=== PATIENT | female | born 1945 | race Caucasian/White ===

== ENCOUNTER → 2017-01-24 | Outpatient (CLI) | payer MEDICARE ==
--- NOTE | 2017-01-27 13:32 | PN ---
This patient is coming in for a followup regarding obstructive sleep apnea. The patient was seen in my office March 2016. At that time, I evaluated her sleep apnea and she was found to have an AHI of 29.8 based on a sleep study that was done in 2012. The patient was quite symptomatic and she had CPAP machine that was set at a pressure of 10 cm of water based on the previous sleep study and CPAP titration. I gave the patient a different mask interface. Back then, I recommended Airfit P10 nasal pillows and I asked her to see me in follow up. Unfortunately, the patient did not comply with our recommendations and the patient did not use her CPAP machine at all. Recently she was hospitalized for pneumonia and she was having issues with paroxysmal atrial fibrillation. The issue of sleep apnea surfaced again and the patient wanted to be reevaluated. Note that the patient was hospitalized for pneumonia and asthma exacerbation and she is currently under the care of Dr. Shruthi Azar and she is completing a Prednisone burst taper and she is receiving Q-Hina and Xolair shots on an outpatient basis regarding her asthma. In terms of her obstructive sleep apnea, the patient has lost around 10 pounds. She is asking to be reevaluated. I think it is reasonable to repeat this patient's CPAP titration to offer her more successful treatment knowing that her previous treatment while being on CPAP of 10 has somewhat failed for reasons that are not clear to me at this point. She has a Rezmet S9 ( ) machine which is quite functional at this point. BP is 128/71. Pulse 83, respiratory 16. Temperature 97.4, saturation 93% on room air. Weight is 255. Height is 5'2". General appearance: Calm, comfortable. HEENT: Mallampati Class IV. There is no goiter. No neck masses. LUNGS: Clear to auscultation. Heart sounds are regular rate and rhythm. Normal S1, S2. No S3, no S4. No murmurs. Abdomen soft, nontender. No organomegaly. Extremities: Trace edema. There is no cyanosis. No clubbing. No edema. IMPRESSION: 1. Symptomatic obstructive sleep apnea. The patient is coming in for an evaluation. She has failed CPAP therapy in the past. She is coming in for a reevaluation. Baseline AHI 29.8 based on the sleep study that was done in 2012. In the interim, the patient has lost around 10 pounds. 2. Chronic hypersomnia. Currently [place] score is 20. 3. Severe persistent bronchial asthma that has been difficult to control. Currently under the care of Dr. Nestor Azar. As the patient has been recently hospitalized for asthmatic exacerbation and pneumonia, she is currently on Prednisone burst taper. 4. Coronary artery disease. 5. Peripheral neuropathy. 6. Hypertension. 7. Fibromyalgia. 8. History of breast cancer. 9. Bipolar disorder. 10. History of claustrophobia. 11. Fibromyalgia. PLAN: 1. My plan is to repeat the patient's CPAP titration during which the patient' s CPAP pressure will be updated and we will hopefully offer her a different mask interface which she should be able to tolerate. 2. Encourage further weight loss. 3. Optimize asthma. 4. We will follow. MTDD
== END | disposition home or self-care (01) ==
LOC: SLEEP 13:44
PROVIDERS: ATTEND Internal Medicine Critical Care Medicine
DX: G47.30 Sleep apnea, unspecified (principal); G47.13 Recurrent hypersomnia; J44.9 Chronic obstructive pulmonary disease, unspecified; Z79.899 Other long term (current) drug therapy

== ENCOUNTER 2017-03-28 11:31 | Inpatient (IN) | payer MEDICARE ==
[2017-03-28] MEDS ORDERED: SODIUM CHLORIDE 0.9% 1,000 ML IV STA (11:46)
[2017-03-28] MEDS ORDERED: KETOROLAC 30 MG/ML 1 ML VIAL IVP STA (11:47)
--- NOTE | 2017-03-28 12:01 | ED ---
General Adult HPI - General Chief complaint: Shortness of Breath Stated complaint: HTN Time Seen by Provider: 03/28/17 11:31 Source: patient, EMS, RN notes reviewed Mode of arrival: EMS Limitations: no limitations - History of Present Illness Initial comments: This is a 71-year-old female who presents by EMS with complaints of 3 days of a headache. Some lightheadedness. She did have diarrhea 3 days ago when the headache started since that she's had nausea vomiting and no is her blood pressure going up steadily each day. She is also decreased oral intake. She denies any neck or overt back pain though she did have some shoulder pain went away. She does have a history of A. fib. Patient has a history of A. fib rate was in the 90s per paramedics. Blood pressure was noted be 190/110. She has of history meniscectomy. Her pain is frontal in nature throbbing achy 9/10 severity. She has a sore throat earaches neck pain. No focal deficits. - Related Data Home Medications Medication Instructions Recorded Confirmed Baclofen 10 mg PO HS 04/13/15 03/28/17 oxyCODONE HCL [OxyIR] 5 mg PO Q6H PRN 04/13/15 03/28/17 Carvedilol [Coreg] 25 mg PO BID 03/28/17 03/28/17 Denosumab [Prolia] 60 mg SQ Q180D 03/28/17 03/28/17 Fluticasone Propionate [Flovent 2 puff INHALATION RT-BID 03/28/17 03/28/17 Hfa 220MCG] Montelukast Sodium [Singulair] 10 mg PO HS 03/28/17 03/28/17 Omalizumab [Xolair] 150 mg SQ Q21D 03/28/17 03/28/17 Polyethylene Glycol 3350 [Miralax] 17 gm PO DAILY 03/28/17 03/28/17 Pravastatin Sodium [Pravachol] 20 mg PO HS 03/28/17 03/28/17 Ramipril [Altace] 5 mg PO BID 03/28/17 03/28/17 Rivaroxaban [Xarelto] 20 mg PO DAILY 03/28/17 03/28/17 Topiramate [Topamax] 200 mg PO DAILY 03/28/17 03/28/17 lamoTRIgine [LaMICtal] 200 mg PO DAILY 03/28/17 03/28/17 Allergies Allergy/AdvReac Type Severity Reaction Status Date / Time alendronate sodium Allergy Unknown Verified 03/28/17 12:02 [From Fosamax] amitriptyline HCl Allergy Unknown Verified 03/28/17 12:02 [From Elavil] codeine Allergy Unknown Verified 03/28/17 12:02 doxepin HCl [From Sinequan] Allergy Unknown Verified 03/28/17 12:02 gabapentin [From Neurontin] Allergy Unknown Verified 03/28/17 12:02 ibuprofen [From Motrin] Allergy Unknown Verified 03/28/17 12:02 iodine Allergy Unknown Verified 03/28/17 12:02 Penicillins Allergy Unknown Verified 03/28/17 12:02 simvastatin [From Zocor] Allergy Unknown Verified 03/28/17 12:02 sulindac [From Clinoril] Allergy Unknown Verified 03/28/17 12:02 vancomycin Allergy Unknown Verified 03/28/17 12:02 Review of Systems ROS Statement: Those systems with pertinent positive or pertinent negative responses have been documented in the HPI. ROS Other: All systems not noted in ROS Statement are negative. Past Medical History Past Medical History: Atrial Fibrillation, Heart Failure, Hypertension Additional Past Medical History / Comment(s): 1 kidney History of Any Multi-Drug Resistant Organisms: None Reported Past Surgical History: Appendectomy, Breast Surgery, Cholecystectomy, Hysterectomy, Tonsillectomy Additional Past Surgical History / Comment(s): pacemaker. bilateral masectomy Past Psychological History: Bipolar Smoking Status: Never smoker Past Alcohol Use History: None Reported General Exam - General Exam Comments Initial Comments: This is a well-developed well-nourished awake alert oriented 3 female Limitations: no limitations General appearance: alert, in no apparent distress Head exam: Present: atraumatic, normocephalic, normal inspection Eye exam: Present: normal appearance, PERRL, EOMI. Absent: scleral icterus, conjunctival injection, periorbital swelling ENT exam: Present: mucous membranes dry Neck exam: Present: normal inspection. Absent: tenderness, meningismus, lymphadenopathy Respiratory exam: Present: normal lung sounds bilaterally. Absent: respiratory distress, wheezes, rales, rhonchi, stridor Cardiovascular Exam: Present: regular rate, normal rhythm, normal heart sounds. Absent: systolic murmur, diastolic murmur, rubs, gallop, clicks GI/Abdominal exam: Present: soft, normal bowel sounds. Absent: distended, tenderness, guarding, rebound, rigid Extremities exam: Present: normal inspection, full ROM, normal capillary refill. Absent: tenderness, pedal edema, joint swelling, calf tenderness Back exam: Present: normal inspection Neurological exam: Present: alert, oriented X3, CN II-XII intact Psychiatric exam: Present: normal affect, normal mood Skin exam: Present: warm, dry, intact, normal color. Absent: rash Course Vital Signs 03/28/17 03/28/17 03/28/17 11:35 13:00 14:00 Temperature 98.7 F Pulse Rate 92 102 H 88 Respiratory 18 20 18 Rate Blood Pressure 210/137 203/101 184/89 O2 Sat by Pulse 96 96 95 Oximetry 03/28/17 15:00 Temperature Pulse Rate 80 Respiratory 20 Rate Blood Pressure 169/100 O2 Sat by Pulse 96 Oximetry EKG Findings - EKG Results: EKG: interpreted by ERMSofy (Atrial fibrillation rate of 94 QRS 86 QT cyst QTc 360/ 460 left exodeviation old inferior changes PVC is noted.) Medical Decision Making - Medical Decision Making I did discuss findings with patient and her headache has improved she will be admitted for evaluation and treatment of the apparent congestive heart failure. - Lab Data Result diagrams: 03/28/17 11:50 03/28/17 11:50 Lab Results 03/28/17 03/28/17 03/28/17 Range/Units 11:50 11:50 11:50 WBC (3.8-10.6) k/uL RBC (3.80-5.40) m/uL Hgb (11.4-16.0) gm/dL Hct (34.0-46.0) % MCV (80.0-100.0) fL MCH (25.0-35.0) pg MCHC (31.0-37.0) g/dL RDW (11.5-15.5) % Plt Count (150-450) k/uL Neutrophils % % Lymphocytes % % Monocytes % % Eosinophils % % Basophils % % Neutrophils # (1.3-7.7) k/uL Lymphocytes # (1.0-4.8) k/uL Monocytes # (0-1.0) k/uL Eosinophils # (0-0.7) k/uL Basophils # (0-0.2) k/uL PT 11.6 (9.0-12.0) sec INR 1.2 H (<1.2) APTT 27.0 (22.0-30.0) sec Sodium 143 (137-145) mmol/L Potassium 4.6 (3.5-5.1) mmol/L Chloride 110 H (98-107) mmol/L Carbon Dioxide 26 (22-30) mmol/L Anion Gap 7 mmol/L BUN 14 (7-17) mg/dL Creatinine 0.97 (0.52-1.04) mg/dL Est GFR (MDRD) Af Amer >60 (>60 ml/min/1.73 sqM) Est GFR (MDRD) Non-Af 57 (>60 ml/min/1.73 sqM) Glucose 93 (74-99) mg/dL Calcium 9.2 (8.4-10.2) mg/dL Magnesium 1.7 (1.6-2.3) mg/dL Total Bilirubin 0.7 (0.2-1.3) mg/dL AST 21 (14-36) U/L ALT 30 (9-52) U/L Alkaline Phosphatase 93 (38-126) U/L Total Creatine Kinase 41 (30-135) U/L CK-MB (CK-2) 0.9 (0.0-2.4) ng/mL CK-MB (CK-2) Rel Index 2.2 NT-Pro-B Natriuret Pep pg/mL Total Protein 6.4 (6.3-8.2) g/dL Albumin 3.8 (3.5-5.0) g/dL Amylase 32 (30-110) U/L Lipase 104 (23-300) U/L 03/28/17 03/28/17 Range/Units 11:50 11:50 WBC 3.8 (3.8-10.6) k/uL RBC 4.53 (3.80-5.40) m/uL Hgb 13.3 (11.4-16.0) gm/dL Hct 42.4 (34.0-46.0) % MCV 93.6 (80.0-100.0) fL MCH 29.3 (25.0-35.0) pg MCHC 31.3 (31.0-37.0) g/dL RDW 14.3 (11.5-15.5) % Plt Count 154 (150-450) k/uL Neutrophils % 75 % Lymphocytes % 15 % Monocytes % 4 % Eosinophils % 3 % Basophils % 0 % Neutrophils # 2.9 (1.3-7.7) k/uL Lymphocytes # 0.6 L (1.0-4.8) k/uL Monocytes # 0.2 (0-1.0) k/uL Eosinophils # 0.1 (0-0.7) k/uL Basophils # 0.0 (0-0.2) k/uL PT (9.0-12.0) sec INR (<1.2) APTT (22.0-30.0) sec Sodium (137-145) mmol/L Potassium (3.5-5.1) mmol/L Chloride (98-107) mmol/L Carbon Dioxide (22-30) mmol/L Anion Gap mmol/L BUN (7-17) mg/dL Creatinine (0.52-1.04) mg/dL Est GFR (MDRD) Af Amer (>60 ml/min/1.73 sqM) Est GFR (MDRD) Non-Af (>60 ml/min/1.73 sqM) Glucose (74-99) mg/dL Calcium (8.4-10.2) mg/dL Magnesium (1.6-2.3) mg/dL Total Bilirubin (0.2-1.3) mg/dL AST (14-36) U/L ALT (9-52) U/L Alkaline Phosphatase (38-126) U/L Total Creatine Kinase (30-135) U/L CK-MB (CK-2) (0.0-2.4) ng/mL CK-MB (CK-2) Rel Index NT-Pro-B Natriuret Pep 2630 pg/mL Total Protein (6.3-8.2) g/dL Albumin (3.5-5.0) g/dL Amylase (30-110) U/L Lipase (23-300) U/L - Radiology Data Radiology results: report reviewed (I did review the imaging and report EKG does show evidence of mild interstitial edema CT of the head is negative), image reviewed Disposition Clinical Impression: Congestive heart failure, Headache Disposition: ADMITTED IP TO THIS [facility] Condition: Stable Referrals: Drew Neff DO [Primary Care Provider] - 1-2 days Decision Time: 15:30
[2017-03-28] MEDS ORDERED: HYDROmorphone 1 MG/ML 1 ML SYRINGE IVP STA ×2 (12:02→17:58)
[2017-03-28 12:22] LABS: Basophils % (A) 0 %; CH 30.1; CHCM 32.4; Eosinophils # (A) 0.1 k/uL (0-0.7); Eosinophils % (A) 3 %; HCT 42.4 % (34.0-46.0); HDW 2.47; HGB 13.3 gm/dL (11.4-16.0); Luc # (Auto) 0.09; Luc % (Auto) 2; Lymphocytes # (A) 0.6 k/uL (1.0-4.8); Lymphocytes % (A) 15 %; MCH 29.3 pg (25.0-35.0); MCHC 31.3 g/dL (31.0-37.0); MCV 93.6 fL (80.0-100.0); Mean Platelet Volume 7.9; Monocytes # (A) 0.2 k/uL (0-1.0); Monocytes % (A) 4 %; Neutrophils # (A) 2.9 k/uL (1.3-7.7); Neutrophils % (A) 75 %; RBC 4.53 m/uL (3.80-5.40); RDW 14.3 % (11.5-15.5); WBC 3.8 k/uL (3.8-10.6); WBC (Perox) 3.86
[2017-03-28 12:24] LABS: INR 1.2 (<1.2); Prothrombin Time 11.6 sec (9.0-12.0)
[2017-03-28 12:26] LABS: ALT 30 U/L (9-52); AST 21 U/L (14-36); Alkaline Phosphatase 93 U/L (38-126); Amylase 32 U/L (30-110); Anion Gap 7 mmol/L; Blood Urea Nitrogen 14 mg/dL (7-17); Calcium 9.2 mg/dL (8.4-10.2); Carbon Dioxide 26 mmol/L (22-30); Chloride 110 mmol/L (98-107); Glucose 93 mg/dL (74-99); Magnesium 1.7 mg/dL (1.6-2.3); Non-African American GFR(MDRD) 57 (>60 ml/min/1.73 sqM); Potassium 4.6 mmol/L (3.5-5.1); Sodium 143 mmol/L (137-145); Total Bilirubin 0.7 mg/dL (0.2-1.3); Total Protein 6.4 g/dL (6.3-8.2)
[2017-03-28 12:49] LABS: Creatine Kinase MB 0.9 ng/mL (0.0-2.4)
--- NOTE | 2017-03-28 12:56 | CT ---
EXAMINATION TYPE: CT brain wo con DATE OF EXAM: 03/28/2017 COMPARISON: Previous study dated 01/11/2011 HISTORY: Patient complains of headache. CT DLP: 738.2 mGycm Automated exposure control for dose reduction was used. FINDINGS: Structures are midline. There is no evidence of hydrocephalus. There is some periventricular white ma tter lucency, compatible with chronic ischemic change. There is no mass effect, midline shift or intr acranial blood. The orbits are unremarkable. Visualized portions of the paranasal sinuses and mastoids are clear. IMPRESSION: 1. NO ACUTE INTRACRANIAL ABNORMALITY. 2. MILD, CHRONIC WHITE MATTER ISCHEMIC CHANGE.
[2017-03-28] MEDS ORDERED: CARVEDILOL 12.5 MG TAB PO STA (13:15)
--- NOTE | 2017-03-28 13:38 | XR ---
EXAMINATION TYPE: XR chest 2V DATE OF EXAM: 03/28/2017 COMPARISON: 08/19/1709 HISTORY: Nausea and vomiting with history of CHF TECHNIQUE: Frontal and lateral views of the chest are obtained. FINDINGS: There is new mild pulmonary vascular congestion and interstitial edema. Cardiac silhouette remains enlarged multinodular sided cardiac device appreciated. Copious soft tissues overlying the c ostophrenic angles although no discrete pleural effusions are seen on the lateral image. Mild degener ative changes of the thoracic spine are noted as well as increased anterior posterior diameter of the chest and pulmonary hyperinflation compatible with underlying pulmonary emphysema. Mild degenerative changes of the right glenohumeral joint and acromioclavicular joint are incidentally noted IMPRESSION: New mild interstitial pulmonary edema and pulmonary vascular congestion, likely on the b asis of decompensated congestive heart failure.
[2017-03-28] MEDS ORDERED: FUROSEMIDE 10 MG/ML 4 ML VIAL IV STA (16:54)
[2017-03-28] MEDS ORDERED: NITROGLYCERIN OINT 1 INCH/GM PACKET TOPICAL STA (16:54)
[2017-03-28] MEDS ORDERED: OMALIZUMAB 150 MG VIAL SQ SCH (17:00)
[2017-03-28] MEDS ORDERED: DENOSUMAB 60 MG/ML 1 ML SYRINGE SQ SCH (17:00)
[2017-03-28] MEDS: hydrALAZINE HCL 20 MG/ML 1 ML VIAL IVP STA ×2 (17:20→17:45)
[2017-03-28] MEDS: BACLOFEN 10 MG TAB PO SCH (20:50)
[2017-03-28] MEDS: MONTELUKAST 10 MG TAB PO SCH (20:50)
[2017-03-28] MEDS: PRAVASTATIN SODIUM 20 MG TAB PO SCH (20:50)
[2017-03-28] MEDS ORDERED: CARVEDILOL 12.5 MG TAB PO SCH (21:00)
[2017-03-28] MEDS: BUDESONIDE 1 MG/2 ML NEBU INHALATION SCH (21:05)
[2017-03-28] MEDS ORDERED: NITROGLYCERIN OINT 1 INCH/GM PACKET TOPICAL SCH (22:00)
[2017-03-28] MEDS: SODIUM CHLORIDE 0.9% 1,000 ML IV SCH (22:33)
[2017-03-28] MEDS ORDERED: RX INFO: IV CONTRAST WAS GIVEN 1 EACH MISC MISCELLANE PRN (23:06)
[2017-03-28] MEDS ORDERED: FAMOTIDINE 20 MG/2 ML VIAL IV STA (23:08)
[2017-03-28] MEDS ORDERED: methylPREDNISolone SOD SUCCI 125 MG/2 ML VIAL IV STA (23:08)
[2017-03-28] MEDS ORDERED: diphenhydrAMINE 50 MG/ML 1 ML VIAL IVP STA (23:08)
[2017-03-29] MEDS: FUROSEMIDE 10 MG/ML 4 ML VIAL IV SCH ×3 (01:10→17:19)
--- NOTE | 2017-03-29 01:24 | CT ---
EXAM: CT Angiography Chest With Intravenous Contrast CT Angiography Abdomen and Pelvis With Intravenous Contrast CLINICAL HISTORY: Reason: r/o disection TECHNIQUE: Axial computed tomographic angiography images of the chest, abdomen and pelvis with intravenous contrast using CT angiography protocol. CTDI is 166.6 mGy and DLP is 949 mGy-cm. This CT exam was performed using one or more of the following dose reduction techniques: automated exposure control, adjustment of the mA and/or kV according to patient size, and/or use of iterative reconstruction technique. MIP reconstructed images were created and reviewed. COMPARISON: None FINDINGS: VASCULATURE: There is diffuse atherosclerotic disease. Aorta: No evidence of aortic dissection. There is coarctation of the proximal descending thoracic aorta with post stenotic dilation of the aorta, measuring up to 3.7 cm in the AP diameter. (As measured on the sagittal sequences series 13 image 25). Pulmonary arteries: Normal in caliber. Celiac trunk and mesenteric arteries: No acute findings. No occlusion or significant stenosis. Renal arteries: No acute findings. No occlusion or significant stenosis. Iliac arteries: No acute findings. No occlusion or significant stenosis. CHEST: Lungs: The lungs demonstrate mosaic attenuation, which may suggest a component of air-trapping. Pleural space: Unremarkable. No significant effusion. No pneumothorax. Heart: Unremarkable. No cardiomegaly. No significant pericardial effusion. ABDOMEN: Liver: Unremarkable. No mass. Gallbladder and bile ducts: Unremarkable. No calcified stones. No ductal dilation. Pancreas: Unremarkable. No ductal dilation. No mass. Spleen: Unremarkable. No splenomegaly. Adrenals: Unremarkable. No mass. Kidneys and ureters: There is right renal atrophy, possibly congenital in etiology or related to prior renal infarct or infection. No hydronephrosis. No solid mass. Stomach and bowel: Unremarkable. No obstruction. No mucosal thickening. Appendix: No findings to suggest acute appendicitis. PELVIS: Bladder: Unremarkable. No mass. Reproductive: Prior hysterectomy. CHEST, ABDOMEN and PELVIS: Intraperitoneal space: Unremarkable. No significant fluid collection. No free air. Bones/joints: No acute fracture. No dislocation. Soft tissues: Small supraumbilical fat-containing hernia. Small fat- containing umbilical hernia. Lymph nodes: Unremarkable. No enlarged lymph nodes. Tubes, lines and devices: Left-sided cardiac device with lead tips in the right atrium and right ventricle. Other findings: Multiple surgical clips in the pelvic region. IMPRESSION: No evidence of aortic dissection. Coarctation of the aorta at the level of the arch, with poststenotic dilation of the descending thoracic aorta as detailed above. Attention on follow-up is recommended. Fat-containing supraumbilical hernia. Atrophic right kidney.
[2017-03-29] MEDS: HYDROmorphone 1 MG/ML 1 ML SYRINGE IVP PRN ×2 (01:40→14:29)
[2017-03-29] MEDS: BUDESONIDE 1 MG/2 ML NEBU INHALATION SCH ×2 (08:20→19:57)
[2017-03-29] MEDS: lamoTRIgine 100 MG TAB PO SCH (09:43)
[2017-03-29] MEDS: TOPIRAMATE 100 MG TAB PO SCH (09:43)
[2017-03-29] MEDS: LISINOPRIL 20 MG TAB PO SCH (09:43)
[2017-03-29] MEDS: RIVAROXABAN 10 MG TAB PO SCH (09:43)
[2017-03-29] MEDS: NADOLOL 20 MG TAB PO SCH ×2 (09:44→21:02)
--- NOTE | 2017-03-29 10:29 | P.CRDCN ---
History of Present Illness Consult date: 03/29/17 Requesting physician: Jani Roberto Consult reason: hypertension Chief complaint: Headache History of present illness: This is a 71-year-old female who follows with Dr. Cordero in the office. She has a known history of hypertension, diabetes, hyperlipidemia, family history of premature coronary artery disease, paroxysmal atrial fibrillation, prior pacemaker implantation, renal insufficiency stage III, bicuspid aortic valve, she presents to the hospital mainly with symptoms of headache. She denies any overt difficulty in breathing, she does state that she 's been having diarrhea stools at home. Overall feeling weak. EKG on arrival here showed atrial fibrillation with occasional PVC, controlled ventricular response. CAT scan of the brain did not reveal any acute intracranial abnormality. Chest x-ray shows mild interstitial pulmonary edema. CBC normal. Sodium 143, potassium 4.6, BUN 14, creatinine 0.9. Troponins negative 2. BNP 2630. Blood pressure on arrival to 10/137, heart rate in the 90s, 96% on 2 L of oxygen. Past Medical History Past Medical History: Atrial Fibrillation, Cancer, Heart Failure, Fibromyalgia, Hypertension, Osteoarthritis (OA), Sleep Apnea/CPAP/BIPAP Additional Past Medical History / Comment(s): BORN WITH ONLY LT KIDNEY, BIPOLAR, FIBROIDS IN PAST,BREAST CANCER,DAVID MASECTOMY 1985, BENIGN TREMORS, PSUEDO COARTATION OF AORTA, NARCOLEPSY. History of Any Multi-Drug Resistant Organisms: None Reported Past Surgical History: Appendectomy, Breast Surgery, Cholecystectomy, Heart Catheterization, Hysterectomy, Pacemaker, Tonsillectomy, Tubal Ligation Additional Past Surgical History / Comment(s): EP STUDY/ABLATION 2006,pacemaker , LASER EYE SX. bilateral masectomy Past Anesthesia/Blood Transfusion Reactions: No Reported Reaction Type of Cardiac Device: Permanent Pacemaker Device Placement Date:: 2003 Smoking Status: Never smoker - Past Family History Father Family Medical History: Cancer Additional Family Medical History / Comment(s): BONE CANCER Mother Family Medical History: Cancer Additional Family Medical History / Comment(s): BREAST CANCER W/METS. Daughter(s) Family Medical History: Cancer Medications and Allergies Home Medications Medication Instructions Recorded Confirmed Type Baclofen 10 mg PO HS 04/13/15 03/28/17 History oxyCODONE HCL [OxyIR] 5 mg PO Q6H PRN 04/13/15 03/28/17 History Denosumab [Prolia] 60 mg SQ Q180D 03/28/17 03/28/17 History Fluticasone Propionate [Flovent 2 puff INHALATION RT-BID 03/28/17 03/28/17 History Hfa 220MCG] Montelukast Sodium [Singulair] 10 mg PO HS 03/28/17 03/28/17 History Omalizumab [Xolair] 150 mg SQ Q21D 03/28/17 03/28/17 History Polyethylene Glycol 3350 [Miralax] 17 gm PO DAILY 03/28/17 03/28/17 History Pravastatin Sodium [Pravachol] 20 mg PO HS 03/28/17 03/28/17 History Rivaroxaban [Xarelto] 20 mg PO DAILY 03/28/17 03/28/17 History Topiramate [Topamax] 200 mg PO DAILY 03/28/17 03/28/17 History lamoTRIgine [LaMICtal] 200 mg PO DAILY 03/28/17 03/28/17 History NIFEdipine XL [Procardia XL] 120 mg PO DAILY tab 04/02/17 Rx Nadolol [Corgard] 40 mg PO BID tab 04/02/17 Rx Allergies Allergy/AdvReac Type Severity Reaction Status Date / Time alendronate sodium Allergy Unknown Verified 03/28/17 12:02 [From Fosamax] amitriptyline HCl Allergy Unknown Verified 03/28/17 12:02 [From Elavil] codeine Allergy Unknown Verified 03/28/17 12:02 doxepin HCl [From Sinequan] Allergy Unknown Verified 03/28/17 12:02 gabapentin [From Neurontin] Allergy Unknown Verified 03/28/17 12:02 ibuprofen [From Motrin] Allergy Unknown Verified 03/28/17 12:02 iodine Allergy Unknown Verified 03/28/17 12:02 Penicillins Allergy Unknown Verified 03/28/17 12:02 simvastatin [From Zocor] Allergy Unknown Verified 03/28/17 12:02 sulindac [From Clinoril] Allergy Unknown Verified 03/28/17 12:02 vancomycin Allergy Unknown Verified 03/28/17 12:02 Physical Exam Vitals: Vital Signs Temp Pulse Pulse Resp BP BP Pulse Ox 03/29/17 08:31 108 H 03/29/17 08:20 104 H 03/29/17 04:00 97.3 F L 104 H 18 156/90 93 L 03/29/17 00:00 97.9 F 86 20 164/85 98 03/28/17 21:16 88 03/28/17 21:05 84 03/28/17 20:00 97 F L 99 19 115/67 92 L 03/28/17 19:15 94 18 127/76 94 L 03/28/17 17:57 94 18 170/94 98 03/28/17 17:34 98.3 F 200/107 03/28/17 15:00 80 20 169/100 96 03/28/17 14:00 88 18 184/89 95 03/28/17 13:00 102 H 20 203/101 96 03/28/17 11:35 98.7 F 92 18 210/137 96 Intake and Output 03/28/17 03/29/17 03/29/17 22:59 06:59 14:59 Intake Total 0 Output Total 900 1050 Balance -900 -1050 Intake: Oral 0 Output: Urine 900 1050 Other: Weight 111.9 kg PHYSICAL EXAMINATION: HEENT: Head is atraumatic, normocephalic. Pupils equal, round. Neck is supple. There is no elevated jugular venous pressure. HEART EXAMINATION: Heart S1 and S2 irregularly irregular systolic murmur heard CHEST EXAMINATION: Lungs are clear to auscultation and precussion. No chest wall tenderness is noted on palpation or with deep breathing. ABDOMEN: Soft, nontender. Bowel sounds are heard. No organomegaly noted. EXTREMITIES: 2+ peripheral pulses with evidence of peripheral edema and no calf tenderness noted. NEUROLOGIC patient is awake, alert and oriented -3. . Results 03/31/17 05:21 04/02/17 05:47 Cardiac Enzymes 03/28/17 03/28/17 03/29/17 Range/Units 11:50 11:50 02:34 AST 21 (14-36) U/L CK-MB (CK-2) 0.9 (0.0-2.4) ng/mL Troponin I <0.012 (0.000-0.034) ng/mL 03/29/17 Range/Units 07:40 AST (14-36) U/L CK-MB (CK-2) (0.0-2.4) ng/mL Troponin I <0.012 (0.000-0.034) ng/mL Coagulation 03/28/17 Range/Units 11:50 PT 11.6 (9.0-12.0) sec APTT 27.0 (22.0-30.0) sec CBC 03/28/17 Range/Units 11:50 WBC 3.8 (3.8-10.6) k/uL RBC 4.53 (3.80-5.40) m/uL Hgb 13.3 (11.4-16.0) gm/dL Hct 42.4 (34.0-46.0) % Plt Count 154 (150-450) k/uL Comprehensive Metabolic Panel 03/28/17 Range/Units 11:50 Sodium 143 (137-145) mmol/L Potassium 4.6 (3.5-5.1) mmol/L Chloride 110 H (98-107) mmol/L Carbon Dioxide 26 (22-30) mmol/L BUN 14 (7-17) mg/dL Creatinine 0.97 (0.52-1.04) mg/dL Glucose 93 (74-99) mg/dL Calcium 9.2 (8.4-10.2) mg/dL AST 21 (14-36) U/L ALT 30 (9-52) U/L Alkaline Phosphatase 93 (38-126) U/L Total Protein 6.4 (6.3-8.2) g/dL Albumin 3.8 (3.5-5.0) g/dL Current Medications Generic Name Dose Route Start Last Admin Trade Name Freq PRN Reason Stop Dose Admin Baclofen 10 mg 03/28/17 21:00 03/28/17 20:50 Lioresal PO 10 mg HS BELLO Administration Budesonide 1 mg 03/28/17 20:00 03/29/17 08:20 Pulmicort INHALATION 1 mg RT-BID BELLO Administration Furosemide 40 mg 03/29/17 01:00 03/29/17 09:45 Lasix IV 40 mg Q8H BELLO Administration Hydromorphone HCl 1 mg 03/28/17 17:59 03/29/17 01:40 Dilaudid IVP 1 mg Q3HR PRN Administration Pain Sodium Chloride 1,000 mls @ 20 mls/hr 03/28/17 17:00 03/28/17 22:33 Saline 0.9% IV 20 mls/hr .Q24H BELLO Administration Lamotrigine 200 mg 03/29/17 09:00 03/29/17 09:43 Lamictal PO 200 mg DAILY BELLO Administration Lisinopril 40 mg 03/29/17 09:00 03/29/17 09:43 Zestril PO 40 mg DAILY BELLO Administration Miscellaneous Information 1 each 03/28/17 23:06 Rx Info: Iv Contrast Was Given MISCELLANE 03/30/17 23:07 DAILY PRN Per Protocol Montelukast Sodium 10 mg 03/28/17 21:00 03/28/17 20:50 Singulair PO 10 mg HS BELLO Administration Nadolol 40 mg 03/29/17 09:00 03/29/17 09:44 Corgard PO 40 mg BID BELLO Administration Nifedipine 120 mg 03/29/17 09:00 03/29/17 09:43 Procardia Xl PO 120 mg DAILY BELLO Administration Oxycodone HCl 5 mg 03/28/17 16:57 Oxyir PO Q6H PRN Pain Polyethylene Glycol 17 gm 03/29/17 09:00 Miralax PO DAILY BELLO Pravastatin Sodium 20 mg 03/28/17 21:00 03/28/17 20:50 Pravachol PO 20 mg HS BELLO Administration Rivaroxaban 20 mg 03/29/17 09:00 03/29/17 09:43 Xarelto PO 20 mg DAILY BELLO Administration Topiramate 200 mg 03/29/17 09:00 03/29/17 09:43 Topamax PO 200 mg DAILY BELLO Administration Intake and Output 03/28/17 03/29/17 03/29/17 22:59 06:59 14:59 Intake Total 0 Output Total 900 1050 Balance -900 -1050 Intake: Oral 0 Output: Urine 900 1050 Other: Weight 111.9 kg 03/28/17 11:50 03/28/17 11:50 EKG Interpretations (text) EKG shows atrial fibrillation with a controlled ventricular response Assessment and Plan Plan: Assessment and plan #1 symptoms of headache, accelerated hypertension on admission. Blood pressure 210/137. #2 history of hypertension #3 hyperlipidemia #4 diabetes #5 family history of CAD #6 bicuspid aortic valve #7 pacemaker Plan We will obtain an echocardiogram with Doppler study. Discontinue Coreg and start the patient on nadolol, add Procardia XL 120 daily. Further recommendations to follow. DNP note has been reviewed, I agree with a documented findings and plan of care. Patient was seen and examined.
--- NOTE | 2017-03-29 11:12 | ECHOF ---
Referral Reason:chf MEASUREMENTS -------- HEIGHT: 160.0 cm WEIGHT: 111.6 kg BP: 156/90 IVSd: 1.2 cm (0.6 - 1.1) LVIDd: 4.6 cm (3.9 - 5.3) LVPWd: 1.2 cm (0.6 - 1.1) IVSs: 1.7 cm LVIDs: 2.7 cm LVPWs: 1.3 cm LAESV Index (A-L): 36.93 ml/m Ao Diam: 3.4 cm (2.0 - 3.7) AV Cusp: 1.9 cm (1.5 - 2.6) LA Diam: 5.1 cm (2.7 - 3.8) MV EXCURSION: 14.447 mm (> 18.000) MV EF SLOPE: 107 mm/s (70 - 150) EPSS: 1.1 cm AV maxP.22 mmHg AV meanP.99 mmHg RAP: 5.00 mmHg RVSP: 39.29 mmHg FINDINGS -------- Atrial fibrillation. This was a technically good study. There is mild concentric left ventricular hypertrophy. Overall left ventricular systolic function is normal with, an EF between 55 - 60 %. The right ventricle is normal in size and function. LA is moderately dilated 34-39 ml/m2 The right atrium is normal in size. Aortic valve is trileaflet and is mildly thickened. Mild mitral regurgitation is present. Mild tricuspid regurgitation present. The right ventricular systolic pressure, as measured by Doppler, is 39.29mmHg. Pulmonic valve appears structurally normal. Coarctation of the aorta located proximal to the left subclavian artery. The pericardium is normal. CONCLUSIONS -------- 1. Atrial fibrillation. 2. Mild tricuspid regurgitation present. 3. The right ventricular systolic pressure, as measured by Doppler, is 39.29mmHg. 4. Pulmonic valve appears structurally normal. 5. Coarctation of the aorta located proximal to the left subclavian artery. 6. The pericardium is normal. 7. This was a technically good study. 8. There is mild concentric left ventricular hypertrophy. 9. Overall left ventricular systolic function is normal with, an EF between 55 - 60 %. 10. The right ventricle is normal in size and function. 11. LA is moderately dilated 34-39 ml/m2 12. The right atrium is normal in size. 13. Aortic valve is trileaflet and is mildly thickened. 14. Mild mitral regurgitation is present. CT SCAN SPECIAL PROCEDURES TECHNOLOGIST: Ethel Benavides RDCS
[2017-03-29] MEDS: POLYETHYLENE GLYCOL 3350 17 GM POWD.PACK PO SCH (11:51)
--- NOTE | 2017-03-29 12:14 | US ---
EXAMINATION TYPE: US renal artery duplex complet DATE OF EXAM: 03/29/2017 COMPARISON: NONE CLINICAL HISTORY: htn w/u , renal artery stenosis. MEASUREMENTS: RENAL SIZE: Rt Kidney: 6.6 x 1.8 x 1.8cm Lt Kidney: 13.1 x 5.8 x 4.2cm RESISTANCE INDEX Right: unable to evaluate Left: 0.65 RA/AO RATIO (< 3.5 ) Right: unable to evaluate Left: 1.5 RA VELOCITY ( < 180 cm/s) Right: unable to evaluate Left: 136.5 cm/s Possible cystic area lower pole right kidney. Difficult to evaluate right kidney. Atrophic right kidn ey, unable to evaluate renal vessels. Left kidney appears unremarkable. No evidence of left renal art lola stenosis. Low resistive waveforms noted throughout. Good upstroke at segmentals at hilum Atherosclerotic changes of the aorta. Technical limitations due to patient's body habitus and large amount of overlying bowel IMPRESSION: 1. Right kidney markedly atrophic with a questionable cystic area. However no cystic area was seen on recent CT scan. Nondiagnostic assessment of the renal artery due to technical factors and nonvisuali zation of the arterial system. 2. No evidence of renal artery stenosis on the left.
--- NOTE | 2017-03-29 13:38 | HP ---
DATE OF ADMISSION: 03/28/17 PRESENTING COMPLAINT: Chest pain. HISTORY OF PRESENTING COMPLAINT: This is a very pleasant 71-year-old patient of Dr. Neff. Chronic stable medical conditions include atrial fibrillation, fibromyalgia, hypertension, osteoarthritis, obstructive sleep apnea, unilateral kidney, bipolar, narcolepsy. The patient had some chest pressure for three days , off and on, quite a bit. Short of breath. No perspiration. No radiation. Admitted for the same. Currently having a frontal headache. No photophobia. No fevers. Tired, rundown. REVIEW OF SYSTEMS: Constitutional: Tired. HEENT: Headache. Respiratory: Shortness of breath. Cardiovascular: Chest pain. Gastrointestinal: None. : None. Musculoskeletal: None. Dermatological: None. Hematological: None. Lymphatics: None. PSYCHIATRY: Bipolar, controlled. Neurological: Some tremors baseline. Past medical history of atrial fibrillation on Xarelto, congestive heart failure , fibromyalgia, hypertension, osteoarthritis, obstructive sleep apnea, congenital unilateral kidney bipolar, breast cancer with bilateral mastectomy, tremors, narcolepsy. Past surgical history: Appendectomy, breast surgery, bilateral mastectomy, cholecystectomy, cardiac catheterization, hysterectomy, pacemaker, tubal ligation, EP study with ablation, laser eye surgery, bilateral mastectomy, permanent pacemaker in 2003. SOCIAL HISTORY: , does not smoke or drink alcohol. Family history of bone cancer. Home medications: 1. Xolair 150 mg subcu q21 days. 2. Topamax 200 mg po daily. 3. Xarelto 20 mg po daily. 4. Altace 5 mg po b.i.d. 5. Pravachol 20 mg q.h.s. 6. Prolia 60 mg subcu 180 days. 7. Oxycodone 5 mg q6h prn. 8. Singulair 10 mg q.h.s. 9. Lamictal 200 mg po daily. 10. Miralax 17 gm po daily. 11. Coreg 25 mg po b.i.d. 12. Baclofen 10 mg po q.h.s. 13. Flovent HFA two puffs b.i.d. ALLERGIES: FOSAMAX, ELAVIL, CODEINE, SINEQUAN, NEURONTIN, MOTRIN, IODINE, PENICILLIN, ZOCOR, ( ) VANCOMYCIN. On examination, vital signs on presentation: Temperature 98.7. Pulse 92. Respiratory rate 18. Blood pressure 210/137. Pulse ox 96% on 2 L. GENERAL APPEARANCE: Obese. BMI 44.3. Lying in bed, tired appearing. EYES: Pupils equal. Conjunctivae normal. HEENT: Oral cavity normal. NECK: JVD not raised. Mass not palpable. RESPIRATORY: Effort increased. LUNGS: Diminished breath sounds. CARDIOVASCULAR: First and second sounds normal. Minimal edema. ABDOMEN: Soft, nontender. Liver and spleen not palpable. LYMPHATICS: No lymph nodes palpable in the neck and axillae. PSYCHIATRIC: The patient is alert and oriented times three. Mood and affect anxious appearing. NEUROLOGICAL: Pupils equal and cranial nerves grossly intact. Power and sensation grossly intact. INVESTIGATIONS: White count 3.9, hemoglobin 13.3, Potassium 4.6. BUN and creatinine normal. Pro-BNP 2630. Chest x-ray reviewed shows venous prominence and fluid in the fissures. ASSESSMENT: 1. Acute on chronic congestive heart failure, EF not known from underlying hypertensive heart disease. 2. Essential hypertension, urgent. 3. Primary osteoarthritis of bilateral. 4. Persistent atrial fibrillation, chronically on Xarelto. 5. Congenital unilateral kidney. 6. Bipolar disorder. 7. Chronic narcolepsy. PLAN: Home medications are resumed. I will take off the Nitro paste, that may be giving the patient headaches. 2D echo has been ordered. Cardiology consulted. Xarelto will be continued. Care was discussed with the patient. Copy to Dr. Neff. WILLIAM
[2017-03-29 13:59] VITALS: BMI 43.7
--- NOTE | 2017-03-29 15:38 | P.PN ---
<Lima Gonzalez - Last Filed: 03/29/17 15:16> Progress Note - Text DATE OF SERVICE: 03/29/2017 PRESENTING COMPLAINT: Chest pain HISTORY OF PRESENT ILLNESS: 71-year-old female who presented with chest pressure for 3 days off and on with shortness of breath. Was found to have an acute exacerbation of chronic congestive heart failure. INTERVAL HISTORY: 03/29/2017: Lying in bed, appears comfortable. Breathing easily , blood pressure improved, cardiology has changed medications. Echocardiogram completed EF of 50-55%, renal artery ultrasound, echocardiogram completed this morning see results below. Patient tolerating her diet, up with assistance. Moving her bowels. REVIEW OF SYSTEMS: Done for constitutional ,cardiovascular, GI, pulmonary with relevant findings as above. CURRENT MEDICATIONS Pulmicort, Lasix, Lamictal, Zestril, Corgard, Procardia, Pravachol, Xarelto, Topamax. PHYSICAL EXAM VITAL SIGNS: Temperature 97.8, pulse 104, respirations 18, blood pressure 134/80, oxygen saturation 94% on 2 L. GENERAL APPEARANCE: Lying in bed, not in distress. EYES: Pupils equal. Conjunctiva normal. NECK: JVD not raised. Mass not palpable. RESPIRATORY: Respiratory effort normal. Lungs diminished with scattered crackles to auscultation. CARDIOVASCULAR: Irregular rhythm. No edema. ABDOMEN: Soft. Liver and spleen not palpable. No tenderness. No mass palpable. PSYCHIATRY: Alert and oriented x3. Mood and affect normal. INVESTIGATIONS: None new CT angiogram chest, abdomen pelvis with IV contrast: No evidence of aortic dissection, coarctation of the aorta at the level of the arch. Echocardiogram: Atrial fibrillation, EF between 55 and 60%. Renal artery ultrasound, right kidney markedly atrophic questionable cystic area. No evidence of renal artery stenosis on the left. ASSESSMENT: -Acute on chronic congestive heart failure EF 55-60% from underlying hypertensive heart disease. -Essential hypertension, urgent. -Primary osteoarthritis of bilateral joints. -Persistent atrial fibrillation, chronically on Xarelto. -Congenital unilateral kidney, -Bipolar disorder. -Chronic narcolepsy. PLAN: Cardiac medications adjusted Coreg discontinued with nadolol and Procardia added , with better control noted. Anticoagulation needs will be met with Xarelto. Continue bipolar medications. SENIOR ADMINISTRATIVE ASSISTANT statement: Patient was seen and examined by nurse practitioner Lima Gonzalez and all elements of the case discussed with attending Dr. Roberto <Jani Roberto - Last Filed: 03/29/17 18:40> Progress Note - Text Attending note. Date of service-03/29/2017 This patient was seen and examined by me . Discussed the patient with my nurse practitioner Ms. Gonzalez. Breathing better. Admitted for CHF. CT chest negative for dissection On examination: Lungs are clear, cardiovascular first seconds are normal. laying in bed comfortable. Blood pressure 156.90 Investigations: Troponin 3 negative, CT chest negative for dissection, coarctation of the aorta Assessment and plan: Spoke to Dr. Cordero. Patient well known to him. Blood pressure was uncontrolled. Medications be adjusted. Renal artery stenosis ruled out. CHF improving clinically-on IV Lasix. We'll check B N P in the morning.
[2017-03-29] MEDS: BACLOFEN 10 MG TAB PO SCH (21:00)
[2017-03-29] MEDS: PRAVASTATIN SODIUM 20 MG TAB PO SCH (21:02)
[2017-03-29] MEDS: MONTELUKAST 10 MG TAB PO SCH (21:02)
[2017-03-29] MEDS: SODIUM CHLORIDE 0.9% 1,000 ML IV SCH (21:03)
[2017-03-30] MEDS: FUROSEMIDE 10 MG/ML 4 ML VIAL IV SCH (02:07)
[2017-03-30 06:58] LABS: Basophils % (A) 0 %; CH 30.1; CHCM 33.4; Eosinophils % (A) 0 %; HCT 44.6 % (34.0-46.0); HGB 14.4 gm/dL (11.4-16.0); Luc # (Auto) 0.09; Luc % (Auto) 1; Lymphocytes # (A) 0.8 k/uL (1.0-4.8); Lymphocytes % (A) 12 %; MCH 29.2 pg (25.0-35.0); MCHC 32.3 g/dL (31.0-37.0); MCV 90.4 fL (80.0-100.0); Monocytes # (A) 0.4 k/uL (0-1.0); Monocytes % (A) 5 %; Neutrophils # (A) 5.8 k/uL (1.3-7.7); Neutrophils % (A) 81 %; RBC 4.94 m/uL (3.80-5.40); RDW 14.2 % (11.5-15.5); WBC 7.1 k/uL (3.8-10.6); WBC (Perox) 7.18
[2017-03-30 07:10] LABS: Calcium 9.5 mg/dL (8.4-10.2); Potassium 3.4 mmol/L (3.5-5.1)
[2017-03-30] MEDS: BUDESONIDE 1 MG/2 ML NEBU INHALATION SCH ×2 (07:55→19:49)
[2017-03-30] MEDS: LISINOPRIL 20 MG TAB PO SCH (08:38)
[2017-03-30] MEDS: lamoTRIgine 100 MG TAB PO SCH (08:39)
[2017-03-30] MEDS: NADOLOL 20 MG TAB PO SCH ×2 (08:39→21:35)
[2017-03-30] MEDS: POLYETHYLENE GLYCOL 3350 17 GM POWD.PACK PO SCH (08:39)
[2017-03-30] MEDS: TOPIRAMATE 100 MG TAB PO SCH (08:39)
[2017-03-30] MEDS: RIVAROXABAN 10 MG TAB PO SCH (08:39)
[2017-03-30] MEDS ORDERED: FUROSEMIDE 10 MG/ML 4 ML VIAL IV SCH (09:00)
[2017-03-30] MEDS ORDERED: Potassium Replacement Protocol 1 EACH MISC MISCELLANE PRN (09:32)
[2017-03-30] MEDS ORDERED: POTASSIUM CHLORIDE ER 20 MEQ TAB.ER PO SCH (10:00)
--- NOTE | 2017-03-30 11:20 | P.PN ---
Subjective Patient is doing much better. Her blood pressure is under excellent control on Procardia XL 90 mg a day along with nadolol 40 mg twice daily, along with rose inhibitors. Her heart rates are in the 60s and 70s. 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 She denies any chest discomfort she is sitting over the edge of the bed have encouraged her to walk, get out of bed. She is on Xarelto 20 mg by mouth daily On examination breath sounds are clear no rhonchi no crackles, heart sounds S1 and S2 are normal soft systolic murmur Abdomen soft nontender Extremities warm no edema She looks very comfortable and rested today Impression Uncontrolled hypertension with diastolic heart failure and elevated BNP normal LV function Quantitation of the aorta, gradient of less than 10 mmHg known from before and no change in gradient mild poststenotic dilation of from 3 cm Persistent atrial fibrillation, anticoagulated for elevated ROLANDO VASC score Atrophic right kidney No evidence for left renal artery stenosis Atherosclerosis of the aorta Cortisol is 8 No evidence for acute myocardial infarction Stage 3- 4 chronic kidney disease Plan Stop IV Lasix mild worsening of renal function noted, increasing BUN increase in creatinine. Lasix discontinued If her blood pressure remains controlled she will not need diuretics hopefully Salt diet Continue Procardia XL 120 mg a day, nadolol 40 mg twice daily and lisinopril Objective - Vital Signs Vital signs: Vital Signs Temp 96.1 F L 03/30/17 08:00 Pulse 92 03/30/17 08:03 Resp 18 03/30/17 08:00 BP 119/76 03/30/17 08:00 Pulse Ox 96 03/30/17 08:00 Intake & Output 03/29/17 03/30/17 03/30/17 18:59 06:59 18:59 Intake Total 537 240 337 Output Total 350 Balance 537 -110 337 Weight 111.9 kg 110.9 kg Intake: Intake, IV Titration 120 40 Amount Sodium Chloride 0.9% 1, 120 40 000 ml @ 20 mls/hr IV . Q24H BELLO Rx#:[id number] Oral 417 200 337 Output: Urine 350 Other: # Voids 2 # Bowel Movements 0 0 - Labs CBC & Chem 7: 03/30/17 06:25 03/30/17 06:25 Labs: Abnormal Lab Results - Last 24 Hours (Table) 03/30/17 03/30/17 Range/Units 06:25 06:25 Lymphocytes # 0.8 L (1.0-4.8) k/uL Potassium 3.4 L (3.5-5.1) mmol/L Carbon Dioxide 31 H (22-30) mmol/L BUN 30 H (7-17) mg/dL Creatinine 1.48 H (0.52-1.04) mg/dL Glucose 102 H (74-99) mg/dL
--- NOTE | 2017-03-30 12:00 | CDI ---
In responding to this query, please exercise your independent professional judgment. The [facility] Coding Staff and Clinical Documentation Specialists appreciate your assistance in clarifying documentation, maintaining compliance with coding guidelines, accurately documenting patients condition and capturing severity of illness. The fact that a question is asked does not imply that any particular answer is desired or expected. Communication forms are a method of clarifying documentation and are not made part of the Legal Health Record. Thank you in advance for your clarification. Last Revision, September 2016 Amberly [place] [address] [place] [id number] Documentation Clarification Form Date: 03/30/2017 11:37:00 AM From: Meli Hawkins RN, CDS Admit Date: 03/28/2017 4:55:00 PM Patient Name: Katarzyna Ramos Visit Number: [id number] Dr. Jani Roberto, 71 year old patient admitted for Acute on chronic congestive heart failure. "acute on chronic congestive heart failure, EF not known from underlying hypertensive heart disease" per H&P, "Acute on chronic congestive heart failure EF 55-60% from underlying hypertensive heart disease per progress note 03/29 History/Risk Factors: Heart Failure, Persistent A-fib, 1 kidney Clinical Indicators: BNP 2630 on admission then 1460 on 03/30 VS: 98.7 92 18 210 /137 96, CXR: "new mild interstitial pulmonary edema and pulmonary vascular congestion likely on basis of decompensated congestive heart failure" ECHO: 55-60%, mild LVH, LV function normal mild mitral regurgitation, mild tricuspid regurgitation Treatment: IV Lasix 40 BID, Cardiology consult, Echo, Nadolol, Procardia In your professional opinion, can you please clarify the acuity and type of CHF if known? Systolic Heart Failure: Acute Chronic Acute on Chronic Diastolic Heart Failure: Acute Chronic Acute on Chronic Systolic & Diastolic Heart Failure: Acute Chronic Acute on Chronic Unable to determine Other, please specify Please document in your progress notes and discharge summary in order to capture severity of illness and risk of mortality. Include clinical findings that support your diagnosis. FYI: Press F11 to launch patient chart. Thank you. WILLIAM
--- NOTE | 2017-03-30 15:07 | P.PN ---
<Jani Roberto - Last Filed: 03/30/17 17:22> Progress Note - Text Attending note. Date of service-03/30/2017 This patient was seen and examined by me . Discussed the patient with my nurse practitioner Ms. Prasadcharlotteguido. Breathing is much better. Sitting up. Headache is much improved. No chest pain. Eating much better. On examination: Lungs-clear, cardiovascular -irregular Investigations: BUN 30, creatinine 1.48 Assessment and Plan: -Acute renal failure prerenal from diuresis Acute and chronic congestive heart failure from preserved LV function secondary to atrial fibrillation of out of it poststenotic dilatation. Stop Lasix. Recheck labs in the morning. Clinically patient doing better.. Replace potassium <LisaLima Tarik - Last Filed: 03/30/17 19:05> Progress Note - Text DATE OF SERVICE: 03/30/2017 PRESENTING COMPLAINT: Chest pain HISTORY OF PRESENT ILLNESS: 71-year-old female who presented with chest pressure for 3 days off and on with shortness of breath. Was found to have an acute exacerbation of chronic congestive heart failure. INTERVAL HISTORY: 03/30/2017: Sitting up in bed, eating her lunch, breathing easily. Blood pressure improved medications adjusted by cardiology. Ambulatory with assistance, tolerating her diet eating 75+ percent and last BM prior to admission. 03/29/2017: Lying in bed, appears comfortable. Breathing easily , blood pressure improved, cardiology has changed medications. Echocardiogram completed EF of 50-55%, renal artery ultrasound, echocardiogram completed this morning see results below. Patient tolerating her diet, up with assistance. Moving her bowels. REVIEW OF SYSTEMS: Done for constitutional ,cardiovascular, GI, pulmonary with relevant findings as above. CURRENT MEDICATIONS Pulmicort, Lasix, Lamictal, Zestril, Corgard, Procardia, Pravachol, Xarelto, Topamax. PHYSICAL EXAM VITAL SIGNS: Temperature 96.1, pulse 77, respiratory rate 18, blood pressure 119/76, oxygen saturation 96% on room air. GENERAL APPEARANCE: Sitting up in bed, not in distress. EYES: Pupils equal. Conjunctiva normal. NECK: JVD not raised. Mass not palpable. RESPIRATORY: Respiratory effort normal. Lungs diminished with scattered crackles to auscultation. CARDIOVASCULAR: Irregular rhythm. No edema. ABDOMEN: Soft. Liver and spleen not palpable. No tenderness. No mass palpable. PSYCHIATRY: Alert and oriented x3. Mood and affect normal. INVESTIGATIONS: CBC unremarkable, potassium 3.4, BUN 30, creatinine 1.48 ASSESSMENT: -Acute on chronic congestive heart failure, preserved LV function secondary to atrial fibrillation EF 55-60%. - Coarctation of the aorta at the level of the arch with poststenotic dilatation of the descending thoracic aortic -Acute renal failure likely prerenal due to diuresis with Lasix. -Hypokalemia secondary to diuretic use -Essential hypertension, urgent, improving -Primary osteoarthritis of bilateral joints. -Persistent atrial fibrillation, chronically on Xarelto. -Congenital unilateral kidney, -Bipolar disorder. -Chronic narcolepsy. PLAN:Continue with current medication and treatment plan. Patient sustained an increase in her BUN and creatinine likely due to loop diuretic use, breathing is improved so Lasix is stopped today. We'll monitor renal function tomorrow morning. Continue all other medication and treatment plan. Likely due to discharge in the next 24 hours. Plan of care discussed with the patient the bedside she is agreeable. COMMUNITY BOARD MEMBER statement: Patient was seen and examined by nurse practitioner Lima Gonzalez and all elements of the case discussed with attending Dr. Roberto
[2017-03-30] MEDS: BISACODYL 10 MG SUPP RECTAL SCH (19:05)
[2017-03-30] MEDS: BACLOFEN 10 MG TAB PO SCH (21:35)
[2017-03-30] MEDS: PRAVASTATIN SODIUM 20 MG TAB PO SCH (21:35)
[2017-03-30] MEDS: MONTELUKAST 10 MG TAB PO SCH (21:35)
[2017-03-31 05:41] LABS: Basophils % (A) 1 %; CHCM 32.8; Eosinophils # (A) 0.1 k/uL (0-0.7); Eosinophils % (A) 2 %; HCT 45.3 % (34.0-46.0); HDW 2.44; HGB 14.4 gm/dL (11.4-16.0); Luc # (Auto) 0.15; Luc % (Auto) 3; Lymphocytes # (A) 1.2 k/uL (1.0-4.8); Lymphocytes % (A) 24 %; MCH 29.2 pg (25.0-35.0); MCHC 31.8 g/dL (31.0-37.0); Mean Platelet Volume 8.1; Monocytes # (A) 0.4 k/uL (0-1.0); Monocytes % (A) 8 %; Neutrophils # (A) 3.1 k/uL (1.3-7.7); Neutrophils % (A) 62 %; RBC 4.93 m/uL (3.80-5.40); RDW 14.4 % (11.5-15.5); WBC 4.9 k/uL (3.8-10.6); WBC (Perox) 5.02
[2017-03-31 05:56] LABS: Calcium 9.5 mg/dL (8.4-10.2); Potassium 4.6 mmol/L (3.5-5.1)
[2017-03-31] MEDS: BUDESONIDE 1 MG/2 ML NEBU INHALATION SCH ×2 (08:20→19:05)
[2017-03-31] MEDS: TOPIRAMATE 100 MG TAB PO SCH (08:32)
[2017-03-31] MEDS: lamoTRIgine 100 MG TAB PO SCH (08:32)
[2017-03-31] MEDS: NADOLOL 20 MG TAB PO SCH ×2 (08:32→19:48)
[2017-03-31] MEDS: RIVAROXABAN 15 MG TAB PO SCH (08:33)
[2017-03-31] MEDS: POLYETHYLENE GLYCOL 3350 17 GM POWD.PACK PO SCH (08:33)
[2017-03-31] MEDS: BISACODYL 10 MG SUPP RECTAL SCH (08:34)
[2017-03-31] MEDS: LISINOPRIL 20 MG TAB PO SCH (11:36)
--- NOTE | 2017-03-31 11:58 | P.PN ---
Subjective Principal diagnosis: Hypertension This is a 71-year-old female who follows with Dr. Muniz in the office. She has a known history of hypertension, diabetes, hyperlipidemia, family history of premature coronary artery disease, paroxysmal A. fib, prior pacemaker implantation, stage III renal failure, bicuspid aortic valve. She presented to the hospital with symptoms of headache. She was found to have accelerated hypertension and medication adjustments have been made in the form of the addition of nadolol and Procardia. Blood pressure this morning 134/94 with a heart rate in the 80s, 96% on room air. Patient was on IV diuretics, creatinine today is 2.3 up from 1.4, BUN 47. IV diuretics, dangelo inhibitors also currently been put on hold. Objective - Vital Signs Vital signs: Vital Signs Temp 97.8 F 03/31/17 08:40 Pulse 79 03/31/17 08:40 Resp 17 03/31/17 08:40 BP 135/94 03/31/17 08:40 Pulse Ox 96 03/31/17 08:40 Intake & Output 03/30/17 03/31/17 03/31/17 18:59 06:59 18:59 Intake Total 754 Balance 754 Weight 112.1 kg Intake: Oral 754 Other: Voiding Method Toilet Toilet # Voids 1 # Bowel Movements 0 - Exam PHYSICAL EXAMINATION: HEENT: Head is atraumatic, normocephalic. Pupils equal, round. Neck is supple. There is no elevated jugular venous pressure. HEART EXAMINATION: Heart S1 and S2 irregularly irregular CHEST EXAMINATION: Lungs are clear to auscultation and precussion. No chest wall tenderness is noted on palpation or with deep breathing. ABDOMEN: Soft, nontender. Bowel sounds are heard. No organomegaly noted. EXTREMITIES: 2+ peripheral pulses with no evidence of peripheral edema and no calf tenderness noted]. NEUROLOGIC [patient is awake, alert and oriented -3.] . - Labs CBC & Chem 7: 03/31/17 05:21 03/31/17 05:21 Labs: Abnormal Lab Results - Last 24 Hours (Table) 03/31/17 Range/Units 05:21 BUN 47 H (7-17) mg/dL Creatinine 2.30 H (0.52-1.04) mg/dL Assessment and Plan Plan: Assessment and plan #1 symptoms of headache, accelerated hypertension on admission. Blood pressure 210/137 on admission.. #2 history of hypertension #3 hyperlipidemia #4 diabetes #5 family history of CAD #6 bicuspid aortic valve #7 pacemaker Plan Blood pressure this morning 134/90. Creatinine up to 2.3 today. IV Lasix as well as DANGELO inhibitor currently put on hold. From cardiology's perspective, we will recommend current antihypertensive medications. On discharge patient has been instructed to follow-up with Dr. Muniz in the office. DNP note has been reviewed, I agree with a documented findings and plan of care. Patient was seen and examined.
[2017-03-31] MEDS: SODIUM CHLORIDE 0.9% 1,000 ML IV SCH (12:18)
--- NOTE | 2017-03-31 12:42 | P.PN ---
Progress Note - Text Patient's blood pressure is under good control. After starting Procardia XL 120 mg by mouth daily along with nadolol 40 mg twice daily both her heart rate and blood pressure under very good control. Yesterday had noted at her BUN/ creatinine had risen and she was on IV Lasix 40 mg every 8 that was started in the emergency room. I discontinued IV Lasix at 8:18 AM. This was restarted again at 9 AM yesterday. Today there is a significant jump in a BUN and creatinine requiring prolongation of her stay and temporary discontinuation of lisinopril Impression Uncontrolled hypertension Acute worsening of renal function secondary to overdiuresis Patient to stay in the hospital today and until her BUN/creatinine started to improve Suggest Continue nadolol, continue Procardia XL 120 mg by mouth daily no more Lasix Agree with IV fluids Check BUN/creatinine once again tomorrow Oral fluids ad jeison. Please see full dictation by Dr. gusman
--- NOTE | 2017-03-31 14:01 | P.PN ---
Subjective Patient is doing well. He is sitting up in bed eating lunch. His chest wall discomfort is better. He is breathing better today blood pressure is normal on 123 systolic heart rate 75 beats a minute sinus rhythm he has had no arrhythmias. 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 Plan Discussed with CT surgery nurse practitioner Recommend increasing metoprolol to 50 mg twice daily Objective - Vital Signs Vital signs: Vital Signs Temp 97.7 F 03/31/17 12:00 Pulse 80 03/31/17 12:00 Resp 17 03/31/17 12:00 BP 113/80 03/31/17 12:00 Pulse Ox 97 03/31/17 12:00 Intake & Output 03/30/17 03/31/17 03/31/17 18:59 06:59 18:59 Intake Total 754 300 Balance 754 300 Weight 112.1 kg Intake: Oral 754 300 Other: Voiding Method Toilet Toilet # Voids 1 2 # Bowel Movements 0 - Labs CBC & Chem 7: 03/31/17 05:21 03/31/17 05:21 Labs: Abnormal Lab Results - Last 24 Hours (Table) 03/31/17 Range/Units 05:21 BUN 47 H (7-17) mg/dL Creatinine 2.30 H (0.52-1.04) mg/dL
--- NOTE | 2017-03-31 17:16 | P.PN ---
<Lima Gonzalez - Last Filed: 03/31/17 16:58> Progress Note - Text DATE OF SERVICE: 03/31/2017 PRESENTING COMPLAINT: Chest pain HISTORY OF PRESENT ILLNESS: 71-year-old female who presented with chest pressure for 3 days off and on with shortness of breath. Was found to have an acute exacerbation of chronic congestive heart failure. INTERVAL HISTORY: 03/31/2017: Sitting up in bed, appears comfortable breathing easily. Blood pressure improved with no medications. BUN and creatinine rising. Ambulatory to and from the bathroom, tolerating her diet, eating 75-100% of her meals, last BM or to admission. Lactulose ordered. 03/30/2017: Sitting up in bed, eating her lunch, breathing easily. Blood pressure improved medications adjusted by cardiology. Ambulatory with assistance, tolerating her diet eating 75+ percent and last BM prior to admission. 03/29/2017: Lying in bed, appears comfortable. Breathing easily , blood pressure improved, cardiology has changed medications. Echocardiogram completed EF of 50-55%, renal artery ultrasound, echocardiogram completed this morning see results below. Patient tolerating her diet, up with assistance. Moving her bowels. REVIEW OF SYSTEMS: Done for constitutional ,cardiovascular, GI, pulmonary with relevant findings as above. CURRENT MEDICATIONS Pulmicort, Lasix, Lamictal, Zestril, Corgard, Procardia, Pravachol, Xarelto, Topamax. PHYSICAL EXAM VITAL SIGNS: Temperature 97.7, pulse 80, respirations 18, blood pressure 113/80, oxygen saturation 97% on room air. GENERAL APPEARANCE: Sitting up in bed, not in distress. EYES: Pupils equal. Conjunctiva normal. NECK: JVD not raised. Mass not palpable. RESPIRATORY: Respiratory effort normal. Lungs diminished with scattered crackles to auscultation. CARDIOVASCULAR: Irregular rhythm. No edema. ABDOMEN: Soft. Liver and spleen not palpable. No tenderness. No mass palpable. PSYCHIATRY: Alert and oriented x3. Mood and affect normal. INVESTIGATIONS: CBC unremarkable, BUN 47 creatinine 2.30. ASSESSMENT: -Acute and chronic congestive heart failure, preserved LV function secondary to atrial fibrillation EF 55-60%. - Coarctation of the aorta at the level of the arch with poststenotic dilatation of the descending thoracic aortic -Acute renal failure prerenal likely due to diuresis with Lasix. -Hypokalemia secondary to diuretic use -Essential hypertension, urgent, improving -Primary osteoarthritis of bilateral joints. -Persistent atrial fibrillation, chronically on Xarelto. -Congenital unilateral kidney, -Bipolar disorder. -Chronic narcolepsy. PLAN: Blood pressure improved, creatinine up to 2.3 today currently IV Lasix as well as DANGELO inhibitor on hold. We'll monitor and labs for renal function. Likely due to discharge in the next 24 hours. Plan of care discussed with the patient the bedside she is agreeable. BETTING CLERK statement: Patient was seen and examined by nurse practitioner Lima Gonzalez and all elements of the case discussed with attending Dr. Roberto <Jani Roberto - Last Filed: 03/31/17 21:14> Progress Note - Text Attending note. Date of service-03/31/2017 This patient was seen and examined by me . Discussed the patient with my nurse practitioner Ms. Gonzalez. Patient feels a bit tired. Getting gentle hydration. Breathing is stable. Has been out of bed. Up to the bathroom. On examination: Lungs-clear, cardiovascular first seconds are normal Investigations: BUN 47, creatinine 2.30 Assessment and plan: Acute renal failure that is prerenal from diuresis. Lasix and DANGELO inhibitor been held. Normal saline at 50 mL was started. CHF-compensated. Follow labs closely
[2017-03-31] MEDS: LACTULOSE 20 GM/30 ML CUP PO SCH (19:44)
[2017-03-31] MEDS: MONTELUKAST 10 MG TAB PO SCH (19:49)
[2017-03-31] MEDS: BACLOFEN 10 MG TAB PO SCH (19:50)
[2017-03-31] MEDS: PRAVASTATIN SODIUM 20 MG TAB PO SCH (19:50)
[2017-04-01 06:27] LABS: Calcium 9.7 mg/dL (8.4-10.2); Potassium 4.4 mmol/L (3.5-5.1)
[2017-04-01] MEDS: BUDESONIDE 1 MG/2 ML NEBU INHALATION SCH ×2 (07:30→19:16)
[2017-04-01] MEDS: LACTULOSE 20 GM/30 ML CUP PO SCH ×2 (08:41→08:59)
[2017-04-01] MEDS: NADOLOL 20 MG TAB PO SCH ×2 (08:42→21:23)
[2017-04-01] MEDS: lamoTRIgine 100 MG TAB PO SCH (08:42)
[2017-04-01] MEDS: RIVAROXABAN 15 MG TAB PO SCH (08:43)
[2017-04-01] MEDS: POLYETHYLENE GLYCOL 3350 17 GM POWD.PACK PO SCH (08:43)
[2017-04-01] MEDS: TOPIRAMATE 100 MG TAB PO SCH (08:44)
[2017-04-01] MEDS: BISACODYL 10 MG SUPP RECTAL SCH (08:53)
[2017-04-01] MEDS: SODIUM CHLORIDE 0.9% 1,000 ML IV SCH (09:01)
--- NOTE | 2017-04-01 09:24 | P.PN ---
Subjective Patient is doing well. She denies any chest discomfort or undue shortness of breath she looks very comfortable. Her blood pressure is very well controlled on a combination of nadolol 40 mg twice daily and nifedipine long-acting 120 mg by mouth daily. Priyank inhibitors are on hold no more Lasix. Her BUN/creatinine have improved since yesterday. She is very sensitive to IV Lasix in multiple doses and I have explained to the patient that she must avoid unnecessary Lasix. If her blood pressure is well controlled she will not need diuretics or the need will be minimal. Sodium normal potassium normal at 4.4 sodium 142 BUN 42 creatinine 1.9 which is improved. Her BUN went up to 47 yesterday and a creatinine was 2.3 and we had stopped her Lasix the day before but it progressively got worse On examination her blood pressure is 117/75 mmHg, heart rate in the 70s, afebrile Heart sounds are normal no murmurs no gallops Breath sounds are normal no rhonchi no crackles Abdomen soft nontender Extremities warm no edema Impression Uncontrolled hypertension, symptomatic with shortness of breath Blood pressure controlled on a combination of nadolol and Procardia, long-acting Acute renal insufficiency on IV diuretics. Her baseline creatinine is 0.97. 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 If her blood pressure is well controlled her need for Lasix/diuretics will be minimal Objective - Vital Signs Vital signs: Vital Signs Temp 97 F L 04/01/17 08:51 Pulse 78 04/01/17 08:51 Resp 17 04/01/17 08:51 BP 117/75 04/01/17 08:51 Pulse Ox 96 04/01/17 08:51 Intake & Output 03/31/17 04/01/17 04/01/17 18:59 06:59 18:59 Intake Total 600 450 Balance 600 450 Weight 112.8 kg Intake: IV 450 Sodium Chloride 0.9% 1, 450 000 ml @ 50 mls/hr IV . Q20H [facility] Rx#:[id number] Oral 600 Other: Voiding Method Toilet # Voids 2 2 - Labs CBC & Chem 7: 03/31/17 05:21 04/01/17 05:57 Labs: Abnormal Lab Results - Last 24 Hours (Table) 04/01/17 Range/Units 05:57 BUN 42 H (7-17) mg/dL Creatinine 1.90 H (0.52-1.04) mg/dL
--- NOTE | 2017-04-01 13:11 | P.PN ---
<Lima Gonzalez - Last Filed: 04/01/17 14:55> Progress Note - Text DATE OF SERVICE: 04/01/2017 PRESENTING COMPLAINT: Chest pain HISTORY OF PRESENT ILLNESS: 71-year-old female who presented with chest pressure for 3 days off and on with shortness of breath. Was found to have an acute exacerbation of chronic congestive heart failure. Has developed acute renal failure secondary to loop diuretic use which has since been DC'd. INTERVAL HISTORY: 04/01/2017: Sitting up in bed, appears comfortable, breathing easily. Cardiology will continue nadolol and nifedipine and patient should not have any further Priyank inhibitors or Lasix. Ambulatory to and from the bathroom, tolerating her diet eating between 75 and 100% of her meals, last BM prior to admission, MiraLAX provided 03/31/2017: Sitting up in bed, appears comfortable breathing easily. Blood pressure improved with new medications. BUN and creatinine rising. Ambulatory to and from the bathroom, tolerating her diet, eating 75-100% of her meals, last BM or to admission. Lactulose ordered. 03/30/2017: Sitting up in bed, eating her lunch, breathing easily. Blood pressure improved medications adjusted by cardiology. Ambulatory with assistance, tolerating her diet eating 75+ percent and last BM prior to admission. 03/29/2017: Lying in bed, appears comfortable. Breathing easily , blood pressure improved, cardiology has changed medications. Echocardiogram completed EF of 50-55%, renal artery ultrasound, echocardiogram completed this morning see results below. Patient tolerating her diet, up with assistance. Moving her bowels. REVIEW OF SYSTEMS: Done for constitutional ,cardiovascular, GI, pulmonary with relevant findings as above. CURRENT MEDICATIONS Pulmicort, Lasix, Lamictal, Zestril, Corgard, Procardia, Pravachol, Xarelto, Topamax. MiraLAX PHYSICAL EXAM VITAL SIGNS: Temperature 97.0, pulse 78, respiratory rate 17, blood pressure 117/75, oxygen saturation 96% on room air. GENERAL APPEARANCE: Sitting up in bed, not in distress. EYES: Pupils equal. Conjunctiva normal. NECK: JVD not raised. Mass not palpable. RESPIRATORY: Respiratory effort normal. Lungs diminished with scattered crackles to auscultation. CARDIOVASCULAR: Irregular rhythm. No edema. ABDOMEN: Soft. Liver and spleen not palpable. No tenderness. No mass palpable. PSYCHIATRY: Alert and oriented x3. Mood and affect normal. INVESTIGATIONS: BUN 42, creatinine 1.90 ASSESSMENT: -Acute and chronic congestive heart failure, preserved LV function secondary to atrial fibrillation EF 55-60%. - Coarctation of the aorta at the level of the arch with poststenotic dilatation of the descending thoracic aortic -Acute renal failure prerenal likely due to diuresis with Lasix. -Hypokalemia secondary to diuretic use -Essential hypertension, urgent, improving -Primary osteoarthritis of bilateral joints. -Persistent atrial fibrillation, chronically on Xarelto. -Congenital unilateral kidney, -Bipolar disorder. -Chronic narcolepsy. PLAN: Blood pressure improved, creatinine down to 1.9 today currently IV Lasix as well as PRIYANK inhibitor discontinued. Continue nadolol and nifedipine per cardiology. We'll monitor and labs for renal function. Likely due to discharge in the next 24 hours. Plan of care discussed with the patient the bedside she is agreeable. E[employer] INTERNS[employer]IP statement: Patient was seen and examined by nurse practitioner Lima Gonzalez and all elements of the case discussed with attending Dr. Roberto <Jani Roberto - Last Filed: 04/01/17 21:31> Progress Note - Text Attending note. Date of service-04/01/2017 This patient was seen and examined by me . Discussed the patient with my nurse practitioner Ms. Gonzalez. Bit tired. Laying in bed. Breathing stable. Gently hydrated. On examination: Lungs-clear, cardiovascular first seconds are normal Investigations: BUN 42, protein 1.90 Assessment and plan: Acute congestive heart failure: Chronic CHF compensated. Acute renal failure-prerenal slowly improving. Patient's creatinine is coming down. On continue to hydrate gently. Repeat labs in the morning
[2017-04-01] MEDS: PRAVASTATIN SODIUM 20 MG TAB PO SCH (21:23)
[2017-04-01] MEDS: BACLOFEN 10 MG TAB PO SCH (21:23)
[2017-04-01] MEDS: MONTELUKAST 10 MG TAB PO SCH (21:23)
[2017-04-02 06:39] LABS: Calcium 9.1 mg/dL (8.4-10.2); Potassium 4.6 mmol/L (3.5-5.1)
[2017-04-02] MEDS: BUDESONIDE 1 MG/2 ML NEBU INHALATION SCH (08:04)
[2017-04-02] MEDS: BISACODYL 10 MG SUPP RECTAL SCH (08:41)
[2017-04-02] MEDS: LACTULOSE 20 GM/30 ML CUP PO SCH (08:41)
[2017-04-02] MEDS: POLYETHYLENE GLYCOL 3350 17 GM POWD.PACK PO SCH (08:42)
[2017-04-02] MEDS: lamoTRIgine 100 MG TAB PO SCH (08:45)
[2017-04-02] MEDS: TOPIRAMATE 100 MG TAB PO SCH (08:45)
[2017-04-02] MEDS: NADOLOL 20 MG TAB PO SCH (08:45)
[2017-04-02] MEDS: RIVAROXABAN 15 MG TAB PO SCH (08:45)
[2017-04-02 11:07] VITALS: PULSE 73
[2017-04-02 13:02] VITALS: BP 116/69; RESP 18; TEMP 97
--- NOTE | 2017-04-02 17:31 | P.DS ---
<Lima Gonzalez - Last Filed: 04/02/17 17:12> Providers Date of admission: 03/28/17 16:55 Expected date of discharge: 04/02/17 Attending physician: Jani Roberto Consults: 03/28/17 22:42 Consult Physician Routine Consulting Provider: Damien Muniz Consult Reason/Comments: chf Do you want consulting provider notified?: Yes Primary care physician: [place] [facility] Course: FINAL DIAGNOSES: -Acute and chronic congestive heart failure, preserved LV function secondary to atrial fibrillation EF 55-60%. - Coarctation of the aorta at the level of the arch with poststenotic dilatation of the descending thoracic aortic -Acute renal failure prerenal likely due to diuresis with Lasix. -Hypokalemia secondary to diuretic use -Essential hypertension, urgent, improving -Primary osteoarthritis of bilateral joints. -Persistent atrial fibrillation, chronically on Xarelto. -Congenital unilateral kidney, -Bipolar disorder. -Chronic narcolepsy. HOSPTIAL COURSE: 71-year-old female who presented with chest pressure for 3 days off and on with shortness of breath diagnostic workup revealed atrial fibrillation with occasional PVCs rate controlled. Troponins negative, BNP 2630.Found to have an acute exacerbation of chronic congestive heart failure received 40 mg of IV push Lasix and breathing improved. Admitted for the same. Cardiology consulted. Echocardiogram with Doppler ordered, Coreg discontinued, started on nadolol and Procardia. Lasix continued 40 mg every 8 hours, was changed to every 12 hours when BUN and creatinine were elevated. Cardiology subsequently discontinued the use of Lasix. BUN and creatinine improved. Blood pressure well controlled, acute renal insufficiency improved with the cessation of diuretic use, tolerating her diet, moving her bowels, ambulatory in the room and hallway. Discussion had with cardiology regarding discharge medications ramipril to be held until patient follows up in office with Dr. Rahman. Patient condition is stable for discharge. PHYSICAL EXAM: CARDIOVASCULAR: Irregular rhythm, trace edema RESPIRATORY: Respiratory effort normal, bilateral breath sounds diminished PSYCHIATRY: Alert and oriented 3, mood and affect normal, Patient was seen and examined by nurse practitioner Lima Gonzalez in all elements of the case discussed with attending Dr. Roberto DISPOSITION: Home to the care of her family please see his discharge instructions for complete details and orders. Patient Condition at Discharge: Stable Plan - Discharge Summary New Discharge Prescriptions: New Nadolol [Corgard] 40 mg PO BID tab NIFEdipine XL [Procardia XL] 120 mg PO DAILY tab Continue Baclofen 10 mg PO HS oxyCODONE HCL [OxyIR] 5 mg PO Q6H PRN PRN Reason: Pain Topiramate [Topamax] 200 mg PO DAILY Rivaroxaban [Xarelto] 20 mg PO DAILY Pravastatin Sodium [Pravachol] 20 mg PO HS Denosumab [Prolia] 60 mg SQ Q180D Montelukast Sodium [Singulair] 10 mg PO HS lamoTRIgine [LaMICtal] 200 mg PO DAILY Polyethylene Glycol 3350 [Miralax] 17 gm PO DAILY Fluticasone Propionate [Flovent Hfa 220MCG] 2 puff INHALATION RT-BID Omalizumab [Xolair] 150 mg SQ Q21D Discontinued Ramipril [Altace] 5 mg PO BID Carvedilol [Coreg] 25 mg PO BID Discharge Medication List Baclofen 10 mg PO HS 04/13/15 [History] oxyCODONE HCL [OxyIR] 5 mg PO Q6H PRN 04/13/15 [History] Denosumab [Prolia] 60 mg SQ Q180D 03/28/17 [History] Fluticasone Propionate [Flovent Hfa 220MCG] 2 puff INHALATION RT-BID 03/28/17 [ History] Montelukast Sodium [Singulair] 10 mg PO HS 03/28/17 [History] Omalizumab [Xolair] 150 mg SQ Q21D 03/28/17 [History] Polyethylene Glycol 3350 [Miralax] 17 gm PO DAILY 03/28/17 [History] Pravastatin Sodium [Pravachol] 20 mg PO HS 03/28/17 [History] Rivaroxaban [Xarelto] 20 mg PO DAILY 03/28/17 [History] Topiramate [Topamax] 200 mg PO DAILY 03/28/17 [History] lamoTRIgine [LaMICtal] 200 mg PO DAILY 03/28/17 [History] NIFEdipine XL [Procardia XL] 120 mg PO DAILY tab 04/02/17 [Rx] Nadolol [Corgard] 40 mg PO BID tab 04/02/17 [Rx] Follow up Appointment(s)/Referral(s): Damien Muniz MD [STAFF PHYSICIAN] - 2 Weeks (Dr. Al will make the appointment himself and call the patient) [facility], [NON-STAFF] - Drew Neff DO [Primary Care Provider] - 3 Days (please call the office on Monday and set up appointment) Ambulatory/Diagnostic Orders: Basic Metabolic Panel [LAB.AMB] Location: Determined By Patient Patient Instructions/Handouts: Heart Failure (DC), Coronary Artery Disease (DC) Activity/Diet/Wound Care/Special Instructions: Discharge home on nadolol 40 mg by mouth twice daily and nifedipine 120 mg by mouth daily check daily weights. Discharge Disposition: HOME SELF-CARE <Jani Roberto - Last Filed: 04/02/17 19:29> Hospital Course: Attending note. Date of service-04/02/2017 This patient was seen and examined by me . Discussed the patient with my nurse practitioner Ms. Gonzalez. Feeling much better. He did go home. Up and about. On examination: Lungs-clear, cardiovascular-first seconds are normal Investigations: Creatinine 1.51 Assessment and plan: Patient cleared by cardiology to go home.. Patient to stay off Lasix and DANGELO inhibitor. Patient told to do daily weights. Repeat labs in 3-4 days.
[2017-04-03 19:36] LABS: Total, Free (MN + NMN) 285 pg/mL (< OR = 205)
== END 2017-04-02 14:58 | disposition home health service (06) | DRG 291 ==
LOC: EC 11:31 → 6SEL 16:55
PROVIDERS: ADMIT Hospitalist; ATTEND Hospitalist
DX: I13.0 Hypertensive heart and chronic kidney disease with heart failure and stage 1 through stage 4 chronic kidney disease, or unspecified chronic kidney disease (principal); I50.33 Acute on chronic diastolic (congestive) heart failure; N17.9 Acute kidney failure, unspecified; Q25.1 Coarctation of aorta; Q60.0 Renal agenesis, unilateral; I48.1 Persistent atrial fibrillation; E11.22 Type 2 diabetes mellitus with diabetic chronic kidney disease; E78.5 Hyperlipidemia, unspecified; E87.6 Hypokalemia; F31.9 Bipolar disorder, unspecified; G47.33 Obstructive sleep apnea (adult) (pediatric); G47.419 Narcolepsy without cataplexy; I25.10 Atherosclerotic heart disease of native coronary artery without angina pectoris; M79.7 Fibromyalgia; N18.3 Chronic kidney disease, stage 3 (moderate); T50.2X5A Adverse effect of carbonic-anhydrase inhibitors, benzothiadiazides and other diuretics, initial encounter; R25.1 Tremor, unspecified; J02.9 Acute pharyngitis, unspecified; I70.0 Atherosclerosis of aorta; M15.9 Polyosteoarthritis, unspecified; R51 Headache; E66.9 Obesity, unspecified; Z68.41 Body mass index [BMI] 40.0-44.9, adult; Z79.01 Long term (current) use of anticoagulants; Z79.899 Other long term (current) drug therapy; Z85.3 Personal history of malignant neoplasm of breast; Z95.0 Presence of cardiac pacemaker; Z95.1 Presence of aortocoronary bypass graft; Z88.5 Allergy status to narcotic agent; Z88.0 Allergy status to penicillin; Z88.8 Allergy status to other drugs, medicaments and biological substances; Z88.6 Allergy status to analgesic agent; Z88.1 Allergy status to other antibiotic agents; Z91.041 Radiographic dye allergy status; Z82.49 Family history of ischemic heart disease and other diseases of the circulatory system
CPT/HCPCS: 36415; 70450; 71020; 71275; 75635; 80048; 80053; 82088; 82150; 82533; 82550; 82553; 83690; 83735; 83835; 83880; 84132; 84484; 85025; 85610; 85730; 93005; 93306; 93975; 94640; 94760; 96361; 96374; 96375; 96376; 99285

== ENCOUNTER → 2017-04-19 | Outpatient (CLI) | payer MEDICARE ==
--- NOTE | 2017-04-19 14:50 | CT ---
EXAMINATION TYPE: CT abdomen pelvis wo con DATE OF EXAM: 04/19/2017 COMPARISON: 03/29/17 HISTORY: Lt flank pain, gross hematuria, UTI CT DLP: 1267.4 mGycm Examination of the solid and hollow viscera is limited given the lack of contrast. FINDINGS: LUNG BASES: The heart is enlarged. Coronary artery calcifications noted. Stable nodular density left lower lobe measuring 5 mm. Linear parenchymal scarring identified. LIVER/GB: The gallbladder is unremarkable. No space-occupying hepatic lesion. PANCREAS: No pancreatic mass identified. No inflammatory process seen. SPLEEN: No evidence for splenomegaly. No intrasplenic lesions seen. Splenic granulomas noted. ADRENALS: No adrenal nodules identified. No evidence for thickening. KIDNEYS: Severe atrophic change of the right kidney. Tiny nonobstructing calculus right kidney. No ev idence for renal mass. No nephrolithiasis. No hydronephrosis. BOWEL: Appendectomy clips right lower quadrant. No evidence of bowel obstruction. No inflammatory pro cess. Sigmoid diverticulosis without diverticulitis. Lymph nodes: No evidence for adenopathy greater than 1 cm. Abdominal aorta: Atheromatous changes seen. No evidence for aneurysm. Genital organs: No significant abnormality. Other: Small fat-containing umbilical hernia. Additional anterior abdominal wall hernia to the right of midline above the level of the umbilicus only contains fat. No additional hernia seen. Severe mult ilevel degenerative disc disease. IMPRESSION: 1. NO ACUTE INTRA-ABDOMINAL PROCESS. 2. SEVERE ATROPHIC CHANGE RIGHT KIDNEY. 3. Sigmoid diverticulosis without diverticulitis. 4. Fat-containing anterior abdominal wall hernias.
== END | disposition home or self-care (01) ==
LOC: RADCTMAIN 14:22
PROVIDERS: ATTEND Family Medicine
DX: N26.1 Atrophy of kidney (terminal) (principal); K57.30 Diverticulosis of large intestine without perforation or abscess without bleeding; K46.9 Unspecified abdominal hernia without obstruction or gangrene
CPT/HCPCS: 74176

== ENCOUNTER → 2018-02-08 | Outpatient (CLI) | payer MEDICARE ==
[2018-02-08 16:02] LABS: HCT 46.1 % (34.0-46.0); HGB 14.9 gm/dL (11.4-16.0); MCH 30.6 pg (25.0-35.0); MCHC 32.3 g/dL (31.0-37.0); MCV 94.9 fL (80.0-100.0); Mean Platelet Volume 7.1; Platelet Count 192 k/uL (150-450); RBC 4.86 m/uL (3.80-5.40); RDW 14.1 % (11.5-15.5); WBC 4.9 k/uL (3.8-10.6)
[2018-02-08 16:12] LABS: Potassium 4.5 mmol/L (3.5-5.1)
== END | disposition home or self-care (01) ==
LOC: LABPAT 15:28
PROVIDERS: ATTEND Internal Medicine Interventional Cardiology
DX: Z01.812 Encounter for preprocedural laboratory examination (principal); I25.10 Atherosclerotic heart disease of native coronary artery without angina pectoris
CPT/HCPCS: 36415; 80051; 82565; 84520; 85027

== ENCOUNTER 2018-02-14 08:19 | Day surgery (SDC) | payer MEDICARE ==
[2018-02-08 12:04] VITALS: BMI 44.4
[~2018-02-14 08:19] MED LIST: ALPRAZolam 0.25 MG TAB PO PRN; SODIUM CHLORIDE 0.9% 1,000 ML in EMPTY BAG 1 BAG IV ONE
[2018-02-14] MEDS ORDERED: ASPIRIN 325 MG TAB ONE (08:50)
[2018-02-14] MEDS ORDERED: SODIUM CHLORIDE 0.9% 1,000 ML IV ONE (09:11)
[2018-02-14] MEDS ORDERED: fentaNYL (PF) 50 MCG/ML 2 ML AMP IV ONE (13:56)
[2018-02-14] MEDS ORDERED: LIDOCAINE 2% INJ 20 MG/ML SQ ONE (13:59)
[2018-02-14] MEDS ORDERED: VERAPAMIL SYRINGE (5 MG/10 ML) INTRAARTER ONE (14:02)
[2018-02-14] MEDS ORDERED: IOPAMIDOL-370 125ML BTL INJ ONE (14:15)
[2018-02-14] MEDS ORDERED: RX INFO: IV CONTRAST WAS GIVEN 1 EACH MISC MISCELLANE PRN (14:22)
[2018-02-14] MEDS ORDERED: SODIUM CHLORIDE 0.9% 1,000 ML IV SCH (14:30)
[2018-02-14] MEDS ORDERED: ISOSORBIDE MONONITRATE ER 30 MG TAB.ER.24H PO STA (15:52)
--- NOTE | 2018-02-14 17:33 | CC ---
CARDIAC CATHETERIZATION REPORT Mrs. Ramos is a 72-year-old female with known history of chronic persistent atrial fibrillation, history of hypertension, hyperlipidemia, who has been complaining of symptoms of dyspnea as well as symptoms of chest discomfort going on for the last couple years. She has underwent a myocardial perfusion imaging that revealed evidence of inducible ischemia. She has been evaluated and followed by Dr. Muniz and because of those symptoms, recommendation made regarding cardiac catheterization. The procedures, risks and complications were discussed with the patient who is in full understanding and agreement. PROCEDURE: Patient was brought to laboratory coordinator in a fasting state after receiving fentanyl and Benadryl and achieving moderate conscious sedated state. Using Xylocaine anesthesia in the Seldinger technique, a 6-Iranian sheath was introduced in the right radial artery. Selective right and left coronary angiography performed using 5-Iranian 3 and half bend right and left Octavio catheter. Multiple views of the coronary artery including hemiaxial views obtained. Following that a 5-Iranian tight pigtail catheter was introduced into the left ventricle and pressures were calculated. Following that the catheter and sheath were removed. Hemostasis was obtained with deployment of a TR band. There was no immediate complication. The patient was returned to her room in stable condition. Of note, the patient received 5000 units of intravenous heparin as well as intra-arterial verapamil. FINDINGS/HEMODYNAMICS: FLUOROSCOPY: There was mild calcification involving the right coronary artery and the left anterior descending artery. SELECTIVE CORONARY ANGIOGRAPHY: 1. Left main: This is almost nonexistent vessel bifurcating immediately to the left anterior descending artery and the left circumflex. There is no plaque noted. 2. Left anterior descending artery: This is a large-sized vessel reaching to the apex with a wraparound the apex segment, tortuous in the proximal segment, giving rise to a small to moderate sized diagonal branches. Left anterior descending artery in mid segment has a plaque of about 50%. Tubular in nature and long. 3. Left circumflex: This is a codominant vessel, large in caliber, giving rise to 3 obtuse marginal branch distally bifurcating into PDA and posterolateral branches. The left circumflex has mild intimal disease proximally of 20% with no evidence of high-grade stenosis. 4. Right coronary artery: This vessel is totally occluded proximally with no significant antegrade flow. 5. Collaterals: There is collaterals from the left coronary system toward the right PDA. LEFT VENTRICULOGRAM: Left ventriculogram was not performed. HEMODYNAMICS: There was no gradient across the aortic valve. The left ventricle end-diastolic pressure was 14-16 mmHg. CONCLUSION: 1. Chronically occluded right coronary artery. 2. Moderate disease in the mid LAD. RECOMMENDATION: In view of the finding, I will maximize her medical therapy. The inferior wall inducible ischemia by nuclear scan is consistent with her anatomy. We will continue to follow her LAD territory and depending on her symptoms, further recommendation will be made. Those findings and recommendation were discussed with the patient and her family who are in full understanding and agreement. Duration of procedure 21 minutes. MMODL / IJN: [id number] /
[2018-02-14 19:16] VITALS: BP 106/67; PULSE 71; RESP 16; TEMP 98.1
[2018-02-14] MEDS ORDERED: lamoTRIgine 100 MG TAB PO SCH (21:00)
[2018-02-14] MEDS ORDERED: BACLOFEN 10 MG TAB PO SCH (21:00)
[2018-02-15] MEDS ORDERED: NADOLOL 20 MG TAB PO SCH (09:00)
[2018-02-15] MEDS ORDERED: ISOSORBIDE MONONITRATE ER 30 MG TAB.ER.24H PO SCH (09:00)
[2018-02-15] MEDS ORDERED: TOPIRAMATE 100 MG TAB PO SCH (09:00)
== END 2018-02-14 20:00 | disposition home or self-care (01) ==
LOC: CATHCVL 08:19 → 3OBS 14:18 → CATHCVL 20:00
PROVIDERS: ATTEND Internal Medicine Interventional Cardiology
DX: I25.10 Atherosclerotic heart disease of native coronary artery without angina pectoris (principal); I25.82 Chronic total occlusion of coronary artery; R94.39 Abnormal result of other cardiovascular function study; I13.10 Hypertensive heart and chronic kidney disease without heart failure, with stage 1 through stage 4 chronic kidney disease, or unspecified chronic kidney disease; E11.22 Type 2 diabetes mellitus with diabetic chronic kidney disease; N18.3 Chronic kidney disease, stage 3 (moderate); Q23.1 Congenital insufficiency of aortic valve; Q25.1 Coarctation of aorta; I27.20 Pulmonary hypertension, unspecified; R00.1 Bradycardia, unspecified; E78.00 Pure hypercholesterolemia, unspecified; I48.2 Chronic atrial fibrillation; I48.1 Persistent atrial fibrillation; Z95.0 Presence of cardiac pacemaker; Z82.49 Family history of ischemic heart disease and other diseases of the circulatory system; Z79.01 Long term (current) use of anticoagulants; Z79.899 Other long term (current) drug therapy; Z88.1 Allergy status to other antibiotic agents; Z88.0 Allergy status to penicillin; Z91.09 Other allergy status, other than to drugs and biological substances
CPT/HCPCS: 93454; 82565; 84520; C1894; C1769; J2001; J3010; J1644; Q9967

== ENCOUNTER → 2018-02-19 | Outpatient (CLI) | payer MEDICARE ==
[2018-02-19 16:51] LABS: Potassium 4.1 mmol/L (3.5-5.1)
== END | disposition home or self-care (01) ==
LOC: LABWHC1 15:53
PROVIDERS: ATTEND Internal Medicine Interventional Cardiology
DX: I10 Essential (primary) hypertension (principal)
CPT/HCPCS: 36415; 80051; 82565; 84520

== ENCOUNTER → 2018-02-27 | Outpatient (CLI) | payer MEDICARE ==
--- NOTE | 2018-02-27 17:05 | US ---
EXAMINATION TYPE: US kidneys/renal and bladder DATE OF EXAM: 02/27/2018 COMPARISON: CT 04/19/2017 and ultrasound 03/29/2017 CLINICAL HISTORY: 72-year-old female N18.9 CKD. Chronic kidney disease TECHNIQUE: Multiple sonographic images of the kidneys and bladder are obtained. FINDINGS: EXAM MEASUREMENTS: Right Kidney: 6.0 x 2.4 x 2.6 cm Left Kidney: 12.8 x 5.9 x 6.4 cm Lawn Care Worker notes:Large pt body habitus Right Kidney: Very small and atrophic. Difficult to visualize. Left Kidney: No hydronephrosis. Bladder: Partial distention limits evaluation. Bilateral Jets seen: Only left jet visualized IMPRESSION: Markedly atrophic right kidney. No hydronephrosis on the left.
== END | disposition home or self-care (01) ==
LOC: RADUSWWP 14:56
PROVIDERS: ATTEND Family Medicine
DX: N26.1 Atrophy of kidney (terminal) (principal); N18.9 Chronic kidney disease, unspecified
CPT/HCPCS: 76770

== ENCOUNTER → 2018-03-05 | Outpatient (CLI) | payer MEDICARE ==
[2018-03-05 14:05] LABS: Collection Time,Urine 24 hrs
[2018-03-05 14:06] LABS: Total Volume 24 Hour,Urine 850 mls (250-2400)
[2018-03-05 14:23] LABS: Total Protein 24 Hour,Urine 111 mg/24hr (42.0-225.0)
[2018-03-05 14:24] LABS: Creatinine 24 Hour,Urine 808.4 mg/24hr (800.0-1800.0)
== END | disposition home or self-care (01) ==
LOC: LABWHC1 13:47
PROVIDERS: ATTEND Family Medicine
DX: N18.9 Chronic kidney disease, unspecified (principal)
CPT/HCPCS: 36415; 81050; 82575; 84156

== ENCOUNTER → 2018-07-02 | Outpatient (CLI) | payer MEDICARE ==
--- NOTE | 2018-07-02 15:09 | XR ---
EXAMINATION TYPE: XR chest 2V DATE OF EXAM: 07/02/2018 COMPARISON: Prior chest x-ray 03/28/2017, CTA chest 03/29/2017 HISTORY: Heart failure, cough TECHNIQUE: Frontal and lateral views of the chest are obtained. FINDINGS: There is increased AP diameter of the chest compatible with patient's underlying COPD. The aorta is dense and aneurysmal due to patient's coarctation with poststenotic dilatation and is tortu ous. Pulmonary artery is dilated, consider pulmonary artery hypertension Generator is present in the left pectoral region, there are leads in the right atrium and ventricle. Heart is enlarged. No eviden t airspace disease, pneumothorax, or pleural effusion. There is improvement in the interstitium as co mpared to prior exam. IMPRESSION: No acute cardiopulmonary process. Cardiomegaly and additional findings above.
== END | disposition home or self-care (01) ==
LOC: RADXRMAIN 11:03
PROVIDERS: ATTEND Family Medicine
DX: I51.7 Cardiomegaly (principal); J44.9 Chronic obstructive pulmonary disease, unspecified; I71.9 Aortic aneurysm of unspecified site, without rupture; I50.9 Heart failure, unspecified
CPT/HCPCS: 71046

== ENCOUNTER → 2018-12-28 | Outpatient (CLI) | payer MEDICARE ==
[2018-12-28 14:57] LABS: Basophils % (A) 1 %; Eosinophils # (A) 0.2 k/uL (0-0.7); Eosinophils % (A) 4 %; HCT 44.7 % (34.0-46.0); HGB 13.9 gm/dL (11.4-16.0); Hypochromasia Slight; Lymphocytes # (A) 1.2 k/uL (1.0-4.8); Lymphocytes % (A) 25 %; MCH 28.3 pg (25.0-35.0); Mean Platelet Volume 7.8; Monocytes # (A) 0.2 k/uL (0-1.0); Monocytes % (A) 5 %; Neutrophils % (A) 64 %; Platelet Count 166 k/uL (150-450); RBC 4.91 m/uL (3.80-5.40); RDW 13.9 % (11.5-15.5); WBC 4.6 k/uL (3.8-10.6)
[2018-12-28 18:58] LABS: ALT 17 U/L (8-44); AST 23 U/L (13-35)
== END | disposition home or self-care (01) ==
LOC: LABWHC1 14:02
PROVIDERS: ATTEND Physician Assistant Medical
DX: B35.3 Tinea pedis (principal); B02.9 Zoster without complications
CPT/HCPCS: 36415; 84450; 84460; 85025

== ENCOUNTER → 2019-05-22 | Outpatient (CLI) | payer MEDICARE ==
[2019-05-22 11:17] LABS: Basophils % (A) 1 %; Eosinophils % (A) 3 %; HCT 43.1 % (34.0-46.0); HGB 13.5 gm/dL (11.4-16.0); Hypochromasia Slight; Lymphocytes # (A) 0.8 k/uL (1.0-4.8); Lymphocytes % (A) 18 %; MCH 29.9 pg (25.0-35.0); MCHC 31.3 g/dL (31.0-37.0); MCV 95.7 fL (80.0-100.0); Mean Platelet Volume 6.3; Monocytes # (A) 0.2 k/uL (0-1.0); Monocytes % (A) 5 %; Neutrophils # (A) 3.2 k/uL (1.3-7.7); Neutrophils % (A) 71 %; Platelet Count 177 k/uL (150-450); RBC 4.51 m/uL (3.80-5.40); RDW 13.5 % (11.5-15.5); WBC 4.5 k/uL (3.8-10.6)
[2019-05-22 11:18] LABS: Eosinophils # (A) 0.1 k/uL (0-0.7)
[2019-05-22 12:04] LABS: Appearance,Urine Clear (Clear); Bacteria,Urine Occasional /hpf; Bilirubin,Urine Negative (Negative); Blood,Urine Negative (Negative); Color,Urine Light Yellow; Glucose,Urine (UA) Negative (Negative); Ketones,Urine Negative (Negative); Leukocyte Esterase,Urine Large (Negative); Nitrite,Urine Negative (Negative); PH, Urine 5.5 (5.0-8.0); Protein,Urine Negative (Negative); RBC,Urine 1 /hpf (0-5); Specific Gravity,Urine 1.005 (1.001-1.035); Squamous Epithelial Cell,Urine 3 /hpf (0-4); Urobilinogen,Urine <2.0 mg/dL (<2.0); WBC,Urine 17 /hpf (0-5)
[2019-05-22 16:14] LABS: % Iron Saturation 20.51 (12.00-45.00); African American GFR (CKD) 52.3 (60.0-200.0); Albumin 4.1 g/dL (3.80-4.90); Anion Gap 7.8 mmol/L (4.00-12.00); BUN/Creat Ratio 19.17 Ratio (12.00-20.00); Calcium 9.3 mg/dL (8.7-10.3); Carbon Dioxide 25.2 mmol/L (21.6-31.8); Magnesium 1.9 mg/dL (1.5-2.4); Phosphorus 4.4 mg/dL (2.4-5.1); Potassium 4.5 mmol/L (3.5-5.5); Uric Acid 6.8 mg/dL (2.9-7.7)
[2019-05-22 16:22] LABS: Ferritin 48.6 ng/mL (10.0-291.0)
[2019-05-22 17:04] LABS: Creatinine,Urine Random 25.2 mg/dL
[2019-05-22 17:29] LABS: Total Protein,Urine Random <4.0 mg/dL (0.0-13.5)
== END | disposition home or self-care (01) ==
LOC: LABWHC1 10:17
PROVIDERS: ATTEND Internal Medicine Nephrology
DX: E55.9 Vitamin D deficiency, unspecified (principal); N18.3 Chronic kidney disease, stage 3 (moderate); N25.81 Secondary hyperparathyroidism of renal origin; M10.9 Gout, unspecified; N39.0 Urinary tract infection, site not specified; D64.9 Anemia, unspecified; R80.9 Proteinuria, unspecified
CPT/HCPCS: 36415; 80048; 81001; 82040; 82306; 82570; 82728; 83540; 83550; 83735; 83970; 84100; 84156; 84550; 85025

== ENCOUNTER 2019-11-27 22:44 | Emergency (ER) | payer MEDICARE ==
[2019-11-27] MEDS ORDERED: MORPHINE SULFATE 4 MG/ML SYRINGE IV STA (23:09)
[2019-11-27] MEDS ORDERED: SODIUM CHLORIDE 0.9% 1,000 ML IV STA (23:09)
--- NOTE | 2019-11-27 23:17 | ED ---
General Adult HPI - General Chief complaint: Recheck/Abnormal Lab/Rx Stated complaint: Abnormal Labs, Pain Time Seen by Provider: 11/27/19 22:59 Source: patient, RN notes reviewed, old records reviewed Mode of arrival: ambulatory Limitations: no limitations - History of Present Illness Initial comments: 74 -year-old female presents for concern with vitamin D overdose. Patient was recommended to take increased doses of vitamin D. She mistakenly took 25 tablets of 2000 and international units of vitamin D daily for the past several weeks. Approximately 3 weeks ago she developed left-sided flank pain which is been constant and moderate over this time. She also reports increased urination. She denies vomiting. No history of kidney stones. 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 She had initially thought she was taking 25,000 international units weekly but in actuality was taking 50,000 units daily. - Related Data Home Medications Medication Instructions Recorded Confirmed Baclofen 10 mg PO HS 04/13/15 02/14/18 oxyCODONE HCL [OxyIR] 5 mg PO Q6H PRN 04/13/15 02/14/18 Rivaroxaban [Xarelto] 20 mg PO DAILY 03/28/17 02/14/18 Topiramate [Topamax] 200 mg PO QAM 03/28/17 02/14/18 lamoTRIgine [LaMICtal] 200 mg PO HS 03/28/17 02/14/18 NIFEdipine XL [Procardia XL] 60 mg PO BID 02/08/18 02/14/18 Nadolol [Corgard] 90 mg PO QAM 02/08/18 02/14/18 Previous Rx's Medication Instructions Recorded Isosorbide Mononitrate ER [Imdur] 30 mg PO DAILY #90 tab 02/14/18 Pravastatin Sodium [Pravachol] 40 mg PO DAILY #90 tab 02/14/18 Cephalexin [Keflex] 500 mg PO Q12HR #20 cap 11/28/19 Allergies Allergy/AdvReac Type Severity Reaction Status Date / Time alendronate sodium Allergy Anaphylaxis Verified 11/27/19 22:55 [From Fosamax] amitriptyline HCl Allergy Unknown Verified 11/27/19 22:55 [From Elavil] doxepin HCl [From Sinequan] Allergy Unknown Verified 11/27/19 22:55 iodine Allergy Anaphylaxis Verified 11/27/19 22:55 Penicillins Allergy passed out Verified 11/27/19 22:55 simvastatin [From Zocor] Allergy Unknown Verified 11/27/19 22:55 sulindac [From Clinoril] Allergy Unknown Verified 11/27/19 22:55 vancomycin Allergy Anaphylaxis Verified 11/27/19 22:55 codeine AdvReac Abdominal Verified 11/27/19 22:55 Pain gabapentin [From Neurontin] AdvReac Nausea & Verified 11/27/19 22:55 Vomiting ibuprofen [From Motrin] AdvReac Unknown Verified 11/27/19 22:55 Review of Systems ROS Statement: Those systems with pertinent positive or pertinent negative responses have been documented in the HPI. ROS Other: All systems not noted in ROS Statement are negative. 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 History of Any Multi-Drug Resistant Organisms: None Reported Past Surgical History: Appendectomy, Breast Surgery, Cholecystectomy, Heart Catheterization, Hysterectomy, Pacemaker, Tonsillectomy, Tubal Ligation Additional Past Surgical History / Comment(s): EP STUDY/ABLATION 2006,pacemaker, LASER EYE SX. bilateral masectomy Past Anesthesia/Blood Transfusion Reactions: No Reported Reaction Type of Cardiac Device: Permanent Pacemaker Device Placement Date:: 2003 Past Psychological History: Bipolar Smoking Status: Never smoker Past Alcohol Use History: None Reported Past Drug Use History: None Reported - Past Family History Father Family Medical History: Cancer Additional Family Medical History / Comment(s): BONE CANCER Mother Family Medical History: Cancer Additional Family Medical History / Comment(s): BREAST CANCER W/METS. Daughter(s) Family Medical History: Cancer General Exam Limitations: no limitations General appearance: alert, in no apparent distress Head exam: Present: atraumatic, normocephalic Eye exam: Present: normal appearance, PERRL ENT exam: Present: normal exam Neck exam: Present: normal inspection. Absent: tenderness, meningismus Respiratory exam: Present: normal lung sounds bilaterally. Absent: respiratory distress Cardiovascular Exam: Present: regular rate, normal rhythm GI/Abdominal exam: Present: soft, distended Back exam: Present: CVA tenderness (L) Neurological exam: Present: alert, oriented X3, CN II-XII intact. Absent: motor sensory deficit Psychiatric exam: Present: anxious Skin exam: Present: warm, dry, intact. Absent: cyanosis, diaphoretic Course Vital Signs 11/27/19 22:49 Temperature 98.3 F Pulse Rate 66 Respiratory 20 Rate Blood Pressure 137/79 O2 Sat by Pulse 95 Oximetry - Reevaluation(s) Reevaluation #1: 11/28/19 00:38 Patient feeling better, eager for discharge. EKG Findings - EKG Comments: EKG Findings:: EKG: Atrial paced rhythm, prolonged AV conduction, incomplete right bundle-branch block, rate of 60, AL interval 224, QRS duration 102, QTC 462, no ST segment elevation Medical Decision Making - Medical Decision Making 74-year-old female with concern for vitamin D overdose and flank pain on the left. There is concern for kidney stone and electronically abnormalities. Patient has KUB negative for any acute abdominal process. CT which is consistent with known congenital absence of the right kidney and compensatory left kidney hypertrophy without hydronephrosis or kidney stone. No acute findings on CT abdomen and pelvis. Patient has mild elevations or creatinine which appears baseline for this patient at 1.45, her calcium and ionized calcium are within normal limits, other electrolytes are within normal limits. PTH and vitamin D are send outs she is informed that her primary care physician can follow-up on these tests. Urinalysis does show 56 white cells with leukocyte Estrace, given the increased urinary frequency she will be initiated on antibiotics for UTI. She will follow-up with her primary care physician and return with worsening or changing symptoms. She is instructed to stop vitamin D at this time. - Lab Data Result diagrams: 11/27/19 23:33 11/27/19 23:33 Lab Results 11/27/19 11/27/19 11/27/19 Range/Units 23:33 23:33 23:33 WBC 3.7 L (3.8-10.6) k/uL RBC 4.57 (3.80-5.40) m/uL Hgb 13.9 (11.4-16.0) gm/dL Hct 43.1 (34.0-46.0) % MCV 94.4 (80.0-100.0) fL MCH 30.5 (25.0-35.0) pg MCHC 32.3 (31.0-37.0) g/dL RDW 14.5 (11.5-15.5) % Plt Count 171 (150-450) k/uL Neutrophils % 60 % Lymphocytes % 25 % Monocytes % 7 % Eosinophils % 4 % Basophils % 0 % Neutrophils # 2.2 (1.3-7.7) k/uL Lymphocytes # 1.0 (1.0-4.8) k/uL Monocytes # 0.3 (0-1.0) k/uL Eosinophils # 0.2 (0-0.7) k/uL Basophils # 0.0 (0-0.2) k/uL Hypochromasia Slight PT 12.2 H (9.0-12.0) sec INR 1.2 H (<1.2) APTT 31.7 H (22.0-30.0) sec Sodium (137-145) mmol/L Potassium (3.5-5.1) mmol/L Chloride (98-107) mmol/L Carbon Dioxide (22-30) mmol/L Anion Gap mmol/L BUN (7-17) mg/dL Creatinine (0.52-1.04) mg/dL Est GFR (CKD-EPI)AfAm (>60 ml/min/1.73 sqM) Est GFR (CKD-EPI)NonAf (>60 ml/min/1.73 sqM) Glucose (74-99) mg/dL Plasma Lactic Acid Tylor (0.7-2.0) mmol/L Calcium (8.4-10.2) mg/dL Ionized Calcium Isa (4.5-5.3) mg/dL Phosphorus (2.5-4.5) mg/dL Magnesium (1.6-2.3) mg/dL Total Bilirubin (0.2-1.3) mg/dL AST (14-36) U/L ALT (4-34) U/L Alkaline Phosphatase (38-126) U/L Total Protein (6.3-8.2) g/dL Albumin (3.5-5.0) g/dL Amylase (30-110) U/L Lipase (23-300) U/L Urine Color Yellow Urine Appearance Clear (Clear) Urine pH 6.0 (5.0-8.0) Ur Specific [place] 1.018 (1.001-1.035) Urine Protein Negative (Negative) Urine Glucose (UA) Negative (Negative) Urine Ketones Negative (Negative) Urine Blood Negative (Negative) Urine Nitrite Negative (Negative) Urine Bilirubin Negative (Negative) Urine Urobilinogen <2.0 (<2.0) mg/dL Ur Leukocyte Esterase Large H (Negative) Urine RBC 1 (0-5) /hpf Urine WBC 56 H (0-5) /hpf Ur Squamous Epith Cells 1 (0-4) /hpf Urine Bacteria Rare H (None) /hpf Urine Mucus Rare H (None) /hpf 11/27/19 11/27/19 Range/Units 23:33 23:33 WBC (3.8-10.6) k/uL RBC (3.80-5.40) m/uL Hgb (11.4-16.0) gm/dL Hct (34.0-46.0) % MCV (80.0-100.0) fL MCH (25.0-35.0) pg MCHC (31.0-37.0) g/dL RDW (11.5-15.5) % Plt Count (150-450) k/uL Neutrophils % % Lymphocytes % % Monocytes % % Eosinophils % % Basophils % % Neutrophils # (1.3-7.7) k/uL Lymphocytes # (1.0-4.8) k/uL Monocytes # (0-1.0) k/uL Eosinophils # (0-0.7) k/uL Basophils # (0-0.2) k/uL Hypochromasia PT (9.0-12.0) sec INR (<1.2) APTT (22.0-30.0) sec Sodium 141 (137-145) mmol/L Potassium 4.0 (3.5-5.1) mmol/L Chloride 111 H (98-107) mmol/L Carbon Dioxide 25 (22-30) mmol/L Anion Gap 5 mmol/L BUN 25 H (7-17) mg/dL Creatinine 1.45 H (0.52-1.04) mg/dL Est GFR (CKD-EPI)AfAm 41 (>60 ml/min/1.73 sqM) Est GFR (CKD-EPI)NonAf 36 (>60 ml/min/1.73 sqM) Glucose 92 (74-99) mg/dL Plasma Lactic Acid Tylor 1.2 (0.7-2.0) mmol/L Calcium 9.2 (8.4-10.2) mg/dL Ionized Calcium Isa 5.3 (4.5-5.3) mg/dL Phosphorus 5.1 H (2.5-4.5) mg/dL Magnesium 2.1 (1.6-2.3) mg/dL Total Bilirubin 0.2 (0.2-1.3) mg/dL AST 22 (14-36) U/L ALT 13 (4-34) U/L Alkaline Phosphatase 79 (38-126) U/L Total Protein 7.0 (6.3-8.2) g/dL Albumin 4.0 (3.5-5.0) g/dL Amylase 45 (30-110) U/L Lipase 139 (23-300) U/L Urine Color Urine Appearance (Clear) Urine pH (5.0-8.0) Ur Specific [place] (1.001-1.035) Urine Protein (Negative) Urine Glucose (UA) (Negative) Urine Ketones (Negative) Urine Blood (Negative) Urine Nitrite (Negative) Urine Bilirubin (Negative) Urine Urobilinogen (<2.0) mg/dL Ur Leukocyte Esterase (Negative) Urine RBC (0-5) /hpf Urine WBC (0-5) /hpf Ur Squamous Epith Cells (0-4) /hpf Urine Bacteria (None) /hpf Urine Mucus (None) /hpf Disposition Clinical Impression: Flank pain, Vitamin D overdose, UTI (urinary tract infection) Disposition: HOME SELF-CARE Condition: Good Instructions (If sedation given, give patient instructions): Abdominal Pain (ED), Urinary Tract Infection in Women (ED) Prescriptions: Cephalexin [Keflex] 500 mg PO Q12HR #20 cap Is patient prescribed a controlled substance at d/c from ED?: No Referrals: Drew Neff DO [Primary Care Provider] - 1-2 days Time of Disposition: 00:41
[2019-11-28 00:04] LABS: INR 1.2 (<1.2); Partial Thromboplastin Time 31.7 sec (22.0-30.0); Prothrombin Time 12.2 sec (9.0-12.0)
--- NOTE | 2019-11-28 00:05 | CT ---
EXAMINATION TYPE: CT abdomen pelvis wo con DATE OF EXAM: 11/27/2019 COMPARISON: 04/19/2017 HISTORY: left sided flank pain. CT DLP: 1640.4 mGycm Automated exposure control for dose reduction was used. Exam performed with no contrast. The lung bases are clear of consolidation. There is mild fibrotic changes and subsegmental atelectasi s at the lung bases. Heart is enlarged. There is no pericardial effusion. There is small hiatal herni a. Stomach is otherwise intact. Liver shows no focal defect. The bile ducts are not dilated. There ar e calcified small splenic granulomata. There is no evidence of pancreatic mass. There is no adrenal mass. Right kidney is small and deformed. Left kidney shows compensatory hypertro phy. There is no hydronephrosis. Ureters are not dilated. There is no retroperitoneal adenopathy. Jesu dder distends smoothly. There is no evidence of a pelvic mass. There are some sigmoid diverticula wit hout evidence of diverticulitis. There is no mesenteric edema. There is no ascites or free air. There is no sign of a bowel obstructio n. Lumbar vertebra have normal alignment. There is no compression fracture. Bony pelvis is intact. Th ere is bilateral hip joint space narrowing. IMPRESSION: Hypoplastic or atrophic right kidney. No evidence of renal obstruction. Appendix not seen. No sign of appendicitis. Sigmoid diverticulosis without diverticulitis. There is overall no significant change compared to old exam.
[2019-11-28 00:06] LABS: Appearance,Urine Clear (Clear); Bacteria,Urine Rare /hpf; Bilirubin,Urine Negative (Negative); Blood,Urine Negative (Negative); Color,Urine Yellow; Glucose,Urine (UA) Negative (Negative); Ketones,Urine Negative (Negative); Leukocyte Esterase,Urine Large (Negative); Mucus,Urine Rare /hpf; Nitrite,Urine Negative (Negative); Protein,Urine Negative (Negative); RBC,Urine 1 /hpf (0-5); Specific Gravity,Urine 1.018 (1.001-1.035); Squamous Epithelial Cell,Urine 1 /hpf (0-4); Urobilinogen,Urine <2.0 mg/dL (<2.0); WBC,Urine 56 /hpf (0-5)
--- NOTE | 2019-11-28 00:07 | XR ---
EXAMINATION TYPE: XR KUB DATE OF EXAM: 11/27/2019 COMPARISON: NONE HISTORY: Left side pain TECHNIQUE: 2 views supine FINDINGS: There is no sign of intestinal obstruction or pneumoperitoneum. Fecal pattern is normal. Th ere is no evidence of a mass. There are surgical clips in the pelvis. Lung bases are clear of consoli dation. IMPRESSION: Nonacute abdomen.
[2019-11-28 00:12] LABS: Basophils % (A) 0 %; Eosinophils # (A) 0.2 k/uL (0-0.7); Eosinophils % (A) 4 %; HCT 43.1 % (34.0-46.0); HGB 13.9 gm/dL (11.4-16.0); Hypochromasia Slight; Lymphocytes % (A) 25 %; MCH 30.5 pg (25.0-35.0); MCHC 32.3 g/dL (31.0-37.0); MCV 94.4 fL (80.0-100.0); Mean Platelet Volume 7.7; Monocytes # (A) 0.3 k/uL (0-1.0); Monocytes % (A) 7 %; Neutrophils # (A) 2.2 k/uL (1.3-7.7); Neutrophils % (A) 60 %; Platelet Count 171 k/uL (150-450); RBC 4.57 m/uL (3.80-5.40); RDW 14.5 % (11.5-15.5); WBC 3.7 k/uL (3.8-10.6)
[2019-11-28 00:16] LABS: Ionized Calcium 5.3 mg/dL (4.5-5.3)
[2019-11-28 00:29] LABS: Calcium 9.2 mg/dL (8.4-10.2); Magnesium 2.1 mg/dL (1.6-2.3); Phosphorus 5.1 mg/dL (2.5-4.5); Total Bilirubin 0.2 mg/dL (0.2-1.3)
[2019-11-28 00:46] VITALS: BP 165/89; PULSE 60; RESP 16; TEMP 98.7
== END 2019-11-28 00:50 | disposition home or self-care (01) ==
LOC: EC 22:44
DX: T45.2X1A Poisoning by vitamins, accidental (unintentional), initial encounter (principal); N39.0 Urinary tract infection, site not specified; R10.9 Unspecified abdominal pain; I48.91 Unspecified atrial fibrillation; I11.0 Hypertensive heart disease with heart failure; I50.9 Heart failure, unspecified; N26.1 Atrophy of kidney (terminal); G47.30 Sleep apnea, unspecified; K57.30 Diverticulosis of large intestine without perforation or abscess without bleeding; Z79.01 Long term (current) use of anticoagulants; Z79.899 Other long term (current) drug therapy; Z88.0 Allergy status to penicillin; Z91.048 Other nonmedicinal substance allergy status; Z88.6 Allergy status to analgesic agent; Z88.1 Allergy status to other antibiotic agents; Z88.8 Allergy status to other drugs, medicaments and biological substances; Z88.5 Allergy status to narcotic agent; Z95.0 Presence of cardiac pacemaker; Z85.3 Personal history of malignant neoplasm of breast
CPT/HCPCS: 36415; 93005; 82652; 80053; 82330; 82150; 83605; 83690; 83735; 84100; 85025; 85610; 85730; 81001; 83970; 87086; 74018; 74176; 99285; 96374; 96361; J2270

== ENCOUNTER → 2020-02-20 | Outpatient (CLI) | payer MEDICARE ==
[2020-02-20 15:25] LABS: Basophils % (A) 1 %; Eosinophils # (A) 0.1 k/uL (0-0.7); Eosinophils % (A) 3 %; HCT 43.2 % (34.0-46.0); HGB 13.3 gm/dL (11.4-16.0); Hypochromasia Slight; Lymphocytes # (A) 0.8 k/uL (1.0-4.8); Lymphocytes % (A) 19 %; MCH 29.6 pg (25.0-35.0); MCHC 30.9 g/dL (31.0-37.0); MCV 95.9 fL (80.0-100.0); Mean Platelet Volume 7.6; Monocytes # (A) 0.2 k/uL (0-1.0); Monocytes % (A) 6 %; Neutrophils # (A) 2.9 k/uL (1.3-7.7); Neutrophils % (A) 71 %; Platelet Count 169 k/uL (150-450); RDW 13.7 % (11.5-15.5)
[2020-02-20 15:52] LABS: Calcium 9.2 mg/dL (8.4-10.2); Magnesium 2.1 mg/dL (1.6-2.3); Phosphorus 3.9 mg/dL (2.5-4.5); Potassium 4.3 mmol/L (3.5-5.1); Uric Acid 5.4 mg/dL (3.7-7.4)
[2020-02-20 16:05] LABS: Protein/Creatinine Ratio,Urine 0.179
[2020-02-20 16:34] LABS: Appearance,Urine Clear (Clear); Bacteria,Urine Rare /hpf; Bilirubin,Urine Negative (Negative); Blood,Urine Negative (Negative); Color,Urine Light Yellow; Glucose,Urine (UA) Negative (Negative); Hyaline Casts,Urine 1 /lpf (0-2); Ketones,Urine Negative (Negative); Leukocyte Esterase,Urine Large (Negative); Nitrite,Urine Negative (Negative); PH, Urine 5.5 (5.0-8.0); Protein,Urine Negative (Negative); RBC,Urine 2 /hpf (0-5); Specific Gravity,Urine 1.009 (1.001-1.035); Squamous Epithelial Cell,Urine 3 /hpf (0-4); Urobilinogen,Urine <2.0 mg/dL (<2.0); WBC,Urine 36 /hpf (0-5)
[2020-02-21 02:52] LABS: % Iron Saturation 17.92 (12.00-45.00)
[2020-02-21 03:01] LABS: Ferritin 45.6 ng/mL (10.0-291.0)
== END | disposition home or self-care (01) ==
LOC: LAB 14:54
PROVIDERS: ATTEND Physician Assistant
DX: I48.91 Unspecified atrial fibrillation (principal); Z79.899 Other long term (current) drug therapy; E55.9 Vitamin D deficiency, unspecified; N25.81 Secondary hyperparathyroidism of renal origin; N39.0 Urinary tract infection, site not specified; M10.9 Gout, unspecified; R80.9 Proteinuria, unspecified; D63.1 Anemia in chronic kidney disease; N18.3 Chronic kidney disease, stage 3 (moderate)
CPT/HCPCS: 80048; 81001; 82040; 82306; 82570; 82728; 83540; 83550; 83735; 83970; 84100; 84156; 84443; 84550; 85025

== ENCOUNTER → 2020-03-24 | Outpatient (CLI) | payer MEDICARE ==
[2020-03-24 18:43] LABS: African American GFR (CKD) 36.7 (60.0-200.0); Anion Gap 7.3 mmol/L (4.00-12.00); BUN/Creat Ratio 13.13 Ratio (12.00-20.00); Calcium 9.4 mg/dL (8.7-10.3); Carbon Dioxide 24.7 mmol/L (21.6-31.8); Non-African American GFR(CKD) 31.6 (60.0-200.0); Phosphorus 3.7 mg/dL (2.4-5.1); Potassium 4.6 mmol/L (3.5-5.5)
== END | disposition home or self-care (01) ==
LOC: LABWHC1 14:08
PROVIDERS: ATTEND Physician Assistant
DX: I12.9 Hypertensive chronic kidney disease with stage 1 through stage 4 chronic kidney disease, or unspecified chronic kidney disease (principal); N18.9 Chronic kidney disease, unspecified
CPT/HCPCS: 36415; 80069; 87086

== ENCOUNTER → 2020-04-09 | Outpatient (CLI) | payer MEDICARE ==
[2020-04-09 13:55] LABS: HCT 40.1 % (34.0-46.0); HGB 12.6 gm/dL (11.4-16.0); Hypochromasia Slight; MCH 29.8 pg (25.0-35.0); MCHC 31.4 g/dL (31.0-37.0); MCV 94.9 fL (80.0-100.0); Mean Platelet Volume 7.7; Platelet Count 164 k/uL (150-450); RBC 4.22 m/uL (3.80-5.40); RDW 13.7 % (11.5-15.5); WBC 3.7 k/uL (3.8-10.6)
[2020-04-09 18:46] LABS: African American GFR (CKD) 36.7 (60.0-200.0); Anion Gap 8.3 mmol/L (4.00-12.00); Calcium 9.6 mg/dL (8.7-10.3); Carbon Dioxide 24.7 mmol/L (21.6-31.8); Chol/HDL Ratio 2.4; LDL Cholesterol,Calculated 79.2 mg/dL (0.0-131.0); Non-African American GFR(CKD) 31.6 (60.0-200.0); Potassium 4.4 mmol/L (3.5-5.5); VLDL Calculation 21.8 mg/dL (5.00-40.00)
== END | disposition home or self-care (01) ==
LOC: LABWHC1 12:57
PROVIDERS: ATTEND Physician Assistant
DX: I10 Essential (primary) hypertension (principal); I48.91 Unspecified atrial fibrillation; E78.5 Hyperlipidemia, unspecified
CPT/HCPCS: 36415; 80048; 80061; 84443; 85027

== ENCOUNTER → 2020-04-22 | Outpatient (CLI) | payer MEDICARE ==
[2020-04-22 16:39] LABS: Basophils % (A) 1 %; Eosinophils # (A) 0.2 k/uL (0-0.7); Eosinophils % (A) 5 %; HCT 42.1 % (34.0-46.0); HGB 12.6 gm/dL (11.4-16.0); Hypochromasia Slight; Lymphocytes # (A) 0.5 k/uL (1.0-4.8); Lymphocytes % (A) 14 %; MCH 28.4 pg (25.0-35.0); MCV 94.6 fL (80.0-100.0); Monocytes # (A) 0.2 k/uL (0-1.0); Monocytes % (A) 6 %; Neutrophils # (A) 2.5 k/uL (1.3-7.7); Neutrophils % (A) 72 %; Platelet Count 172 k/uL (150-450); RBC 4.45 m/uL (3.80-5.40); RDW 13.5 % (11.5-15.5); WBC 3.4 k/uL (3.8-10.6)
[2020-04-22 16:49] LABS: Appearance,Urine Cloudy (Clear); Bilirubin,Urine Negative (Negative); Blood,Urine Negative (Negative); Color,Urine Yellow; Glucose,Urine (UA) Negative (Negative); Hyaline Casts,Urine 5 /lpf (0-2); Ketones,Urine Negative (Negative); Leukocyte Esterase,Urine Large (Negative); Mucus,Urine Rare /hpf; Nitrite,Urine Negative (Negative); PH, Urine 6.5 (5.0-8.0); Protein,Urine Trace (Negative); RBC,Urine 1 /hpf (0-5); Specific Gravity,Urine 1.019 (1.001-1.035); Squamous Epithelial Cell,Urine 8 /hpf (0-4); WBC,Urine 16 /hpf (0-5)
[2020-04-22 17:07] LABS: Protein/Creatinine Ratio,Urine 0.081
[2020-04-23 03:19] LABS: Ferritin 43.4 ng/mL (10.0-291.0)
[2020-04-23 03:25] LABS: % Iron Saturation 24.01 (12.00-45.00); African American GFR (CKD) 39.6 (60.0-200.0); Albumin 4.2 g/dL (3.80-4.90); Anion Gap 11.8 mmol/L (4.00-12.00); BUN/Creat Ratio 15.33 Ratio (12.00-20.00); Calcium 9.2 mg/dL (8.7-10.3); Carbon Dioxide 23.2 mmol/L (21.6-31.8); Magnesium 1.9 mg/dL (1.5-2.4); Non-African American GFR(CKD) 34.2 (60.0-200.0); Phosphorus 3.6 mg/dL (2.4-5.1); Potassium 4.6 mmol/L (3.5-5.5); Uric Acid 5.5 mg/dL (2.9-7.7)
== END | disposition home or self-care (01) ==
LOC: LABWHC1 16:02
PROVIDERS: ATTEND Nurse Practitioner Family
DX: N18.3 Chronic kidney disease, stage 3 (moderate) (principal); D63.1 Anemia in chronic kidney disease; N25.81 Secondary hyperparathyroidism of renal origin; E55.9 Vitamin D deficiency, unspecified; M10.9 Gout, unspecified; N39.0 Urinary tract infection, site not specified
CPT/HCPCS: 36415; 80048; 81001; 82040; 82570; 82728; 83540; 83550; 83735; 83970; 84100; 84156; 84550; 85025

== ENCOUNTER → 2020-05-01 | Outpatient (CLI) | payer MEDICARE ==
--- NOTE | 2020-05-01 13:10 | US ---
EXAMINATION TYPE: US kidneys/renal and bladder DATE OF EXAM: 05/01/2020 COMPARISON: CLINICAL HISTORY: N18.3 Chronic kidney disease, stage 3. no pain per patient. Right kidney atrophy p er previous exam. EXAM MEASUREMENTS: Right Kidney: 6.6 x 3.5 x 4.0 cm- estimated Left Kidney: 12.1 x 4.8 x 5.3 cm Right Kidney: Extremely limited visualization. Unable to accurately visualized right kidney. Left Kidney: No hydronephrosis or masses seen Bladder: mildly distended, anechoic Bilateral Jets not seen There is no evidence for hydronephrosis at this point in time. No nephrolithiasis is seen. No yin s are identified. The urinary bladder is anechoic. Bilateral ureteral jets are seen. IMPRESSION: Limited evaluation.
== END | disposition home or self-care (01) ==
LOC: RADUSWWP 12:35
PROVIDERS: ATTEND Internal Medicine Nephrology
DX: N18.30 Chronic kidney disease, stage 3 unspecified (principal)
CPT/HCPCS: 76770

== ENCOUNTER 2021-03-09 23:18 | Emergency (ER) | payer MEDICARE ==
[2021-03-09 23:24] VITALS: TEMP 97.7
[2021-03-10] MEDS ORDERED: SODIUM CHLORIDE 0.9% 1,000 ML IV STA (00:03)
[2021-03-10] MEDS ORDERED: FLUCONAZOLE 150 MG TAB PO STA (00:03)
[2021-03-10] MEDS ORDERED: NYSTATIN 100,000 UNIT/GM OINT 30 GM TUBE TOPICAL STA (00:03)
[2021-03-10] MEDS ORDERED: MORPHINE SULFATE 4 MG/ML SYRINGE IV STA (00:03)
--- NOTE | 2021-03-10 00:21 | ED ---
Female Urogenital HPI - General Chief complaint: Urogenital Stated complaint: Groin Pain Time Seen by Provider: 03/09/21 23:28 Source: patient, RN notes reviewed, old records reviewed Mode of arrival: ambulatory Limitations: no limitations - History of Present Illness Initial comments: This is a 75-year-old female to the ER for significant suprapubic abdominal pain pelvic pain. No other complaints no fevers or any other issue. Patient states the pain is just beginning difficult for her walk ambulate and move especially when her legs rub together. Is also severely itching. Patient denies any fevers no dysuria no difficulties with bowel movements MD Complaint: dysuria, pelvic pain -: days(s) Location: suprapubic Radiation: suprapubic Severity: severe Severity scale (1-10): 8 Quality: sharp Consistency: constant Improves with: none Worsens with: none Patient : Yes Associated Symptoms: nausea/vomiting, dysuria - Related Data Home Medications Medication Instructions Recorded Confirmed Baclofen 10 mg PO HS 04/13/15 03/22/21 Topiramate [Topamax] 200 mg PO QAM 03/28/17 03/22/21 lamoTRIgine [LaMICtal] 200 mg PO DAILY 03/28/17 03/22/21 Amiodarone [Cordarone] 200 mg PO DAILY 03/22/21 03/22/21 Carvedilol [Coreg] 12.5 mg PO BID-W/MEALS 03/22/21 03/22/21 Clopidogrel Bisulfate [Plavix] 75 mg PO DAILY 03/22/21 03/22/21 DULoxetine HCL [Cymbalta] 60 mg PO HS 03/22/21 03/22/21 Ergocalciferol [Vitamin D2 (1250 1,250 mcg PO CHAVEZ 03/22/21 03/22/21 Mcg = 91262 Iu)] Furosemide [Lasix] 40 mg PO WE@0903/22/21 03/22/21 Pantoprazole Sodium [Protonix] 40 mg PO DAILY@0600 03/22/21 03/22/21 Rivaroxaban [Xarelto] 15 mg PO DAILY 03/22/21 03/22/21 amLODIPine [Norvasc] 5 mg PO DAILY 03/22/21 03/22/21 oxyCODONE HCL/ACETAMINOPHEN 1 tab PO Q6H PRN 03/22/21 03/22/21 [oxyCODONE HCL/ACETAMINOPHEN 7.5-325] Previous Rx's Medication Instructions Recorded Cephalexin [Keflex] 500 mg PO Q6HR #40 cap 03/10/21 Allergies Allergy/AdvReac Type Severity Reaction Status Date / Time alendronate sodium Allergy Anaphylaxis Verified 03/22/21 19:53 [From Fosamax] amitriptyline HCl Allergy Unknown Verified 03/22/21 19:53 [From Elavil] doxepin HCl [From Sinequan] Allergy Unknown Verified 03/22/21 19:53 iodine Allergy Anaphylaxis Verified 03/22/21 19:53 Penicillins Allergy passed out Verified 03/22/21 19:53 simvastatin [From Zocor] Allergy Unknown Verified 03/22/21 19:53 sulindac [From Clinoril] Allergy Unknown Verified 03/22/21 19:53 vancomycin Allergy Anaphylaxis Verified 03/22/21 19:53 codeine AdvReac Abdominal Verified 03/22/21 19:53 Pain gabapentin [From Neurontin] AdvReac Nausea & Verified 03/22/21 19:53 Vomiting ibuprofen [From Motrin] AdvReac Unknown Verified 03/22/21 19:53 Review of Systems ROS Statement: Those systems with pertinent positive or pertinent negative responses have been documented in the HPI. ROS Other: All systems not noted in ROS Statement are negative. 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 History of Any Multi-Drug Resistant Organisms: None Reported Past Surgical History: Appendectomy, Breast Surgery, Cholecystectomy, Heart Catheterization, Hysterectomy, Pacemaker, Tonsillectomy, Tubal Ligation Additional Past Surgical History / Comment(s): EP STUDY/ABLATION 2006,pacemaker, LASER EYE SX. bilateral masectomy Past Anesthesia/Blood Transfusion Reactions: No Reported Reaction Type of Cardiac Device: Permanent Pacemaker Device Placement Date:: 2003 Past Psychological History: Bipolar Past Alcohol Use History: None Reported Past Drug Use History: None Reported - Past Family History Father Family Medical History: Cancer Additional Family Medical History / Comment(s): BONE CANCER Mother Family Medical History: Cancer Additional Family Medical History / Comment(s): BREAST CANCER W/METS. Daughter(s) Family Medical History: Cancer General Exam Limitations: no limitations General appearance: alert, in no apparent distress Head exam: Present: atraumatic, normocephalic, normal inspection Eye exam: Present: normal appearance, PERRL, EOMI. Absent: scleral icterus, conjunctival injection, periorbital swelling ENT exam: Present: normal exam, mucous membranes moist Neck exam: Present: normal inspection. Absent: tenderness, meningismus, lymphadenopathy Respiratory exam: Present: normal lung sounds bilaterally. Absent: respiratory distress, wheezes, rales, rhonchi, stridor Cardiovascular Exam: Present: regular rate, normal rhythm, normal heart sounds. Absent: systolic murmur, diastolic murmur, rubs, gallop, clicks GI/Abdominal exam: Present: soft, normal bowel sounds. Absent: distended, tenderness, guarding, rebound, rigid External exam: Present: erythema, swelling, other (Significant swelling edema itchiness with intertrigo reaction) Extremities exam: Present: normal inspection, full ROM, normal capillary refill. Absent: tenderness, pedal edema, joint swelling, calf tenderness Back exam: Present: normal inspection Neurological exam: Present: alert, oriented X3, CN II-XII intact Psychiatric exam: Present: normal affect, normal mood Skin exam: Present: warm, dry, intact, normal color. Absent: rash Course Vital Signs 03/09/21 03/10/21 23:21 01:38 Temperature 97.7 F 97.7 F Pulse Rate 68 67 Respiratory 20 16 Rate Blood Pressure 143/76 142/64 O2 Sat by Pulse 99 97 Oximetry - Reevaluation(s) Reevaluation #1: 03/10/21 Medical record is reviewed Patient symptoms are significantly improved here in the ER Patient is informed and results and questions answered Patient is in no acute distress Medical Decision Making - Medical Decision Making 75 female DF for evaluation patient has suprapubic abdominal pain bloating and pressure. Significant yeast infection to both the groin suprapubic and perineal area. CT is otherwise negative and patient pain is well-controlled Discharged home - Lab Data Result diagrams: 03/10/21 00:04 03/10/21 00:04 Lab Results 03/10/21 03/10/2121 Range/Units 00:04 00:04 00:04 WBC 3.9 (3.8-10.6) k/uL RBC 3.85 (3.80-5.40) m/uL Hgb 11.9 (11.4-16.0) gm/dL Hct 36.8 (34.0-46.0) % MCV 95.6 (80.0-100.0) fL MCH 31.0 (25.0-35.0) pg MCHC 32.4 (31.0-37.0) g/dL RDW 13.9 (11.5-15.5) % Plt Count 157 (150-450) k/uL MPV 8.2 Neutrophils % 59 % Lymphocytes % 24 % Monocytes % 7 % Eosinophils % 7 % Basophils % 0 % Neutrophils # 2.3 (1.3-7.7) k/uL Lymphocytes # 0.9 L (1.0-4.8) k/uL Monocytes # 0.3 (0-1.0) k/uL Eosinophils # 0.3 (0-0.7) k/uL Basophils # 0.0 (0-0.2) k/uL Sodium 140 (137-145) mmol/L Potassium 4.0 (3.5-5.1) mmol/L Chloride 111 H (98-107) mmol/L Carbon Dioxide 21 L (22-30) mmol/L Anion Gap 8 mmol/L BUN 25 H (7-17) mg/dL Creatinine 1.46 H (0.52-1.04) mg/dL Est GFR (CKD-EPI)AfAm 41 (>60 ml/min/1.73 sqM) Est GFR (CKD-EPI)NonAf 35 (>60 ml/min/1.73 sqM) Glucose 91 (74-99) mg/dL Plasma Lactic Acid Tylor 0.6 L (0.7-2.0) mmol/L Calcium 9.2 (8.4-10.2) mg/dL Total Bilirubin 0.2 (0.2-1.3) mg/dL AST 24 (14-36) U/L ALT 13 (4-34) U/L Alkaline Phosphatase 97 (38-126) U/L Creatine Kinase 65 (30-135) U/L Total Protein 6.2 L (6.3-8.2) g/dL Albumin 3.5 (3.5-5.0) g/dL Amylase 38 (30-110) U/L Lipase 67 (23-300) U/L Urine Color Urine Appearance (Clear) Urine pH (5.0-8.0) Ur Specific [place] (1.001-1.035) Urine Protein (Negative) Urine Glucose (UA) (Negative) Urine Ketones (Negative) Urine Blood (Negative) Urine Nitrite (Negative) Urine Bilirubin (Negative) Urine Urobilinogen (<2.0) mg/dL Ur Leukocyte Esterase (Negative) Urine RBC (0-5) /hpf Urine WBC (0-5) /hpf Ur Squamous Epith Cells (0-4) /hpf Urine Bacteria (None) /hpf Urine Mucus (None) /hpf 03/10/21 Range/Units 02:36 WBC (3.8-10.6) k/uL RBC (3.80-5.40) m/uL Hgb (11.4-16.0) gm/dL Hct (34.0-46.0) % MCV (80.0-100.0) fL MCH (25.0-35.0) pg MCHC (31.0-37.0) g/dL RDW (11.5-15.5) % Plt Count (150-450) k/uL MPV Neutrophils % % Lymphocytes % % Monocytes % % Eosinophils % % Basophils % % Neutrophils # (1.3-7.7) k/uL Lymphocytes # (1.0-4.8) k/uL Monocytes # (0-1.0) k/uL Eosinophils # (0-0.7) k/uL Basophils # (0-0.2) k/uL Sodium (137-145) mmol/L Potassium (3.5-5.1) mmol/L Chloride (98-107) mmol/L Carbon Dioxide (22-30) mmol/L Anion Gap mmol/L BUN (7-17) mg/dL Creatinine (0.52-1.04) mg/dL Est GFR (CKD-EPI)AfAm (>60 ml/min/1.73 sqM) Est GFR (CKD-EPI)NonAf (>60 ml/min/1.73 sqM) Glucose (74-99) mg/dL Plasma Lactic Acid [place] (0.7-2.0) mmol/L Calcium (8.4-10.2) mg/dL Total Bilirubin (0.2-1.3) mg/dL AST (14-36) U/L ALT (4-34) U/L Alkaline Phosphatase (38-126) U/L Creatine Kinase (30-135) U/L Total Protein (6.3-8.2) g/dL Albumin (3.5-5.0) g/dL Amylase (30-110) U/L Lipase (23-300) U/L Urine Color Yellow Urine Appearance Clear (Clear) Urine pH 6.0 (5.0-8.0) Ur Specific [place] 1.011 (1.001-1.035) Urine Protein Negative (Negative) Urine Glucose (UA) Negative (Negative) Urine Ketones Negative (Negative) Urine Blood Negative (Negative) Urine Nitrite Negative (Negative) Urine Bilirubin Negative (Negative) Urine Urobilinogen <2.0 (<2.0) mg/dL Ur Leukocyte Esterase Small H (Negative) Urine RBC <1 (0-5) /hpf Urine WBC 1 (0-5) /hpf Ur Squamous Epith Cells 1 (0-4) /hpf Urine Bacteria Occasional H (None) /hpf Urine Mucus Rare H (None) /hpf - Radiology Data Radiology results: report reviewed (CT abdomen and pelvis is negative for acute disease), image reviewed Disposition Clinical Impression: Vulvovaginitis Disposition: HOME SELF-CARE Condition: Good Instructions (If sedation given, give patient instructions): Cellulitis (ED), Yeast Infection (ED), Vaginitis (ED) Prescriptions: Cephalexin [Keflex] 500 mg PO Q6HR #40 cap Is patient prescribed a controlled substance at d/c from ED?: No Referrals: Drew Neff DO [Primary Care Provider] - 1-2 days
[2021-03-10 00:55] LABS: Basophils % (A) 0 %; Eosinophils # (A) 0.3 k/uL (0-0.7); Eosinophils % (A) 7 %; HCT 36.8 % (34.0-46.0); HGB 11.9 gm/dL (11.4-16.0); Lymphocytes # (A) 0.9 k/uL (1.0-4.8); Lymphocytes % (A) 24 %; MCHC 32.4 g/dL (31.0-37.0); MCV 95.6 fL (80.0-100.0); Mean Platelet Volume 8.2; Monocytes # (A) 0.3 k/uL (0-1.0); Monocytes % (A) 7 %; Neutrophils # (A) 2.3 k/uL (1.3-7.7); Neutrophils % (A) 59 %; Platelet Count 157 k/uL (150-450); RBC 3.85 m/uL (3.80-5.40); RDW 13.9 % (11.5-15.5); WBC 3.9 k/uL (3.8-10.6)
[2021-03-10 01:13] LABS: Albumin 3.5 g/dL (3.5-5.0); Calcium 9.2 mg/dL (8.4-10.2); Total Bilirubin 0.2 mg/dL (0.2-1.3); Total Protein 6.2 g/dL (6.3-8.2)
[2021-03-10 01:41] VITALS: BP 142/64; PULSE 67; RESP 16
--- NOTE | 2021-03-10 02:00 | CT ---
EXAMINATION TYPE: CT abdomen pelvis wo con DATE OF EXAM: 03/10/2021 COMPARISON: 11/27/2019 HISTORY: Abd. pain CT DLP: 1460.4 mGycm Automated exposure control for dose reduction was used. Images obtained from the diaphragm to the floor the pelvis with no contrast. There is minimal subsegmental atelectasis at the lung bases. Heart appears slightly enlarged. There i s no pericardial effusion. There is no pleural effusion. Liver spleen appear intact. The bile ducts a re not dilated. There is no pancreatic mass. Gallbladder appears contracted. There is no adrenal mass. Right kidney is small and irregular and consistent with hypoplasia or dyspl pat. Left kidney shows no hydronephrosis. There are small calculi up to 2 mm in the left kidney. The re is no retroperitoneal adenopathy. Ureters are not dilated. Bladder distends smoothly. There is no inguinal hernia. There is no free fluid in the pelvis. There are multiple sigmoid diverticula. There is no diverticulitis. Lumbar vertebra have normal alignment. Posterior elements are intact. There is no compression fractur e. The bony pelvis is intact. There is some mild hip joint space narrowing. There is no evidence of h ip fracture. There is no mesenteric edema. There is no ascites or free air. There is no bowel obstruction. IMPRESSION: Cardiomegaly. There is some minimal atelectasis at the lung bases increased compared to old exam. Minimal colonic diverticulosis. No acute abnormality within the abdomen pelvis. Dysplastic or hypoplastic right kidney unchanged.
[2021-03-10] MEDS ORDERED: CEPHALEXIN 500MG STARTER PACK 4 CAP BTL PO STA (02:08)
[2021-03-10] MEDS ORDERED: cefTRIAXone IN SWFI 1,000 MG/10 ML SYRINGE IVP STA (02:08)
[2021-03-10 02:53] LABS: Appearance,Urine Clear (Clear); Bacteria,Urine Occasional /hpf; Bilirubin,Urine Negative (Negative); Blood,Urine Negative (Negative); Color,Urine Yellow; Glucose,Urine (UA) Negative (Negative); Ketones,Urine Negative (Negative); Leukocyte Esterase,Urine Small (Negative); Mucus,Urine Rare /hpf; Nitrite,Urine Negative (Negative); Protein,Urine Negative (Negative); RBC,Urine <1 /hpf (0-5); Specific Gravity,Urine 1.011 (1.001-1.035); Squamous Epithelial Cell,Urine 1 /hpf (0-4); Urobilinogen,Urine <2.0 mg/dL (<2.0); WBC,Urine 1 /hpf (0-5)
== END 2021-03-10 02:38 | disposition home or self-care (01) ==
LOC: EC 23:18
DX: N76.0 Acute vaginitis (principal); I11.0 Hypertensive heart disease with heart failure; I50.9 Heart failure, unspecified; I48.91 Unspecified atrial fibrillation; M19.90 Unspecified osteoarthritis, unspecified site; F31.9 Bipolar disorder, unspecified; Z88.0 Allergy status to penicillin; Z88.1 Allergy status to other antibiotic agents; Z88.5 Allergy status to narcotic agent; Z88.6 Allergy status to analgesic agent; Z85.3 Personal history of malignant neoplasm of breast; Z90.49 Acquired absence of other specified parts of digestive tract; Z90.710 Acquired absence of both cervix and uterus; Z90.89 Acquired absence of other organs; Z98.51 Tubal ligation status; Z95.0 Presence of cardiac pacemaker; Z79.899 Other long term (current) drug therapy
CPT/HCPCS: 99284; 96374; 96375; 96361; 36415; 80053; 82150; 82550; 83605; 83690; 85025; 81001; 74176; J2270; J0696

== ENCOUNTER 2021-03-22 15:27 | Inpatient (IN) | payer MEDICARE, OTHER ==
[2021-03-22] MEDS ORDERED: SODIUM CHLORIDE 0.9% 500 ML 500 ML IV STA (17:20)
[2021-03-22] MEDS ORDERED: traMADol 50 MG TAB PO STA (17:52)
[2021-03-22 17:56] LABS: Appearance,Urine Clear (Clear); Basophils % (A) 0 %; Bilirubin,Urine Negative (Negative); Blood,Urine Negative (Negative); Color,Urine Light Yellow; Eosinophils # (A) 0.6 k/uL (0-0.7); Eosinophils % (A) 13 %; Glucose,Urine (UA) Negative (Negative); HCT 40.3 % (34.0-46.0); Hypochromasia Slight; Ketones,Urine Negative (Negative); Leukocyte Esterase,Urine Small (Negative); Lymphocytes # (A) 0.8 k/uL (1.0-4.8); Lymphocytes % (A) 19 %; MCH 30.9 pg (25.0-35.0); MCHC 32.3 g/dL (31.0-37.0); MCV 95.7 fL (80.0-100.0); Mean Platelet Volume 7.8; Monocytes # (A) 0.2 k/uL (0-1.0); Monocytes % (A) 5 %; Mucus,Urine Rare /hpf; Neutrophils # (A) 2.5 k/uL (1.3-7.7); Neutrophils % (A) 60 %; Nitrite,Urine Negative (Negative); PH, Urine 6.5 (5.0-8.0); Platelet Count 189 k/uL (150-450); Protein,Urine Negative (Negative); RBC 4.21 m/uL (3.80-5.40); RBC,Urine 3 /hpf (0-5); RDW 14.1 % (11.5-15.5); Specific Gravity,Urine 1.006 (1.001-1.035); Squamous Epithelial Cell,Urine 1 /hpf (0-4); Urobilinogen,Urine <2.0 mg/dL (<2.0); WBC 4.2 k/uL (3.8-10.6); WBC,Urine 4 /hpf (0-5)
[2021-03-22 18:12] LABS: Albumin 4.2 g/dL (3.5-5.0); Calcium 9.5 mg/dL (8.4-10.2); Potassium 3.9 mmol/L (3.5-5.1); Total Bilirubin 0.3 mg/dL (0.2-1.3); Total Protein 7.1 g/dL (6.3-8.2)
--- NOTE | 2021-03-22 18:17 | XR ---
EXAMINATION TYPE: XR Hip Complete RT DATE OF EXAM: 03/22/2021 COMPARISON: NONE HISTORY: Hip pain TECHNIQUE: 2 views FINDINGS: There is some narrowing of the right hip joint space. I see no fracture nor dislocation. Ac etabulum is intact. Sacroiliac joint is intact. IMPRESSION: Acetabular spurring. No fracture.
--- NOTE | 2021-03-22 18:43 | ED ---
Recheck HPI - General Source: patient, EMS <VanesadavidkeshaDagoberto - Last Filed: 03/22/21 19:12> <Alec Chavez - Last Filed: 03/22/21 20:06> - General Chief Complaint: Recheck/Abnormal Lab/Rx Stated Complaint: Leg Pain Time Seen by Provider: 03/22/21 16:52 - History of Present Illness Initial Comments: 75-year-old feel presenting to the emergency department with a chief complaint of right groin and leg pain. Patient reports she was evaluated in emergency department about 2 weeks ago for a the same chief complaint. Patient reports the pain seems to be located right groin with radiation distally to the popliteal region. Patient reports it feels like a nervelike sensation. Reports upon evaluation, she was discharged with antibiotic for some type of vaginal infection. However, she denied any vaginal symptoms of any kind. She states the pain has been exacerbated in the right hip over the last 2 weeks. States she is not able to family due to the pain or bearing weight. She denied any discharge or bleeding foul smell itching. Denies increased urgency frequency or dysuria. She denies any injury to the knee. Denies any erythematous changes or paresthesias. She denies any nausea or vomiting or diarrhea. Abdominal surgical history hysterectomy with bilateral salpingo-oophorectomy, appendectomy and cholecystectomy. (Dagoberto Morales) - Related Data Home Medications Medication Instructions Recorded Confirmed Baclofen 10 mg PO HS 04/13/15 02/14/18 oxyCODONE HCL [OxyIR] 5 mg PO Q6H PRN 04/13/15 02/14/18 Rivaroxaban [Xarelto] 20 mg PO DAILY 03/28/17 02/14/18 Topiramate [Topamax] 200 mg PO QAM 03/28/17 02/14/18 lamoTRIgine [LaMICtal] 200 mg PO HS 03/28/17 02/14/18 NIFEdipine XL [Procardia XL] 60 mg PO BID 02/08/18 02/14/18 nadoloL [Corgard] 90 mg PO QAM 02/08/18 02/14/18 Previous Rx's Medication Instructions Recorded Isosorbide Mononitrate ER [Imdur] 30 mg PO DAILY #90 tab 07/18/18 Pravastatin Sodium [Pravachol] 40 mg PO DAILY #90 tab 02/14/18 Cephalexin [Keflex] 500 mg PO Q12HR #20 cap 11/28/19 Cephalexin [Keflex] 500 mg PO Q6HR #40 cap 03/10/21 Cephalexin [Keflex] 500 mg PO Q6HR #40 cap 03/10/21 Allergies Allergy/AdvReac Type Severity Reaction Status Date / Time alendronate sodium Allergy Anaphylaxis Verified 03/22/21 19:53 [From Fosamax] amitriptyline HCl Allergy Unknown Verified 03/22/21 19:53 [From Elavil] doxepin HCl [From Sinequan] Allergy Unknown Verified 03/22/21 19:53 iodine Allergy Anaphylaxis Verified 03/22/21 19:53 Penicillins Allergy passed out Verified 03/22/21 19:53 simvastatin [From Zocor] Allergy Unknown Verified 03/22/21 19:53 sulindac [From Clinoril] Allergy Unknown Verified 03/22/21 19:53 vancomycin Allergy Anaphylaxis Verified 03/22/21 19:53 codeine AdvReac Abdominal Verified 03/22/21 19:53 Pain gabapentin [From Neurontin] AdvReac Nausea & Verified 03/22/21 19:53 Vomiting ibuprofen [From Motrin] AdvReac Unknown Verified 03/22/21 19:53 Review of Systems ROS Other: All systems not noted in ROS Statement are negative. <Dagoberto Morales - Last Filed: 03/22/21 19:12> ROS Other: All systems not noted in ROS Statement are negative. <Alec Chavez - Last Filed: 03/22/21 20:06> ROS Statement: Those systems with pertinent positive or pertinent negative responses have been documented in the HPI. 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 History of Any Multi-Drug Resistant Organisms: None Reported Past Surgical History: Appendectomy, Breast Surgery, Cholecystectomy, Heart Catheterization, Hysterectomy, Pacemaker, Tonsillectomy, Tubal Ligation Additional Past Surgical History / Comment(s): EP STUDY/ABLATION 2007,pacemaker, LASER EYE SX. bilateral masectomy Past Anesthesia/Blood Transfusion Reactions: No Reported Reaction Type of Cardiac Device: Permanent Pacemaker Device Placement Date:: 2003 Past Psychological History: Bipolar Past Alcohol Use History: None Reported Past Drug Use History: None Reported - Past Family History Father Family Medical History: Cancer Additional Family Medical History / Comment(s): BONE CANCER Mother Family Medical History: Cancer Additional Family Medical History / Comment(s): BREAST CANCER W/METS. Daughter(s) Family Medical History: Cancer <Dagoberto Morales - Last Filed: 03/22/21 19:12> General Exam Limitations: no limitations General appearance: alert, in no apparent distress, obese Head exam: Present: atraumatic, normocephalic, normal inspection Eye exam: Present: normal appearance Pupils: Present: normal accommodation ENT exam: Present: normal exam, normal oropharynx, mucous membranes moist Neck exam: Present: normal inspection, full ROM. Absent: lymphadenopathy Respiratory exam: Present: normal lung sounds bilaterally. Absent: respiratory distress, wheezes, rales Cardiovascular Exam: Present: regular rate, normal rhythm, normal heart sounds. Absent: systolic murmur GI/Abdominal exam: Present: soft, tenderness (Right groin tenderness.). Absent: distended, guarding, rebound, rigid Extremities exam: Present: normal inspection, tenderness (Tenderness over the anterior aspect of the right hip.), normal capillary refill, other (+2 dorsalis pedis and posterior tibialis bilaterally. Sensation intact in the right leg). Absent: full ROM (Limited range of motion with any movement in the right hip), pedal edema, joint swelling, calf tenderness Back exam: Present: normal inspection, full ROM. Absent: tenderness Neurological exam: Present: alert, oriented X3 Psychiatric exam: Present: normal affect, normal mood Skin exam: Present: warm, dry, intact, normal color <Dagoberto Morales - Last Filed: 03/22/21 19:12> Course <Alec Chavez - Last Filed: 03/22/21 20:06> Vital Signs 03/22/21 15:43 Temperature 98.0 F Pulse Rate 69 Respiratory 18 Rate Blood Pressure 144/73 O2 Sat by Pulse 98 Oximetry - Reevaluation(s) Reevaluation #1: 03/22/21 19:58 Patient was endorsed to me by ED FOUZIA Morales (secondary to end of his shift) with the patient's right hip CT still pending. Patient's right hip CT shows no acute fracture, but does demonstrate osteoarthritic changes. Patient reports having increasing right hip pain, particularly when attempting to bear weight on her right leg, for the past few weeks. Patient denies known trauma or injury. Patient denies fever or chill. Patient's labs are fairly unremarkable. Patient is afebrile and without leukocytosis. Patient's daughter reports that the patient is unable to care for herself at home, and patient and daughter are both requesting hospital admission at this time. 03/22/21 20:05 Case, H&P and test results were discussed with Dr. Anderson. He accepts hospital admission. He requests PT/OT consultation, as well as orthopedic surgery consultation. He has no further recommendations at this time. (Alec Chavez) Medical Decision Making - Lab Data Result diagrams: 03/22/21 17:32 03/22/21 17:32 <Dagoberto Morales - Last Filed: 03/22/21 19:12> - Lab Data Result diagrams: 03/22/21 17:32 03/22/21 17:32 <Alec Chavez - Last Filed: 03/22/21 20:06> - Medical Decision Making 75-year-old feel presenting to the emergency department with a chief complaint of right groin and leg pain. On physical examination, tenderness seems to be mostly located over the right anterior hip with a bit into the groin. No signs of a femoral or inguinal hernia. Patient is otherwise neurovascularly intact in the right lower extremity. No injuries to the region. No signs of overlying skin infection infection over the right hip. Laboratory work reveals no acute findings. Renal function appears to be at her baseline. UA is unremarkable. Patient was given Tylenol for pain. X-ray reveals acetabular spurring. CT of the right hip pending. At this time, patient care signed off to (Dagoberto Morales) - Lab Data Lab Results 03/22/21 03/22/21 03/22/21 Range/Units 17:32 17:32 17:32 WBC 4.2 (3.8-10.6) k/uL RBC 4.21 (3.80-5.40) m/uL Hgb 13.0 (11.4-16.0) gm/dL Hct 40.3 (34.0-46.0) % MCV 95.7 (80.0-100.0) fL MCH 30.9 (25.0-35.0) pg MCHC 32.3 (31.0-37.0) g/dL RDW 14.1 (11.5-15.5) % Plt Count 189 (150-450) k/uL MPV 7.8 Neutrophils % 60 % Lymphocytes % 19 % Monocytes % 5 % Eosinophils % 13 % Basophils % 0 % Neutrophils # 2.5 (1.3-7.7) k/uL Lymphocytes # 0.8 L (1.0-4.8) k/uL Monocytes # 0.2 (0-1.0) k/uL Eosinophils # 0.6 (0-0.7) k/uL Basophils # 0.0 (0-0.2) k/uL Hypochromasia Slight Sodium 140 (137-145) mmol/L Potassium 3.9 (3.5-5.1) mmol/L Chloride 110 H (98-107) mmol/L Carbon Dioxide 23 (22-30) mmol/L Anion Gap 7 mmol/L BUN 23 H (7-17) mg/dL Creatinine 1.52 H (0.52-1.04) mg/dL Est GFR (CKD-EPI)AfAm 39 (>60 ml/min/1.73 sqM) Est GFR (CKD-EPI)NonAf 34 (>60 ml/min/1.73 sqM) Glucose 91 (74-99) mg/dL Plasma Lactic Acid [place] (0.7-2.0) mmol/L Calcium 9.5 (8.4-10.2) mg/dL Total Bilirubin 0.3 (0.2-1.3) mg/dL AST 26 (14-36) U/L ALT 14 (4-34) U/L Alkaline Phosphatase 129 H (38-126) U/L Total Protein 7.1 (6.3-8.2) g/dL Albumin 4.2 (3.5-5.0) g/dL Lipase 73 (23-300) U/L Urine Color Light Yellow Urine Appearance Clear (Clear) Urine pH 6.5 (5.0-8.0) Ur Specific [place] 1.006 (1.001-1.035) Urine Protein Negative (Negative) Urine Glucose (UA) Negative (Negative) Urine Ketones Negative (Negative) Urine Blood Negative (Negative) Urine Nitrite Negative (Negative) Urine Bilirubin Negative (Negative) Urine Urobilinogen <2.0 (<2.0) mg/dL Ur Leukocyte Esterase Small H (Negative) Urine RBC 3 (0-5) /hpf Urine WBC 4 (0-5) /hpf Ur Squamous Epith Cells 1 (0-4) /hpf Urine Mucus Rare H (None) /hpf 03/22/21 Range/Units 17:32 WBC (3.8-10.6) k/uL RBC (3.80-5.40) m/uL Hgb (11.4-16.0) gm/dL Hct (34.0-46.0) % MCV (80.0-100.0) fL MCH (25.0-35.0) pg MCHC (31.0-37.0) g/dL RDW (11.5-15.5) % Plt Count (150-450) k/uL MPV Neutrophils % % Lymphocytes % % Monocytes % % Eosinophils % % Basophils % % Neutrophils # (1.3-7.7) k/uL Lymphocytes # (1.0-4.8) k/uL Monocytes # (0-1.0) k/uL Eosinophils # (0-0.7) k/uL Basophils # (0-0.2) k/uL Hypochromasia Sodium (137-145) mmol/L Potassium (3.5-5.1) mmol/L Chloride (98-107) mmol/L Carbon Dioxide (22-30) mmol/L Anion Gap mmol/L BUN (7-17) mg/dL Creatinine (0.52-1.04) mg/dL Est GFR (CKD-EPI)AfAm (>60 ml/min/1.73 sqM) Est GFR (CKD-EPI)NonAf (>60 ml/min/1.73 sqM) Glucose (74-99) mg/dL Plasma Lactic Acid [place] 0.9 (0.7-2.0) mmol/L Calcium (8.4-10.2) mg/dL Total Bilirubin (0.2-1.3) mg/dL AST (14-36) U/L ALT (4-34) U/L Alkaline Phosphatase (38-126) U/L Total Protein (6.3-8.2) g/dL Albumin (3.5-5.0) g/dL Lipase (23-300) U/L Urine Color Urine Appearance (Clear) Urine pH (5.0-8.0) Ur Specific [place] (1.001-1.035) Urine Protein (Negative) Urine Glucose (UA) (Negative) Urine Ketones (Negative) Urine Blood (Negative) Urine Nitrite (Negative) Urine Bilirubin (Negative) Urine Urobilinogen (<2.0) mg/dL Ur Leukocyte Esterase (Negative) Urine RBC (0-5) /hpf Urine WBC (0-5) /hpf Ur Squamous Epith Cells (0-4) /hpf Urine Mucus (None) /hpf - Radiology Data CT right hip without contrast: There is some osteoarthritic changes in the right hip joint. No fracture seen. No change compared to old exam. (Alec Chavez) Disposition <Dagoberto Morales - Last Filed: 03/22/21 19:12> Is patient prescribed a controlled substance at d/c from ED?: No Time of Disposition: 20:06 <Alec Chavez - Last Filed: 03/22/21 20:06> Clinical Impression: Right hip pain, Inability to ambulate due to hip, Unable to care for self, Hip osteoarthritis Disposition: ADMITTED IP TO THIS [facility] Condition: Stable Referrals: Drew Neff DO [Primary Care Provider] - 1-2 days
--- NOTE | 2021-03-22 19:32 | CT ---
EXAMINATION TYPE: CT hip RT wo con DATE OF EXAM: 03/22/2021 COMPARISON: CT scan abdomen and pelvis 03/10/2021 HISTORY: Right hip pain, no injury. CT DLP: 1690.6. mGycm Automated exposure control for dose reduction was used. Images obtained from the iliac crest to the subtrochanteric femur without contrast. There is some spurring in the acetabulum. Proximal right femur is intact. There is mild hip joint spa ce narrowing. There is no evidence of a fracture. The right sacroiliac joint is intact. I see no foca l bone destruction. There is no evidence of a soft tissue mass. IMPRESSION: There is some osteoarthritic changes in the right hip joint. No fracture seen. No change compared to old exam.
[2021-03-22] MEDS ORDERED: NALOXONE 0.4 MG/ML 1 ML VIAL IV PRN (20:06)
[2021-03-22] MEDS: HYDROmorphone 0.5 MG/0.5 ML SYRINGE IVP PRN (22:41)
[2021-03-23] MEDS: RIVAROXABAN 15 MG TAB PO SCH ×2 (09:10→09:15)
[2021-03-23] MEDS: AMIODARONE 200 MG TAB PO SCH (09:11)
[2021-03-23] MEDS: lamoTRIgine 100 MG TAB PO SCH (09:11)
[2021-03-23] MEDS: CLOPIDOGREL 75 MG TAB PO SCH ×2 (09:11→09:15)
[2021-03-23] MEDS: TOPIRAMATE 100 MG TAB PO SCH (09:11)
[2021-03-23] MEDS: HYDROmorphone 0.5 MG/0.5 ML SYRINGE IVP PRN ×3 (09:13→20:40)
[2021-03-23 09:32] LABS: Basophils # (A) 0.04 X 10*3/uL (0.00-0.10); Eosinophils # (A) 0.58 X 10*3/uL (0.04-0.35); Eosinophils % (A) 15.1 %; HCT 36.1 % (37.2-46.3); HGB 11.3 g/dL (12.0-15.0); Lymphocytes # (A) 0.85 X 10*3/uL (0.90-5.00); Lymphocytes % (A) 22.1 %; MCH 30.1 pg (27.0-32.0); MCHC 31.3 g/dL (32.0-37.0); Mean Platelet Volume 10.3 fL (9.5-12.2); Monocytes # (A) 0.39 X 10*3/uL (0.20-1.00); Monocytes % (A) 10.1 %; Neutrophils # (A) 1.98 X 10*3/uL (1.80-7.70); Neutrophils % (A) 51.4 %; Platelet Count 178 X 10*3/uL (140-440); RBC 3.76 X 10*6/uL (4.10-5.20); RDW 14.6 % (11.5-14.5); WBC 3.85 X 10*3/uL (4.50-10.00)
--- NOTE | 2021-03-23 09:38 | XR ---
Lumbar spine with flexion and extension views HISTORY: Low back pain, right sciatic pain 7 views of the lumbosacral spine submitted, correlation to CT scan 03/10/2021 There is a slight spinal curvature. Bone mineralization is reduced. Lumbar vertebral bodies show pres erved height. No evident spondylolysis. Loss of disc height is present at intervertebral levels. Ther e is multilevel spondylosis. Sclerosis present in the posterior elements of the lower lumbar spine. N o change in alignment on flexion and extension views in the lateral projection. Surgical clips noted in the pelvis. There are vascular calcifications in the pelvis. IMPRESSION: Degenerative disc disease, osteopenia, facet arthropathy.
[2021-03-23] MEDS ORDERED: DEXAMETHASONE SOD PHOSPHATE 10 MG/ML 1 ML VIAL IV STA (09:42)
--- NOTE | 2021-03-23 09:43 | P.HPIM ---
History of Present Illness This is a pleasant 75 years old female with past medical history of osteoarthritis, atrial fibrillation, heart failure, fibromyalgia. History of breast cancer in 1985 Presents with significant right groin pain for the last 5 weeks associated with difficulty walking, she started using a cane however when yesterday she could not walk even with a cane because of pain she got worried and came to the emergency room. Her pain is rated as 10/10, radiating just down below the knee with no associated back pain but associated with some numbness in the thigh. However on examination she has weakness in the right foot dorsum plantar flexion although her examination of the strength of the lower extremity is limited by her pain. She denies headache. No urine or bowel incontinence. No history of trauma. No chest pain or dyspnea. She came to the emergency room 2 weeks ago for similar complaint, that she's been told she has UTI and started on Keflex. She stopped taking it because she denies any urinary symptoms. CT of the abdomen and pelvis without contrast done on 03/10 showing mild diverticulosis without diverticulitis. No acute abnormality within the abdomen and pelvis. Vital signs stable and Labs including CBC, BMP, liver enzymes are are unremarkable, except for creatinine of 1.5 which is at baseline Right hip x-ray: Acetabular spurring. No fracture. Right hip CT without contrast: Some osteoarthritic changes in the right hip joint. No fractures. No change compared to old exam MAPS was checked: Patient is on Percocet [address] Ulises Bonner, last filled on 02/23/2021 Review of Systems CONSTITUTIONAL: No fever, no malaise, no fatigue. HEENT: No recent visual problems or hearing problems. Denied any sore throat. CARDIOVASCULAR: No orthopnea, PND, no palpitations, no syncope. PULMONARY: No shortness of breath, no cough, no hemoptysis. GASTROINTESTINAL: No diarrhea, no nausea, no vomiting, no abdominal pain. Normoactive bowel sounds. NEUROLOGICAL: No headaches, no tremor HEMATOLOGICAL: Denies any bleeding or petechiae. GENITOURINARY: Denies any burning micturition, frequency, or urgency. -MUSCULOSKELETAL/RHEUMATOLOGICAL: Denies any joint pain, swelling, or any muscle pain. Except what's mentioned above ENDOCRINE: Denies any polyuria or polydipsia. 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 History of Any Multi-Drug Resistant Organisms: None Reported Past Surgical History: Appendectomy, Breast Surgery, Cholecystectomy, Heart Catheterization, Hysterectomy, Pacemaker, Tonsillectomy, Tubal Ligation Additional Past Surgical History / Comment(s): EP STUDY/ABLATION 2006,pacemaker, LASER EYE SX. bilateral masectomy Past Anesthesia/Blood Transfusion Reactions: No Reported Reaction Type of Cardiac Device: Permanent Pacemaker Device Placement Date:: 2003 Past Psychological History: Bipolar Past Alcohol Use History: None Reported Past Drug Use History: None Reported - Past Family History Father Family Medical History: Cancer Additional Family Medical History / Comment(s): BONE CANCER Mother Family Medical History: Cancer Additional Family Medical History / Comment(s): BREAST CANCER W/METS. Daughter(s) Family Medical History: Cancer Medications and Allergies Home Medications Medication Instructions Recorded Confirmed Type Baclofen 10 mg PO HS 04/13/15 03/22/21 History Topiramate [Topamax] 200 mg PO QAM 03/28/17 03/22/21 History lamoTRIgine [LaMICtal] 200 mg PO DAILY 03/28/17 03/22/21 History Cephalexin [Keflex] 500 mg PO Q6HR #40 cap 03/10/21 03/22/21 Rx Amiodarone [Cordarone] 200 mg PO DAILY 03/22/21 03/22/21 History Carvedilol [Coreg] 12.5 mg PO BID-W/MEALS 03/22/21 03/22/21 History Clopidogrel Bisulfate [Plavix] 75 mg PO DAILY 03/22/21 03/22/21 History DULoxetine HCL [Cymbalta] 60 mg PO HS 03/22/21 03/22/21 History Ergocalciferol [Vitamin D2 (1250 1,250 mcg PO CHAVEZ 03/22/21 03/22/21 History Mcg = 54708 Iu)] Furosemide [Lasix] 40 mg PO WE@0900 03/22/21 03/22/21 History Pantoprazole Sodium [Protonix] 40 mg PO DAILY@0600 03/22/21 03/22/21 History Rivaroxaban [Xarelto] 15 mg PO DAILY 03/22/21 03/22/21 History amLODIPine [Norvasc] 5 mg PO DAILY 03/22/21 03/22/21 History oxyCODONE HCL/ACETAMINOPHEN 1 tab PO Q6H PRN 03/22/21 03/22/21 History [oxyCODONE HCL/ACETAMINOPHEN 7.5-325] Allergies Allergy/AdvReac Type Severity Reaction Status Date / Time alendronate sodium Allergy Anaphylaxis Verified 03/22/21 19:53 [From Fosamax] amitriptyline HCl Allergy Unknown Verified 03/22/21 19:53 [From Elavil] doxepin HCl [From Sinequan] Allergy Unknown Verified 03/22/21 19:53 iodine Allergy Anaphylaxis Verified 03/22/21 19:53 Penicillins Allergy passed out Verified 03/22/21 19:53 simvastatin [From Zocor] Allergy Unknown Verified 03/22/21 19:53 sulindac [From Clinoril] Allergy Unknown Verified 03/22/21 19:53 vancomycin Allergy Anaphylaxis Verified 03/22/21 19:53 codeine AdvReac Abdominal Verified 03/22/21 19:53 Pain gabapentin [From Neurontin] AdvReac Nausea & Verified 03/22/21 19:53 Vomiting ibuprofen [From Motrin] AdvReac Unknown Verified 03/22/21 19:53 Physical Exam Vitals: Vital Signs Temp Pulse Resp BP Pulse Ox 03/23/21 06:13 98.3 F 72 16 141/80 97 03/22/21 22:30 98.1 F 73 20 145/85 97 03/22/21 20:30 60 20 166/87 100 03/22/21 15:43 98.0 F 69 18 144/73 98 Intake and Output 03/22/21 03/23/21 03/23/21 22:59 06:59 14:59 Other: Weight 103.419 kg GENERAL: The patient is alert and oriented x3, not in any acute distress. Obese HEENT: Pupils are round and equally reacting to light. EOMI. No scleral icterus. No conjunctival pallor. Normocephalic, atraumatic. No pharyngeal erythema. No thyromegaly. CARDIOVASCULAR: S1 and S2 present. No murmurs, rubs, or gallops. PULMONARY: Chest is clear to auscultation, no wheezing or crackles. ABDOMEN: Soft, nontender, nondistended, normoactive bowel sounds. No palpable organomegaly. -MUSCULOSKELETAL: No joint swelling or deformity. Right groin tenderness and no lateral leg or hip area tenderness EXTREMITIES: No cyanosis, clubbing, or pedal edema. -NEUROLOGICAL: Cranial nerves are grossly intact. Weakness of the hip flexion and knee flexion however examination is limited by pain. The patient has limited dorsi and plantar flexion of the right ankle. Sensation is intact with no difference between the 2 sites. SKIN: No rashes. No petechiae Results CBC & Chem 7: 03/23/21 03:48 03/22/21 17:32 Labs: Abnormal Lab Results - Last 24 Hours (Table) 03/22/21 03/22/21 03/22/21 Range/Units 17:32 17:32 17:32 Lymphocytes # 0.8 L (1.0-4.8) k/uL Chloride 110 H (98-107) mmol/L BUN 23 H (7-17) mg/dL Creatinine 1.52 H (0.52-1.04) mg/dL Alkaline Phosphatase 129 H (38-126) U/L Ur Leukocyte Esterase Small H (Negative) Urine Mucus Rare H (None) /hpf Assessment and Plan Assessment: Right hip pain secondary to severe osteoarthritis Osteoarthritis Chronic kidney disease, stage III. Chronic atrial fibrillation Chronic heart failure, no exacerbation History of fibromyalgia History of breast cancer Plan: This is a pleasant 75 years old female who presents with right hip pain secondary to osteoarthritis. Continue with IV hydration Pain management Orthopedic consult Neurology consult for possible right leg weakness. dexamethasone 1 Labs and medication were reviewed.. Continue same treatment. Continue with symptomatic treatment. Resume home medication. Monitor lytes and vitals. DVT and GI prophylaxis. Further recommendations depends on the clinical course of the patient DVT prophylaxis: xarelto GI Prophylaxis: Pepcid PT/OT: Pending Prognosis is guarded
--- NOTE | 2021-03-23 11:37 | P.CNOR ---
History of Present Illness - [facility] Consult date: 03/23/21 Requesting physician: Alec Chavez Consult reason: other (right leg pain and numbness, possible weakness) History of present illness: Patient is a 75-year-old female presenting to the emergency room with a right hip pain. Patient says this pain started about 5 weeks ago. Patient does not recall any specific event that led to this hip pain but it has been ongoing issue. Patient says it has been so bad to the point where she has not been able to walk over the past several weeks. Patient says this pain gets worse while she ambulates. Patient says the hip pain is somewhat relieved while she rests and does not move. Patient denies any trauma/falls on the hip. Patient describes this hip pain is severe and 10/10. Patient says sometimes the pain radiates down her right leg. Patient denies any previous orthopedic surgery. Patient says she has had a hysterectomy previously. Patient says she does takes Xarelto daily as she mentions she has congestive heart failure. Patient denies chest pain, fever, shortness breath, nausea, vomiting, saddle anesthesia, loss of bowel/bladder control. 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 History of Any Multi-Drug Resistant Organisms: None Reported Past Surgical History: Appendectomy, Breast Surgery, Cholecystectomy, Heart Catheterization, Hysterectomy, Pacemaker, Tonsillectomy, Tubal Ligation Additional Past Surgical History / Comment(s): EP STUDY/ABLATION 2006,pacemaker, LASER EYE SX. bilateral masectomy Past Anesthesia/Blood Transfusion Reactions: No Reported Reaction Type of Cardiac Device: Permanent Pacemaker Device Placement Date:: 2003 Past Psychological History: Bipolar Past Alcohol Use History: None Reported Past Drug Use History: None Reported - Past Family History Father Family Medical History: Cancer Additional Family Medical History / Comment(s): BONE CANCER Mother Family Medical History: Cancer Additional Family Medical History / Comment(s): BREAST CANCER W/METS. Daughter(s) Family Medical History: Cancer Medications and Allergies Home Medications Medication Instructions Recorded Confirmed Type Baclofen 10 mg PO HS 09/14/15 08/23/21 History Topiramate [Topamax] 200 mg PO QAM 03/28/17 03/22/21 History lamoTRIgine [LaMICtal] 200 mg PO DAILY 03/28/17 03/22/21 History Cephalexin [Keflex] 500 mg PO Q6HR #40 cap 03/10/21 03/22/21 Rx Amiodarone [Cordarone] 200 mg PO DAILY 03/22/21 03/22/21 History Carvedilol [Coreg] 12.5 mg PO BID-W/MEALS 03/22/21 03/22/21 History Clopidogrel Bisulfate [Plavix] 75 mg PO DAILY 03/22/21 03/22/21 History DULoxetine HCL [Cymbalta] 60 mg PO HS 03/22/21 03/22/21 History Ergocalciferol [Vitamin D2 (1250 1,250 mcg PO CHAVEZ 03/22/21 03/22/21 History Mcg = 63173 Iu)] Furosemide [Lasix] 40 mg PO WE@0900 03/22/21 03/22/21 History Pantoprazole Sodium [Protonix] 40 mg PO DAILY@0600 03/22/21 03/22/21 History Rivaroxaban [Xarelto] 15 mg PO DAILY 03/22/21 03/22/21 History amLODIPine [Norvasc] 5 mg PO DAILY 03/22/21 03/22/21 History oxyCODONE HCL/ACETAMINOPHEN 1 tab PO Q6H PRN 03/22/21 03/22/21 History [oxyCODONE HCL/ACETAMINOPHEN 7.5-325] Allergies Allergy/AdvReac Type Severity Reaction Status Date / Time alendronate sodium Allergy Anaphylaxis Verified 03/22/21 19:53 [From Fosamax] amitriptyline HCl Allergy Unknown Verified 03/22/21 19:53 [From Elavil] doxepin HCl [From Sinequan] Allergy Unknown Verified 03/22/21 19:53 iodine Allergy Anaphylaxis Verified 03/22/21 19:53 Penicillins Allergy passed out Verified 03/22/21 19:53 simvastatin [From Zocor] Allergy Unknown Verified 03/22/21 19:53 sulindac [From Clinoril] Allergy Unknown Verified 03/22/21 19:53 vancomycin Allergy Anaphylaxis Verified 03/22/21 19:53 codeine AdvReac Abdominal Verified 03/22/21 19:53 Pain gabapentin [From Neurontin] AdvReac Nausea & Verified 03/22/21 19:53 Vomiting ibuprofen [From Motrin] AdvReac Unknown Verified 03/22/21 19:53 Physical Examination Right Hip: Inspection: No evidence of open fractures. Negative for any significant discoloration, ecchymosis/erythema Negative for nodules, erythema. Sensation: Sensation is intact in bilateral upper extremities symmetric, equal in distribution. Sensation is intact in bilateral lower extremities symmetric, equal in distribution Palpation: Mild tenderness to palpation over the right groin region. Nontender to palpation throughout rest of exam Range of motion: Limited range of motion in the right leg due to patient being in significant pain. Decreased hip flexion in right leg. Pain with internal and external rotation right hip. Bilateral upper extremities full range of motion in elbow extension/flexion as well as shoulder internal and external rotation abduction and forward elevation. Left lower extremity full range of motion and knee flexion extension and hip flexion extension. 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 Left lower extremity 5/5 in resisted flexion extension and hip flexion extension. Right leg exam limited due to patient being in significant amount of pain Neurovascular status/tensioning signs: Refill under 3 seconds bilaterally in lower and upper extremities. Skin mildly warm to touch in hands bilaterally as well as bilaterally in the lower extremities. Dorsalis pedis pulses intact, 2+ bilaterally. Radial pulses intact, 2+ bilaterally. Negative Homans bi laterally. Negative Belinda's bilaterally. Negative clonus upon dorsiflexing feet bilaterally. Results - Labs Labs: Abnormal Lab Results - Last 24 Hours (Table) 03/22/21 03/22/21 03/22/21 Range/Units 17:32 17:32 17:32 WBC (4.50-10.00) X 10*3/uL RBC (4.10-5.20) X 10*6/uL Hgb (12.0-15.0) g/dL Hct (37.2-46.3) % MCHC (32.0-37.0) g/dL RDW (11.5-14.5) % Lymphocytes # 0.8 L (1.0-4.8) k/uL Eosinophils # (0.04-0.35) X 10*3/uL Chloride 110 H (98-107) mmol/L BUN 23 H (7-17) mg/dL Creatinine 1.52 H (0.52-1.04) mg/dL Alkaline Phosphatase 129 H (38-126) U/L Ur Leukocyte Esterase Small H (Negative) Urine Mucus Rare H (None) /hpf 03/23/21 Range/Units 03:48 WBC 3.85 L (4.50-10.00) X 10*3/uL RBC 3.76 L (4.10-5.20) X 10*6/uL Hgb 11.3 L (12.0-15.0) g/dL Hct 36.1 L (37.2-46.3) % MCHC 31.3 L (32.0-37.0) g/dL RDW 14.6 H (11.5-14.5) % Lymphocytes # 0.85 L (1.0-4.8) k/uL Eosinophils # 0.58 H (0.04-0.35) X 10*3/uL Chloride (98-107) mmol/L BUN (7-17) mg/dL Creatinine (0.52-1.04) mg/dL Alkaline Phosphatase (38-126) U/L Ur Leukocyte Esterase (Negative) Urine Mucus (None) /hpf H & H 03/22/21 03/23/21 Range/Units 17:32 03:48 Hgb 13.0 11.3 L (11.4-16.0) gm/dL Hct 40.3 36.1 L (34.0-46.0) % Result Diagrams: 03/23/21 03:48 03/22/21 17:32 Assessment and Plan Assessment: 1. Right hip osteoarthritis 2. Multiple medical comorbidities Plan: 1. Right hip osteoarthritis - CT and x-ray of the right hip has been performed and has ruled out right hip fracture. X-ray lumbar spine has been ordered and completed to rule out any pathology coming from the lower spine. We'll continue to follow patient while in the hospital. At this point we recommend patient to follow-up with us in the outpatient setting for right hip 2. Appreciate medical management 3. Pain management - stable at this time 4. GI prophylaxis -protonix 5. DVT prophylaxis - Plavix and Xarelto 6. PT/OT - weightbearing as tolerated Time with Patient: Less than 30
[2021-03-23 17:46] LABS: African American GFR (CKD) 42.8 (60.0-200.0); Albumin 3.8 g/dL (3.80-4.90); Albumin/Globulin Ratio 1.73 (1.60-3.17); Anion Gap 8.5 mmol/L (4.00-12.00); BUN/Creat Ratio 15.71 Ratio (12.00-20.00); Calcium 8.7 mg/dL (8.7-10.3); Carbon Dioxide 23.5 mmol/L (21.6-31.8); Globulin 2.2 g/dL (1.6-3.3); Non-African American GFR(CKD) 36.9 (60.0-200.0); Potassium 3.9 mmol/L (3.5-5.5); Total Bilirubin 0.3 mg/dL (0.3-1.2)
[2021-03-23] MEDS: carvediloL 12.5 MG TAB PO SCH (18:04)
[2021-03-23] MEDS: DULoxetine HCL 60 MG CAPSULE.DR PO SCH (20:40)
[2021-03-24] MEDS: PANTOPRAZOLE 40 MG TABLET PO SCH (05:49)
[2021-03-24] MEDS: HYDROmorphone 0.5 MG/0.5 ML SYRINGE IVP PRN ×4 (05:54→19:21)
--- NOTE | 2021-03-24 08:03 | P.PN ---
Subjective Progress Note Date: 03/24/21 Principal diagnosis: Right hip osteoarthritis Patient seen at bedside this morning resting comfortably. Patient still having some pain in the right groin that is worse with ambulation. Patient denies chest pain, fever, shortness breath, nausea, vomiting, change in vision, loss of bowel/bladder control, saddle anesthesia. Objective - Vital Signs Vital signs: Vital Signs Temp 97.9 F 03/24/21 01:07 Pulse 64 03/24/21 01:07 Resp 20 03/24/21 01:07 BP 144/81 03/24/21 01:07 Pulse Ox 95 03/24/21 01:07 Intake & Output 03/23/21 03/24/21 03/24/21 18:59 06:59 18:59 Intake Total 300 350 Balance 300 350 Weight 103.419 kg Intake: Oral 300 350 Other: Voiding Method Toilet # Voids 3 2 - Exam Right Hip: Inspection: No evidence of open fractures. Negative for any significant discoloration, ecchymosis/erythema Negative for nodules, erythema. Sensation: Sensation is intact in bilateral upper extremities symmetric, equal in distribution. Sensation is intact in bilateral lower extremities symmetric, equal in distribution Palpation: Mild tenderness to palpation over the right groin region. Nontender to palpation throughout rest of exam Range of motion: Limited range of motion in the right leg due to patient being in significant pain. Decreased hip flexion in right leg. Pain with internal and external rotation right hip. Bilateral upper extremities full range of motion in elbow extension/flexion as well as shoulder internal and external rotation abduction and forward elevation. Left lower extremity full range of motion and knee flexion extension and hip flexion extension. Plantar and dorsiflexion full range of motion bilaterally Motor: Strength 5 out of 5 in upper extremities as well as lofter strength. Left lower extremity 5/5 in resisted flexion extension and hip flexion extension. Right leg exam limited due to patient being in significant amount of pain Neurovascular status/tensioning signs: Refill under 3 seconds bilaterally in lower and upper extremities. Skin mildly warm to touch in hands bilaterally as well as bilaterally in the lower extremities. Dorsalis pedis pulses intact, 2+ bilaterally. Radial pulses intact, 2+ bilaterally. Negative Homans bilaterally. Negative Belinda's bilaterally. Negative clonus upon dorsiflexing feet bilaterally. - Labs CBC & Chem 7: 03/23/21 03:48 03/23/21 03:48 Labs: Abnormal Lab Results - Last 24 Hours (Table) 03/23/21 03/23/21 Range/Units 03:48 03:48 WBC 3.85 L (4.50-10.00) X 10*3/uL RBC 3.76 L (4.10-5.20) X 10*6/uL Hgb 11.3 L (12.0-15.0) g/dL Hct 36.1 L (37.2-46.3) % MCHC 31.3 L (32.0-37.0) g/dL RDW 14.6 H (11.5-14.5) % Lymphocytes # 0.85 L (0.90-5.00) X 10*3/uL Eosinophils # 0.58 H (0.04-0.35) X 10*3/uL Chloride 113 H (96-109) mmol/L Est GFR (CKD-EPI)AfAm 42.8 L (60.0-200.0) Est GFR (CKD-EPI)NonAf 36.9 L (60.0-200.0) Total Protein 6.0 L (6.2-8.2) g/dL Assessment and Plan Assessment: 1. Right hip osteoarthritis 2. Multiple medical comorbidities Plan: 1. Right hip osteoarthritis - CT and x-ray of the right hip has been performed and has ruled out right hip fracture. X-ray lumbar spine has been ordered and completed to rule out any pathology coming from the lower spine. We'll continue to follow patient while in the hospital. At this point we recommend patient to follow-up with us in the outpatient setting for right hip 2. Appreciate medical management 3. Pain management - stable at this time 4. GI prophylaxis -protonix 5. DVT prophylaxis - Plavix and Xarelto 6. PT/OT - weightbearing as tolerated Time with Patient: Less than 30
[2021-03-24] MEDS ORDERED: FUROSEMIDE 40 MG TAB PO SCH (09:00)
[2021-03-24] MEDS: AMIODARONE 200 MG TAB PO SCH (09:38)
[2021-03-24] MEDS: TOPIRAMATE 100 MG TAB PO SCH (09:38)
[2021-03-24] MEDS: RIVAROXABAN 15 MG TAB PO SCH (09:38)
[2021-03-24] MEDS: carvediloL 12.5 MG TAB PO SCH ×2 (09:39→19:23)
[2021-03-24] MEDS: CLOPIDOGREL 75 MG TAB PO SCH (09:39)
[2021-03-24] MEDS: lamoTRIgine 100 MG TAB PO SCH (09:39)
[2021-03-24] MEDS: BARIUM SULFATE 450 ML ORAL.SUSP BOTTLE PO PRN ×2 (11:32→14:42)
--- NOTE | 2021-03-24 12:30 | P.GSCN ---
History of Present Illness Consult date: 03/24/21 History of present illness: CHIEF COMPLAINT: Right groin and leg pain HISTORY OF PRESENT ILLNESS: This is a 75-year-old female with a past medical history of atrial fibrillation anticoagulated with Xarelto, osteoarthritis, heart failure, 5 myalgia, breast cancer status post radiation and mastectomy, pacemaker placement, born with one kidney. Past surgical history includes appendectomy, hysterectomy and cholecystectomy. Patient also takes Plavix at home. Patient presents to the hospital with complaints of right groin pain that radiates into the right leg for about 5 weeks. She reports that she is having difficulty walking. Patient seen by orthopedics during this admission. Computed tomography scan of the hip x-ray lumbar spine completed there is no evidence of any fractures. CAT scan did show osteoarthritis changes in the right hip. Surgical service consult" in regards to possible right inguinal hernia causing patient's pain. Patient denies any bulging in the right groin. Denies any straining. Denies any change in bowel movements. Denies any nausea or vomiting. Denies any fever chills or sweats. PAST MEDICAL HISTORY: See list. PAST SURGICAL HISTORY: See list. MEDICATIONS: See list. ALLERGIES: See list. SOCIAL HISTORY: No illicit drug use. REVIEW OF SYSTEMS: CONSTITUTIONAL: Denies fever or chills. HEENT: Denies blurred vision, vision changes, or eye pain. Denies hemoptysis CARDIOVASCULAR: Denies chest pain or pressure. RESPIRATORY: No shortness of breath. GASTROINTESTINAL: See HPI for pertinent findings HEMATOLOGIC: Denies bleeding disorders. GENITOURINARY: Denies any blood in urine or increased urinary frequency. SKIN: Denies pruitis. Denies rash. PHYSICAL EXAM: VITAL SIGNS: Reviewed GENERAL: Well-developed in no acute distress. HEENT: No sclera icterus. Extraocular movements grossly intact. Moist buccal mucosa. Head is atraumatic, normocephalic. No nasal drainage. ABDOMEN: Soft. Nondistended. Tenderness with palpation of right groin area. No hernia appreciated. Upper abdominal hernia present with sitting forward. NEUROLOGIC: Alert and oriented. Cranial nerves II through XII grossly intact. LABORATORY DATA: WBC is 3.85 hemoglobin is 11.3 platelets 178 Creatinine 1.4 UA negative for infection IMAGING: Computed tomography scan abdomen and pelvis without contrast completed outpatient on 03/10/2021 minimal colonic diverticulosis. No acute abnormality within the abdomen and pelvis. Dysplastic or hypoplastic right kidney unchanged ASSESSMENT: 1. Right groin pain PLAN: -Order computed tomography scan abdomen and pelvis with oral contrast to further evaluate for possible inguinal hernia -Continue supportive care -Agree with orthopedic consult -Further recommendations forthcoming per computed tomography scan results Thank you for this consultation Physician Drafter Electromechanical note has been reviewed by physician. Signing provider agrees with the documented findings, assessment, and plan of care. Past Medical History Past Medical History: Atrial Fibrillation, Cancer, Heart Failure, Fibromyalgia, Hypertension, Osteoarthritis (OA), Sleep Apnea/CPAP/BIPAP Additional Past Medical History / Comment(s): BORN WITH ONLY LT KIDNEY,FIBROIDS IN PAST,BREAST CANCER 1985-radiation txs, BENIGN TREMORS, PSUEDO COARTATION OF A CARA, NARCOLEPSY. History of Any Multi-Drug Resistant Organisms: None Reported Past Surgical History: Appendectomy, Breast Surgery, Cholecystectomy, Heart Catheterization, Hysterectomy, Pacemaker, Tonsillectomy, Tubal Ligation Additional Past Surgical History / Comment(s): EP STUDY/ABLATION 2006,pacemaker, LASER EYE SX. bilateral masectomy Past Anesthesia/Blood Transfusion Reactions: No Reported Reaction Type of Cardiac Device: Permanent Pacemaker Device Placement Date:: 2003 Past Psychological History: Bipolar Additional Psychological History / Comment(s): PT LIVES WITH SPOUSE IN SINGLE LEVEL HOME THAT HAS 4 PORCH STEPS. NO OUTSIDE SERVICES. HAS A NEBULIZER. Smoking Status: Never smoker Past Alcohol Use History: None Reported Past Drug Use History: None Reported - Past Family History Father Family Medical History: Cancer Additional Family Medical History / Comment(s): BONE CANCER Mother Family Medical History: Cancer Additional Family Medical History / Comment(s): BREAST CANCER W/METS. Daughter(s) Family Medical History: Cancer Medications and Allergies Home Medications Medication Instructions Recorded Confirmed Type Baclofen 10 mg PO HS 04/13/15 03/22/21 History Topiramate [Topamax] 200 mg PO QAM 03/28/17 03/22/21 History lamoTRIgine [LaMICtal] 200 mg PO DAILY 03/28/17 03/22/21 History Cephalexin [Keflex] 500 mg PO Q6HR #40 cap 03/10/21 03/22/21 Rx Amiodarone [Cordarone] 200 mg PO DAILY 03/22/21 03/22/21 History Carvedilol [Coreg] 12.5 mg PO BID-W/MEALS 03/22/21 03/22/21 History Clopidogrel Bisulfate [Plavix] 75 mg PO DAILY 03/22/21 03/22/21 History DULoxetine HCL [Cymbalta] 60 mg PO HS 03/22/21 03/22/21 History Ergocalciferol [Vitamin D2 (1250 1,250 mcg PO CHAVEZ 03/22/21 03/22/21 History Mcg = 04653 Iu)] Furosemide [Lasix] 40 mg PO WE@0900 03/22/21 03/22/21 History Pantoprazole Sodium [Protonix] 40 mg PO DAILY@0600 03/22/21 03/22/21 History Rivaroxaban [Xarelto] 15 mg PO DAILY 03/22/21 03/22/21 History amLODIPine [Norvasc] 5 mg PO DAILY 03/22/21 03/22/21 History oxyCODONE HCL/ACETAMINOPHEN 1 tab PO Q6H PRN 03/22/21 03/22/21 History [oxyCODONE HCL/ACETAMINOPHEN 7.5-325] Allergies Allergy/AdvReac Type Severity Reaction Status Date / Time alendronate sodium Allergy Anaphylaxis Verified 03/22/21 19:53 [From Fosamax] amitriptyline HCl Allergy Unknown Verified 03/22/21 19:53 [From Elavil] doxepin HCl [From Sinequan] Allergy Unknown Verified 03/22/21 19:53 iodine Allergy Anaphylaxis Verified 03/22/21 19:53 Penicillins Allergy passed out Verified 03/22/21 19:53 simvastatin [From Zocor] Allergy Unknown Verified 03/22/21 19:53 sulindac [From Clinoril] Allergy Unknown Verified 03/22/21 19:53 vancomycin Allergy Anaphylaxis Verified 03/22/21 19:53 codeine AdvReac Abdominal Verified 03/22/21 19:53 Pain gabapentin [From Neurontin] AdvReac Nausea & Verified 03/22/21 19:53 Vomiting ibuprofen [From Motrin] AdvReac Unknown Verified 03/22/21 19:53 Surgical - Exam Vital Signs Temp Pulse Resp BP Pulse Ox 98.0 F 69 18 144/73 98 03/22/21 15:43 03/22/21 15:43 03/22/21 15:43 03/22/21 15:43 03/22/21 15:43 Results - Labs 03/23/21 03:48 03/23/21 03:48 Abnormal Lab Results - Last 24 Hours (Table) 03/23/21 Range/Units 03:48 Chloride 113 H (96-109) mmol/L Est GFR (CKD-EPI)AfAm 42.8 L (60.0-200.0) Est GFR (CKD-EPI)NonAf 36.9 L (60.0-200.0) Total Protein 6.0 L (6.2-8.2) g/dL Diabetes panel 03/23/21 Range/Units 03:48 Sodium 145 (135-145) mmol/L Potassium 3.9 (3.5-5.5) mmol/L Chloride 113 H (96-109) mmol/L Carbon Dioxide 23.5 (21.6-31.8) mmol/L BUN 22.0 (9.0-27.0) mg/dL Creatinine 1.4 (0.6-1.5) mg/dL Glucose 99 (70-110) mg/dL Calcium 8.7 (8.7-10.3) mg/dL AST 21 (13-35) U/L ALT 10 (8-44) U/L Alkaline Phosphatase 115 (41-126) U/L Total Protein 6.0 L (6.2-8.2) g/dL Albumin 3.80 (3.80-4.90) g/dL Calcium panel 03/23/21 Range/Units 03:48 Calcium 8.7 (8.7-10.3) mg/dL Albumin 3.80 (3.80-4.90) g/dL Pituitary panel 03/23/21 Range/Units 03:48 Sodium 145 (135-145) mmol/L Potassium 3.9 (3.5-5.5) mmol/L Chloride 113 H (96-109) mmol/L Carbon Dioxide 23.5 (21.6-31.8) mmol/L BUN 22.0 (9.0-27.0) mg/dL Creatinine 1.4 (0.6-1.5) mg/dL Glucose 99 (70-110) mg/dL Calcium 8.7 (8.7-10.3) mg/dL Adrenal panel 03/23/21 Range/Units 03:48 Sodium 145 (135-145) mmol/L Potassium 3.9 (3.5-5.5) mmol/L Chloride 113 H (96-109) mmol/L Carbon Dioxide 23.5 (21.6-31.8) mmol/L BUN 22.0 (9.0-27.0) mg/dL Creatinine 1.4 (0.6-1.5) mg/dL Glucose 99 (70-110) mg/dL Calcium 8.7 (8.7-10.3) mg/dL Total Bilirubin 0.3 (0.3-1.2) mg/dL AST 21 (13-35) U/L ALT 10 (8-44) U/L Alkaline Phosphatase 115 (41-126) U/L Total Protein 6.0 L (6.2-8.2) g/dL Albumin 3.80 (3.80-4.90) g/dL
--- NOTE | 2021-03-24 14:37 | P.PN ---
Subjective This is a pleasant 75 years old female with past medical history of osteoarthritis, atrial fibrillation, heart failure, fibromyalgia. History of br east cancer in 1985 Presents with significant right groin pain for the last 5 weeks associated with difficulty walking, she started using a cane however when yesterday she could not walk even with a cane because of pain she got worried and came to the emergency room. Her pain is rated as 10/10, radiating just down below the knee with no associated back pain but associated with some numbness in the thigh. However on examination she has weakness in the right foot dorsum plantar flexion although her examination of the strength of the lower extremity is limited by her pain. She denies headache. No urine or bowel incontinence. No history of trauma. No chest pain or dyspnea. She came to the emergency room 2 weeks ago for similar complaint, that she's been told she has UTI and started on Keflex. She stopped taking it because she denies any urinary symptoms. CT of the abdomen and pelvis without contrast done on 03/10 showing mild diverticulosis without diverticulitis. No acute abnormality within the abdomen and pelvis. Vital signs stable and Labs including CBC, BMP, liver enzymes are are unremarkable, except for creatinine of 1.5 which is at baseline Right hip x-ray: Acetabular spurring. No fracture. Right hip CT without contrast: Some osteoarthritic changes in the right hip join t. No fractures. No change compared to old exam MAPS was checked: Patient is on Percocet [address] Ulises Bonner, last filled on 02/23/2021 03/24/2021 Patient still complaining of from right groin pain and tenderness, orthopedic team input is appreciated, they think it's related to severe osteoarthritis versus tendinitis, however need to rule out hernia and so surgical team consulted who ordered computed tomography scan of the abdomen and pelvis Neurologist consult for possible right lower extremity numbness Objective - Vital Signs Vital signs: Vital Signs Temp 97.5 F L 03/24/21 08:28 Pulse 60 03/24/21 08:28 Resp 18 03/24/21 08:28 BP 123/72 03/24/21 08:28 Pulse Ox 96 03/24/21 08:28 Intake & Output 03/23/21 03/24/21 03/24/21 18:59 06:59 18:59 Intake Total 300 350 Balance 300 350 Weight 103.419 kg Intake: Oral 300 350 Other: Voiding Method Toilet Toilet # Voids 3 2 1 - Exam GENERAL: The patient is alert and oriented x3, not in any acute distress. Obese HEENT: Pupils are round and equally reacting to light. EOMI. No scleral icterus. No conjunctival pallor. Normocephalic, atraumatic. No pharyngeal erythema. No thyromegaly. CARDIOVASCULAR: S1 and S2 present. No murmurs, rubs, or gallops. PULMONARY: Chest is clear to auscultation, no wheezing or crackles. ABDOMEN: Soft, nontender, nondistended, normoactive bowel sounds. No palpable organomegaly. -MUSCULOSKELETAL: No joint swelling or deformity. Right groin tenderness and no lateral leg or hip area tenderness EXTREMITIES: No cyanosis, clubbing, or pedal edema. -NEUROLOGICAL: Cranial nerves are grossly intact. Weakness of the hip flexion and knee flexion however examination is limited by pain. The patient has limited dorsi and plantar flexion of the right ankle. Sensation is intact with no difference between the 2 sites. SKIN: No rashes. No petechiae - Labs CBC & Chem 7: 03/23/21 03:48 03/23/21 03:48 Labs: Abnormal Lab Results - Last 24 Hours (Table) 03/23/21 Range/Units 03:48 Chloride 113 H (96-109) mmol/L Est GFR (CKD-EPI)AfAm 42.8 L (60.0-200.0) Est GFR (CKD-EPI)NonAf 36.9 L (60.0-200.0) Total Protein 6.0 L (6.2-8.2) g/dL Assessment and Plan Assessment: Right hip pain secondary to severe osteoarthritis versus sinus tendinitis. Rule out inguinal Hernia Osteoarthritis Chronic kidney disease, stage III. Chronic atrial fibrillation Chronic heart failure, no exacerbation History of fibromyalgia History of breast cancer Plan: This is a pleasant 75 years old female who presents with right hip pain secondary to osteoarthritis. Continue with IV hydration Pain management general surgery consult Gabapentin is added Orthopedic consult Neurology consult for possible right leg weakness. Labs and medication were reviewed.. Continue same treatment. Continue with symptomatic treatment. Resume home medication. Monitor lytes and vitals. DVT and GI prophylaxis. Further recommendations depends on the clinical course of the patient DVT prophylaxis: xarelto GI Prophylaxis: Pepcid PT/OT:Home health care versus rehab, consult community mental health social worker Prognosis is guarded
[2021-03-24] MEDS: GABAPENTIN 100 MG CAP PO SCH ×2 (14:41→22:27)
--- NOTE | 2021-03-24 14:42 | P.CNNES ---
History of Present Illness Consult date: 03/24/21 Requesting physician: Angel Elizabeth Reason for Consult: right leg pain and numbness, possible weakness History of Present Illness: Patient is a 75-year-old female came to the hospital by ambulance on 03/22/2021 at 3:27 PM, with chief complaints of right groin and leg pain. Patient states that about 5-1/2 weeks ago, she started noticing some electricity coming down her right leg. It started in the right groin medially and stayed there all the time. Later she noticed it was traveling down the medial in the front part of the right thigh down to the right knee and slightly below but not further in the lower leg. She came to the hospital on 03/10/2021, underwent computed tomography scan of abdomen and pelvis, which showed no acute process, some diverticulosis without diverticulitis. Patient was diagnosed with vulvovaginitis, and discharged on Keflex. Patient completed the course without any improvement, in fact the pain has been getting worse, therefore she came back to the hospital. Patient denies any obvious numbness or tingling in the legs. Patient denies any worsening of her chronic mild low back pain. Patient denies any new symptoms in her left leg, or any symptoms below the knees on either side. She feels like electricity or wires going down the leg. At present she is not able to walk at all. She rates her pain 10/10 all the time, which gets worse with movement. Patient has been seen by orthopedic surgery, who initiated Computed tomography scan of the right hip reveals some osteoa rthritis in the right hip joint. No fracture. No change compared to old exam from 03/10/2021. X-ray of the lumbar spine shows degenerative disc disease, osteopenia, facet arthropathy. patient has a pacemaker, cannot get MRI. 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 She developed some electricity sensation in the left knee on the lateral and lower lateral side of the knee. The electric shock sensation lasted for about couple years and then that area became numb and has been numb since then. Patient has history of chronic back pain off-and-on for which she has received epidural injections in the past. Patient denies any worsening of low back pain. Denies diabetes. Patient also complains of bilateral hand tremors, right worse than left for the last 6-7 years. She cannot handle platelets, cannot put makeup. She has no control of her hands, right more than left. She also has a bobble head. Symptoms are getting worse. Patient also has bipolar disorder for which she is on Topamax and Lamictal. Review of Systems As above in detail. All other review of systems unremarkable. Denies any rash. No fever or chills. Denies any intra-abdominal pain. No chest pain. No shortness of breath. Denies any vaginal discharge, or foul-smelling urine. 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 History of Any Multi-Drug Resistant Organisms: None Reported Past Surgical History: Appendectomy, Breast Surgery, Cholecystectomy, Heart Catheterization, Hysterectomy, Pacemaker, Tonsillectomy, Tubal Ligation Additional Past Surgical History / Comment(s): EP STUDY/ABLATION 2006,pacemaker, LASER EYE SX. bilateral masectomy Past Anesthesia/Blood Transfusion Reactions: No Reported Reaction Type of Cardiac Device: Permanent Pacemaker Device Placement Date:: 2003 Past Psychological History: Bipolar Additional Psychological History / Comment(s): PT LIVES WITH SPOUSE IN SINGLE LEVEL HOME THAT HAS 4 [address] STEPS. NO OUTSIDE SERVICES. HAS A NEBULIZER. Smoking Status: Never smoker Past Alcohol Use History: None Reported Past Drug Use History: None Reported - Past Family History Father Family Medical History: Cancer Additional Family Medical History / Comment(s): BONE CANCER Mother Family Medical History: Cancer Additional Family Medical History / Comment(s): BREAST CANCER W/METS. Daughter(s) Family Medical History: Cancer Medications and Allergies Home Medications Medication Instructions Recorded Confirmed Type Baclofen 10 mg PO HS 04/13/15 03/22/21 History Topiramate [Topamax] 200 mg PO QAM 03/28/17 03/22/21 History lamoTRIgine [LaMICtal] 200 mg PO DAILY 03/28/17 03/22/21 History Cephalexin [Keflex] 500 mg PO Q6HR #40 cap 03/10/21 03/22/21 Rx Amiodarone [Cordarone] 200 mg PO DAILY 03/22/21 03/22/21 History Carvedilol [Coreg] 12.5 mg PO BID-W/MEALS 03/22/21 03/22/21 History Clopidogrel Bisulfate [Plavix] 75 mg PO DAILY 03/22/21 03/22/21 History DULoxetine HCL [Cymbalta] 60 mg PO HS 03/22/21 03/22/21 History Ergocalciferol [Vitamin D2 (1250 1,250 mcg PO CHAVEZ 03/22/21 03/22/21 History Mcg = 25168 Iu)] Furosemide [Lasix] 40 mg PO WE@0900 03/22/21 03/22/21 History Pantoprazole Sodium [Protonix] 40 mg PO DAILY@0600 03/22/21 03/22/21 History Rivaroxaban [Xarelto] 15 mg PO DAILY 03/22/21 03/22/21 History amLODIPine [Norvasc] 5 mg PO DAILY 03/22/21 03/22/21 History oxyCODONE HCL/ACETAMINOPHEN 1 tab PO Q6H PRN 03/22/21 03/22/21 History [oxyCODONE HCL/ACETAMINOPHEN 7.5-325] Allergies Allergy/AdvReac Type Severity Reaction Status Date / Time alendronate sodium Allergy Anaphylaxis Verified 03/22/21 19:53 [From Fosamax] amitriptyline HCl Allergy Unknown Verified 03/22/21 19:53 [From Elavil] doxepin HCl [From Sinequan] Allergy Unknown Verified 03/22/21 19:53 iodine Allergy Anaphylaxis Verified 03/22/21 19:53 Penicillins Allergy passed out Verified 03/22/21 19:53 simvastatin [From Zocor] Allergy Unknown Verified 03/22/21 19:53 sulindac [From Clinoril] Allergy Unknown Verified 03/22/21 19:53 vancomycin Allergy Anaphylaxis Verified 03/22/21 19:53 codeine AdvReac Abdominal Verified 03/22/21 19:53 Pain gabapentin [From Neurontin] AdvReac Nausea & Verified 03/22/21 19:53 Vomiting ibuprofen [From Motrin] AdvReac Unknown Verified 03/22/21 19:53 Physical Examination - Vital Signs Vital Signs: Vital Signs Temp Pulse Resp BP Pulse Ox 03/24/21 08:28 97.5 F L 60 18 123/72 96 03/24/21 08:00 60 18 03/24/21 01:07 97.9 F 64 20 144/81 95 03/23/21 20:00 60 17 03/23/21 19:44 97.8 F 60 20 113/70 96 03/23/21 15:00 98 F 60 17 109/63 99 03/23/21 14:21 18 Intake and Output 03/23/21 03/24/21 03/24/21 22:59 06:59 14:59 Intake Total 350 Balance 350 Intake: Oral 350 Other: Voiding Method Toilet Toilet # Voids 2 2 Patient is an elderly female, in no acute distress. She is however uncomfortable, with pain in the right groin region in the leg. Patient is alert awake oriented to time place and person. Speech and language functions are normal. Attention, concentration and fund of knowledge is adequate. On cranial examination, pupils are equal, round and reacting to light, visual davies are full on confrontation, extraocular muscles are intact with no nystagmus. Face is symmetric, tongue protrudes to the midline. Palatal elevation and sensation normal, hearing and shoulder shrug normal, facial sensation normal. Shoulder shrug normal. On muscle strength testing, there is no pronator drift and the strength is normal in arms and legs distally and proximally. Even detailed testing of the right lower extremity revealed normal strength of the right hip flexion, hip adduction, abduction, knee extension, ankles and toes. There is some guarding because of pain. Internal or external rotation of the hip elicited severe pain. Deep tendon reflexes are very symmetric, 2 in the biceps and brachioradialis, 2+ at bilateral knees, 1 ankles and plantars downgoing. No clonus. Sensory to touch is equal with no neglect. No loss of sensation in any dermatome in the lower extremities. Cerebellar function showed no ataxia for [id number] testing. No dysdiadochokinesia. Tone and bulk of muscles normal. Patient has tremors of outstretched hands. She also has had tremors suggestive of essential tremor. Gait not checked. On general examination, there is no carotid bruit or murmur, S1-S2 audible. Abdomen is soft nontender. Chest is clear. Peripheral pulses are present. No edema. Results - Laboratory Findings CBC and BMP: 03/23/21 03:48 03/23/21 03:48 Abnormal Lab Findings: Abnormal Labs 03/22/21 03/22/21 03/22/21 17:32 17:32 17:32 WBC RBC Hgb Hct MCHC RDW Lymphocytes # 0.8 L Eosinophils # Chloride 110 H BUN 23 H Creatinine 1.52 H Est GFR (CKD-EPI)AfAm Est GFR (CKD-EPI)NonAf Alkaline Phosphatase 129 H Total Protein Ur Leukocyte Esterase Small H Urine Mucus Rare H 03/23/21 03/23/21 03:48 03:48 WBC 3.85 L RBC 3.76 L Hgb 11.3 L Hct 36.1 L MCHC 31.3 L RDW 14.6 H Lymphocytes # 0.85 L Eosinophils # 0.58 H Chloride 113 H BUN Creatinine Est GFR (CKD-EPI)AfAm 42.8 L Est GFR (CKD-EPI)NonAf 36.9 L Alkaline Phosphatase Total Protein 6.0 L Ur Leukocyte Esterase Urine Mucus Assessment and Plan Assessment: * Right medial groin pain, extending to the right anterior and medial thigh region to the knee. Her neurological examination is completely normal. No loss of muscle strength, loss of reflexes are loss of sensation in any dermatomal pattern. No evidence of femoral neuropathy. Examination of the h ip elicited severe pain. CT of the hip revealed osteoarthritis with bone spur. Differential is between hip arthritis/tendinitis with radiation of pain to the right thigh, ?avascular hip necrosis, versus inguinal hernia. Doubt primary neurological issue. * Obesity * Chronic back pain * Hypertension * Atrial fibrillation, on Xarelto. * Single functioning kidney * Benign essential tremor. * History of pacemaker. Plan: * Patient undergoing CT of abdomen and pelvis. Patient has been seen by surgery, and concerned about inguinal hernia. * We will empirically start on gabapentin 200 mg 3 times a day. Patient has not responded to dexamethasone 10 mg IV dose. NSAIDs contraindicated because of single kidney. * Consider intra-hip steroid injection if the symptoms persist. * Patient also complains of benign essential tremors. She may benefit from beta blockers or Mysoline. At this time we will hold off on any treatment for tremors. She was recommended to follow up with neurologist as an outpatient. * We will check B12, folate, ESR, A1c, immune fixation electrophoresis, RA.
--- NOTE | 2021-03-24 17:09 | CT ---
EXAMINATION TYPE: CT abdomen pelvis wo con DATE OF EXAM: 03/24/2021 COMPARISON: 03/10/2021 HISTORY: abdominal pain, RLQ pain CT DLP: 2.1 mGycm Automated exposure control for dose reduction was used. TECHNIQUE: Helical acquisition of images was performed from the lung bases through the pelvis. CONTRAST: Performed with Oral Contrast and without intravenous contrast. FINDINGS: LUNG BASES: Normal. LIVER: Normal attenuation and size. BILIARY SYSTEM: Status post cholecystectomy, with redemonstrated biliary ductal dilatation. PANCREAS: No peripancreatic stranding or fluid collection. SPLEEN: Not enlarged. ADRENALS: Normal. KIDNEYS: No hydronephrosis. 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 BOWEL: No obstruction or thickening. Increased colonic fecal debris of the proximal colon. Appendix not definitively visualized however there is no evidence of pericecal inflammatory stranding. Duodena l diverticulum. Colonic diverticulosis. No acute diverticulitis. PERITONEUM: No pneumoperitoneum. No free fluid. LYMPH NODES: No lymphadenopathy. PELVIS: Unremarkable. VASCULATURE: No abdominal aortic aneurysm. MUSCULOSKELETAL: Degenerative changes of the spine. IMPRESSION: Increased colonic fecal debris of the proximal colon may represent constipation.
[2021-03-24] MEDS: DULoxetine HCL 60 MG CAPSULE.DR PO SCH (19:23)
[2021-03-24] MEDS ORDERED: GABAPENTIN 100 MG CAP PO SCH (21:00)
[2021-03-24 22:02] LABS: Hemoglobin A1C 4.9 % (4.0-6.0)
[2021-03-25] MEDS: PANTOPRAZOLE 40 MG TABLET PO SCH (05:28)
[2021-03-25] MEDS: HYDROmorphone 0.5 MG/0.5 ML SYRINGE IVP PRN ×4 (05:28→21:04)
[2021-03-25] MEDS: CLOPIDOGREL 75 MG TAB PO SCH (08:13)
[2021-03-25] MEDS: lamoTRIgine 100 MG TAB PO SCH (08:13)
[2021-03-25] MEDS: TOPIRAMATE 100 MG TAB PO SCH (08:13)
[2021-03-25] MEDS: AMIODARONE 200 MG TAB PO SCH (08:13)
[2021-03-25] MEDS: oxyCODONE-APAP 7.5-325MG 1 EACH TAB PO PRN (08:13)
[2021-03-25] MEDS: GABAPENTIN 100 MG CAP PO SCH ×3 (08:14→20:23)
[2021-03-25] MEDS: carvediloL 12.5 MG TAB PO SCH ×2 (08:14→17:10)
[2021-03-25] MEDS: RIVAROXABAN 15 MG TAB PO SCH (08:14)
--- NOTE | 2021-03-25 09:06 | P.PN ---
Subjective Progress Note Date: 03/25/21 Pt s/e this AM. She states she feels about the same. Seems somewhat better at rest, but hurts when she is up and walking. She did walk yesterday with nursing and was very uncomfortable per their report however nothing worse. She states pain in her inguinal region still, pinpoint in this region on the L. She states no f/c/sob/cp at this time. No perineal symptoms. No pain with passive ROM of the hip. Tim any bowel or bladder issues. Objective - Vital Signs Vital signs: Vital Signs Temp 97.6 F 03/25/21 07:00 Pulse 64 03/25/21 07:00 Resp 16 03/25/21 07:00 BP 107/62 03/25/21 07:00 Pulse Ox 94 L 03/25/21 07:00 Intake & Output 03/24/21 03/25/21 03/25/21 18:59 06:59 18:59 Other: Voiding Method Toilet Toilet # Voids 3 2 - Exam Patient is alert and oriented 3 appears well-nourished well-hydrated is in no acute distress. They do not appear septic. There is TTP still in the inguinal region on the right-hand side. Lower extremities with 5 out of 5 strength in all major muscle groups Upper extremities show 5/5 strength in all major muscle groups. There is FROM that is painless of the b/l UE and LE in all major joints. They are intact to light touch sensation in L2 to S1 nerve distribution. DTR 2/4 all upper and lower extremities Patient has palpable dorsalis pedis was posterior tibial pulses. Palpable Rad Ulnar pulses b/l Compartments are soft and compressible. Patient shows a negative Homans Cranial nerves II through XII are grossly intact. Special Testing: Negative Silverskiold's Negative heeltap Negative logroll on the right - Labs CBC & Chem 7: 03/23/21 03:48 03/23/21 03:48 Labs: Abnormal Lab Results - Last 24 Hours (Table) 03/22/21 Range/Units 17:32 Vitamin B12 177.0 L (200.0-944.0) pg/mL Assessment and Plan Assessment: 75-year-old female with right inguinal/hip pain possible iliopsoas tendinitis versus aggravation osteoarthritis right hip Possible hernia No fracture seen on imaging Plan: MRI would be the best view of this area however patient has a pacemaker and is unable to have MRI. Could consider intra-articular injection of the right hip to rule out any hip pathology causing her pain however again this pinpoint tenderness in the inguinal region is difficult to decipher as hip versus inguinal or some other soft tissue. All imaging is negative for fracture at this time. Again MRI would be better to evaluate for occult however they are unable to perform this and her exam does not suggest this as her hip testing is negative. Continue conservative management and anti-inflammatories as able pain control PT OT. Recommend consult to pain management for Consideration of intra-articular hip injection No orthopedic surgical intervention at this time.
[2021-03-25 09:37] LABS: Basophils # (A) 0.03 X 10*3/uL (0.00-0.10); Basophils % (A) 0.9 %; Eosinophils # (A) 0.61 X 10*3/uL (0.04-0.35); Eosinophils % (A) 18.8 %; HGB 11.4 g/dL (12.0-15.0); Lymphocytes # (A) 0.73 X 10*3/uL (0.90-5.00); Lymphocytes % (A) 22.5 %; MCH 29.8 pg (27.0-32.0); MCHC 30.8 g/dL (32.0-37.0); MCV 96.6 fL (80.0-97.0); Mean Platelet Volume 10.3 fL (9.5-12.2); Monocytes # (A) 0.29 X 10*3/uL (0.20-1.00); Neutrophils # (A) 1.57 X 10*3/uL (1.80-7.70); Neutrophils % (A) 48.5 %; Platelet Count 168 X 10*3/uL (140-440); RBC 3.83 X 10*6/uL (4.10-5.20); RDW 14.3 % (11.5-14.5); WBC 3.24 X 10*3/uL (4.50-10.00)
[2021-03-25 09:52] LABS: African American GFR (CKD) 42.8 (60.0-200.0); Anion Gap 7.9 mmol/L (4.00-12.00); BUN/Creat Ratio 13.57 Ratio (12.00-20.00); Calcium 8.7 mg/dL (8.7-10.3); Carbon Dioxide 26.1 mmol/L (21.6-31.8); Non-African American GFR(CKD) 36.9 (60.0-200.0); Potassium 3.9 mmol/L (3.5-5.5)
[2021-03-25] MEDS ORDERED: LACTULOSE 20 GM/30 ML CUP PO ONE (10:42)
[2021-03-25] MEDS: FOLIC ACID 1 MG TAB PO SCH (11:40)
[2021-03-25] MEDS: CYANOCOBALAMIN 1,000 MCG/ML 1 ML VIAL IM SCH (11:41)
--- NOTE | 2021-03-25 11:53 | P.PN ---
Subjective Progress Note Date: 03/25/21 CHIEF COMPLAINT: Right groin and leg pain HISTORY OF PRESENT ILLNESS: Patient is still complaining of her right groin and hip pain. Computed tomography scan of the abdomen and pelvis completed showing no evidence of hernia. Did reveal increased colonic fecal debris of the proximal colon may represent constipation. Patient also followed by orthopedics. They initially scheduled an MRI of the pelvis. However patient has pacemaker and unable to complete the MRI. Patient reports that her pain is worse today. She denies any nausea or vomiting. She reports that it has been about 3 days since her last bowel movement. She denies any nausea or vomiting. Afebrile. WBC 3.24 hemoglobin 11.4 platelets 168 PHYSICAL EXAM: VITAL SIGNS: Reviewed. GENERAL: Well-developed in no acute distress. HEENT: No sclera icterus. Extraocular movements grossly intact. Moist buccal mucosa. Head is atraumatic, normocephalic. ABDOMEN: Soft. Nondistended. Tenderness with palpation in the right groin NEUROLOGIC: Alert and oriented. Cranial nerves II through XII grossly intact. ASSESSMENT: 1. Right groin and hip pain. No evidence of hernia on computed tomography scan 2. Constipation PLAN: -No surgical intervention planned -Lactulose and Colace ordered for constipation -Continue supportive care Physician Oil Deliverer note has been reviewed by physician. Signing provider agrees with the documented findings, assessment, and plan of care. Objective - Vital Signs Vital signs: Vital Signs Temp 97.6 F 03/25/21 07:00 Pulse 64 03/25/21 07:00 Resp 16 03/25/21 07:00 BP 107/62 03/25/21 07:00 Pulse Ox 94 L 03/25/21 07:00 Intake & Output 03/24/21 03/25/21 03/25/21 18:59 06:59 18:59 Other: Voiding Method Toilet Toilet # Voids 3 2 - Labs CBC & Chem 7: 03/25/21 06:19 03/25/21 06:19 Labs: Abnormal Lab Results - Last 24 Hours (Table) 03/22/21 03/25/21 03/25/21 Range/Units 17:32 06:19 06:19 WBC 3.24 L (4.50-10.00) X 10*3/uL RBC 3.83 L (4.10-5.20) X 10*6/uL Hgb 11.4 L (12.0-15.0) g/dL Hct 37.0 L (37.2-46.3) % MCHC 30.8 L (32.0-37.0) g/dL Neutrophils # 1.57 L (1.80-7.70) X 10*3/uL Lymphocytes # 0.73 L (0.90-5.00) X 10*3/uL Eosinophils # 0.61 H (0.04-0.35) X 10*3/uL Est GFR (CKD-EPI)AfAm 42.8 L (60.0-200.0) Est GFR (CKD-EPI)NonAf 36.9 L (60.0-200.0) Vitamin B12 177.0 L (200.0-944.0) pg/mL
[2021-03-25] MEDS ORDERED: FAMOTIDINE 20 MG/2 ML VIAL IV SCH (13:15)
--- NOTE | 2021-03-25 13:17 | P.PN ---
Subjective This is a pleasant 75 years old female with past medical history of osteoarthritis, atrial fibrillation, heart failure, fibromyalgia. History of br east cancer in 1985 Presents with significant right groin pain for the last 5 weeks associated with difficulty walking, she started using a cane however when yesterday she could not walk even with a cane because of pain she got worried and came to the emergency room. Her pain is rated as 10/10, radiating just down below the knee with no associated back pain but associated with some numbness in the thigh. However on examination she has weakness in the right foot dorsum plantar flexion although her examination of the strength of the lower extremity is limited by her pain. She denies headache. No urine or bowel incontinence. No history of trauma. No chest pain or dyspnea. She came to the emergency room 2 weeks ago for similar complaint, that she's been told she has UTI and started on Keflex. She stopped taking it because she denies any urinary symptoms. CT of the abdomen and pelvis without contrast done on 03/10 showing mild diverticulosis without diverticulitis. No acute abnormality within the abdomen and pelvis. Vital signs stable and Labs including CBC, BMP, liver enzymes are are unremarkable, except for creatinine of 1.5 which is at baseline Right hip x-ray: Acetabular spurring. No fracture. Right hip CT without contrast: Some osteoarthritic changes in the right hip join t. No fractures. No change compared to old exam MAPS was checked: Patient is on Percocet [address] Ulises Bonner, last filled on 02/23/2021 03/24/2021 Patient still complaining of from right groin pain and tenderness, orthopedic team input is appreciated, they think it's related to severe osteoarthritis versus tendinitis, however need to rule out hernia and so surgical team consulted who ordered computed tomography scan of the abdomen and pelvis Neurologist consult for possible right lower extremity numbness 03/25/2021 Patient still complaining of from pain and point tenderness in the right groin area, hernia has been ruled out and neurological causes also has been allowed CT of the abdomen and pelvis showing no hernia and only constipation, laxative as provided. Her machine buffer start her on folic acid, B12 and gabapentin but as per my discussion with him it's very unlikely to be nerve pain as her nerve examination is completely normal and patient denies low back pain. Orthopedic team recommended MRI of the right hip. As per daughter patient had MRI at [facility] about a year ago however patient has a pacemaker and MRI ordered by orthopedic team was consulted by our radiology department since she has pacemaker and cannot be done in this hospital. Patient informe d,and as an alternative pain management consult was placed for possible intra- articular injection for pain relief per orthopedic team recommendation Patient currently is in Dilaudid and Percocet. Objective - Vital Signs Vital signs: Vital Signs Temp 97.6 F 03/25/21 07:00 Pulse 64 03/25/21 07:00 Resp 16 03/25/21 07:00 BP 107/62 03/25/21 07:00 Pulse Ox 94 L 03/25/21 07:00 Intake & Output 03/24/21 03/25/21 03/25/21 18:59 06:59 18:59 Other: Voiding Method Toilet Toilet # Voids 3 2 - Exam GENERAL: The patient is alert and oriented x3, not in any acute distress. Obese HEENT: Pupils are round and equally reacting to light. EOMI. No scleral icterus. No conjunctival pallor. Normocephalic, atraumatic. No pharyngeal erythema. No thyromegaly. CARDIOVASCULAR: S1 and S2 present. No murmurs, rubs, or gallops. PULMONARY: Chest is clear to auscultation, no wheezing or crackles. ABDOMEN: Soft, nontender, nondistended, normoactive bowel sounds. No palpable organomegaly. -MUSCULOSKELETAL: No joint swelling or deformity. Right groin tenderness and no lateral leg or hip area tenderness EXTREMITIES: No cyanosis, clubbing, or pedal edema. -NEUROLOGICAL: Cranial nerves are grossly intact. Weakness of the hip flexion and knee flexion however examination is limited by pain. The patient has limited dorsi and plantar flexion of the right ankle. Sensation is intact with no difference between the 2 sites. SKIN: No rashes. No petechiae - Labs CBC & Chem 7: 03/25/21 06:19 03/25/21 06:19 Labs: Abnormal Lab Results - Last 24 Hours (Table) 03/22/21 03/25/21 03/25/21 Range/Units 17:32 06:19 06:19 WBC 3.24 L (4.50-10.00) X 10*3/uL RBC 3.83 L (4.10-5.20) X 10*6/uL Hgb 11.4 L (12.0-15.0) g/dL Hct 37.0 L (37.2-46.3) % MCHC 30.8 L (32.0-37.0) g/dL Neutrophils # 1.57 L (1.80-7.70) X 10*3/uL Lymphocytes # 0.73 L (0.90-5.00) X 10*3/uL Eosinophils # 0.61 H (0.04-0.35) X 10*3/uL Est GFR (CKD-EPI)AfAm 42.8 L (60.0-200.0) Est GFR (CKD-EPI)NonAf 36.9 L (60.0-200.0) Vitamin B12 177.0 L (200.0-944.0) pg/mL Assessment and Plan Assessment: Right hip pain secondary to severe osteoarthritis versus sinus tendinitis. inguinal Hernia ruled out. Patient cannot get MRI of the hip as she has pacemaker Osteoarthritis Chronic kidney disease, stage III. Chronic atrial fibrillation Chronic heart failure, no exacerbation History of fibromyalgia History of breast cancer Plan: This is a pleasant 75 years old female who presents with right hip pain secondary to osteoarthritis. Continue with IV hydration Pain management consult Gabapentin is added . Continue with folic acid and vitamin B-12 Orthopedic consult Neurology consult and surgery team found no causes for patient's symptoms Labs and medication were reviewed.. Continue same treatment. Continue with symptomatic treatment. Resume home medication. Monitor lytes and vitals. DVT and GI prophylaxis. Further recommendations depends on the clinical course of the patient DVT prophylaxis: xarelto GI Prophylaxis: Pepcid PT/OT:Home health care versus rehab, consult manager social responsibility Prognosis is guarded
[2021-03-25] MEDS: DOCUSATE 100 MG CAP PO SCH ×2 (15:32→20:25)
--- NOTE | 2021-03-25 20:22 | P.PAINCN ---
History of Present Illness - Reason for Consult Consult date: 03/25/21 - History of Present Illness This is a 75-year-old female is referred to us by the inpatient orthopedic team for consideration of right intra-articular hip injection. This patient has a history of atrial fibrillation and is on Xarelto and Plavix which she took today. She has been having right groin pain for the last 5 weeks associated with difficulty walking and is getting worse. She has some weakness in her right lower extremity as well. There is no inciting incident. Primary team initially thought of the hernia and rule that out the computed tomography scan. Hip CT showed primary osteoarthritis of the hip. Objective - Exam GENERAL: The patient is alert and oriented x3, not in any acute distress. Obese HEENT: Pupils are round and equally reacting to light. EOMI. No scleral icterus. No conjunctival pallor. Normocephalic, atraumatic. No pharyngeal erythema. No thyromegaly. CARDIOVASCULAR: S1 and S2 present. No murmurs, rubs, or gallops. PULMONARY: Chest is clear to auscultation, no wheezing or crackles. ABDOMEN: Soft, nontender, nondistended, normoactive bowel sounds. No palpable organomegaly. -MUSCULOSKELETAL: Tenderness to palpation over the right inguinal and lateral hip area. Strength is intact. Sensation is intact as well as reflexes. There is pain with internal rotation of the hip. EXTREMITIES: No cyanosis, clubbing, or pedal edema. Assessment and Plan Assessment: - Right hip osteoarthritis vs tendinitis - Hx of atrial fibrillation on Plavix and Xarelto Plan: - Patient is a candidate for right hip injection however given that she is on dual antiplatelet therapy would be best to wait 7 days while holding dual antiplatelet therapy for the injection, would need her prescribers approval. I will put the information for our pain clinic for her to follow-up in her discharge notes. - At this time she can continue her home medication, change gabapentin to 300 mg twice a day given her kidney function, schedule Tylenol 1000 mg every 6H as an inpatient and then changed to every 8H as an outpatient. 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 History of Any Multi-Drug Resistant Organisms: None Reported Past Surgical History: Appendectomy, Breast Surgery, Cholecystectomy, Heart Catheterization, Hysterectomy, Pacemaker, Tonsillectomy, Tubal Ligation Additional Past Surgical History / Comment(s): EP STUDY/ABLATION 2006,pacemaker, LASER EYE SX. bilateral masectomy Past Anesthesia/Blood Transfusion Reactions: No Reported Reaction Type of Cardiac Device: Permanent Pacemaker Device Placement Date:: 2003 Past Psychological History: Bipolar Additional Psychological History / Comment(s): PT LIVES WITH SPOUSE IN SINGLE LEVEL HOME THAT HAS 4 [address] STEPS. NO OUTSIDE SERVICES. HAS A NEBULIZER. Smoking Status: Never smoker Past Alcohol Use History: None Reported Past Drug Use History: None Reported - Past Family History Father Family Medical History: Cancer Additional Family Medical History / Comment(s): BONE CANCER Mother Family Medical History: Cancer Additional Family Medical History / Comment(s): BREAST CANCER W/METS. Daughter(s) Family Medical History: Cancer Medications and Allergies Home Medications Medication Instructions Recorded Confirmed Type Baclofen 10 mg PO HS 04/13/15 03/22/21 History Topiramate [Topamax] 200 mg PO QAM 03/28/17 03/22/21 History lamoTRIgine [LaMICtal] 200 mg PO DAILY 03/28/17 03/22/21 History Cephalexin [Keflex] 500 mg PO Q6HR #40 cap 03/10/21 03/22/21 Rx Amiodarone [Cordarone] 200 mg PO DAILY 03/22/21 03/22/21 History Carvedilol [Coreg] 12.5 mg PO BID-W/MEALS 03/22/21 03/22/21 History Clopidogrel Bisulfate [Plavix] 75 mg PO DAILY 03/22/21 03/22/21 History DULoxetine HCL [Cymbalta] 60 mg PO HS 03/22/21 03/22/21 History Ergocalciferol [Vitamin D2 (1250 1,250 mcg PO CHAVEZ 03/22/21 03/22/21 History Mcg = 10146 Iu)] Furosemide [Lasix] 40 mg PO WE@0900 03/22/21 03/22/21 History Pantoprazole Sodium [Protonix] 40 mg PO DAILY@0600 03/22/21 03/22/21 History Rivaroxaban [Xarelto] 15 mg PO DAILY 03/22/21 03/22/21 History amLODIPine [Norvasc] 5 mg PO DAILY 03/22/21 03/22/21 History oxyCODONE HCL/ACETAMINOPHEN 1 tab PO Q6H PRN 03/22/21 03/22/21 History [oxyCODONE HCL/ACETAMINOPHEN 7.5-325] Allergies Allergy/AdvReac Type Severity Reaction Status Date / Time alendronate sodium Allergy Anaphylaxis Verified 03/22/21 19:53 [From Fosamax] amitriptyline HCl Allergy Unknown Verified 03/22/21 19:53 [From Elavil] doxepin HCl [From Sinequan] Allergy Unknown Verified 03/22/21 19:53 iodine Allergy Anaphylaxis Verified 03/22/21 19:53 Penicillins Allergy passed out Verified 03/22/21 19:53 simvastatin [From Zocor] Allergy Unknown Verified 03/22/21 19:53 sulindac [From Clinoril] Allergy Unknown Verified 03/22/21 19:53 vancomycin Allergy Anaphylaxis Verified 03/22/21 19:53 codeine AdvReac Abdominal Verified 03/22/21 19:53 Pain gabapentin [From Neurontin] AdvReac Nausea & Verified 03/22/21 19:53 Vomiting ibuprofen [From Motrin] AdvReac Unknown Verified 03/22/21 19:53 Physical Exam Vitals: Vital Signs Temp Pulse Resp BP Pulse Ox 03/25/21 14:50 97.3 F L 60 17 121/75 98 03/25/21 07:00 97.6 F 64 16 107/62 94 L 03/25/21 02:40 97.4 F L 63 16 114/66 93 L 03/24/21 19:30 63 16 03/24/21 19:29 98.2 F 63 16 117/68 96 Intake and Output 03/25/21 03/25/21 03/25/21 06:59 14:59 22:59 Other: # Voids 2 Results CBC & Chem 7: 03/25/21 06:19 03/25/21 06:19 Labs: Abnormal Lab Results - Last 24 Hours (Table) 03/22/21 03/25/21 03/25/21 Range/Units 17:32 06:19 06:19 WBC 3.24 L (4.50-10.00) X 10*3/uL RBC 3.83 L (4.10-5.20) X 10*6/uL Hgb 11.4 L (12.0-15.0) g/dL Hct 37.0 L (37.2-46.3) % MCHC 30.8 L (32.0-37.0) g/dL Neutrophils # 1.57 L (1.80-7.70) X 10*3/uL Lymphocytes # 0.73 L (0.90-5.00) X 10*3/uL Eosinophils # 0.61 H (0.04-0.35) X 10*3/uL Est GFR (CKD-EPI)AfAm 42.8 L (60.0-200.0) Est GFR (CKD-EPI)NonAf 36.9 L (60.0-200.0) Vitamin B12 177.0 L (200.0-944.0) pg/mL PQRS Measure Charge Sheet PQRS Narrative: Smoking Status Never smoker Do You Want the Pneumonia Vaccine Up to Date Vaccine AT THIS TIME? Blood Pressure [Right Arm] 121/75 Blood Pressure 134/80 Pain Intensity [Right Groin] 10 Pain Intensity 0 Pain Scale Used Numeric (1 - 10) Scale Used Numeric (1 - 10) Home Medications: Ambulatory Orders Baclofen 10 mg PO HS 04/13/15 Topiramate [Topamax] 200 mg PO QAM 03/28/17 lamoTRIgine [LaMICtal] 200 mg PO DAILY 03/28/17 Cephalexin [Keflex] 500 mg PO Q6HR #40 cap 03/10/21 Amiodarone [Cordarone] 200 mg PO DAILY 03/22/21 Carvedilol [Coreg] 12.5 mg PO BID-W/MEALS 03/22/21 Clopidogrel Bisulfate [Plavix] 75 mg PO DAILY 03/22/21 DULoxetine HCL [Cymbalta] 60 mg PO HS 03/22/21 Ergocalciferol [Vitamin D2 (1250 Mcg = 84503 Iu)] 1,250 mcg PO CHAVEZ 03/22/21 Furosemide [Lasix] 40 mg PO WE@0900 03/22/21 Pantoprazole Sodium [Protonix] 40 mg PO DAILY@0600 03/22/21 Rivaroxaban [Xarelto] 15 mg PO DAILY 03/22/21 amLODIPine [Norvasc] 5 mg PO DAILY 03/22/21 oxyCODONE HCL/ACETAMINOPHEN [oxyCODONE HCL/ACETAMINOPHEN 7.5-325] 1 tab PO Q6H PRN 03/22/21
[2021-03-25] MEDS: DULoxetine HCL 60 MG CAPSULE.DR PO SCH (20:23)
[2021-03-26] MEDS: HYDROmorphone 0.5 MG/0.5 ML SYRINGE IVP PRN ×2 (05:41→09:40)
[2021-03-26] MEDS: PANTOPRAZOLE 40 MG TABLET PO SCH (05:41)
[2021-03-26] MEDS: carvediloL 12.5 MG TAB PO SCH (08:31)
[2021-03-26] MEDS: GABAPENTIN 100 MG CAP PO SCH ×2 (08:31→15:22)
[2021-03-26] MEDS: lamoTRIgine 100 MG TAB PO SCH (08:31)
[2021-03-26] MEDS: FOLIC ACID 1 MG TAB PO SCH (08:31)
[2021-03-26] MEDS: AMIODARONE 200 MG TAB PO SCH (08:31)
[2021-03-26] MEDS: DOCUSATE 100 MG CAP PO SCH (08:31)
[2021-03-26] MEDS: CLOPIDOGREL 75 MG TAB PO SCH (08:31)
[2021-03-26] MEDS: RIVAROXABAN 15 MG TAB PO SCH (08:31)
[2021-03-26] MEDS: TOPIRAMATE 100 MG TAB PO SCH (08:31)
[2021-03-26] MEDS: CYANOCOBALAMIN 1,000 MCG/ML 1 ML VIAL IM SCH (08:35)
[2021-03-26 08:41] VITALS: PULSE 60
[2021-03-26 09:28] LABS: INR 1.03 (0.90-1.11); Prothrombin Time 11.2 sec (9.9-11.9)
[2021-03-26 09:29] LABS: Basophils # (A) 0.01 X 10*3/uL (0.00-0.10); Basophils % (A) 0.2 %; Eosinophils # (A) 0.44 X 10*3/uL (0.04-0.35); Eosinophils % (A) 10.9 %; HCT 38.3 % (37.2-46.3); HGB 11.8 g/dL (12.0-15.0); Lymphocytes % (A) 22.4 %; MCH 29.6 pg (27.0-32.0); MCHC 30.8 g/dL (32.0-37.0); MCV 96.2 fL (80.0-97.0); Mean Platelet Volume 10.4 fL (9.5-12.2); Monocytes # (A) 0.36 X 10*3/uL (0.20-1.00); Neutrophils % (A) 57.3 %; Platelet Count 179 X 10*3/uL (140-440); RBC 3.98 X 10*6/uL (4.10-5.20); RDW 14.3 % (11.5-14.5); WBC 4.02 X 10*3/uL (4.50-10.00)
[2021-03-26] MEDS ORDERED: LACTULOSE 20 GM/30 ML CUP PO ONE (09:45)
--- NOTE | 2021-03-26 09:46 | P.PN ---
Subjective Progress Note Date: 03/25/21 Patient continues to be in severe pain. Neurontin has not helped at all. Patient believes the pain is even worse today as compared to yesterday. Patient is in tears. Cannot move her right leg. Objective - Vital Signs Vital signs: Vital Signs Temp 97.6 F 03/25/21 07:00 Pulse 64 03/25/21 07:00 Resp 16 03/25/21 07:00 BP 107/62 03/25/21 07:00 Pulse Ox 94 L 03/25/21 07:00 Intake & Output 03/24/21 03/25/21 03/25/21 18:59 06:59 18:59 Other: Voiding Method Toilet Toilet # Voids 3 2 - Exam Patient's mental status, speech and language functions are normal. Did not check muscle strength of the right leg because of pain. However I did check reflexes, and it is very symmetric still, 2 in the upper limbs at biceps and brachioradialis, 2 at bilateral knees, 1 at both ankles and plantars downgoing. Sensory to touch is equal in all dermatomes. No loss of sensation in any dermatome. - Labs CBC & Chem 7: 03/26/21 06:16 03/25/21 06:19 Labs: Abnormal Lab Results - Last 24 Hours (Table) 03/22/21 03/25/21 03/25/21 Range/Units 17:32 06:19 06:19 WBC 3.24 L (4.50-10.00) X 10*3/uL RBC 3.83 L (4.10-5.20) X 10*6/uL Hgb 11.4 L (12.0-15.0) g/dL Hct 37.0 L (37.2-46.3) % MCHC 30.8 L (32.0-37.0) g/dL Neutrophils # 1.57 L (1.80-7.70) X 10*3/uL Lymphocytes # 0.73 L (0.90-5.00) X 10*3/uL Eosinophils # 0.61 H (0.04-0.35) X 10*3/uL Est GFR (CKD-EPI)AfAm 42.8 L (60.0-200.0) Est GFR (CKD-EPI)NonAf 36.9 L (60.0-200.0) Vitamin B12 177.0 L (200.0-944.0) pg/mL Assessment and Plan Assessment: * Right medial groin pain, extending to the right anterior and medial thigh region to the knee. Her neurological examination is completely normal. No loss of muscle strength, loss of reflexes are loss of sensation in any dermatomal pattern. No evidence of femoral neuropathy. Examination of the hip elicited severe pain. CT of the hip revealed osteoarthritis with bone s pur. Differential is between hip arthritis/tendinitis with radiation of pain to the right thigh, ?avascular hip necrosis, versus inguinal hernia. Patient has not responded to Neurontin at all, therefore with normal neurological examination, doubt primary neurological issue. * B12 and folate deficiency. * Obesity * Chronic back pain * Hypertension * Atrial fibrillation, on Xarelto. * Single functioning kidney * Benign essential tremor. * History of pacemaker. Plan: * Patient has not responded to Neurontin at all, therefore doubt primary neurological issue. Suspect primary an orthopedic issue. * CT of abdomen and pelvis revealed increased colonic fecal database of the proximal colon may represent constipation. Degenerative changes of the spine. No report of inguinal hernia. * Continue gabapentin 200 mg 3 times a day. So far no improvement. Patient has not responded to dexamethasone 10 mg IV dose. NSAIDs contraindicated because of single kidney. * Consider intra-hip steroid injection if the symptoms persist. * Patient also complains of benign essential tremors. She may benefit from beta blockers or Mysoline. At this time we will hold off on any treatment for tremors. She was recommended to follow up with neurologist as an outpatient. * B12 is very low 177, we will start replacement, folate also borderline 8.0, we'll start folate replacement, ESR normal 28, A1c normal 4.9, immune fixation electrophoresis still pending, RA is normal at 6. * Pain management.
[2021-03-26 10:15] LABS: African American GFR (CKD) 31.6 (60.0-200.0); Anion Gap 7.6 mmol/L (4.00-12.00); BUN/Creat Ratio 11.67 Ratio (12.00-20.00); Calcium 9.1 mg/dL (8.7-10.3); Carbon Dioxide 26.4 mmol/L (21.6-31.8); Non-African American GFR(CKD) 27.2 (60.0-200.0); Potassium 4.1 mmol/L (3.5-5.5)
--- NOTE | 2021-03-26 11:25 | P.PN ---
Subjective Progress Note Date: 03/26/21 Principal diagnosis: Right hip osteoarthritis Patient seen at bedside this morning resting comfortably. Patient still having some pain in the right groin that is worse with ambulation. Patient denies chest pain, fever, shortness breath, nausea, vomiting, change in vision, loss of bowel/bladder control, saddle anesthesia. Objective - Vital Signs Vital signs: Vital Signs Temp 97.7 F 03/26/21 08:00 Pulse 60 03/26/21 08:00 Resp 16 03/26/21 08:00 BP 132/70 03/26/21 08:00 Pulse Ox 95 03/26/21 08:00 Intake & Output 03/25/21 03/26/21 03/26/21 18:59 06:59 18:59 Other: Voiding Method Toilet Toilet # Voids 1 - Exam Right Hip: Inspection: No evidence of open fractures. Negative for any significant discoloration, ecchymosis/erythema Negative for nodules, erythema. Sensation: Sensation is intact in bilateral upper extremities symmetric, equal in distribution. Sensation is intact in bilateral lower extremities symmetric, equal in distribution Palpation: Mild tenderness to palpation over the right groin region. Nontender to palpation throughout rest of exam Range of motion: Limited range of motion in the right leg due to patient being in significant pain. Decreased hip flexion in right leg. Pain with internal and external rotation right hip. Bilateral upper extremities full range of motion in elbow extension/flexion as well as shoulder internal and external rotation abduction and forward elevation. Left lower extremity full range of motion and knee flexion extension and hip flexion extension. Plantar and dorsiflexion full range of motion bilaterally Motor: Strength 5 out of 5 in upper extremities as well as opal miner strength. Left lower extremity 5/5 in resisted flexion extension and hip flexion extension. Right leg exam limited due to patient being in significant amount of pain Neurovascular status/tensioning signs: Refill under 3 seconds bilaterally in lower and upper extremities. Skin mildly warm to touch in hands bilaterally as well as bilaterally in the lower extremities. Dorsalis pedis pulses intact, 2+ bilaterally. Radial pulses intact, 2+ bilaterally. Negative Homans bilaterally. Negative Belinda's bilaterally. Negative clonus upon dorsiflexing feet bilaterally. - Labs CBC & Chem 7: 03/26/21 06:16 03/26/21 06:16 Labs: Abnormal Lab Results - Last 24 Hours (Table) 03/26/21 03/26/21 Range/Units 06:16 06:16 WBC 4.02 L (4.50-10.00) X 10*3/uL RBC 3.98 L (4.10-5.20) X 10*6/uL Hgb 11.8 L (12.0-15.0) g/dL MCHC 30.8 L (32.0-37.0) g/dL Eosinophils # 0.44 H (0.04-0.35) X 10*3/uL Creatinine 1.8 H (0.6-1.5) mg/dL Est GFR (CKD-EPI)AfAm 31.6 L (60.0-200.0) Est GFR (CKD-EPI)NonAf 27.2 L (60.0-200.0) BUN/Creatinine Ratio 11.67 L (12.00-20.00) Ratio Glucose 127 H (70-110) mg/dL Assessment and Plan Assessment: 1. Right hip osteoarthritis 2. Multiple medical comorbidities Plan: 1. Right hip osteoarthritis - CT and x-ray of the right hip has been performed and has ruled out right hip fracture. X-ray lumbar spine has been ordered and completed to rule out any pathology coming from the lower spine. We'll continue to follow patient while in the hospital. At this point we recommend patient to follow-up with us in the outpatient setting for right hip. Pain management has been consulted and saw patient for potential right hip injection 2. Appreciate medical management and pain management 3. Pain management - stable at this time 4. GI prophylaxis -protonix 5. DVT prophylaxis - Plavix and Xarelto 6. PT/OT - weightbearing as tolerated Time with Patient: Less than 30
--- NOTE | 2021-03-26 11:53 | P.PN ---
Subjective Progress Note Date: 03/26/21 CHIEF COMPLAINT: Right groin and leg pain HISTORY OF PRESENT ILLNESS: Patient is reporting a decrease in her pain in the right hip. She was able to ambulate to the bathroom with her walker. She's been seen by pain management service. They recommending hip injection outpatient. Patient tolerating diet. Denies any nausea or vomiting. Did not have a bowel movement with the lactulose. WBC 4.02 hemoglobin 11.8 creatinine 1.8 PHYSICAL EXAM: VITAL SIGNS: Reviewed. GENERAL: Well-developed in no acute distress. HEENT: No sclera icterus. Extraocular movements grossly intact. Moist buccal mucosa. Head is atraumatic, normocephalic. ABDOMEN: Soft. Nondistended. Tenderness with palpation in the right groin and hip NEUROLOGIC: Alert and oriented. Cranial nerves II through XII grossly intact. ASSESSMENT: 1. Right groin and hip pain. No evidence of hernia on computed tomography scan 2. Constipation PLAN: -No surgical intervention planned -Continue supportive care -We'll give another dose of lactulose for constipation -Patient is stable from surgical standpoint for discharge when cleared medically Physician Carpenter Apprentice note has been reviewed by physician. Signing provider agrees with the documented findings, assessment, and plan of care. Objective - Vital Signs Vital signs: Vital Signs Temp 97.7 F 03/26/21 08:00 Pulse 60 03/26/21 08:00 Resp 16 03/26/21 08:00 BP 132/70 03/26/21 08:00 Pulse Ox 95 03/26/21 08:00 Intake & Output 03/25/21 03/26/21 03/26/21 18:59 06:59 18:59 Intake Total 240 Balance 240 Intake: Oral 240 Other: Voiding Method Toilet Toilet # Voids 1 - Labs CBC & Chem 7: 03/26/21 06:16 03/26/21 06:16 Labs: Abnormal Lab Results - Last 24 Hours (Table) 03/26/21 03/26/21 Range/Units 06:16 06:16 WBC 4.02 L (4.50-10.00) X 10*3/uL RBC 3.98 L (4.10-5.20) X 10*6/uL Hgb 11.8 L (12.0-15.0) g/dL MCHC 30.8 L (32.0-37.0) g/dL Eosinophils # 0.44 H (0.04-0.35) X 10*3/uL Creatinine 1.8 H (0.6-1.5) mg/dL Est GFR (CKD-EPI)AfAm 31.6 L (60.0-200.0) Est GFR (CKD-EPI)NonAf 27.2 L (60.0-200.0) BUN/Creatinine Ratio 11.67 L (12.00-20.00) Ratio Glucose 127 H (70-110) mg/dL
--- NOTE | 2021-03-26 14:35 | P.CRDCN ---
History of Present Illness History of present illness: HISTORY OF PRESENTING ILLNESS This is a pleasant 75-year-old female past medical history significant for coronary artery disease s/p PCI most recently in 02/2020 at [facility], hypertension, dyslipidemia, history of VT s/p ablation, PPM, paroxysmal atrial fibrillation on xarelto, bicuspid aortic valve, chronic kidney disease and ischemic cardiomyopathy. She follows in the office with Dr. Muniz. We have been asked to see in consultation for anticoagulation recommendations. She presented to the hospital with symptoms of right hip pain. She has been evaluated by orthopedics and pain management. They're recommending steroid injections in the hip however due to her being on Xarelto on Plavix this is currently on hold. She is seen and examined resting comfortably laying flat in bed in no acute distress. She has no symptoms of chest discomfort, shortness of breath, dizziness or palpitations. REVIEW OF SYSTEMS At the time of my exam: CONSTITUTIONAL: Denies fever or chills. CARDIOVASCULAR: Denies chest pain, shortness of breath, orthopnea, PND or palpitations. RESPIRATORY: Denies cough. GASTROINTESTINAL: Denies abdominal pain, diarrhea, constipation, nausea or vomiting. MUSCULOSKELETAL: Denies myalgias. NEUROLOGIC: Denies numbness, tingling, headache or weakness. ENDOCRINE: Denies fatigue, weight change, polydipsia or polyurina. GENITOURINARY: Denies burning, hematuria or urgency with micturation. HEMATOLOGIC: Denies history of anemia or bleeding. PHYSICAL EXAMINATION Vital signs reviewed. CONSTITUTIONAL: No apparent distress. Obese. HEENT: Head is normocephalic. Pupils are equal, round. Sclerae anicteric. Mucous membranes of the mouth are moist. No JVD. No carotid bruit. CHEST EXAMINATION: Lungs are clear to auscultation. No chest wall tenderness is noted on palpation or with deep breathing. HEART EXAMINATION: Regular rate and rhythm. S1, S2 heard. Systolic ejection murmurs at the base, no gallops or rub. ABDOMEN: Soft, nontender. EXTREMITIES: 2+ peripheral pulses, no lower extremity edema and no calf tenderness. NEUROLOGIC EXAMINATION: Patient is awake, alert and oriented x3. ASSESSMENT Right hip pain secondary to osteoarthritis Paroxysmal atrial fibrillation on Xarelto Coronary artery disease status post PCI to the LAD February 2020 Hypertension Dyslipidemia Chronic kidney disease History of ischemic cardiomyopathy Permanent pacemaker implantation Bicuspid aortic valve PLAN According to current recommendations Plavix should be held for 5 days and Xarelto for 48 hours prior to any intervention. This has been communicated to the primary care physician as well. Follow-up with Dr. Muniz upon discharge. Thank you kindly for this consultation. Nurse Practitioner note has been reviewed, I agree with a documented findings and plan of care. Patient was seen and examined. 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 History of Any Multi-Drug Resistant Organisms: None Reported Past Surgical History: Appendectomy, Breast Surgery, Cholecystectomy, Heart Catheterization, Hysterectomy, Pacemaker, Tonsillectomy, Tubal Ligation Additional Past Surgical History / Comment(s): EP STUDY/ABLATION 2006,pacemaker, LASER EYE SX. bilateral masectomy Past Anesthesia/Blood Transfusion Reactions: No Reported Reaction Type of Cardiac Device: Permanent Pacemaker Device Placement Date:: 2003 Past Psychological History: Bipolar Additional Psychological History / Comment(s): PT LIVES WITH SPOUSE IN SINGLE LEVEL HOME THAT HAS 4 [address]PS. NO OUTSIDE SERVICES. HAS A NEBULIZER. Smoking Status: Never smoker Past Alcohol Use History: None Reported Past Drug Use History: None Reported - Past Family History Father Family Medical History: Cancer Additional Family Medical History / Comment(s): BONE CANCER Mother Family Medical History: Cancer Additional Family Medical History / Comment(s): BREAST CANCER W/METS. Daughter(s) Family Medical History: Cancer Medications and Allergies Home Medications Medication Instructions Recorded Confirmed Type Baclofen 10 mg PO HS 04/13/15 03/22/21 History Topiramate [Topamax] 200 mg PO QAM 03/28/17 03/22/21 History lamoTRIgine [LaMICtal] 200 mg PO DAILY 03/28/17 03/22/21 History Amiodarone [Cordarone] 200 mg PO DAILY 03/22/21 03/22/21 History Carvedilol [Coreg] 12.5 mg PO BID-W/MEALS 03/22/21 03/22/21 History Clopidogrel Bisulfate [Plavix] 75 mg PO DAILY 03/22/21 03/22/21 History DULoxetine HCL [Cymbalta] 60 mg PO HS 03/22/21 03/22/21 History Ergocalciferol [Vitamin D2 (1250 1,250 mcg PO CHAVEZ 03/22/21 03/22/21 History Mcg = 71154 Iu)] Pantoprazole Sodium [Protonix] 40 mg PO DAILY@0600 03/22/21 03/22/21 History Rivaroxaban [Xarelto] 15 mg PO DAILY 03/22/21 03/22/21 History oxyCODONE HCL/ACETAMINOPHEN 1 tab PO Q6H PRN 03/22/21 03/22/21 History [oxyCODONE HCL/ACETAMINOPHEN 7.5-325] Cyanocobalamin [Vitamin B-12] 1,000 mcg PO DAILY #30 tablet 03/26/21 Rx Docusate [Colace] 100 mg PO BID PRN #30 cap 03/26/21 Rx Folic Acid 1 mg PO DAILY #30 tab 03/26/21 Rx Gabapentin [Neurontin] 200 mg PO TID #60 cap 03/26/21 Rx Allergies Allergy/AdvReac Type Severity Reaction Status Date / Time alendronate sodium Allergy Anaphylaxis Verified 03/22/21 19:53 [From Fosamax] amitriptyline HCl Allergy Unknown Verified 03/22/21 19:53 [From Elavil] doxepin HCl [From Sinequan] Allergy Unknown Verified 03/22/21 19:53 iodine Allergy Anaphylaxis Verified 03/22/21 19:53 Penicillins Allergy passed out Verified 03/22/21 19:53 simvastatin [From Zocor] Allergy Unknown Verified 03/22/21 19:53 sulindac [From Clinoril] Allergy Unknown Verified 03/22/21 19:53 vancomycin Allergy Anaphylaxis Verified 03/22/21 19:53 codeine AdvReac Abdominal Verified 03/22/21 19:53 Pain gabapentin [From Neurontin] AdvReac Nausea & Verified 03/22/21 19:53 Vomiting ibuprofen [From Motrin] AdvReac Unknown Verified 03/22/21 19:53 Physical Exam Vitals: Vital Signs Temp Pulse Resp BP Pulse Ox 03/26/21 08:00 97.7 F 60 16 132/70 95 03/26/21 02:00 98.6 F 64 16 99/63 93 L 03/25/21 20:00 98.1 F 60 60 H 103/70 95 03/25/21 14:50 97.3 F L 60 17 121/75 98 Intake and Output 03/25/21 03/26/21 03/26/21 22:59 06:59 14:59 Intake Total 240 Balance 240 Intake: Oral 240 Other: Voiding Method Toilet Toilet # Voids 1 Results 03/26/21 06:16 03/26/21 06:16 Coagulation 03/26/21 Range/Units 06:16 PT 11.2 (9.9-11.9) sec CBC 03/26/21 Range/Units 06:16 WBC 4.02 L (4.50-10.00) X 10*3/uL RBC 3.98 L (4.10-5.20) X 10*6/uL Hgb 11.8 L (12.0-15.0) g/dL Hct 38.3 (37.2-46.3) % Plt Count 179 (140-440) X 10*3/uL Comprehensive Metabolic Panel 03/26/21 Range/Units 06:16 Sodium 140 (135-145) mmol/L Potassium 4.1 (3.5-5.5) mmol/L Chloride 106 (96-109) mmol/L Carbon Dioxide 26.4 (21.6-31.8) mmol/L BUN 21.0 (9.0-27.0) mg/dL Creatinine 1.8 H (0.6-1.5) mg/dL Glucose 127 H (70-110) mg/dL Calcium 9.1 (8.7-10.3) mg/dL Current Medications Generic Name Dose Route Start Last Admin Trade Name Premq PRN Reason Stop Dose Admin Amiodarone HCl 200 mg 03/23/21 09:00 03/26/21 08:31 Amiodarone 200 Mg Tab PO 200 mg DAILY BELLO Administration Carvedilol 12.5 mg 03/23/21 17:30 03/26/21 08:31 Carvedilol 12.5 Mg Tab PO 12.5 mg BID-W/MEALS BELLO Administration Clopidogrel Bisulfate 75 mg 03/23/21 09:00 03/26/21 08:31 Clopidogrel 75 Mg Tab PO 75 mg DAILY BELLO Administration Cyanocobalamin 1,000 mcg 03/25/21 11:00 03/26/21 08:35 Cyanocobalamin 1,000 Mcg/Ml 1 Ml Vial IM 1,000 mcg DAILY BELLO Administration Docusate Sodium 100 mg 03/25/21 12:00 03/26/21 08:31 Docusate 100 Mg Cap PO 100 mg BID BELLO Administration Duloxetine HCl 60 mg 03/23/21 21:00 03/25/21 20:23 Duloxetine Hcl 60 Mg Capsule.Dr PO 60 mg HS BELLO Administration Ergocalciferol 1,250 mcg 03/28/21 08:00 Ergocalciferol 1,250 Mcg (50,000 Iu) Capsule PO CHAVEZ BELLO Folic Acid 1 mg 03/25/21 11:00 03/26/21 08:31 Folic Acid 1 Mg Tab PO 1 mg DAILY BELLO Administration Furosemide 40 mg 03/24/21 09:00 03/24/21 09:39 Furosemide 40 Mg Tab PO 40 mg WE@0900 BELLO Administration Gabapentin 200 mg 03/24/21 14:20 03/26/21 08:31 Gabapentin 100 Mg Cap PO 200 mg TID BELLO Administration Hydromorphone HCl 0.5 mg 03/22/21 20:06 03/26/21 09:40 Hydromorphone 0.5 Mg/0.5 Ml Syringe IVP 0.5 mg Q3HR PRN Administration Moderate Pain Lamotrigine 200 mg 03/23/21 09:00 03/26/21 08:31 Lamotrigine 100 Mg Tab PO 200 mg DAILY BELLO Administration Naloxone HCl 0.2 mg 03/22/21 20:06 Naloxone 0.4 Mg/Ml 1 Ml Vial IV Q2M PRN Opioid Reversal Oxycodone/Acetaminophen 1 each 03/23/21 08:00 03/25/21 08:13 Oxycodone-Apap 7.5-325mg 1 Each Tab PO 1 each Q6H PRN Administration Pain Pantoprazole Sodium 40 mg 03/24/21 06:00 03/26/21 05:41 Pantoprazole 40 Mg Tablet PO 40 mg DAILY@0600 BELLO Administration Rivaroxaban 15 mg 03/23/21 09:00 03/26/21 08:31 Rivaroxaban 15 Mg Tab PO 15 mg DAILY BELLO Administration Protocol Topiramate 200 mg 03/23/21 09:00 03/26/21 08:31 Topiramate 100 Mg Tab PO 200 mg QAM BELLO Administration Intake and Output 03/25/21 03/26/21 03/26/21 22:59 06:59 14:59 Intake Total 240 Balance 240 Intake: Oral 240 Other: Voiding Method Toilet Toilet # Voids 1 03/26/21 06:16 03/26/21 06:16
[2021-03-26 15:14] VITALS: BP 144/70; RESP 17; TEMP 98.2
[2021-03-26] MEDS: oxyCODONE-APAP 7.5-325MG 1 EACH TAB PO PRN (15:21)
--- NOTE | 2021-03-27 01:42 | P.DS ---
Providers Date of admission: 03/24/21 09:51 Attending physician: Max Anderson Consults: 03/22/21 20:07 Consult Physician Urgent Consulting Provider: Syed Farrell Consult Reason/Comments: Right hip pain, right hip osteoarthritis Do you want consulting provider notified?: Yes 03/23/21 09:39 Consult Physician Urgent Consulting Provider: Jessica Hahn Consult Reason/Comments: right leg pain and numbness, possible weakness Do you want consulting provider notified?: Yes 03/24/21 07:13 Consult Physician Urgent Consulting Provider: Juan Torres Consult Reason/Comments: right inguinal pain ,r/u hernia Do you want consulting provider notified?: Yes 03/26/21 11:23 Consult Physician Urgent Consulting Provider: Osmar Azar Consult Reason/Comments: cardiology clearance for holding plavix and xarelto Do you want consulting provider notified?: Yes Primary care physician: [facility] [place] Course: Date of service 03/26/2021 Diagnoses: Diagnoses Right hip pain secondary to severe osteoarthritis versus sinus tendinitis. inguinal Hernia ruled out. Patient cannot get MRI of the hip as she has pacemaker Osteoarthritis Chronic kidney disease, stage III. Chronic atrial fibrillation Chronic heart failure, no exacerbation History of fibromyalgia History of breast cancer Hospital course: This is a pleasant 75 years old female with past medical history of osteoarthritis, atrial fibrillation, heart failure, fibromyalgia. History of breast cancer in 1985 Presents with significant right groin pain for the last 5 weeks associated with difficulty walking due to pain, Right hip x-ray: Acetabular spurring. No fracture. Right hip CT without contrast: Some osteoarthritic changes in the right hip joint. No fractures. No change compared to old exam Patient problem was thought due to the hip. Hernia was ruled out by negative CT of the abdomen and pelvis and surgery team. The patient. Also neurological causes were ruled out, most likely this is not nerve pain, and gabapentin did not make much difference for her pain. As per my discussion with the solar photovoltaic crew lead he does not think her symptoms comes from nerves however patient was instructed to follow up with a neurologist as an outpatient with EMG and nerve conduction study is suggested and she agrees Patient evaluated by orthopedic recommended MRI of the hip however this could not be done because she has a pacemaker, and per our cardiology department MRI is contraindicated in this hospital in case of pacemaker. Also patient was advised to take Tylenol at home and to avoid NSAIDs as she has chronic kidney disease and one kidney, and to avoid further narcotics as risk is high. Acid intra-articular injection is suggested by orthopedic team and pain management team evaluated the patient however this injection could not been in the hospital because she is already on Plavix and xarelto. So pain doctor Jaime recommended outpatient follow-up in the office in one week and he provided his contact information in discharge instruction. Patient agrees to call on Monday and make appointments. Clerk Of [address] was consulted and recommended to hold Plavix 5 days before any procedure and Xarelto to be held 48 hours and patient was instructed with the same. And is aware that she'll be at risk of stroke if she stopped this medication. subacute rehab is recommended for the patient however she declined and she wanted to go home because family would not be able to visit her at rehab. Risks and benefits are explained Eventually patient was cleared for discharge by all consultants including pain management, surgery, cardiology, orthopedic team. Patient herself she agreed with this plan and she felt comfortable going home today. She agrees she does not want to wait in the hospital. Risks of staying in the hospital is more than benefits Problems and management plan were discussed with the patient and he verbalized understanding and acceptance Patient was found stable and can be discharged home however he needs follow-up as an outpatient. Patient was instructed to follow up with PCP within one week and patient agrees With the appointments made for her with Dr. Neff on 03/29 Also patient was instructed to follow up with the pain clinic and Dr. Beckett in one week, I was instructed to call on Monday to make an appointment and she agrees patient was instructed to follow up with orthopedic doctor Bud in 2 weeks and she agrees Also patient was instructed to follow up with her dye stand loader Dr. Al in one week And to follow up with neurologist and Dr. maria elena Goetz and Dr. Maria Elena Saavedra are chavez ggested with recommendation for doing nerve conduction study and EMG with her neurologist and she agrees as welld can be discharged home however he needs follow-up as an outpatient. Patient was instructed to follow up with PCP within one week and patient agrees Also I called Dr. Neff and discussed the case with her including but not limited to all the above recommendation to get an injection of the right hip in 1 week, and holding Plavix and Xarelto as above, and the need for outpatient follow-up with pain management, orthopedic team. Also the recommendation to check her creatinine and blood pressure. Her Lasix and Norvasc were held for borderline blood pressure and she currently took note please Physical exam Gen: patient is a AAOx3, no distress CVS: S1-S2, RRR, no murmur Lungs: B/L CTA, no wheezing Abdomen: soft, no distention, no tenderness, positive bowel sounds Extremity: no leg edema or induration. Right hip point tenderness in the groin anteriorly and medially Time spent more than 35 minutes Patient Condition at Discharge: Stable Plan - Discharge Summary Discharge Rx Participant: Yes New Discharge Prescriptions: New Gabapentin [Neurontin] 200 mg PO TID #60 cap Cyanocobalamin [Vitamin B-12] 1,000 mcg PO DAILY #30 tablet Docusate [Colace] 100 mg PO BID PRN #30 cap PRN Reason: Constipation Folic Acid 1 mg PO DAILY #30 tab Acetaminophen Tab [Tylenol] 650 mg PO Q6H 3 Days #16 tab Continue Baclofen 10 mg PO HS Topiramate [Topamax] 200 mg PO QAM lamoTRIgine [LaMICtal] 200 mg PO DAILY Pantoprazole Sodium [Protonix] 40 mg PO DAILY@0600 Ergocalciferol [Vitamin D2 (1250 Mcg = 54003 Iu)] 1,250 mcg PO CHAVEZ oxyCODONE HCL/ACETAMINOPHEN [oxyCODONE HCL/ACETAMINOPHEN 7.5-325] 1 tab PO Q6H PRN PRN Reason: Pain DULoxetine HCL [Cymbalta] 60 mg PO HS Clopidogrel Bisulfate [Plavix] 75 mg PO DAILY Carvedilol [Coreg] 12.5 mg PO BID-W/MEALS Amiodarone [Cordarone] 200 mg PO DAILY Rivaroxaban [Xarelto] 15 mg PO DAILY Discontinued Furosemide [Lasix] 40 mg PO WE@0900 Cephalexin [Keflex] 500 mg PO Q6HR #40 cap amLODIPine [Norvasc] 5 mg PO DAILY Discharge Medication List Baclofen 10 mg PO HS 04/13/15 [History] Topiramate [Topamax] 200 mg PO QAM 03/28/17 [History] lamoTRIgine [LaMICtal] 200 mg PO DAILY 03/28/17 [History] Amiodarone [Cordarone] 200 mg PO DAILY 03/22/21 [History] Carvedilol [Coreg] 12.5 mg PO BID-W/MEALS 03/22/21 [History] Clopidogrel Bisulfate [Plavix] 75 mg PO DAILY 03/22/21 [History] DULoxetine HCL [Cymbalta] 60 mg PO HS 03/22/21 [History] Ergocalciferol [Vitamin D2 (1250 Mcg = 61443 Iu)] 1,250 mcg PO CHAVEZ 03/22/21 [Hi story] Pantoprazole Sodium [Protonix] 40 mg PO DAILY@0600 03/22/21 [History] Rivaroxaban [Xarelto] 15 mg PO DAILY 03/22/21 [History] oxyCODONE HCL/ACETAMINOPHEN [oxyCODONE HCL/ACETAMINOPHEN 7.5-325] 1 tab PO Q6H PRN 03/22/21 [History] Acetaminophen Tab [Tylenol] 650 mg PO Q6H 3 Days #16 tab 03/26/21 [Rx] Cyanocobalamin [Vitamin B-12] 1,000 mcg PO DAILY #30 tablet 03/26/21 [Rx] Docusate [Colace] 100 mg PO BID PRN #30 cap 03/26/21 [Rx] Folic Acid 1 mg PO DAILY #30 tab 03/26/21 [Rx] Gabapentin [Neurontin] 200 mg PO TID #60 cap 03/26/21 [Rx] Follow up Appointment(s)/Referral(s): Damien Muniz MD [STAFF PHYSICIAN] - 1 Week Jose Alberto Avalos MD [REFERRING] - 1 Week (neurologist) [facility] - 1 Week Drew Neff DO [Primary Care Provider] - 03/29/21 8:00 am Kaylin Avalos MD [REFERRING] - 2 Weeks (neurologist, we recommend EMG and nerve conduction study) Syed Farrell DO [Doctor of Osteopathic Medicine] - 2 Weeks (Orthopedic surgeon) Activity/Diet/Wound Care/Special Instructions: heart healthy diet activity is restricted till you see your doctor Pain management doctor Anjel Garcias is recommending right hip injection, this could not be done in the hospital because you are on Plavix and Xarelto According to dye stand loader recommendations Plavix should be held for 5 days and Xarelto for 48 hours prior to any intervention. Discharge Disposition: HOME WITH HOME HEALTH SERVICES
[2021-03-28] MEDS ORDERED: ERGOCALCIFEROL 1,250 MCG (50,000 IU) CAPSULE PO SCH (08:00)
== END 2021-03-26 16:03 | disposition home or self-care (01) | DRG 554 ==
LOC: EC 15:27 → 6NMEDSUR 20:06 → OBSVTOIN 03-24 09:51
PROVIDERS: ADMIT Hospitalist; ATTEND Hospitalist
DX: M16.11 Unilateral primary osteoarthritis, right hip (principal); Q60.0 Renal agenesis, unilateral; Q25.1 Coarctation of aorta; I13.0 Hypertensive heart and chronic kidney disease with heart failure and stage 1 through stage 4 chronic kidney disease, or unspecified chronic kidney disease; I48.20 Chronic atrial fibrillation, unspecified; Q23.1 Congenital insufficiency of aortic valve; Z68.41 Body mass index [BMI] 40.0-44.9, adult; I50.9 Heart failure, unspecified; E53.8 Deficiency of other specified B group vitamins; G25.0 Essential tremor; E66.9 Obesity, unspecified; F31.9 Bipolar disorder, unspecified; N18.30 Chronic kidney disease, stage 3 unspecified; M25.751 Osteophyte, right hip; M47.816 Spondylosis without myelopathy or radiculopathy, lumbar region; M51.36 Other intervertebral disc degeneration, lumbar region; G47.419 Narcolepsy without cataplexy; M79.7 Fibromyalgia; K57.90 Diverticulosis of intestine, part unspecified, without perforation or abscess without bleeding; I25.5 Ischemic cardiomyopathy; I25.10 Atherosclerotic heart disease of native coronary artery without angina pectoris; G89.29 Other chronic pain; E78.5 Hyperlipidemia, unspecified; M85.88 Other specified disorders of bone density and structure, other site; K59.00 Constipation, unspecified; Z79.01 Long term (current) use of anticoagulants; Z79.02 Long term (current) use of antithrombotics/antiplatelets; Z79.899 Other long term (current) drug therapy; Z95.0 Presence of cardiac pacemaker; Z85.3 Personal history of malignant neoplasm of breast; Z90.13 Acquired absence of bilateral breasts and nipples; Z92.3 Personal history of irradiation; Z90.710 Acquired absence of both cervix and uterus; Z90.79 Acquired absence of other genital organ(s); Z90.722 Acquired absence of ovaries, bilateral; Z90.49 Acquired absence of other specified parts of digestive tract; Z87.42 Personal history of other diseases of the female genital tract; Z87.19 Personal history of other diseases of the digestive system; Z98.51 Tubal ligation status; Z90.89 Acquired absence of other organs; Z87.440 Personal history of urinary (tract) infections; Z98.61 Coronary angioplasty status; Z98.890 Other specified postprocedural states; Z88.6 Allergy status to analgesic agent; Z88.1 Allergy status to other antibiotic agents; Z88.5 Allergy status to narcotic agent; Z88.0 Allergy status to penicillin; Z88.8 Allergy status to other drugs, medicaments and biological substances; Z80.3 Family history of malignant neoplasm of breast; Z80.8 Family history of malignant neoplasm of other organs or systems
CPT/HCPCS: 36415; 72114; 73502; 74176; 80048; 80053; 81001; 82607; 82746; 83036; 83605; 83690; 85025; 85610; 85652; 86334; 86431; 96360; 96361; 99285

== ENCOUNTER 2021-04-02 13:37 | Inpatient (IN) | payer MEDICARE, OTHER ==
[2021-04-02] MEDS ORDERED: NALOXONE 0.4 MG/ML 1 ML VIAL IVP STA (13:59)
[2021-04-02 14:06] LABS: Glucose,Whole Blood 95 mg/dL (75-99)
[2021-04-02] MEDS ORDERED: CALCIUM GLUCONATE 1 GM in SODIUM CHLORIDE 0.9% 100 ML IVPB ONE (14:12)
[2021-04-02 14:27] LABS: Basophils % (A) 0 %; Eosinophils # (A) 0.4 k/uL (0-0.7); Eosinophils % (A) 14 %; Hypochromasia Marked; Lymphocytes # (A) 0.3 k/uL (1.0-4.8); Lymphocytes % (A) 10 %; MCH 30.8 pg (25.0-35.0); MCHC 30.8 g/dL (31.0-37.0); Macrocytosis Slight; Monocytes # (A) 0.1 k/uL (0-1.0); Monocytes % (A) 5 %; Neutrophils # (A) 2.1 k/uL (1.3-7.7); Neutrophils % (A) 70 %; RBC 5.81 m/uL (3.80-5.40)
[2021-04-02 14:44] LABS: Lactic Acid, Venous 1.1 mmol/L (0.7-2.0)
[2021-04-02 15:00] LABS: HCT 58.1 % (34.0-46.0); HGB 17.9 gm/dL (11.4-16.0)
--- NOTE | 2021-04-02 15:02 | XR ---
EXAMINATION TYPE: XR chest 1V portable DATE OF EXAM: 04/02/2021 COMPARISON: 07/02/2018 HISTORY: Mental status TECHNIQUE: Single frontal view of the chest is obtained. FINDINGS: There is no focal air space opacity, pleural effusion, or pneumothorax seen. Patient is r otated. Pacemaker is stable. The cardiac silhouette size is enlarged as on prior exam. The aorta is enlarged Prominence of pulmonary artery could be indicative of pulmonary artery hypertension. The oss eous structures are intact. IMPRESSION: Cardiomegaly, aortic aneurysm, correlate for possible pulmonary artery hypertension
[2021-04-02 15:03] LABS: Albumin 3.9 g/dL (3.5-5.0); Magnesium 2.4 mg/dL (1.6-2.3); Total Bilirubin 0.7 mg/dL (0.2-1.3); Total Protein 6.6 g/dL (6.3-8.2)
[2021-04-02 15:05] LABS: Appearance,Urine Cloudy (Clear); Bacteria,Urine Occasional /hpf; Bilirubin,Urine 1+ (Negative); Blood,Urine Negative (Negative); Color,Urine Yellow; Glucose,Urine (UA) Negative (Negative); Granular Casts,Urine 8 /lpf (0); Hyaline Casts,Urine 6 /lpf (0-2); Ketones,Urine Negative (Negative); Leukocyte Esterase,Urine Negative (Negative); Mucus,Urine Rare /hpf; Nitrite,Urine Negative (Negative); Protein,Urine Trace (Negative); RBC,Urine 1 /hpf (0-5); Specific Gravity,Urine 1.021 (1.001-1.035); Squamous Epithelial Cell,Urine <1 /hpf (0-4); WBC,Urine 2 /hpf (0-5)
--- NOTE | 2021-04-02 15:15 | CT ---
EXAMINATION TYPE: CT brain christiano diaz DATE OF EXAM: 04/02/2021 COMPARISON: None HISTORY: altered mental status CT DLP: 1492.[address] of the brain was performed. The ventricles, basal cisterns and sulci overlying the cerebral convexities demonstrate mild enlargem ent. There is no evidence for intracranial hemorrhage or sulcal effacement. There is decreased attenuatio n about the periventricular white matter and deep white matter of both cerebral hemispheres, compatib le with chronic small vessel ischemia. No mass effects are seen. If symptoms persist consider MRI. Osseous calvarium is intact. IMPRESSION: 1. Age related atrophic and chronic small vessel ischemic change without acute intracranial process seen at this time. CT Cervical Spine: Unenhanced CT of the cervical spine was performed with bone and soft tissue window settings submitted . Coronal and sagittal reconstruction is obtained. There is normal alignment and prevertebral soft tissues. No evidence for acute cervical fracture . Scattered degenerative disc disease and spondylosis. Biapical scarring. IMPRESSION: 1. No evidence for acute fracture or subluxation of the cervical spine.
[2021-04-02] MEDS ORDERED: SODIUM CHLORIDE 0.9% 1,000 ML IV STA (15:17)
--- NOTE | 2021-04-02 15:51 | ED ---
General Adult HPI - General Chief complaint: Altered Mental Status Stated complaint: UNRESPONSIVE Time Seen by Provider: 04/02/21 13:51 Source: patient, EMS Mode of arrival: EMS Limitations: altered mental status - History of Present Illness Initial comments: Dictation was produced using [employer] dictation software. please excuse any grammatical, word or spelling errors. Chief Complaint: 75-year-old female brought in by family for confusion and signs of delirium. History of Present Illness: 75-year-old female she was brought in by family members. Patient has been noted to be confused and altered since yesterday at 10:30 AM. Patient has several comorbidities. She was allegedly just discharged from the hospital couple days ago. Says that patient has been eating or drinking. Neither has she been taking her medications. Patient unable to provide history of present illness at this time secondary to mental status. History of present illness obtained from family member at bedside. Family member at the bedside was concerned that perhaps his chin hasn't been moving her right side. Unable to obtain second of patient's mental status PHYSICAL EXAM: General Impression: Lethargic, responsive painful stimuli, patient does not follow commands HEENT: Normocephalic atraumatic, extra-ocular movements intact, pupils equal and reactive to light bilaterally, dry mucous membranes Cardiovascular: Heart regular rate and rhythm Chest: no retractions, no tachypnea Abdomen: abdomen soft, non-tender, non-distended, no organomegaly Musculoskeletal: Pulses present and equal in all extremities, no peripheral edema Motor: no focal deficits noted Neurological: Generalized diffuse extremity weakness, patient is uncooperative does not follow commands ED course: 75-year-old male presents to the emergency department for chief compl aint of altered mental status and acute delirium. No member at the bedside is worried about confusion mostly however there was concern about possible stroke given that patient was observed not be using her right upper and lower extremity. Patient is too lethargic to follow commands. Patient also has not been eating or drinking or taking her medications. Chart review was performed. Patient has discharge summary from March 27 of this year. EKG interpretation: First EKG showed ventricular rate of 73 with AV dual paced rhythm. WV interval 266, QS 118, QTC 480. Second EKG performed at 1409 shows wide complex dysrhythmia at a rate in the 80s. There does appear to be ventricular paced component.. EKG strangely appears to be different paced version compared to initial EKG. 3rd EKG perf ormed at 1411 looked more similar to first EKG. There was no changes in patient's monitor with negative placement over the device Lab evaluation obtained. There is hemoconcentration with a hemoglobin of 17.9 hematocrit 50.1. His likely from dehydration due to poor oral intake. Leuko penia 3.0. Platelet's of 84. Chart review shows that patient was just started on anticoagulation medications. Coag panel is unremarkable. Metabolic panel shows findings consistent with acute kidney injury. Creatinine 3.0 to the BUN of 47, rest of labs that acceptable limits or slightly elevation of liver markers. Urinalysis negative. Rotavirus negative. Computed tomography scan of the brain and chest x-ray shows no acute processes. Patient reevaluated at 4:40 PM. Found to be in stable medical condition. She appears to be more comfortable and resting. More family is at the bedside. They understand the patient has grave debility and it's been suggested to her to go to rehab facili ty however due to visitor restriction she has declined on multiple occasions. They state that her current presentation is similar to several presentations she's had in the past. Patient will be admitted for further care, IV hydration medical monitoring. Case discussed with Dr. Leyva went except patient's care. - Related Data Home Medications Medication Instructions Recorded Confirmed Baclofen 10 mg PO HS 04/13/15 04/02/21 Topiramate [Topamax] 200 mg PO DAILY 03/28/17 04/02/21 lamoTRIgine [LaMICtal] 200 mg PO DAILY 03/28/17 04/02/21 Amiodarone [Cordarone] 200 mg PO DAILY 03/22/21 04/02/21 Carvedilol [Coreg] 12.5 mg PO BID-W/MEALS 03/22/21 04/02/21 Clopidogrel Bisulfate [Plavix] 75 mg PO DAILY 03/22/21 04/02/21 DULoxetine HCL [Cymbalta] 60 mg PO HS 03/22/21 04/02/21 Ergocalciferol [Vitamin D2 (1250 1,250 mcg PO CHAVEZ 03/22/21 04/02/21 Mcg = 70671 Iu)] Pantoprazole Sodium [Protonix] 40 mg PO DAILY@0600 03/22/21 04/02/21 Rivaroxaban [Xarelto] 15 mg PO DAILY 03/22/21 04/02/21 oxyCODONE-APAP 10-325MG [Percocet 1 tab PO QID 04/02/21 04/02/21 10-325 mg] Previous Rx's Medication Instructions Recorded Acetaminophen Tab [Tylenol] 650 mg PO Q6H 3 Days #16 tab 03/26/21 Cyanocobalamin [Vitamin B-12] 1,000 mcg PO DAILY #30 tablet 03/26/21 Docusate [Colace] 100 mg PO BID PRN #30 cap 03/26/21 Folic Acid 1 mg PO DAILY #30 tab 03/26/21 Gabapentin [Neurontin] 200 mg PO TID #60 cap 03/26/21 Allergies Allergy/AdvReac Type Severity Reaction Status Date / Time alendronate sodium Allergy Anaphylaxis Verified 04/02/21 15:22 [From Fosamax] amitriptyline HCl Allergy Unknown Verified 04/02/21 15:22 [From Elavil] doxepin HCl [From Sinequan] Allergy Unknown Verified 04/02/21 15:22 iodine Allergy Anaphylaxis Verified 04/02/21 15:22 Penicillins Allergy passed out Verified 04/02/21 15:22 simvastatin [From Zocor] Allergy Unknown Verified 04/02/21 15:22 sulindac [From Clinoril] Allergy Unknown Verified 04/02/21 15:22 vancomycin Allergy Anaphylaxis Verified 04/02/21 15:22 codeine AdvReac Abdominal Verified 04/02/21 15:22 Pain gabapentin [From Neurontin] AdvReac Nausea & Verified 04/02/21 15:22 Vomiting ibuprofen [From Motrin] AdvReac Unknown Verified 04/02/21 15:22 Review of Systems ROS Statement: Those systems with pertinent positive or pertinent negative responses have been documented in the HPI. ROS Other: All systems not noted in ROS Statement are negative. 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 History of Any Multi-Drug Resistant Organisms: None Reported Past Surgical History: Appendectomy, Breast Surgery, Cholecystectomy, Heart Catheterization, Hysterectomy, Pacemaker, Tonsillectomy, Tubal Ligation Additional Past Surgical History / Comment(s): EP STUDY/ABLATION 2007,pacemaker, LASER EYE SX. bilateral masectomy Past Anesthesia/Blood Transfusion Reactions: No Reported Reaction Type of Cardiac Device: Permanent Pacemaker Device Placement Date:: 2003 Past Psychological History: Bipolar Smoking Status: Never smoker Past Alcohol Use History: None Reported Past Drug Use History: None Reported - Past Family History Father Family Medical History: Cancer Additional Family Medical History / Comment(s): BONE CANCER Mother Family Medical History: Cancer Additional Family Medical History / Comment(s): BREAST CANCER W/METS. Daughter(s) Family Medical History: Cancer General Exam Limitations: altered mental status Course Vital Signs 04/02/21 04/02/21 04/02/21 13:40 14:05 14:30 Temperature 97.6 F Pulse Rate 77 75 Respiratory 16 12 20 Rate Blood Pressure 126/64 168/90 O2 Sat by Pulse 90 L 97 Oximetry 04/02/21 15:17 Temperature Pulse Rate 60 Respiratory 18 Rate Blood Pressure 147/82 O2 Sat by Pulse 100 Oximetry Medical Decision Making - Lab Data Result diagrams: 04/02/21 14:10 04/02/21 14:10 Lab Results 04/02/21 04/02/21 04/02/21 Range/Units 14:04 14:10 14:10 WBC 3.0 L (3.8-10.6) k/uL RBC 5.81 H (3.80-5.40) m/uL Hgb 17.9 H D (11.4-16.0) gm/dL Hct 58.1 H* (34.0-46.0) % MCV 100.0 (80.0-100.0) fL MCH 30.8 (25.0-35.0) pg MCHC 30.8 L (31.0-37.0) g/dL RDW 14.0 (11.5-15.5) % Plt Count 84 L D (150-450) k/uL MPV 8.0 Neutrophils % 70 % Lymphocytes % 10 % Monocytes % 5 % Eosinophils % 14 % Basophils % 0 % Neutrophils # 2.1 (1.3-7.7) k/uL Lymphocytes # 0.3 L (1.0-4.8) k/uL Monocytes # 0.1 (0-1.0) k/uL Eosinophils # 0.4 (0-0.7) k/uL Basophils # 0.0 (0-0.2) k/uL Hypochromasia Marked Macrocytosis Slight PT 12.6 H (9.0-12.0) sec INR 1.2 H (<1.2) APTT 28.4 (22.0-30.0) sec Sodium (137-145) mmol/L Potassium (3.5-5.1) mmol/L Chloride (98-107) mmol/L Carbon Dioxide (22-30) mmol/L Anion Gap mmol/L BUN (7-17) mg/dL Creatinine (0.52-1.04) mg/dL Est GFR (CKD-EPI)AfAm (>60 ml/min/1.73 sqM) Est GFR (CKD-EPI)NonAf (>60 ml/min/1.73 sqM) Glucose (74-99) mg/dL POC Glucose (mg/dL) 95 (75-99) mg/dL POC Glu Psych Tech ID Chan Eubanks Plasma Lactic Acid [place] (0.7-2.0) mmol/L Calcium (8.4-10.2) mg/dL Ionized Calcium Isa (4.5-5.3) mg/dL Magnesium (1.6-2.3) mg/dL Total Bilirubin (0.2-1.3) mg/dL AST (14-36) U/L ALT (4-34) U/L Alkaline Phosphatase (38-126) U/L Ammonia (<30) umol/L Total Protein (6.3-8.2) g/dL Albumin (3.5-5.0) g/dL Urine Color Urine Appearance (Clear) Urine pH (5.0-8.0) Ur Specific [place] (1.001-1.035) Urine Protein (Negative) Urine Glucose (UA) (Negative) Urine Ketones (Negative) Urine Blood (Negative) Urine Nitrite (Negative) Urine Bilirubin (Negative) Urine Urobilinogen (<2.0) mg/dL Ur Leukocyte Esterase (Negative) Urine RBC (0-5) /hpf Urine WBC (0-5) /hpf Ur Squamous Epith Cells (0-4) /hpf Urine Bacteria (None) /hpf Hyaline Casts (0-2) /lpf Granular Casts (0) /lpf Urine Mucus (None) /hpf Coronavirus (PCR) (Not Detectd) 04/02/21 04/02/21 04/02/21 Range/Units 14:10 14:10 14:10 WBC (3.8-10.6) k/uL RBC (3.80-5.40) m/uL Hgb (11.4-16.0) gm/dL Hct (34.0-46.0) % MCV (80.0-100.0) fL MCH (25.0-35.0) pg MCHC (31.0-37.0) g/dL RDW (11.5-15.5) % Plt Count (150-450) k/uL MPV Neutrophils % % Lymphocytes % % Monocytes % % Eosinophils % % Basophils % % Neutrophils # (1.3-7.7) k/uL Lymphocytes # (1.0-4.8) k/uL Monocytes # (0-1.0) k/uL Eosinophils # (0-0.7) k/uL Basophils # (0-0.2) k/uL Hypochromasia Macrocytosis PT (9.0-12.0) sec INR (<1.2) APTT (22.0-30.0) sec Sodium 137 (137-145) mmol/L Potassium 5.0 (3.5-5.1) mmol/L Chloride 105 (98-107) mmol/L Carbon Dioxide 20 L (22-30) mmol/L Anion Gap 12 mmol/L BUN 47 H (7-17) mg/dL Creatinine 3.02 H (0.52-1.04) mg/dL Est GFR (CKD-EPI)AfAm 17 (>60 ml/min/1.73 sqM) Est GFR (CKD-EPI)NonAf 15 (>60 ml/min/1.73 sqM) Glucose 99 (74-99) mg/dL POC Glucose (mg/dL) (75-99) mg/dL POC Glu Psych Tech ID Plasma Lactic Acid [place] 1.1 (0.7-2.0) mmol/L Calcium 9.0 (8.4-10.2) mg/dL Ionized Calcium Isa 5.0 (4.5-5.3) mg/dL Magnesium 2.4 H (1.6-2.3) mg/dL Total Bilirubin 0.7 (0.2-1.3) mg/dL AST 77 H (14-36) U/L ALT 50 H (4-34) U/L Alkaline Phosphatase 196 H (38-126) U/L Ammonia 14 (<30) umol/L Total Protein 6.6 (6.3-8.2) g/dL Albumin 3.9 (3.5-5.0) g/dL Urine Color Urine Appearance (Clear) Urine pH (5.0-8.0) Ur Specific [place] (1.001-1.035) Urine Protein (Negative) Urine Glucose (UA) (Negative) Urine Ketones (Negative) Urine Blood (Negative) Urine Nitrite (Negative) Urine Bilirubin (Negative) Urine Urobilinogen (<2.0) mg/dL Ur Leukocyte Esterase (Negative) Urine RBC (0-5) /hpf Urine WBC (0-5) /hpf Ur Squamous Epith Cells (0-4) /hpf Urine Bacteria (None) /hpf Hyaline Casts (0-2) /lpf Granular Casts (0) /lpf Urine Mucus (None) /hpf Coronavirus (PCR) Not Detected (Not Detectd) 04/02/21 04/02/21 Range/Units 14:40 15:07 WBC (3.8-10.6) k/uL RBC (3.80-5.40) m/uL Hgb (11.4-16.0) gm/dL Hct (34.0-46.0) % MCV (80.0-100.0) fL MCH (25.0-35.0) pg MCHC (31.0-37.0) g/dL RDW (11.5-15.5) % Plt Count (150-450) k/uL MPV Neutrophils % % Lymphocytes % % Monocytes % % Eosinophils % % Basophils % % Neutrophils # (1.3-7.7) k/uL Lymphocytes # (1.0-4.8) k/uL Monocytes # (0-1.0) k/uL Eosinophils # (0-0.7) k/uL Basophils # (0-0.2) k/uL Hypochromasia Macrocytosis PT 10.6 (9.0-12.0) sec INR 1.0 (<1.2) APTT 27.5 (22.0-30.0) sec Sodium (137-145) mmol/L Potassium (3.5-5.1) mmol/L Chloride (98-107) mmol/L Carbon Dioxide (22-30) mmol/L Anion Gap mmol/L BUN (7-17) mg/dL Creatinine (0.52-1.04) mg/dL Est GFR (CKD-EPI)AfAm (>60 ml/min/1.73 sqM) Est GFR (CKD-EPI)NonAf (>60 ml/min/1.73 sqM) Glucose (74-99) mg/dL POC Glucose (mg/dL) (75-99) mg/dL POC Glu Psych Tech ID Plasma Lactic Acid [place] (0.7-2.0) mmol/L Calcium (8.4-10.2) mg/dL Ionized Calcium Isa (4.5-5.3) mg/dL Magnesium (1.6-2.3) mg/dL Total Bilirubin (0.2-1.3) mg/dL AST (14-36) U/L ALT (4-34) U/L Alkaline Phosphatase (38-126) U/L Ammonia (<30) umol/L Total Protein (6.3-8.2) g/dL Albumin (3.5-5.0) g/dL Urine Color Yellow Urine Appearance Cloudy H (Clear) Urine pH 5.0 (5.0-8.0) Ur Specific [place] 1.021 (1.001-1.035) Urine Protein Trace H (Negative) Urine Glucose (UA) Negative (Negative) Urine Ketones Negative (Negative) Urine Blood Negative (Negative) Urine Nitrite Negative (Negative) Urine Bilirubin 1+ H (Negative) Urine Urobilinogen 4.0 (<2.0) mg/dL Ur Leukocyte Esterase Negative (Negative) Urine RBC 1 (0-5) /hpf Urine WBC 2 (0-5) /hpf Ur Squamous Epith Cells <1 (0-4) /hpf Urine Bacteria Occasional H (None) /hpf Hyaline Casts 6 H (0-2) /lpf Granular Casts 8 (0) /lpf Urine Mucus Rare H (None) /hpf Coronavirus (PCR) (Not Detectd) Disposition Clinical Impression: Dehydration, ALEM (acute kidney injury) Disposition: ADMITTED IP TO THIS HOSP Condition: Fair Referrals: Drew Neff DO [Primary Care Provider] - 1-2 days
[2021-04-02 16:00] LABS: Partial Thromboplastin Time 27.5 sec (22.0-30.0)
[2021-04-02 16:01] LABS: Prothrombin Time 10.6 sec (9.0-12.0)
[2021-04-02 16:01] LABS: Platelet Count 84 k/uL (150-450)
[2021-04-02] MEDS ORDERED: ONDANSETRON 4 MG/2 ML VIAL IVP PRN (16:33)
[2021-04-02] MEDS ORDERED: NALOXONE 0.4 MG/ML 1 ML VIAL IV PRN (16:33)
[2021-04-02] MEDS: SODIUM CHLORIDE 0.9% 1,000 ML IV SCH (16:47)
[2021-04-03 07:48] LABS: INR 1.2 (<1.2); Prothrombin Time 12.6 sec (9.0-12.0)
[2021-04-03 07:49] LABS: Partial Thromboplastin Time 28.4 sec (22.0-30.0)
[2021-04-03] MEDS: SODIUM CHLORIDE 0.9% 1,000 ML IV SCH ×3 (07:52→17:58)
[2021-04-03 11:53] LABS: ALT 43 U/L (4-34); AST 48 U/L (14-36); African American GFR (CKD) 35 (>60 ml/min/1.73 sqM); Albumin 3.2 g/dL (3.5-5.0); Albumin/Globulin Ratio 1.2; Alkaline Phosphatase 201 U/L (38-126); Anion Gap 7 mmol/L; Blood Urea Nitrogen 30 mg/dL (7-17); Calcium 8.6 mg/dL (8.4-10.2); Carbon Dioxide 21 mmol/L (22-30); Chloride 113 mmol/L (98-107); Globulin 2.6 g/dL; Glucose 89 mg/dL (74-99); Non-African American GFR(CKD) 31 (>60 ml/min/1.73 sqM); Potassium 4.7 mmol/L (3.5-5.1); Sodium 141 mmol/L (137-145); Total Bilirubin 0.4 mg/dL (0.2-1.3); Total Protein 5.8 g/dL (6.3-8.2)
[2021-04-03 12:17] LABS: Basophils % (A) 1 %; Eosinophils # (A) 0.2 k/uL (0-0.7); Eosinophils % (A) 5 %; HCT 35.8 % (34.0-46.0); Hypochromasia Marked; Lymphocytes # (A) 0.4 k/uL (1.0-4.8); Lymphocytes % (A) 9 %; MCH 31.1 pg (25.0-35.0); MCHC 31.5 g/dL (31.0-37.0); MCV 98.6 fL (80.0-100.0); Mean Platelet Volume 7.8; Monocytes # (A) 0.2 k/uL (0-1.0); Monocytes % (A) 5 %; Neutrophils # (A) 3.8 k/uL (1.3-7.7); Neutrophils % (A) 79 %; RBC 3.64 m/uL (3.80-5.40); RDW 14.2 % (11.5-15.5); WBC 4.8 k/uL (3.8-10.6)
[2021-04-03 12:30] LABS: HGB 11.3 gm/dL (11.4-16.0); Platelet Count 152 k/uL (150-450)
[2021-04-03 15:00] VITALS: BMI 46.3
[2021-04-03] MEDS ORDERED: DOCUSATE 100 MG CAP PO PRN (15:04)
[2021-04-03] MEDS ORDERED: ACETAMINOPHEN SUPPOSITORY 650 MG SUPP RECTAL PRN (17:00)
[2021-04-03] MEDS ORDERED: HYDROcodone/APAP 15 ML SOLUTION PO PRN (17:02)
[2021-04-03] MEDS: carvediloL 12.5 MG TAB PO SCH (17:52)
--- NOTE | 2021-04-03 18:49 | HP ---
HISTORY AND PHYSICAL DATE OF SERVICE: 04/03/2021 CHIEF COMPLAINTS: Weakness and change in mental status and renal failure. HISTORY OF PRESENT ILLNESS: This 75-year-old woman with a past medical history of multiple medical problems including atrial fibrillation, history of fibromyalgia, hypertension, DJD, sleep apnea, was recently admitted to [facility] with severe pain of the right hip. Apparently pain injections were planned by Anesthesia. The anticoagulants were held, but apparently the epidural or hip injection was not carried out because of unknown reasons. In any case the patient went home and the patient has continued to take medications and patient became progressively obtunded and has diminished p.o. intake. Neurontin was initiated recently. The patient is barely responsive and the patient was taken to [facility] and admitted for further evaluation and treatment. Apparently during the previous admission, the patient refused to go to rehab at this time. Currently the patient is barely arousable and most of the history is taken from my discussion with staff and review of the chart and discussion with the family and daughter at the bedside. PAST MEDICAL HISTORY: Atrial fibrillation, history of CHF, fibromyalgia, hypertension, DJD, severe right hip pain. MEDICATION: Home medications are: Oxycodone 10 mg, Lamictal, Topamax, Xarelto, Protonix, Neurontin, vitamin D2, Colace, Cymbalta, vitamin B12, Plavix, Coreg, baclofen, Cordarone, Tylenol. Doses reviewed. ALLERGIES: FOSAMAX, IODINE, PENICILLIN, ZOCOR, VANCOMYCIN, CODEINE, NEURONTIN, MOTRIN. Family history, social history and review of systems could not be taken because of the patient's change in mental status. Bone cancer in the family apparently. PHYSICAL EXAMINATION: Patient is stuporous, as mentioned earlier. Pulse 60. Blood pressure 120/50. Respirations 20. Temperature 98.6, pulse ox 97% on 4 L. HEENT: Conjunctivae normal. Oral mucosa dry. NECK is no jugular venous distention. No carotid bruit. No lymph node enlargement. CARDIOVASCULAR system: S1, S2 muffled. No S3, no S4. RESPIRATION: Breath sounds diminished in the bases. Scattered rhonchi and crackles. ABDOMEN: Soft, nontender. No mass palpable. LEGS: No edema. No swelling. NERVOUS SYSTEM: The patient is diffusely weak and unable to cooperate with the exam. SKIN: No ulcers, rashes or bleeding. JOINTS: No active deforming arthropathy. LABS: WBC 3, hemoglobin 17.9 and 11.3 today. Sodium 137, potassium 5, creatinine 3.02, and creatinine 1.64. ASSESSMENT: 1. Change in mental status, acute metabolic encephalopathy secondary to acute renal failure. 2. Acute renal failure, acute tubular necrosis, prerenal failure and dehydration. 3. Increased hemoglobin polycythemia secondary to dehydration. 4. Leukopenia. 5. Thrombocytopenia, improved. 6. Hypocalcemia. 7. Acute hepatitis, possibly medication induced. 8. Severe right hip pain and degenerative joint disease. 9. Atrial fibrillation. 10.History of congestive heart failure. 11.Fibromyalgia. 12.Hypertension. 13.History of degenerative joint disease. 14.Sleep apnea. 15.History of breast cancer. 16.History of pseudo coarctation of the aorta. 17.History of narcolepsy. 18.History of coronary artery disease/stent. 19.History of tubal ligation. 20.History of permanent pacemaker. 21.History of bipolar. 22.History of THC. 23.Obesity with body mass of 43.3. 24.FULL CODE. RECOMMENDATIONS AND DISCUSSION: This 75-year-old woman who presented with multiple complex medical issues, we will monitor the patient closely, continue the current management and symptomatic treatment. Continue current medication, continue symptomatic treatment. Otherwise, IV fluids cautiously. Monitor creatinine closely. Avoid nephrotoxic medications. We will review the sedatives and continue to monitor. The initial chest x-ray and CT scan were reviewed personally by me showed no acute abnormalities. We will continue to monitor. Overall prognosis guarded. Also recommend PT/OT evaluation. Pain management. The patient is off anticoagulation at this time. Prognosis guarded because of multiple complex medical issues. Further recommendations to follow. Discussed with the family who understands and agrees. A copy of this dictation being forwarded to Dr. Drew Neff, who is the primary physician. Covid 19 is negative. MMODL / IJN: [id number] /
[2021-04-04] MEDS: SODIUM CHLORIDE 0.9% 1,000 ML IV SCH ×4 (01:40→23:32)
[2021-04-04] MEDS: PANTOPRAZOLE 40 MG TABLET PO SCH (05:57)
[2021-04-04 06:32] LABS: Basophils % (A) 0 %; Eosinophils # (A) 0.2 k/uL (0-0.7); Eosinophils % (A) 6 %; HGB 11.4 gm/dL (11.4-16.0); Hypochromasia Moderate; Lymphocytes # (A) 0.6 k/uL (1.0-4.8); Lymphocytes % (A) 14 %; MCH 31.6 pg (25.0-35.0); MCHC 32.6 g/dL (31.0-37.0); MCV 96.9 fL (80.0-100.0); Mean Platelet Volume 7.5; Monocytes # (A) 0.2 k/uL (0-1.0); Monocytes % (A) 5 %; Neutrophils # (A) 2.8 k/uL (1.3-7.7); Neutrophils % (A) 72 %; Platelet Count 138 k/uL (150-450); RBC 3.61 m/uL (3.80-5.40); RDW 14.1 % (11.5-15.5); WBC 3.9 k/uL (3.8-10.6)
[2021-04-04 06:55] LABS: ALT 36 U/L (4-34); AST 40 U/L (14-36); African American GFR (CKD) 47 (>60 ml/min/1.73 sqM); Albumin 3.1 g/dL (3.5-5.0); Albumin/Globulin Ratio 1.1; Alkaline Phosphatase 191 U/L (38-126); Anion Gap 8 mmol/L; Blood Urea Nitrogen 24 mg/dL (7-17); Carbon Dioxide 20 mmol/L (22-30); Chloride 115 mmol/L (98-107); Globulin 2.7 g/dL; Glucose 76 mg/dL (74-99); Non-African American GFR(CKD) 41 (>60 ml/min/1.73 sqM); Potassium 4.7 mmol/L (3.5-5.1); Sodium 143 mmol/L (137-145); Total Bilirubin 0.3 mg/dL (0.2-1.3); Total Protein 5.8 g/dL (6.3-8.2)
[2021-04-04] MEDS: ACETAMINOPHEN TAB 325 MG TAB PO PRN ×2 (08:00→17:51)
[2021-04-04] MEDS: AMIODARONE 200 MG TAB PO SCH (08:01)
[2021-04-04] MEDS: CLOPIDOGREL 75 MG TAB PO SCH (08:01)
[2021-04-04] MEDS: CYANOCOBALAMIN 500 MCG TAB PO SCH (08:01)
[2021-04-04] MEDS: FOLIC ACID 1 MG TAB PO SCH (08:02)
[2021-04-04] MEDS: carvediloL 12.5 MG TAB PO SCH ×2 (08:02→17:51)
[2021-04-04] MEDS ORDERED: ERGOCALCIFEROL 1,250 MCG (50,000 IU) CAPSULE PO SCH (09:00)
[2021-04-04 13:35] LABS: Urine Alcohol Negative (Negative); Urine Barbiturate Negative (Negative); Urine Cocaine Negative (Negative); Urine Methadone Negative (Negative); Urine Opiates Positive (Negative); Urine Phencyclidine Negative (Negative)
--- NOTE | 2021-04-04 18:45 | P.PN ---
Subjective Progress Note Date: 04/04/21 Principal diagnosis: Altered mental status Metabolic encephalopathy Acute renal failure Polycythemia possibly secondary to dehydration Acute hepatitis 75-year-old female patient with history of hypertension, atrial fibrillation, fibromyalgia and sleep apnea presents to ER with altered mental status which was thought to be related to medication versus acute renal injury Patient is seen and evaluated in room with family at bedside; patient is awake and responsive and answers questions appropriately Vital signs are reviewed and stable with temperature of 98.6, pulse 68, discussion 18 and blood pressure 132/75 and O2 saturation of 96% on 4 L Laboratory review shows 2 RBC 3.9, hemoglobin from 11.4, platelet count 138, sodium 143, potassium 4.7, BUN/creatinine of 24/1.3 which is improved from 30/1.64 yesterday Objective - Vital Signs Vital signs: Vital Signs Temp 97.8 F 04/04/21 05:00 Pulse 60 04/04/21 05:00 Resp 16 04/04/21 08:00 BP 168/75 04/04/21 05:00 Pulse Ox 95 04/04/21 07:42 Intake & Output 04/03/21 04/04/21 04/04/21 18:59 06:59 18:59 Intake Total 0 Output Total 1100 600 Balance -1100 -600 Weight 122.47 kg Intake: Oral 0 Output: Urine 1100 600 Uretheral (Cannon) 600 Other: Voiding Method Indwelling Catheter Indwelling Catheter Indwelling Catheter - Exam - Constitutional General appearance: Present: average body habitus, cooperative, no acute dist ress Neck: Present: normal ROM. Absent: lymphadenopathy, rigidity, thyromegaly Thyroid: bilateral: normal size, negative: enlarged, nodule Respiratory: bilateral: CTA, negative: rales, rhonchi, wheezing Cardiovascular Rhythm: regular Heart sounds: normal: S1, S2 Abnormal Heart Sounds: Absent: systolic murmur, diastolic murmur Gastrointestinal; Present: normal bowel sounds, soft. Absent: distended, organomegaly, tenderness Integumentary: Present: normal turgor. Absent: jaundiced, rash, ulcer Neurologic: no focal deficits Musculoskeletal: Present: gait normal, strength equal bilaterally - Labs CBC & Chem 7: 04/04/21 05:51 04/04/21 05:51 Labs: Abnormal Lab Results - Last 24 Hours (Table) 04/04/21 04/04/21 Range/Units 05:51 05:51 RBC 3.61 L (3.80-5.40) m/uL Plt Count 138 L (150-450) k/uL Lymphocytes # 0.6 L (1.0-4.8) k/uL Chloride 115 H (98-107) mmol/L Carbon Dioxide 20 L (22-30) mmol/L BUN 24 H (7-17) mg/dL Creatinine 1.30 H (0.52-1.04) mg/dL AST 40 H (14-36) U/L ALT 36 H (4-34) U/L Alkaline Phosphatase 191 H (38-126) U/L Total Protein 5.8 L (6.3-8.2) g/dL Albumin 3.1 L (3.5-5.0) g/dL Microbiology - Last 24 Hours (Table) 04/03/21 18:05 Urine Culture - Preliminary Urine,Catheterized Assessment and Plan Assessment: 1. Altered mental status/metabolic encephalopathy 2. Acute renal failure/acute tubular necrosis versus prerenal azotemia and dehydration 3. Polycythemia possibly secondary to dehydration 4. Leukopenia 5. Hypocalcemia 6. Acute hepatitis; possibly medication induced 7. Severe right hip pain/DJD 8. Atrial fibrillation 9. Fibromyalgia Patient remains on IV fluid hydration in form of normal saline; we will monitor strict JASPER's, daily weights, renal function and electrolytes; avoid nephrotoxin agents; avoid hypotension; patient's medications are reviewed; CT of the head was unremarkable; patient does report improvement in mentation which was impaired possibly secondary to dehydration versus polypharmacy; medications) of being evaluated and adjusted - PT/OT consulted and recommendations are pending
[2021-04-04] MEDS: HYDROcodone/APAP 5-325MG 1 EACH TAB PO PRN (20:49)
[2021-04-05] MEDS: PANTOPRAZOLE 40 MG TABLET PO SCH (04:53)
[2021-04-05] MEDS: HYDROcodone/APAP 5-325MG 1 EACH TAB PO PRN ×3 (04:53→22:09)
[2021-04-05] MEDS: CYANOCOBALAMIN 500 MCG TAB PO SCH (08:11)
[2021-04-05] MEDS: CLOPIDOGREL 75 MG TAB PO SCH (08:11)
[2021-04-05] MEDS: carvediloL 12.5 MG TAB PO SCH ×2 (08:11→17:36)
[2021-04-05] MEDS: FOLIC ACID 1 MG TAB PO SCH (08:11)
[2021-04-05] MEDS: AMIODARONE 200 MG TAB PO SCH (08:11)
[2021-04-05] MEDS: SODIUM CHLORIDE 0.9% 1,000 ML IV SCH ×2 (08:12→15:19)
--- NOTE | 2021-04-05 12:26 | CT ---
EXAMINATION TYPE: CT brain wo con DATE OF EXAM: 04/05/2021 COMPARISON: 04/02/2021 HISTORY: Continued weakness. CT DLP: 1108.[address] of the brain was performed. The ventricles, basal cisterns and sulci overlying the cerebral convexities demonstrate mild enlargem ent. There is no evidence for intracranial hemorrhage or sulcal effacement. There is decreased attenuation about the periventricular white matter and deep white matter of both c erebral hemispheres, compatible with chronic small vessel ischemia. Differential diagnosis does inclu de demyelination. No mass effects are seen.No midline shift. Osseous calvarium is intact. If symptoms persist consider MRI. IMPRESSION: 1. Age related atrophic and chronic small vessel ischemic change without acute intracranial process s een at this time.
[2021-04-05] MEDS: RIVAROXABAN 15 MG TAB PO SCH (15:19)
--- NOTE | 2021-04-05 17:02 | P.CNNES ---
History of Present Illness Consult date: 04/05/21 Requesting physician: Angel Stephen Reason for Consult: Weakness in legs History of Present Illness: Patient is a 75-year-old female came to the hospital on 04/02/2021 with ambulance for confusion and signs of delirium. Patient was recently admitted to the hospital and was seen by myself on 03/22/2021 for right leg pain. It involves medial groin extending to the right anterior and medial thigh region to the knee. Her neurological examination was normal. Patient was diagnosed with vitamin B12 deficiency with B12 of 177. Also had borderline folate 8.0. Her pain was felt to be related to osteoarthritis of the right hip joint. Patient was discharged on Neurontin 200 mg 3 times a day. It was recommended for patient to undergo intra-articular right hip steroid injection, if the pain persist. Patient was discharged home on 03/27/2021. According to patient's and patient's sister, who provided the history separately. Since the patient was discharged home, she was in severe pain. She was essentially using wheelchair for ambulation because of pain. Patient developed mental status change since , one day before arrival to the hospital. She had stopped eating or drinking. She couldn't swallow water. Her gave her 1 tablet of oxycodone, which he believes that she did not swallow, as she spit it out. On 04/02/2021, she was "out of it", she "wasn't there". She was very shaky. She did not know where she was at. Therefore she was brought to the hospital. Patient was diagnosed with acute kidney injury with BUN 47 and creatinine 3.0. Computed tomography scan of the cervical spine showed no evidence for acute fracture or subluxation. CT of the head showed age-related atrophic and chronic small vessel ischemic change without acute intracranial process seen at this time. EKG shows AV dual paced rhythm with prolonged AV conduction. Patient had a repeat computed tomography scan of the head performed today, which is again unchanged. No acute process. Patient's blood test shows WBC 4.8, hemoglobin level 0.3, platelets 152. PT/PTT is normal. Patient's renal functions has improved from 47/3.02 on 04/02/2021 to 24/1.3 yesterday on 04/04/2021. Patient's hepatic panel is slightly elevated. Urine positive for marijuana and opiates. UA is negative with occasional bacteria and negative leukocyte Estrace and 2 WBC. However urine cultures have grown gram-negative bacilli with > 100,000 CFU. Blood cultures are negative. Patient currently not on any antibiotics. Patient at this time continues to be slightly confused. She feels that she was having a stroke. She states that she messed up her medication and they thought that she was having a heart attack and was comatose. She states that she is now feeling stronger. She states that she wants to get out of bed to the chair but they are not allowing her to do it. Her pain has much improved. But she still can feel the connection between the hip and the groin but now she has more pain in the groin. She states that she has stocking Dr. Avalos today, which probably is not correct. Review of Systems Patient confused, but denies any chest pain, no abdominal pain. Still has some hip and groin pain. Denies nausea vomiting diarrhea. Denies fever or chills. Complains of shaky. Complains of generalized weakness. Denies any new numbness or tingling, patient denies headache. Denies incontinence of urine. She has constipation but is not new, is present all her life. Denies dysphagia, headache, chest pain, abdominal pain. Past Medical History Past Medical History: Atrial Fibrillation, Cancer, Heart Failure, Fibromyalgia, Hypertension, Osteoarthritis (OA), Sleep Apnea/CPAP/BIPAP Additional Past Medical History / Comment(s): BORN WITH ONLY LT KIDNEY, FIBROIDS, BREAST CANCER 1985-radiation txs, BENIGN TREMORS, PSUEDO COARTATION OF AORTA, NARCOLEPSY. History of Any Multi-Drug Resistant Organisms: None Reported Past Surgical History: Breast Surgery, Cholecystectomy, Heart Catheterization With Stent, Hysterectomy, Pacemaker, Tonsillectomy, Tubal Ligation Additional Past Surgical History / Comment(s): EP STUDY/ABLATION 2006, pacemaker, LASER EYE SX. bilateral masectomy Past Anesthesia/Blood Transfusion Reactions: No Reported Reaction Date of Last Stent Placement:: 2019 Type of Cardiac Device: Permanent Pacemaker Device Placement Date:: 2003 Past Psychological History: Bipolar Additional Psychological History / Comment(s): PT LIVES WITH SPOUSE IN SINGLE LEVEL HOME THAT HAS 4 [address]. NO OUTSIDE SERVICES. HAS A NEBULIZER. Smoking Status: Never smoker Past Alcohol Use History: None Reported Past Drug Use History: Marijuana Additional Drug Use History / Comment(s): edibles - Past Family History Father Family Medical History: Cancer Additional Family Medical History / Comment(s): BONE CANCER Mother Family Medical History: Cancer Additional Family Medical History / Comment(s): BREAST CANCER W/METS. Daughter(s) Family Medical History: Cancer Medications and Allergies Home Medications Medication Instructions Recorded Confirmed Type Baclofen 10 mg PO HS 04/13/15 04/02/21 History Topiramate [Topamax] 200 mg PO DAILY 03/28/17 04/02/21 History lamoTRIgine [LaMICtal] 200 mg PO DAILY 03/28/17 04/02/21 History Amiodarone [Cordarone] 200 mg PO DAILY 03/22/21 04/02/21 History Carvedilol [Coreg] 12.5 mg PO BID-W/MEALS 03/22/21 04/02/21 History Clopidogrel Bisulfate [Plavix] 75 mg PO DAILY 03/22/21 04/02/21 History DULoxetine HCL [Cymbalta] 60 mg PO HS 03/22/21 04/02/21 History Ergocalciferol [Vitamin D2 (1250 1,250 mcg PO CHAVEZ 03/22/21 04/02/21 History Mcg = [id number] Iu)] Pantoprazole Sodium [Protonix] 40 mg PO DAILY@0600 03/22/21 04/02/21 History Rivaroxaban [Xarelto] 15 mg PO DAILY 03/22/21 04/02/21 History Acetaminophen Tab [Tylenol] 650 mg PO Q6H 3 Days #16 tab 03/26/21 04/02/21 Rx Cyanocobalamin [Vitamin B-12] 1,000 mcg PO DAILY #30 tablet 03/26/21 04/02/21 Rx Docusate [Colace] 100 mg PO BID PRN #30 cap 03/26/21 04/02/21 Rx Folic Acid 1 mg PO DAILY #30 tab 03/26/21 04/02/21 Rx Gabapentin [Neurontin] 200 mg PO TID #60 cap 03/26/21 04/02/21 Rx oxyCODONE-APAP 10-325MG [Percocet 1 tab PO QID 04/02/21 04/02/21 History 10-325 mg] Allergies Allergy/AdvReac Type Severity Reaction Status Date / Time alendronate sodium Allergy Anaphylaxis Verified 04/02/21 15:22 [From Fosamax] amitriptyline HCl Allergy Unknown Verified 04/02/21 15:22 [From Elavil] doxepin HCl [From Sinequan] Allergy Unknown Verified 04/02/21 15:22 iodine Allergy Anaphylaxis Verified 04/02/21 15:22 Penicillins Allergy passed out Verified 04/02/21 15:22 simvastatin [From Zocor] Allergy Unknown Verified 04/02/21 15:22 sulindac [From Clinoril] Allergy Unknown Verified 04/02/21 15:22 vancomycin Allergy Anaphylaxis Verified 04/02/21 15:22 codeine AdvReac Abdominal Verified 04/02/21 15:22 Pain gabapentin [From Neurontin] AdvReac Nausea & Verified 04/02/21 15:22 Vomiting ibuprofen [From Motrin] AdvReac Unknown Verified 04/02/21 15:22 Physical Examination - Vital Signs Vital Signs: Vital Signs Temp Pulse Resp BP BP Pulse Ox 04/05/21 12:41 98.6 F 59 L 17 186/93 93 L 04/05/21 04:49 98.2 F 60 18 151/86 93 L 04/04/21 19:14 98.3 F 62 16 144/85 98 Intake and Output 04/04/21 04/05/21 04/05/21 22:59 06:59 14:59 Intake Total 750 Output Total 1350 Balance -600 Intake: Oral 750 Output: Urine 1350 Other: Voiding Method Indwelling Catheter Indwelling Catheter # Voids 1,800 Weight 122.47 kg Patient is an elderly female, appears somewhat anxious, slightly delirious, slightly confused. Patient is alert awake oriented to time place and person. Patient knows it is the ninth month, but could not tell the year. She knows she is in [facility] in [place] and the name of the current president. Speech and language functions are normal. Attention, concentration is slightly decreased and fund of knowledge is slightly limited. Patient is slightly shaky, tremulous. On cranial examination, pupils are round and reacting to light, visual davies are full on confrontation, extraocular muscles are intact with no nystagmus. Face is symmetric, tongue protrudes to the midline. Palatal elevation and sensation normal, hearing is slightly decreased and shoulder shrug normal, facial sensation normal. Shoulder shrug normal. On muscle strength testing, there is no pronator drift and the strength is normal in arms and legs distally and proximally. Even detailed testing of her right lower limb appears normal in the hip flexion, hip adduction, abduction, knee extension, ankle and the toes. I was able to perform straight leg raising, without much pain. She did not complain of any pain. Deep tendon reflexes are symmetric, 2 in the biceps and brachioradialis, 1+ to 2 at the knees, 1 at ankles and plantars downgoing. Sensory to touch is equal with no neglect on double simultaneous stimulation. Cerebellar function showed no ataxia for [id number] testing. No dysdiadocho kinesia. Tone and bulk of muscles normal. Patient is tremulous. Patient has had tremor Gait not checked. On general examination, there is no carotid bruit or murmur, S1-S2 audible. Abdomen is soft nontender. Chest is clear. Peripheral pulses are present. No edema. Results - Laboratory Findings CBC and BMP: 04/04/21 05:51 04/06/21 06:14 Abnormal Lab Findings: Abnormal Labs 04/02/21 04/02/21 04/02/21 14:10 14:10 14:10 WBC 3.0 L RBC 5.81 H Hgb 17.9 H D Hct 58.1 H* MCHC 30.8 L Plt Count 84 L D Lymphocytes # 0.3 L PT 12.6 H INR 1.2 H Chloride Carbon Dioxide 20 L BUN 47 H Creatinine 3.02 H Magnesium 2.4 H AST 77 H ALT 50 H Alkaline Phosphatase 196 H Total Protein Albumin Urine Appearance Urine Protein Urine Bilirubin Urine Bacteria Hyaline Casts Urine Mucus Urine Opiates Screen U Cannabinoids Screen 04/02/21 04/03/21 04/03/21 14:40 11:04 11:04 WBC RBC 3.64 L Hgb 11.3 L D Hct MCHC Plt Count Lymphocytes # 0.4 L PT INR Chloride 113 H Carbon Dioxide 21 L BUN 30 H Creatinine 1.64 H Magnesium AST 48 H ALT 43 H Alkaline Phosphatase 201 H Total Protein 5.8 L Albumin 3.2 L Urine Appearance Cloudy H Urine Protein Trace H Urine Bilirubin 1+ H Urine Bacteria Occasional H Hyaline Casts 6 H Urine Mucus Rare H Urine Opiates Screen U Cannabinoids Screen 04/03/21 04/04/21 04/04/21 12:20 05:51 05:51 WBC RBC 3.61 L Hgb Hct MCHC Plt Count 138 L Lymphocytes # 0.6 L PT INR Chloride 115 H Carbon Dioxide 20 L BUN 24 H Creatinine 1.30 H Magnesium AST 40 H ALT 36 H Alkaline Phosphatase 191 H Total Protein 5.8 L Albumin 3.1 L Urine Appearance Urine Protein Urine Bilirubin Urine Bacteria Hyaline Casts Urine Mucus Urine Opiates Screen Positive A U Cannabinoids Screen Positive A Assessment and Plan Assessment: * Altered mental status, likely due to toxic-metabolic encephalopathy. Patient's acute kidney injury, dehydration and possibly secondary buildup of medication are the likely causes. Patient's renal functions have much improved. * Acute UTI, with urine cultures growing > 100,000 gram-negative bacilli * Acute kidney injury, much improved * Acute right leg pain probably due to acute hip osteoarthritis, also appears to have much improved on examination today. * Pacemaker * Obesity * B12 deficiency, now on oral replacement. * Folate deficiency Plan: * Patient's right leg pain has much improved. Patient currently on [place] only on as needed. * Increase activity, may consider placing her out of bed, in the recliner. * Patient wants to go home. Patient will need subacute rehab before going home. Patient's sister also had strongly recommended for patient to go to rehab for strengthening before she can go home. * Regarding her mental status, also has improved since her renal functions is improved. Neurontin has been discontinued. Patient has acute UTI based upon abnormal urine cultures. Would consider treatment with antibiotics. Discussed with Dr. stephen. * Continue B12. * Discussed with patient's , patient's in detail. * We will follow clinically.
--- NOTE | 2021-04-05 20:34 | P.PN ---
Subjective 75-year-old female patient with history of hypertension, atrial fibrillation, fibromyalgia and sleep apnea presents to ER with altered mental status secondary to toxic effects from medication especially [place] and gabapentin secondary to her acute kidney injury. Her creatinine on admission was 3.0, today is 1.3 and normal saline lower to 50 mm per hour. She is awake and alert to place and partially to time and person. She could not tell about the circumstances that her dehydration. However her urinary drug screen was positive for marijuana and opiates. Currently she feels generally weak especially in the lower extremities. Zaroxolyn was Xarelto was on hold which is resumed today. Her CT of the brain repeated today which was unremarkable. Other than that her blood pressure is elevated 186/93 and she was started on Norvasc 5 mg Chest x-ray showing cardiomegaly with aortic aneurysm and possible pulmonary hypertension. she is already on Plavix and vitamin B-12 from low-level loss admission. Neurologist evaluated the patient and recommended continue with the current medication. Her urine analysis is suspicious for UTI with culture growing E. coli however due to multiple medical ALLERGIES including penicillin. And also she is on amiodarone does not goes with Levaquin and therefore we consulted infectious disease team for further recommendation Patient is seen and evaluated in room with family at bedside; patient is awake and responsive and answers questions appropriately Vital signs are reviewed and stable with temperature of 98.6, pulse 68, discussion 18 and blood pressure 132/75 and O2 saturation of 96% on 4 L Laboratory review shows 2 RBC 3.9, hemoglobin from 11.4, platelet count 138, sodium 143, potassium 4.7, BUN/creatinine of 24/1.3 which is improved from 30/1.64 yesterday Objective - Vital Signs Vital signs: Vital Signs Temp 98.6 F 04/05/21 12:41 Pulse 59 L 04/05/21 12:41 Resp 17 04/05/21 12:41 BP 186/93 04/05/21 12:41 Pulse Ox 93 L 04/05/21 12:41 Intake & Output 04/04/21 04/05/21 04/05/21 18:59 06:59 18:59 Intake Total 750 Output Total 1350 Balance -600 Weight 122.47 kg Intake: Oral 750 Output: Urine 1350 Other: Voiding Method Indwelling Catheter Indwelling Catheter Indwelling Catheter # Voids 1,800 - Exam -GENERAL: The patient is alert and oriented x1-2, not in any acute distress. Obese. Generally weak HEENT: Pupils are round and equally reacting to light. EOMI. No scleral icterus. No conjunctival pallor. Normocephalic, atraumatic. No pharyngeal erythema. No thyromegaly. CARDIOVASCULAR: S1 and S2 present. No murmurs, rubs, or gallops. PULMONARY: Chest is clear to auscultation, no wheezing or crackles. ABDOMEN: Soft, nontender, nondistended, normoactive bowel sounds. No palpable organomegaly. MUSCULOSKELETAL: No joint swelling or deformity. EXTREMITIES: No cyanosis, clubbing, or pedal edema. NEUROLOGICAL: Gross neurological examination did not reveal any focal deficits. SKIN: No rashes. no petechiae. - Labs CBC & Chem 7: 04/04/21 05:51 04/04/21 05:51 Labs: Microbiology - Last 24 Hours (Table) 04/03/21 18:05 Urine Culture - Preliminary Urine,Catheterized Gram Neg Bacilli 04/03/21 13:11 Blood Culture - Preliminary Blood No Growth after 24 hours 04/03/21 13:13 Blood Culture - Preliminary Blood No Growth after 24 hours Assessment and Plan Assessment: Assessment and Plan Altered mental status/metabolic encephalopathy Acute kidney injury, resolved Acute urinary tract infection secondary to E. coli Generalized weakness and deconditioning Substance abuse with cannabis in the urine drug screen Recent history of vitamin B12 deficiency Recent history of severe right hip pain secondary to osteoarthritis, pain significantly improved today Fibromyalgia Atrial fibrillation on Xarelto morbid obesity with BMI of 46.3 Mild transaminitis mostly secondary to medication effect Plan: This is a pleasant 75 years old female who presents with a EMS which is resolved and acute kidney injury which is resolved. Also UTI secondary to E. coli Urologist evaluation is appreciated. Resume Xarelto for her A. fib. Continue with her home dose of Plavix Consults infectious disease team for her E. coli UTI Her right hip pain is significantly improved alignment it looks like patient might benefit from ECF upon discharge however when I talked to her today she wanted just to go home. Risks and benefits are explained to her Labs and medication were reviewed.. Continue same treatment. Continue with symptomatic treatment. Resume home medication. Monitor lytes and vitals. DVT and GI prophylaxis. Further recommendations depends on the clinical course of the patient DVT prophylaxis: Xarelto GI Prophylaxis: Ppi PT/OT: Pending Prognosis is guarded
[2021-04-05] MEDS: amLODIPine 5 MG TAB PO SCH (22:09)
[2021-04-06] MEDS: PANTOPRAZOLE 40 MG TABLET PO SCH (06:02)
[2021-04-06] MEDS: ACETAMINOPHEN TAB 325 MG TAB PO PRN ×2 (06:02→16:47)
[2021-04-06] MEDS ORDERED: hydrALAZINE HCL 25 MG TAB PO SCH ×2 (06:50→09:00)
[2021-04-06] MEDS ORDERED: AZTREONAM 1 GM in SODIUM CHLORIDE 0.9% 50 ML IVPB ONE (07:00)
[2021-04-06] MEDS: CYANOCOBALAMIN 500 MCG TAB PO SCH (08:26)
[2021-04-06] MEDS: lamoTRIgine 100 MG TAB PO SCH (08:26)
[2021-04-06] MEDS: TOPIRAMATE 100 MG TAB PO SCH (08:27)
[2021-04-06] MEDS: FOLIC ACID 1 MG TAB PO SCH (08:27)
[2021-04-06] MEDS: amLODIPine 5 MG TAB PO SCH (08:27)
[2021-04-06] MEDS: AMIODARONE 200 MG TAB PO SCH (08:27)
[2021-04-06] MEDS: carvediloL 12.5 MG TAB PO SCH ×2 (08:27→16:47)
[2021-04-06] MEDS ORDERED: AZTREONAM 1 GM in SODIUM CHLORIDE 0.9% 50 ML IVPB SCH (09:00)
[2021-04-06] MEDS: CLOPIDOGREL 75 MG TAB PO SCH (11:00)
[2021-04-06] MEDS: RIVAROXABAN 15 MG TAB PO SCH (11:00)
[2021-04-06 11:50] LABS: African American GFR (CKD) 64.3 (60.0-200.0); Albumin 3.4 g/dL (3.80-4.90); Albumin/Globulin Ratio 1.42 (1.60-3.17); Anion Gap 4.3 mmol/L (4.00-12.00); Bilirubin, Conjugated 0.3 mg/dL (0.20-0.40); Bilirubin,Unconjugated 0.5 mg/dL; Calcium 8.9 mg/dL (8.7-10.3); Carbon Dioxide 24.7 mmol/L (21.6-31.8); Globulin 2.4 g/dL (1.6-3.3); Magnesium 1.6 mg/dL (1.5-2.4); Non-African American GFR(CKD) 55.5 (60.0-200.0); Total Bilirubin 0.8 mg/dL (0.2-1.2); Total Protein 5.8 g/dL (6.2-8.2)
[2021-04-06] MEDS: HYDROcodone/APAP 5-325MG 1 EACH TAB PO PRN (12:03)
[2021-04-06] MEDS: SODIUM CHLORIDE 0.9% 1,000 ML IV SCH (12:05)
--- NOTE | 2021-04-06 14:08 | P.PN ---
Subjective 75-year-old female patient with history of hypertension, atrial fibrillation, fibromyalgia and sleep apnea presents to ER with altered mental status secondary to toxic effects from medication especially [place] and gabapentin secondary to her acute kidney injury. Her creatinine on admission was 3.0, today is 1.3 and normal saline lower to 50 mm per hour. She is awake and alert to place and partially to time and person. She could not tell about the circumstances that her dehydration. However her urinary drug screen was positive for marijuana and opiates. Currently she feels generally weak especially in the lower extremities. Zaroxolyn was Xarelto was on hold which is resumed today. Her CT of the brain repeated today which was unremarkable. Other than that her blood pressure is elevated 186/93 and she was started on Norvasc 5 mg Chest x-ray showing cardiomegaly with aortic aneurysm and possible pulmonary hypertension. she is already on Plavix and vitamin B-12 from low-level loss admission. Neurologist evaluated the patient and recommended continue with the current medication. Her urine analysis is suspicious for UTI with culture growing E. coli however due to multiple medical ALLERGIES including penicillin. And also she is on amiodarone does not goes with Levaquin and therefore we consulted infectious disease team for further recommendation Patient is seen and evaluated in room with family at bedside; patient is awake and responsive and answers questions appropriately Vital signs are reviewed and stable with temperature of 98.6, pulse 68, discussion 18 and blood pressure 132/75 and O2 saturation of 96% on 4 L Laboratory review shows 2 RBC 3.9, hemoglobin from 11.4, platelet count 138, sodium 143, potassium 4.7, BUN/creatinine of 24/1.3 which is improved from 30/1.64 yesterday 04/06/21 Awake and alert and appropriate. No dizziness or headache or more weakness. She is generally weak secondary to her urinary tract infection Her blood pressure is elevated 178/86 and Norvasc started yesterday, we had hydralazine 50 mg twice a day today. Labs improving and her creatinine down to 1.0. Ever enzymes slightly elevated. She is currently on normal sinus at 50 mL per hour Fever secondary to UTI and started on aztreonam for multiple drug ALLERGY, also Cipro because she is on amiodarone. She has UTI secondary to E. coli Patient is refusing to go to rehab and will try to talk to her today to convince her to go to rehab. I discussed the case with older adult social work specialist today Objective - Vital Signs Vital signs: Vital Signs Temp 97.4 F L 04/06/21 11:14 Pulse 65 04/06/21 11:14 Resp 18 04/06/21 11:14 BP 178/86 04/06/21 11:14 Pulse Ox 96 04/06/21 11:14 Intake & Output 04/05/21 04/06/21 04/06/21 18:59 06:59 18:59 Intake Total 800 Output Total 1600 4400 700 Balance -1600 -3600 -700 Weight 122.47 kg Intake: Intake, IV Titration 600 Amount Sodium Chloride 0.9% 1, 600 000 ml @ 50 mls/hr IV . Q20H [facility] Rx#:[id number] Oral 200 Output: Urine 1600 4400 700 Uretheral ([place]) 100 2200 Other: Voiding Method Indwelling Catheter Indwelling Catheter # Voids 400 # Bowel Movements 1 - Exam -GENERAL: The patient is alert and oriented x1-2, not in any acute distress. Obese. Generally weak HEENT: Pupils are round and equally reacting to light. EOMI. No scleral icterus. No conjunctival pallor. Normocephalic, atraumatic. No pharyngeal erythema. No thyromegaly. CARDIOVASCULAR: S1 and S2 present. No murmurs, rubs, or gallops. PULMONARY: Chest is clear to auscultation, no wheezing or crackles. ABDOMEN: Soft, nontender, nondistended, normoactive bowel sounds. No palpable organomegaly. MUSCULOSKELETAL: No joint swelling or deformity. EXTREMITIES: No cyanosis, clubbing, or pedal edema. NEUROLOGICAL: Gross neurological examination did not reveal any focal deficits. SKIN: No rashes. no petechiae. - Labs CBC & Chem 7: 04/04/21 05:51 04/06/21 06:14 Labs: Abnormal Lab Results - Last 24 Hours (Table) 04/06/21 Range/Units 06:14 Chloride 112 H (96-109) mmol/L Est GFR (CKD-EPI)NonAf 55.5 L (60.0-200.0) Alkaline Phosphatase 217 H (41-126) U/L Total Protein 5.8 L (6.2-8.2) g/dL Albumin 3.40 L (3.80-4.90) g/dL Albumin/Globulin Ratio 1.42 L (1.60-3.17) g/dL Microbiology - Last 24 Hours (Table) 04/03/21 18:05 Urine Culture - Preliminary Urine,Catheterized Escherichia coli 04/03/21 13:11 Blood Culture - Preliminary Blood No Growth after 48 hours 04/03/21 13:13 Blood Culture - Preliminary Blood No Growth after 48 hours Assessment and Plan Assessment: Assessment and Plan Altered mental status/metabolic encephalopathy. Resolved Acute kidney injury, resolved Acute urinary tract infection secondary to E. coli Generalized weakness and deconditioning Substance abuse with cannabis in the urine drug screen Recent history of vitamin B12 deficiency Recent history of severe right hip pain secondary to osteoarthritis, pain significantly improved today Fibromyalgia Atrial fibrillation on Xarelto morbid obesity with BMI of 46.3 Mild transaminitis mostly secondary to medication effect Plan: This is a pleasant 75 years old female who presents with a EMS which is resolved and acute kidney injury which is resolved. Also UTI secondary to E. coli Urologist evaluation is appreciated. Resume Xarelto for her A. fib. Continue with her home dose of Plavix Consults infectious disease team for her E. coli UTI Her right hip pain is still hurting her however patient tolerated with [place] . I discussed the case with pain management team today and they told me she has an appointment as an outpatient. it looks like patient might benefit from ECF upon discharge however when I talked to her today she wanted just to go home. Risks and benefits are ex plained to her Labs and medication were reviewed.. Continue same treatment. Continue with symptomatic treatment. Resume home medication. Monitor lytes and vitals. DVT and GI prophylaxis. Further recommendations depends on the clinical course of the patient DVT prophylaxis: Xarelto GI Prophylaxis: Ppi PT/OT: Pending. Patient refusing to go to ECF for rehab Prognosis is guarded
--- NOTE | 2021-04-06 17:38 | P.PN ---
Subjective Progress Note Date: 04/06/21 Patient was seen for a follow-up. Patient's and their daughter were also present. Patient states she is feeling better now. She sat up in the chair for 4-5 hours. Her low back started hurting. She still complains of low back pain and right hip pain at a rate of 8/10. Simonton is helping. Patient states that she today had a bowel movement after 8 days. Objective - Vital Signs Vital signs: Vital Signs Temp 97.4 F L 04/06/21 11:14 Pulse 65 04/06/21 11:14 Resp 18 04/06/21 11:14 BP 178/86 04/06/21 11:14 Pulse Ox 96 04/06/21 11:14 Intake & Output 04/05/21 04/06/21 04/06/21 18:59 06:59 18:59 Intake Total 800 1570 Output Total 1600 4400 1600 Balance -1600 -3600 -30 Weight 122.47 kg Intake: Intake, IV Titration 600 650 Amount Aztreonam 1 gm In Sodium 100 Chloride 0.9% 50 ml @ 100 mls/hr IVPB ONCE ONE Rx# :[id number] Sodium Chloride 0.9% 1, 600 550 000 ml @ 50 mls/hr IV . Q20H [facility] Rx#:[id number] Oral 200 920 Output: Urine 1600 4400 1600 Uretheral (Cannon) 100 2200 Other: Voiding Method Indwelling Catheter Indwelling Catheter # Voids 400 2 # Bowel Movements 3 - Exam Patient's mental status, speech and language functions are normal. Muscle strength is normal in the arms and legs, including detailed testing of the right lower extremity. Reflexes are normal. No loss of sensation. - Labs CBC & Chem 7: 04/04/21 05:51 04/06/21 06:14 Labs: Abnormal Lab Results - Last 24 Hours (Table) 04/06/21 Range/Units 06:14 Chloride 112 H (96-109) mmol/L Est GFR (CKD-EPI)NonAf 55.5 L (60.0-200.0) Alkaline Phosphatase 217 H (41-126) U/L Total Protein 5.8 L (6.2-8.2) g/dL Albumin 3.40 L (3.80-4.90) g/dL Albumin/Globulin Ratio 1.42 L (1.60-3.17) g/dL Microbiology - Last 24 Hours (Table) 04/03/21 18:05 Urine Culture - Preliminary Urine,Catheterized Escherichia coli Gram Neg Bacilli 04/03/21 13:11 Blood Culture - Preliminary Blood No Growth after 72 hours 04/03/21 13:13 Blood Culture - Preliminary Blood No Growth after 72 hours Assessment and Plan Assessment: * Altered mental status, likely due to toxic-metabolic encephalopathy. Patient's acute kidney injury, dehydration and possibly secondary buildup of medication are the likely causes. Patient's renal functions have much improved. * Acute UTI, with urine cultures growing > 100,000 gram-negative bacilli * Acute kidney injury, much improved * Acute right leg pain probably due to acute hip osteoarthritis, also appears to have much improved on examination today. * Pacemaker * Obesity * B12 deficiency, now on oral replacement. * Folate deficiency Plan: * Patient's right leg pain has much improved. Patient currently on [place] only on as needed. * Increase activity, may consider placing her out of bed, in the recliner. * Patient probably will benefit from transfer to subacute rehab before going to home. Discussed with patient's family. * Regarding her mental status, also has improved since her renal functions is improved. Neurontin has been discontinued. Patient has acute UTI based upon abnormal urine cultures. Patient has been started on aztreonam. * Continue B12. * Discussed with patient's , and their daughter in detail.
[2021-04-06] MEDS: AZTREONAM 1 GM in SODIUM CHLORIDE 0.9% 50 ML IVPB SCH (19:20)
[2021-04-06] MEDS: hydrALAZINE HCL 50 MG TAB PO SCH (20:49)
--- NOTE | 2021-04-06 23:07 | P.CONS ---
History of Present Illness - Reason for Consult Consult date: 04/06/21 FEVER Requesting physician: Angel E Sheet - Chief Complaint mental status changes x 1 day - History of Present Illness History of present illness : Patient is 75-year female was brought into the ER 3 days ago on 04/02/2021 for evaluation of mental status changes riya bean was noticed to be confused and enter for a day before presentation to the hospital. The patient not been eating or drinking well she has been taking her medication in this patient who was recently admitted at this facility and apparently was treated for UTI during this admission patient did have a chest x- ray which was cardiomegaly but no acute infiltrate patient did not have any fever until early this morning she did have low-grade fever 180 for an height patient did have mild hypoxemia requiring supplemental oxygen patient did have a normal white count with mild lymphopenia did have elevated BUN and creatinine however there seem to have improved with the hydration patient did have a negative UA though urine culture has been positive for E. coli and gram-negative bacilli patient did have multiple antibiotic allergies has been started on Azactam infectious disease was consulted for further management of antibiotic therapy patient seem to be slightly more awake alert denies having any headache no chest pain occasional cough no abdominal pain no diarrhea overall not a good historian Review of system: CONSTITUTIONAL: Positive for weakness along with the low-grade fever. EYES: No complaint. ENT: No complaint. RESPIRATORY: As per history of present illness. CARDIOVASCULAR: No complaint. GENITOURINARY: No complaint. GASTROINTESTINAL: As per history of present illness. MUSCULOSKELETAL: No complaint. INTEGUMENTARY: No complaint. PSYCHOLOGIC: No complaint. ENDOCRINE: No complaint. NEUROLOGIC: No complaint. Past medical history : Reviewed, documented below Past surgical history : Reviewed, documented below Social history: Reviewed, documented below Medications: Reviewed, as documented below EXAMINATION: Vital sigans= Reviewed and documented below GENERAL DESCRIPTION: Elderly female lying in bed in no distress with no tachypnea or accessory muscle of respiration use. HEENT: Shows Pallor , no scleral icterus. Oral mucous membrane is dry. NECK: Trachea central, no thyromegaly. LUNGS: Unlabored breathing. Decrease intensity of breath sounds. No wheeze or c rackle. HEART: S1, S2, regular rate and rhythm. ABDOMEN: Soft, no tenderness , guarding or rigidity EXTREMITIES: No edema of feet. SKIN: No rash, no masses palpable. NEUROLOGICAL: The patient is awake, alert, oriented x2, mood and affect normal. LABS AND RADIOLOGY: Reviewed results see below Assessment : 1-Patient with a low-grade fever this morning of 100 F in this patient admitted to the hospital with mental status changes and did have decreased oral intake patient did have a positive urine culture however the corresponding UA was negative initially chest x-ray was negative as well patient abdominal soft rectal examination and no evidence of any cellulitis 2-patient with multiple antibiotic allergies that would limit the number of antibiotics safe to use Plan: 1-repeat UA and cultures 2-repeat chest x-ray CRP and procalcitonin level 3-continue Azactam at this point while awaiting further work-up to be completed We will follow on clinical condition and cultures to further adjust medication if needed Thank you for this consultation we will follow the patient along with you Past Medical History Past Medical History: Atrial Fibrillation, Cancer, Heart Failure, Fibromyalgia, Hypertension, Osteoarthritis (OA), Sleep Apnea/CPAP/BIPAP Additional Past Medical History / Comment(s): BORN WITH ONLY LT KIDNEY, FIBROID S, BREAST CANCER 1985-radiation txs, BENIGN TREMORS, PSUEDO COARTATION OF AORTA, NARCOLEPSY. History of Any Multi-Drug Resistant Organisms: None Reported Past Surgical History: Breast Surgery, Cholecystectomy, Heart Catheterization With Stent, Hysterectomy, Pacemaker, Tonsillectomy, Tubal Ligation Additional Past Surgical History / Comment(s): EP STUDY/ABLATION 2006, pacemaker, LASER EYE SX. bilateral masectomy Past Anesthesia/Blood Transfusion Reactions: No Reported Reaction Date of Last Stent Placement:: 2019 Type of Cardiac Device: Permanent Pacemaker Device Placement Date:: 2003 Past Psychological History: Bipolar Additional Psychological History / Comment(s): PT LIVES WITH SPOUSE IN SINGLE LEVEL HOME THAT HAS 4 [address]PS. NO OUTSIDE SERVICES. HAS A NEBULIZER. Smoking Status: Never smoker Past Alcohol Use History: None Reported Past Drug Use History: Marijuana Additional Drug Use History / Comment(s): edibles - Past Family History Father Family Medical History: Cancer Additional Family Medical History / Comment(s): BONE CANCER Mother Family Medical History: Cancer Additional Family Medical History / Comment(s): BREAST CANCER W/METS. Daughter(s) Family Medical History: Cancer Medications and Allergies Home Medications Medication Instructions Recorded Confirmed Type Baclofen 10 mg PO HS 04/13/15 04/02/21 History Topiramate [Topamax] 200 mg PO DAILY 03/28/17 04/02/21 History lamoTRIgine [LaMICtal] 200 mg PO DAILY 03/28/17 04/02/21 History Amiodarone [Cordarone] 200 mg PO DAILY 03/22/21 04/02/21 History Carvedilol [Coreg] 12.5 mg PO BID-W/MEALS 03/22/21 04/02/21 History Clopidogrel Bisulfate [Plavix] 75 mg PO DAILY 03/22/21 04/02/21 History DULoxetine HCL [Cymbalta] 60 mg PO HS 03/22/21 04/02/21 History Ergocalciferol [Vitamin D2 (1250 1,250 mcg PO CHAVEZ 03/22/21 04/02/21 History Mcg = 23839 Iu)] Pantoprazole Sodium [Protonix] 40 mg PO DAILY@0600 03/22/21 04/02/21 History Rivaroxaban [Xarelto] 15 mg PO DAILY 03/22/21 04/02/21 History Acetaminophen Tab [Tylenol] 650 mg PO Q6H 3 Days #16 tab 03/26/21 04/02/21 Rx Cyanocobalamin [Vitamin B-12] 1,000 mcg PO DAILY #30 tablet 03/26/21 04/02/21 Rx Docusate [Colace] 100 mg PO BID PRN #30 cap 03/26/21 04/02/21 Rx Folic Acid 1 mg PO DAILY #30 tab 03/26/21 04/02/21 Rx Gabapentin [Neurontin] 200 mg PO TID #60 cap 03/26/21 04/02/21 Rx oxyCODONE-APAP 10-325MG [Percocet 1 tab PO QID 04/02/21 04/02/21 History 10-325 mg] Allergies Allergy/AdvReac Type Severity Reaction Status Date / Time alendronate sodium Allergy Anaphylaxis Verified 04/02/21 15:22 [From Fosamax] amitriptyline HCl Allergy Unknown Verified 04/02/21 15:22 [From Elavil] doxepin HCl [From Sinequan] Allergy Unknown Verified 04/02/21 15:22 iodine Allergy Anaphylaxis Verified 04/02/21 15:22 Penicillins Allergy passed out Verified 04/02/21 15:22 simvastatin [From Zocor] Allergy Unknown Verified 04/02/21 15:22 sulindac [From Clinoril] Allergy Unknown Verified 04/02/21 15:22 vancomycin Allergy Anaphylaxis Verified 04/02/21 15:22 codeine AdvReac Abdominal Verified 04/02/21 15:22 Pain gabapentin [From Neurontin] AdvReac Nausea & Verified 04/02/21 15:22 Vomiting ibuprofen [From Motrin] AdvReac Unknown Verified 04/02/21 15:22 Physical Exam Vitals: Vital Signs Temp Pulse Resp BP Pulse Ox 04/06/21 07:31 97.4 F L 60 18 176/90 04/06/21 04:30 100 F H 66 20 186/83 95 04/05/21 19:59 95 04/05/21 19:40 98.9 F 62 20 191/93 96 04/05/21 18:55 20 04/05/21 12:41 98.6 F 59 L 17 186/93 93 L Intake and Output 04/05/21 04/06/21 04/06/21 22:59 06:59 14:59 Intake Total 100 700 Output Total 1600 4400 700 Balance -1500 -3700 -700 Intake: Intake, IV Titration 600 Amount Sodium Chloride 0.9% 1, 600 000 ml @ 50 mls/hr IV . Q20H [facility] Rx#:[id number] Oral 100 100 Output: Urine 1600 4400 700 Uretheral (Cannon) 100 2200 Other: Voiding Method Indwelling Catheter Indwelling Catheter # Voids 400 # Bowel Movements 1 Results CBC & Chem 7: 04/04/21 05:51 04/06/21 06:14 Labs: Microbiology - Last 24 Hours (Table) 04/03/21 18:05 Urine Culture - Preliminary Urine,Catheterized Escherichia coli 04/03/21 13:11 Blood Culture - Preliminary Blood No Growth after 48 hours 04/03/21 13:13 Blood Culture - Preliminary Blood No Growth after 48 hours
[2021-04-06 23:44] LABS: Appearance,Urine Clear (Clear); Bacteria,Urine Occasional /hpf; Bilirubin,Urine Negative (Negative); Blood,Urine Large (Negative); Color,Urine Yellow; Glucose,Urine (UA) Negative (Negative); Ketones,Urine Negative (Negative); Leukocyte Esterase,Urine Large (Negative); Mucus,Urine Moderate /hpf; Nitrite,Urine Positive (Negative); Protein,Urine Trace (Negative); RBC,Urine 31 /hpf (0-5); Specific Gravity,Urine 1.011 (1.001-1.035); Squamous Epithelial Cell,Urine <1 /hpf (0-4); Urobilinogen,Urine <2.0 mg/dL (<2.0); WBC,Urine 48 /hpf (0-5)
[2021-04-07] MEDS: PANTOPRAZOLE 40 MG TABLET PO SCH (05:22)
[2021-04-07] MEDS: HYDROcodone/APAP 5-325MG 1 EACH TAB PO PRN ×2 (05:23→13:30)
[2021-04-07] MEDS: AZTREONAM 1 GM in SODIUM CHLORIDE 0.9% 50 ML IVPB SCH ×2 (08:20→18:22)
[2021-04-07] MEDS: FOLIC ACID 1 MG TAB PO SCH (08:20)
[2021-04-07] MEDS: AMIODARONE 200 MG TAB PO SCH (08:20)
[2021-04-07] MEDS: amLODIPine 5 MG TAB PO SCH (08:20)
[2021-04-07] MEDS: CLOPIDOGREL 75 MG TAB PO SCH (08:20)
[2021-04-07] MEDS: CYANOCOBALAMIN 500 MCG TAB PO SCH (08:20)
[2021-04-07] MEDS: carvediloL 12.5 MG TAB PO SCH ×2 (08:21→18:33)
[2021-04-07] MEDS: TOPIRAMATE 100 MG TAB PO SCH (08:21)
[2021-04-07] MEDS: RIVAROXABAN 15 MG TAB PO SCH (08:21)
[2021-04-07] MEDS: hydrALAZINE HCL 50 MG TAB PO SCH ×2 (08:21→20:32)
[2021-04-07] MEDS: lamoTRIgine 100 MG TAB PO SCH (08:21)
--- NOTE | 2021-04-07 08:50 | XR ---
EXAMINATION TYPE: XR chest 2V DATE OF EXAM: 04/07/2021 COMPARISON: 04/02/2021 TECHNIQUE: PA and lateral views submitted. HISTORY: Fever FINDINGS: Diffuse interstitial pattern with bibasilar subsegmental consolidation and tiny right effusion. Cardi ac device noted there is arthropathy of the shoulders. No pneumothorax. Heart size stable. IMPRESSION: 1. Correlate for interstitial pneumonitis versus interstitial venous congestion.
[2021-04-07 10:04] LABS: African American GFR (CKD) 71 (>60 ml/min/1.73 sqM); Anion Gap 4 mmol/L; Blood Urea Nitrogen 16 mg/dL (7-17); Calcium 9.3 mg/dL (8.4-10.2); Carbon Dioxide 23 mmol/L (22-30); Chloride 115 mmol/L (98-107); Glucose 101 mg/dL (74-99); Magnesium 1.9 mg/dL (1.6-2.3); Non-African American GFR(CKD) 61 (>60 ml/min/1.73 sqM); Potassium 4.3 mmol/L (3.5-5.1); Sodium 142 mmol/L (137-145)
[2021-04-07] MEDS ORDERED: MAGNESIUM OXIDE 400 MG TAB PO STA (10:43)
--- NOTE | 2021-04-07 13:17 | P.PN ---
Subjective 75-year-old female patient with history of hypertension, atrial fibrillation, fibromyalgia and sleep apnea presents to ER with altered mental status secondary to toxic effects from medication especially [place] and gabapentin secondary to her acute kidney injury. Her creatinine on admission was 3.0, today is 1.3 and normal saline lower to 50 mm per hour. She is awake and alert to place and partially to time and person. She could not tell about the circumstances that her dehydration. However her urinary drug screen was positive for marijuana and opiates. Currently she feels generally weak especially in the lower extremities. Zaroxolyn was Xarelto was on hold which is resumed today. Her CT of the brain repeated today which was unremarkable. Other than that her blood pressure is elevated 186/93 and she was started on Norvasc 5 mg Chest x-ray showing cardiomegaly with aortic aneurysm and possible pulmonary hypertension. she is already on Plavix and vitamin B-12 from low-level loss admission. Neurologist evaluated the patient and recommended continue with the current medication. Her urine analysis is suspicious for UTI with culture growing E. coli however due to multiple medical ALLERGIES including penicillin. And also she is on amiodarone does not goes with Levaquin and therefore we consulted infectious disease team for further recommendation Patient is seen and evaluated in room with family at bedside; patient is awake and responsive and answers questions appropriately Vital signs are reviewed and stable with temperature of 98.6, pulse 68, discussion 18 and blood pressure 132/75 and O2 saturation of 96% on 4 L Laboratory review shows 2 RBC 3.9, hemoglobin from 11.4, platelet count 138, sodium 143, potassium 4.7, BUN/creatinine of 24/1.3 which is improved from 30/1.64 yesterday 04/06/21 Awake and alert and appropriate. No dizziness or headache or more weakness. She is generally weak secondary to her urinary tract infection Her blood pressure is elevated 178/86 and Norvasc started yesterday, we had hydralazine 50 mg twice a day today. Labs improving and her creatinine down to 1.0. Ever enzymes slightly elevated. She is currently on normal sinus at 50 mL per hour Fever secondary to UTI and started on aztreonam for multiple drug ALLERGY, also Cipro because she is on amiodarone. She has UTI secondary to E. coli Patient is refusing to go to rehab and will try to talk to her today to convince her to go to rehab. I discussed the case with social studies teacher today 04/07/21 Patient today looks more comfortable and awake, she looks a little stronger as she was able to walk in her room with the help with bit, which is better than yesterday, however she still feels generally weak due to bad urinary tract infection secondary to 2 bacterias as urine culture is growing E. coli and gram- negative bacilli. She is currently covered with aztreonam given her multiple drug ALLERGIES and drug drug interaction with limiting the choice of antibiotics. She had fever yesterday morning which looks now subsided She is hemodynamically stable. Blood pressure is better controlled than adding hydralazine 50 mg twice a day and Norvasc 5 mg daily. Basic metabolic panel from today is looking stable. She had a few runs of asymptomatic V. tach. Because of this we are going to consult cardiology team Chest x-ray showing interstitial pneumonitis versus interstitial venous congestion. we will check a pro-calcitonin, covid and proBNP Patient today is agreeable to going to rehab once she is medically clear Objective - Vital Signs Vital signs: Vital Signs Temp 97.9 F 04/07/21 12:18 Pulse 60 04/07/21 12:18 Resp 17 04/07/21 12:18 BP 131/75 04/07/21 12:18 Pulse Ox 97 04/07/21 12:18 Intake & Output 04/06/21 04/07/21 04/07/21 18:59 06:59 18:59 Intake Total 1570 1110 Output Total 1600 1400 Balance -30 -290 Intake: Intake, IV Titration 650 650 Amount Aztreonam 1 gm In Sodium 100 Chloride 0.9% 50 ml @ 100 mls/hr IVPB ONCE ONE Rx# :[id number] Aztreonam 1 gm In Sodium 50 Chloride 0.9% 50 ml @ 16. 67 mls/hr IVPB Q12H [facility] Rx#:[id number] Sodium Chloride 0.9% 1, 550 600 000 ml @ 50 mls/hr IV . Q20H [facility] Rx#:[id number] Oral 920 460 Output: Urine 1600 1400 Other: Voiding Method Indwelling Catheter Indwelling Catheter # Voids 2 # Bowel Movements 3 - Exam -GENERAL: The patient is alert and oriented x1-2, not in any acute distress. Obese. Generally weak HEENT: Pupils are round and equally reacting to light. EOMI. No scleral icterus. No conjunctival pallor. Normocephalic, atraumatic. No pharyngeal erythema. No thyromegaly. CARDIOVASCULAR: S1 and S2 present. No murmurs, rubs, or gallops. PULMONARY: Chest is clear to auscultation, no wheezing or crackles. ABDOMEN: Soft, nontender, nondistended, normoactive bowel sounds. No palpable organomegaly. MUSCULOSKELETAL: No joint swelling or deformity. EXTREMITIES: No cyanosis, clubbing, or pedal edema. NEUROLOGICAL: Gross neurological examination did not reveal any focal deficits. SKIN: No rashes. no petechiae. - Labs CBC & Chem 7: 04/04/21 05:51 04/07/21 07:03 Labs: Abnormal Lab Results - Last 24 Hours (Table) 04/06/21 04/07/21 Range/Units 23:20 07:03 Chloride 115 H (98-107) mmol/L Glucose 101 H (74-99) mg/dL Urine Protein Trace H (Negative) Urine Blood Large H (Negative) Urine Nitrite Positive H (Negative) Ur Leukocyte Esterase Large H (Negative) Urine RBC 31 H (0-5) /hpf Urine WBC 48 H (0-5) /hpf Urine Bacteria Occasional H (None) /hpf Urine Mucus Moderate H (None) /hpf Microbiology - Last 24 Hours (Table) 04/06/21 23:20 Urine Culture - Preliminary Urine,Voided 04/03/21 18:05 Urine Culture - Preliminary Urine,Catheterized Escherichia coli Gram Neg Bacilli 04/03/21 13:11 Blood Culture - Preliminary Blood No Growth after 72 hours 04/03/21 13:13 Blood Culture - Preliminary Blood No Growth after 72 hours Assessment and Plan Assessment: Assessment and Plan Acute urinary tract infection secondary to E. coli and gram-negative bacilli Generalized weakness and deconditioning, patient agreeable to go to rehab Few runs of nonsustained V. tach Bilateral interstitial pneumonia versus pulmonary congestion Altered mental status/metabolic encephalopathy. Resolved Acute kidney injury, resolved Substance abuse with cannabis in the urine drug screen Recent history of vitamin B12 deficiency Recent history of severe right hip pain secondary to osteoarthritis, pain significantly improved today Fibromyalgia Atrial fibrillation on Xarelto morbid obesity with BMI of 46.3 Mild transaminitis mostly secondary to medication effect Plan: This is a pleasant 75 years old female who presents with a EMS which is resolved and acute kidney injury which is resolved. Also UTI secondary to E. coli Continue with his return now, follow-up on the results of urine culture Cardiology consult for asymptomatic short runs of V. tach Checkcalcitonin, proBNP and covert Follow-up with pain clinic as an outpatient for her right hip pain injection, patient is aware with recommendation to hold Xarelto 48 hours and Plavix 5 days prior to the procedure. Patient is able to go to rehab upon discharge Her right hip pain is still hurting her however patient tolerated with [place] . I discussed the case with pain management team today and they told me she has an appointment as an outpatient. it looks like patient might benefit from ECF upon discharge however when I talked to her today she wanted just to go home. Risks and benefits are explained to her Labs and medication were reviewed.. Continue same treatment. Continue with symptomatic treatment. Resume home medication. Monitor lytes and vitals. DVT and GI prophylaxis. Further recommendations depends on the clinical course of the patient DVT prophylaxis: Xarelto GI Prophylaxis: Ppi PT/OT: Pending. Patient agrees now to go to ECF for rehab Prognosis is guarded
--- NOTE | 2021-04-07 14:33 | P.CRDCN ---
History of Present Illness Consult date: 04/07/21 History of present illness: HISTORY OF PRESENT ILLNESS: This is a 75-year-old female with a past medical history significant for paroxysmal atrial fibrillation on Xarelto, coronary artery disease with PCI to LAD in February 2020 at [facility], chronic kidney disease, hypertension, hyperlipidemia, ischemic cardiomyopathy, permanent pacemaker insertion, and bicuspid aortic valve. Patient follows in the office with Dr. Muniz. We have been asked to see the patient in consultation for ventricular tachycardia. Patient examined at the bedside. Patient denies chest pain or pressure. Denies shortness of breath. She complains of generalized weakness and pain in her right hip. EKG reveals paced rhythm Chest xray correlate for interstitial pneumonitis versus interstitial venous congestion Laboratory data: WBC 3.9. Hemoglobin 11.7. 138. Sodium 142. Potassium 4.3. BUN 16. Creatinine 0.93. Magnesium 1.9. Troponin negative 1 Current home cardiac medications include Xarelto 15 mg daily, Plavix 35 mg daily, carvedilol 12.5 mg twice a day, amiodarone 200 mg daily Patient underwent Lexiscan stress test in April 2019 revealing negative Lexiscan stress test. Abnormal perfusion study with a predominantly reversible defect of hwbh-id-frkmkzqt degree involving the inferior wall and septal area. Echocardiogram completed in April 2018 revealed ejection fraction 50%. Zory-rw-lcvhrdmy aortic regurgitation. Moderate tricuspid regurgitation. Cardiac catheterization history: January 2018 revealing chronically occluded right coronary artery and moderate disease in the mid LAD REVIEW OF SYSTEMS: At the time of my exam: CONSTITUTIONAL: Denies fever or chills. HEENT: Denies blurred vision, vision changes, or eye pain. Denies hemoptysis CARDIOVASCULAR: Denies chest pain. Denies orthopnea. Denies PND. Denies palpitations RESPIRATORY: Denies shortness of breath. GASTROINTESTINAL: Denies abdominal pain. Denies nausea or vomiting. HEMATOLOGIC: Denies bleeding disorders. GENITOURINARY: Denies any blood in urine. SKIN: Denies pruitis. Denies rash. PHYSICAL EXAM: VITAL SIGNS: Reviewed. GENERAL: Well-developed in no acute distress. HEENT: Head is normocephalic. Pupils are equal, round. Sclerae anicteric. Mucous membranes of the mouth are moist. Neck supple. No JVD or thyromegaly LUNGS: Respirations even and unlabored. Lungs essentially clear to auscultation bilaterally. HEART: Regular rate and rhythm. S1 and S2 heard. ABDOMEN: Soft. Nondistended. Nontender. EXTREMITIES: No clubbing or cyanosis. Peripheral pulses intact. No lower extremity edema NEUROLOGIC: Awake and alert. Oriented x 3. ASSESSMENT: Altered mental status, possible toxic-metabolic encephalopathy Acute urinary tract infection Acute kidney injury Wide complex tachycardia, suspect paced beats not v-tach Paroxysmal atrial fibrillation Coronary artery disease with previous PCI to the LAD in February 2020 [facility] Hypertension Hyperlipidemia History of ischemic cardiomyopathy History of permanent pacemaker insertion Bicuspid aortic valve PLAN: Obtain 2D echo to assess cardiac structure and function Continue current cardiac medications Continue telemetry monitoring Spoke with Teachable rep who will be here tomorrow morning to interrogate pacemaker and see if any changes need to be made to patients current settings Further recommendations pending patient course Nurse practitioner note has been reviewed by physician. Signing provider agrees with the documented findings, assessment, and plan of care. Past Medical History Past Medical History: Atrial Fibrillation, Cancer, Heart Failure, Fibromyalgia, Hypertension, Osteoarthritis (OA), Sleep Apnea/CPAP/BIPAP Additional Past Medical History / Comment(s): BORN WITH ONLY LT KIDNEY, FIBROIDS, BREAST CANCER 1985-radiation txs, BENIGN TREMORS, PSUEDO COARTATION OF AORTA, NARCOLEPSY. History of Any Multi-Drug Resistant Organisms: None Reported Past Surgical History: Breast Surgery, Cholecystectomy, Heart Catheterization With Stent, Hysterectomy, Pacemaker, Tonsillectomy, Tubal Ligation Additional Past Surgical History / Comment(s): EP STUDY/ABLATION 2006, pacemaker, LASER EYE SX. bilateral masectomy Past Anesthesia/Blood Transfusion Reactions: No Reported Reaction Date of Last Stent Placement:: 2019 Type of Cardiac Device: Permanent Pacemaker Device Placement Date:: 2003 Past Psychological History: Bipolar Additional Psychological History / Comment(s): PT LIVES WITH SPOUSE IN SINGLE LEVEL HOME THAT HAS 4 [address]PS. NO OUTSIDE SERVICES. HAS A NEBULIZER. Smoking Status: Never smoker Past Alcohol Use History: None Reported Past Drug Use History: Marijuana Additional Drug Use History / Comment(s): edibles - Past Family History Father Family Medical History: Cancer Additional Family Medical History / Comment(s): BONE CANCER Mother Family Medical History: Cancer Additional Family Medical History / Comment(s): BREAST CANCER W/METS. Daughter(s) Family Medical History: Cancer Medications and Allergies Home Medications Medication Instructions Recorded Confirmed Type Baclofen 10 mg PO HS 04/13/15 04/02/21 History Topiramate [Topamax] 200 mg PO DAILY 03/28/17 04/02/21 History lamoTRIgine [LaMICtal] 200 mg PO DAILY 03/28/17 04/02/21 History Amiodarone [Cordarone] 200 mg PO DAILY 03/22/21 04/02/21 History Carvedilol [Coreg] 12.5 mg PO BID-W/MEALS 03/22/21 04/02/21 History Clopidogrel Bisulfate [Plavix] 75 mg PO DAILY 03/22/21 04/02/21 History DULoxetine HCL [Cymbalta] 60 mg PO HS 03/22/21 04/02/21 History Ergocalciferol [Vitamin D2 (1250 1,250 mcg PO CHAVEZ 03/22/21 04/02/21 History Mcg = 30897 Iu)] Pantoprazole Sodium [Protonix] 40 mg PO DAILY@0600 03/22/21 04/02/21 History Rivaroxaban [Xarelto] 15 mg PO DAILY 03/22/21 04/02/21 History Acetaminophen Tab [Tylenol] 650 mg PO Q6H 3 Days #16 tab 03/26/21 04/02/21 Rx Cyanocobalamin [Vitamin B-12] 1,000 mcg PO DAILY #30 tablet 03/26/21 04/02/21 Rx Docusate [Colace] 100 mg PO BID PRN #30 cap 03/26/21 04/02/21 Rx Folic Acid 1 mg PO DAILY #30 tab 03/26/21 04/02/21 Rx Gabapentin [Neurontin] 200 mg PO TID #60 cap 03/26/21 04/02/21 Rx oxyCODONE-APAP 10-325MG [Percocet 1 tab PO QID 04/02/21 04/02/21 History 10-325 mg] Allergies Allergy/AdvReac Type Severity Reaction Status Date / Time alendronate sodium Allergy Anaphylaxis Verified 04/02/21 15:22 [From Fosamax] amitriptyline HCl Allergy Unknown Verified 04/02/21 15:22 [From Elavil] doxepin HCl [From Sinequan] Allergy Unknown Verified 04/02/21 15:22 iodine Allergy Anaphylaxis Verified 04/02/21 15:22 Penicillins Allergy passed out Verified 04/02/21 15:22 simvastatin [From Zocor] Allergy Unknown Verified 04/02/21 15:22 sulindac [From Clinoril] Allergy Unknown Verified 04/02/21 15:22 vancomycin Allergy Anaphylaxis Verified 04/02/21 15:22 codeine AdvReac Abdominal Verified 04/02/21 15:22 Pain gabapentin [From Neurontin] AdvReac Nausea & Verified 04/02/21 15:22 Vomiting ibuprofen [From Motrin] AdvReac Unknown Verified 04/02/21 15:22 Physical Exam Vitals: Vital Signs Temp Pulse Resp BP BP Pulse Ox 04/07/21 04:29 99.5 F 69 20 161/84 95 04/06/21 19:20 99.1 F 68 20 159/84 93 L Intake and Output 04/06/21 04/07/21 04/07/21 22:59 06:59 14:59 Intake Total 1910 770 Output Total 900 1400 Balance 1010 -630 Intake: Intake, IV Titration 650 650 Amount Aztreonam 1 gm In Sodium 100 Chloride 0.9% 50 ml @ 100 mls/hr IVPB ONCE ONE Rx# :[id number] Aztreonam 1 gm In Sodium 50 Chloride 0.9% 50 ml @ 16. 67 mls/hr IVPB Q12H [facility] Rx#:[id number] Sodium Chloride 0.9% 1, 550 600 000 ml @ 50 mls/hr IV . Q20H [facility] Rx#:[id number] Oral 1260 120 Output: Urine 900 1400 Other: Voiding Method Indwelling Catheter # Voids 2 # Bowel Movements 3 Results 04/04/21 05:51 04/07/21 07:03 Cardiac Enzymes 04/06/21 Range/Units 06:14 AST 27 (13-35) U/L Comprehensive Metabolic Panel 04/06/21 04/07/21 Range/Units 06:14 07:03 Sodium 141 142 (135-145) mmol/L Potassium 4.0 4.3 (3.5-5.5) mmol/L Chloride 112 H 115 H (96-109) mmol/L Carbon Dioxide 24.7 23 (21.6-31.8) mmol/L BUN 16.0 16 (9.0-27.0) mg/dL Creatinine 1.0 0.93 (0.6-1.5) mg/dL Glucose 102 101 H (70-110) mg/dL Calcium 8.9 9.3 (8.7-10.3) mg/dL Unconjugated Bilirubin 0.50 mg/dL AST 27 (13-35) U/L ALT 29 (8-44) U/L Alkaline Phosphatase 217 H (41-126) U/L Total Protein 5.8 L (6.2-8.2) g/dL Albumin 3.40 L (3.80-4.90) g/dL Current Medications Generic Name Dose Route Start Last Admin Trade Name Freq PRN Reason Stop Dose Admin Acetaminophen 650 mg 04/02/21 16:33 04/06/21 16:47 Acetaminophen Tab 325 Mg Tab PO 650 mg Q6HR PRN Administration Mild Pain or Fever > 100.5 Acetaminophen 650 mg 04/03/21 17:00 04/03/21 17:55 Acetaminophen Suppository 650 Mg Supp RECTAL 650 mg Q6HR PRN Administration Fever and/ or Pain Hydrocodone Bitart/Acetaminophen 1 each 04/04/21 13:30 04/07/21 05:23 Hydrocodone/Apap 5-325mg 1 Each Tab PO 1 each Q8HR PRN Administration Pain Amiodarone HCl 200 mg 04/04/21 09:00 04/07/21 08:20 Amiodarone 200 Mg Tab PO 200 mg DAILY [facility] Administration Amlodipine Besylate 5 mg 04/05/21 20:30 04/07/21 08:20 Amlodipine 5 Mg Tab PO 5 mg DAILY [facility] Administration Carvedilol 12.5 mg 04/03/21 17:30 04/07/21 08:21 Carvedilol 12.5 Mg Tab PO 12.5 mg BID-W/MEALS [facility] Administration Clopidogrel Bisulfate 75 mg 04/04/21 09:00 04/07/21 08:20 Clopidogrel 75 Mg Tab PO 75 mg DAILY [facility] Administration Cyanocobalamin 1,000 mcg 04/04/21 09:00 04/07/21 08:20 Cyanocobalamin 500 Mcg Tab PO 1,000 mcg DAILY [facility] Administration Docusate Sodium 100 mg 04/03/21 15:04 04/04/21 13:27 Docusate 100 Mg Cap PO 100 mg BID PRN Administration Constipation Ergocalciferol 1,250 mcg 04/04/21 09:00 04/04/21 08:03 Ergocalciferol 1,250 Mcg (50,000 Iu) Capsule PO 1,250 mcg CHAVEZ BE[facility]O Administration Folic Acid 1 mg 04/04/21 09:00 04/07/21 08:20 Folic Acid 1 Mg Tab PO 1 mg DAILY BE[facility] Administration Hydralazine HCl 50 mg 04/06/21 21:00 04/07/21 08:21 Hydralazine Hcl 50 Mg Tab PO 50 mg BID BELLO Administration Sodium Chloride 1,000 mls @ 50 mls/hr 04/02/21 16:45 04/06/21 12:05 Saline 0.9% IV 50 mls/hr .Q20H [facility] Administration Aztreonam 1 gm/ Sodium 50 mls @ 16.67 mls/hr 04/06/21 19:00 04/07/21 08:20 Chloride IVPB 16.67 mls/hr Q12H [facility] Administration Protocol Lamotrigine 200 mg 04/06/21 09:00 04/07/21 08:21 Lamotrigine 100 Mg Tab PO 200 mg DAILY BE[facility] Administration Naloxone HCl 0.2 mg 04/02/21 16:33 Naloxone 0.4 Mg/Ml 1 Ml Vial IV Q2M PRN Opioid Reversal Ondansetron HCl 4 mg 04/02/21 16:33 Ondansetron 4 Mg/2 Ml Vial IVP Q8HR PRN Nausea And Vomiting Pantoprazole Sodium 40 mg 04/04/21 06:00 04/07/21 05:22 Pantoprazole 40 Mg Tablet PO 40 mg DAILY@0600 [facility] Administration Rivaroxaban 15 mg 04/05/21 14:00 04/07/21 08:21 Rivaroxaban 15 Mg Tab PO 15 mg DAILY [facility] Administration Protocol Topiramate 200 mg 04/06/21 09:00 04/07/21 08:21 Topiramate 100 Mg Tab PO 200 mg DAILY [facility] Administration Intake and Output 04/06/21 04/07/21 04/07/21 22:59 06:59 14:59 Intake Total 1910 770 Output Total 900 1400 Balance 1010 -630 Intake: Intake, IV Titration 650 650 Amount Aztreonam 1 gm In Sodium 100 Chloride 0.9% 50 ml @ 100 mls/hr IVPB ONCE ONE Rx# :[id number] Aztreonam 1 gm In Sodium 50 Chloride 0.9% 50 ml @ 16. 67 mls/hr IVPB Q12H [facility] Rx#:[id number] Sodium Chloride 0.9% 1, 550 600 000 ml @ 50 mls/hr IV . Q20H [facility] Rx#:[id number] Oral 1260 120 Output: Urine 900 1400 Other: Voiding Method Indwelling Catheter # Voids 2 # Bowel Movements 3 04/04/21 05:51 04/07/21 07:03
[2021-04-07 15:12] LABS: Basophils % (A) 1 %; Eosinophils # (A) 0.7 k/uL (0-0.7); Eosinophils % (A) 15 %; HCT 34.6 % (34.0-46.0); Lymphocytes # (A) 0.6 k/uL (1.0-4.8); Lymphocytes % (A) 14 %; MCH 30.3 pg (25.0-35.0); MCHC 31.7 g/dL (31.0-37.0); MCV 95.7 fL (80.0-100.0); Mean Platelet Volume 7.8; Monocytes # (A) 0.3 k/uL (0-1.0); Monocytes % (A) 6 %; Neutrophils # (A) 2.9 k/uL (1.3-7.7); Neutrophils % (A) 61 %; Platelet Count 182 k/uL (150-450); RBC 3.62 m/uL (3.80-5.40); RDW 14.6 % (11.5-15.5); WBC 4.7 k/uL (3.8-10.6)
--- NOTE | 2021-04-07 17:44 | ECHOF ---
Referral Reason:LV function MEASUREMENTS -------- HEIGHT: 162.6 cm WEIGHT: 122.5 kg BP: IVSd: 1.3 cm (0.6 - 1.1) LVIDd: 4.7 cm (3.9 - 5.3) LVPWd: 1.5 cm (0.6 - 1.1) IVSs: 1.7 cm LVIDs: 3.8 cm LVPWs: 1.1 cm LA Diam: 5.4 cm (2.7 - 3.8) Ao Diam: 3.5 cm (2.0 - 3.7) AV Cusp: 1.7 cm (1.5 - 2.6) MV EXCURSION: 17.354 mm (> 18.000) MV EF SLOPE: 23 mm/s (70 - 150) EPSS: 0.6 cm MV E Michael: 0.39 m/s MV DecT: 311 ms MV A Michael: 0.56 m/s MV E/A Ratio: 0.70 AV maxP.29 mmHg AV meanP.91 mmHg AR PHT: 664 ms RAP: 5.00 mmHg RVSP: 34.20 mmHg FINDINGS -------- Pacemaker This was a technically adequate study. Morbid Obesity The left ventricular size is normal. There is moderate concentric left ventricular hypertrophy. O verall left ventricular systolic function is mildly impaired with, an EF between 45 - 50 %. The right ventricle is normal in size. The left atrium is markedly dilated. The right atrial size is normal. There is mild aortic regurgitation. Peak/mean gradient across the Aortic Valve is 24.29mmHg / 12.91 mmHg. Mild mitral annular calcification present. Mild mitral regurgitation is present. Mild tricuspid regurgitation present. Right ventricular systolic pressure is normal at < 35 mmHg. Trace/mild (physiologic) pulmonic regurgitation. There is no pericardial effusion. CONCLUSIONS -------- 1. Morbid Obesity 2. The left ventricular size is normal. 3. There is moderate concentric left ventricular hypertrophy. 4. Overall left ventricular systolic function is mildly impaired with, an EF between 45 - 50 %. 5. The right ventricle is normal in size. 6. The left atrium is markedly dilated. 7. The right atrial size is normal. 8. There is mild aortic regurgitation. 9. Peak/mean gradient across the Aortic Valve is 24.29mmHg / 12.91mmHg. 10. Mild mitral annular calcification present. 11. Mild mitral regurgitation is present. 12. Mild tricuspid regurgitation present. 13. Trace/mild (physiologic) pulmonic regurgitation. 14. There is no pericardial effusion. ALARM SERVICE TECHNICIAN: Rox Blakely RDCS
[2021-04-07] MEDS: ACETAMINOPHEN TAB 325 MG TAB PO PRN (18:33)
--- NOTE | 2021-04-07 18:40 | PN ---
PROGRESS NOTE DATE OF SERVICE: 04/07/2021 REASON FOR FOLLOWUP: Fever, possible UTI. INTERVAL HISTORY: The patient is afebrile. The patient is feeling better. She is breathing comfortably. Denies having any chest pain, shortness of breath or cough. No abdominal pain. No diarrhea. PHYSICAL EXAMINATION: Blood pressure 131/75 with a pulse of 68, temperature 97.9. She is 97 percent on 2 L nasal cannula. General description is an elderly female up in the room in no distress. Respiratory system: Unlabored breathing, decreased breath sounds in the base, with no wheeze. Heart S1, S2. Regular rate and rhythm. Abdomen soft, no tenderness. LABORATORY DATA: Hemoglobin 11, white count 4.7. Urine is showing E coli and Pseudomonas aeruginosa. DIAGNOSTIC IMPRESSION AND PLAN: Patient with a fever, possible urinary tract infection. Urine shows E coli and Pseudomonas. Covered with the Azactam. Will be able to finish a short course of oral Cipro and close outpatient followup. MMODL / IJN: [id number] /
--- NOTE | 2021-04-07 18:54 | P.PN ---
Subjective Progress Note Date: 04/07/21 Patient was seen for a follow-up. P patient states that she was doing much better from neurology standpoint. She was able to walk with help around in the room, and was up in the chair for 4 hours. She was doing much better. However she has developed hematuria, and also had transient run of V. tach. Cardiology has been consulted. Objective - Vital Signs Vital signs: Vital Signs Temp 97.9 F 04/07/21 12:18 Pulse 60 04/07/21 12:18 Resp 17 04/07/21 12:18 BP 131/75 04/07/21 12:18 Pulse Ox 97 04/07/21 12:18 Intake & Output 04/06/21 04/07/21 04/07/21 18:59 06:59 18:59 Intake Total 1570 1110 1200 Output Total 1600 1400 Balance -30 -290 1200 Intake: Intake, IV Titration 650 650 600 Amount Aztreonam 1 gm In Sodium 100 Chloride 0.9% 50 ml @ 100 mls/hr IVPB ONCE ONE Rx# :[id number] Aztreonam 1 gm In Sodium 50 Chloride 0.9% 50 ml @ 16. 67 mls/hr IVPB Q12H [facility] Rx#:[id number] Sodium Chloride 0.9% 1, 550 600 600 000 ml @ 50 mls/hr IV . Q20H [facility] Rx#:[id number] Oral 920 460 600 Output: Urine 1600 1400 Other: Voiding Method Indwelling Catheter Indwelling Catheter # Voids 2 # Bowel Movements 3 - Exam Patient's mental status, speech and language functions are normal. Detailed examination deferred, as patient is feeling better clinically from neurology point. - Labs CBC & Chem 7: 04/07/21 14:56 04/07/21 07:03 Labs: Abnormal Lab Results - Last 24 Hours (Table) 04/06/21 04/07/21 04/07/21 Range/Units 23:20 07:03 07:03 RBC (3.80-5.40) m/uL Hgb (11.4-16.0) gm/dL Lymphocytes # (1.0-4.8) k/uL Chloride 115 H (98-107) mmol/L Glucose 101 H (74-99) mg/dL C-Reactive Protein 11.0 H (0.0-0.8) mg/dL Urine Protein Trace H (Negative) Urine Blood Large H (Negative) Urine Nitrite Positive H (Negative) Ur Leukocyte Esterase Large H (Negative) Urine RBC 31 H (0-5) /hpf Urine WBC 48 H (0-5) /hpf Urine Bacteria Occasional H (None) /hpf Urine Mucus Moderate H (None) /hpf 04/07/21 Range/Units 14:56 RBC 3.62 L (3.80-5.40) m/uL Hgb 11.0 L (11.4-16.0) gm/dL Lymphocytes # 0.6 L (1.0-4.8) k/uL Chloride (98-107) mmol/L Glucose (74-99) mg/dL C-Reactive Protein (0.0-0.8) mg/dL Urine Protein (Negative) Urine Blood (Negative) Urine Nitrite (Negative) Ur Leukocyte Esterase (Negative) Urine RBC (0-5) /hpf Urine WBC (0-5) /hpf Urine Bacteria (None) /hpf Urine Mucus (None) /hpf Microbiology - Last 24 Hours (Table) 04/03/21 18:05 Urine Culture - Final Urine,Catheterized Escherichia coli Pseudomonas aeruginosa 04/03/21 13:11 Blood Culture - Preliminary Blood No Growth after 96 hours 04/03/21 13:13 Blood Culture - Preliminary Blood No Growth after 96 hours 04/06/21 23:20 Urine Culture - Preliminary Urine,Voided Assessment and Plan Assessment: * Altered mental status, likely due to toxic-metabolic encephalopathy. Patient's acute kidney injury, dehydration and possibly secondary buildup of medication are the likely causes. Patient's renal functions have much improve d. * Acute UTI, with urine cultures growing > 100,000 E. coli and Pseudomonas * Acute kidney injury, much improved * Acute right leg pain probably due to acute hip osteoarthritis, also appears to have much improved on examination today. * Pacemaker * Obesity * B12 deficiency, now on oral replacement. * Folate deficiency Plan: * Patient's right leg pain has much improved. Patient currently on [place] only on as needed. * Increase activity, may consider placing her out of bed, in the recliner. * Patient probably will benefit from transfer to subacute rehab before going to home. Discussed with patient's family. * Regarding her mental status, also has improved since her renal functions is improved. Neurontin has been discontinued. Patient has acute UTI based upon abnormal urine cultures. Patient has been started on aztreonam. Infectious disease following. * Continue B12.
[2021-04-07] MEDS: SODIUM CHLORIDE 0.9% 1,000 ML IV SCH (20:33)
[2021-04-08] MEDS: SODIUM CHLORIDE 0.9% 1,000 ML IV SCH (01:47)
[2021-04-08] MEDS: PANTOPRAZOLE 40 MG TABLET PO SCH (06:01)
[2021-04-08] MEDS: AZTREONAM 1 GM in SODIUM CHLORIDE 0.9% 50 ML IVPB SCH (06:02)
[2021-04-08] MEDS: carvediloL 12.5 MG TAB PO SCH (07:39)
[2021-04-08] MEDS: AMIODARONE 200 MG TAB PO SCH (08:44)
[2021-04-08] MEDS: CYANOCOBALAMIN 500 MCG TAB PO SCH (08:45)
[2021-04-08] MEDS: hydrALAZINE HCL 50 MG TAB PO SCH (08:45)
[2021-04-08] MEDS: RIVAROXABAN 15 MG TAB PO SCH (08:45)
[2021-04-08] MEDS: amLODIPine 5 MG TAB PO SCH (08:45)
[2021-04-08] MEDS: TOPIRAMATE 100 MG TAB PO SCH (08:45)
[2021-04-08] MEDS: CLOPIDOGREL 75 MG TAB PO SCH (08:45)
[2021-04-08] MEDS: lamoTRIgine 100 MG TAB PO SCH (08:45)
[2021-04-08] MEDS: FOLIC ACID 1 MG TAB PO SCH (08:45)
--- NOTE | 2021-04-08 11:33 | P.PN ---
Subjective Progress Note Date: 04/08/21 HISTORY OF PRESENT ILLNESS: This is a 75-year-old female with a past medical history significant for paroxysmal atrial fibrillation on Xarelto, coronary artery disease with PCI to LAD in February 2020 at [facility], chronic kidney disease, hypertension, hyperlipidemia, ischemic cardiomyopathy, permanent pacemaker insertion, and bicuspid aortic valve. Patient follows in the office with Dr. Muniz. We have been asked to see the patient in consultation for ventricular tachycardia. Patient examined at the bedside. Patient denies chest pain or pressure. Denies shortness of breath. She complains of generalized weakness and pain in her right hip. EKG reveals paced rhythm Chest xray correlate for interstitial pneumonitis versus interstitial venous congestion Laboratory data: WBC 3.9. Hemoglobin 11.7. 138. Sodium 142. Potassium 4.3. BUN 16. Creatinine 0.93. Magnesium 1.9. Troponin negative 1 Current home cardiac medications include Xarelto 15 mg daily, Plavix 35 mg daily, carvedilol 12.5 mg twice a day, amiodarone 200 mg daily Patient underwent Lexiscan stress test in April 2019 revealing negative Lexiscan stress test. Abnormal perfusion study with a predominantly reversible defect of tvjy-de-odqieptu degree involving the inferior wall and septal area. Echocardiogram completed in April 2018 revealed ejection fraction 50%. Icau-lz-keoylezv aortic regurgitation. Moderate tricuspid regurgitation. Cardiac catheterization history: January 2018 revealing chronically occluded right coronary artery and moderate disease in the mid LAD 04/08/2021 Patient examined this morning at the bedside. Patient denies chest pain or pressure. Patient denies shortness of breath. Patient's heart rate in the 60s. Blood pressure 163/83. Echocardiogram completed revealed ejection fraction 45- 50%. Mild mitral regurgitation. Mild aortic regurgitation. PHYSICAL EXAM: VITAL SIGNS: Reviewed. GENERAL: Well-developed in no acute distress. HEENT: Head is normocephalic. Pupils are equal, round. Sclerae anicteric. Mucous membranes of the mouth are moist. Neck supple. No JVD or thyromegaly LUNGS: Respirations even and unlabored. Lungs essentially clear to auscultation bilaterally. HEART: Regular rate and rhythm. S1 and S2 heard. ABDOMEN: Soft. Nondistended. Nontender. EXTREMITIES: No clubbing or cyanosis. Peripheral pulses intact. No lower extremity edema NEUROLOGIC: Awake and alert. Oriented x 3. ASSESSMENT: Altered mental status, possible toxic-metabolic encephalopathy Acute urinary tract infection Acute kidney injury Wide complex tachycardia, suspect paced beats not v-tach Paroxysmal atrial fibrillation Coronary artery disease with previous PCI to the LAD in February 2020 [place] Hypertension Hyperlipidemia History of ischemic cardiomyopathy History of permanent pacemaker insertion Bicuspid aortic valve PLAN: Increase carvedilol to 25 mg twice a day Device rep interrogated pacemaker this morning. Patient is in SR with no episodes of atrial fibrillation. No changes made to PPM at this time. Patient may be discharged today from a cardiac standpoint We will sign off. Please reconsult if needed. Nurse practitioner note has been reviewed by physician. Signing provider agrees with the documented findings, assessment, and plan of care. Objective - Vital Signs Vital signs: Vital Signs Temp 97.9 F 04/08/21 07:10 Pulse 68 04/08/21 07:10 Resp 18 04/08/21 07:10 BP 163/83 04/08/21 07:10 Pulse Ox 98 04/08/21 07:10 Intake & Output 04/07/21 04/08/21 04/08/21 18:59 06:59 18:59 Intake Total 1200 590 Output Total 300 500 Balance 900 90 Intake: Intake, IV Titration 600 Amount Sodium Chloride 0.9% 1, 600 000 ml @ 50 mls/hr IV . Q20H [facility] Rx#:[id number] Oral 600 590 Output: Urine 300 500 Uretheral ([place]) 500 Other: Voiding Method Indwelling Catheter Indwelling Catheter Indwelling Catheter # Voids 0 - Labs CBC & Chem 7: 04/07/21 14:56 04/07/21 07:03 Labs: Abnormal Lab Results - Last 24 Hours (Table) 04/07/21 04/07/21 Range/Units 07:03 14:56 RBC 3.62 L (3.80-5.40) m/uL Hgb 11.0 L (11.4-16.0) gm/dL Lymphocytes # 0.6 L (1.0-4.8) k/uL C-Reactive Protein 11.0 H (0.0-0.8) mg/dL Microbiology - Last 24 Hours (Table) 04/07/21 07:03 Blood Culture - Preliminary Blood No Growth after 24 hours 04/03/21 18:05 Urine Culture - Final Urine,Catheterized Escherichia coli Pseudomonas aeruginosa 04/03/21 13:11 Blood Culture - Preliminary Blood No Growth after 96 hours 04/03/21 13:13 Blood Culture - Preliminary Blood No Growth after 96 hours 04/06/21 23:20 Urine Culture - Preliminary Urine,Voided
[2021-04-08] MEDS ORDERED: AZTREONAM 2 GM in SODIUM CHLORIDE 0.9% 50 ML IVPB SCH (12:00)
[2021-04-08] MEDS ORDERED: AZTREONAM 2 GM in SODIUM CHLORIDE 0.9% 100 ML IVPB SCH (12:00)
--- NOTE | 2021-04-08 13:27 | P.DS ---
Providers Date of admission: 04/02/21 16:33 Attending physician: Alfredito Bone MD Consults: 04/05/21 11:25 Consult Physician Urgent Consulting Provider: Jessica Hahn Consult Reason/Comments: weakness in legs Do you want consulting provider notified?: Yes 04/05/21 19:28 Consult Physician Urgent Consulting Provider: Deepak Soler Consult Reason/Comments: uri with drug allergy Do you want consulting provider notified?: Yes Primary care physician: Drew Neff Hospital Course: Diagnoses: Acute urinary tract infection secondary to E. coli and Pseudomonas Generalized weakness and deconditioning, patient agreeable to go to rehab Few runs of nonsustained V. tach, pacemaker interrogation done and cleared by technician submarine cable equipment for discharge Altered mental status/metabolic encephalopathy. Resolved Acute kidney injury, resolved severe right hip pain secondary to osteoarthritis, she is scheduled for right hip injection as an outpatient Gait dysfunction secondary to right hip pain Substance abuse with cannabis in the urine drug screen Recent history of vitamin B12 deficiency, on replacement therapy Fibromyalgia Atrial fibrillation on Xarelto morbid obesity with BMI of 46.3 Mild transaminitis mostly secondary to medication effect hypertension Hospital course 75-year-old female patient with history of hypertension, atrial fibrillation, fibromyalgia and sleep apnea presents to ER with altered mental status secondary to toxic effects from medication especially [place] and gabapentin secondary to her acute kidney injury. Her creatinine on admission was 3.0, now is back to normal at 0.9. She was confused upon admission but this resolved with IV hydration, improvement of her renal function and discontinuation of her gabapentin. She found to have acute urinary tract infection secondary to E. coli and Pseudomonas, treated with aztreonam. Infectious disease team were following the patient closely. Patient will be discharged on 7 days of cefepime, midline placed prior to discharge. She will be discharged with a Cannon catheter to improvement of her infection and then Cannon catheter can be tried to discontinued with monitoring of her post void residual for any further urinary retention. Also patient is a schedule for appointment with pain and ache with Dr. Jensen on 04/19 at 8:00 AM. Patient is recommended to hold Plavix 5 days prior for procedure and Xarelto 48 hours prior to procedures as per recommendations. Patient is aware of these recommendations. Also she is aware of the risk of stroke without this medication. She has a few runs of nonsustained VT, asymptomatic. Pacemaker interrogation done by technician submarine cable equipment team. Her Coreg dose increased to 25 mg twice a day Also Norvasc and hydralazine were added for better control of her blood pressure hypertension Today patient is fully awake and oriented, she is in some distress due to her right hip pain, her pain is controlled with [place] 5 mg compared to 10 mg at home. She denies any chest pain or dyspnea. No abdominal pain. No urinary complaints. Cannon catheter is in place. No fever. Patient was cleared for discharge by all consultants including neurologist, technician submarine cable equipment, infectious disease team Patient is agreeable to go to rehab Problems and management plan were discussed with the patient and he verbalized understanding and acceptance Patient was found stable and can be discharged home however he needs follow-up as an outpatient. Patient was instructed to follow up with PCP within one week and patient agrees Patient was instructed to follow up with Dr. Jensen from pain clinic on 04/19 8 AM in the morning Physical exam Gen: patient is a AAOx3, no distress CVS: S1-S2, RRR, no murmur Lungs: B/L CTA, no wheezing Abdomen: soft, no distention, no tenderness, positive bowel sounds. Cannon catheter is in place Extremity: no leg edema or induration. Right hip pain with minimal tenderness, gait difficulty due to pain Time spent more than 35 minutes Patient Condition at Discharge: Fair Plan - Discharge Summary Discharge Rx Participant: Yes New Discharge Prescriptions: New hydrALAZINE HCL [Apresoline] 50 mg PO BID tab HYDROcodone/APAP 5-325MG [[place] 5-325] 1 each PO Q8HR PRN #6 tab PRN Reason: Pain carvediloL [Coreg*] 25 mg PO BID-W/MEALS tab amLODIPine [Norvasc] 5 mg PO DAILY tab Continue Baclofen 10 mg PO HS Topiramate [Topamax] 200 mg PO DAILY lamoTRIgine [LaMICtal] 200 mg PO DAILY Cyanocobalamin [Vitamin B-12] 1,000 mcg PO DAILY #30 tablet Pantoprazole Sodium [Protonix] 40 mg PO DAILY@0600 Ergocalciferol [Vitamin D2 (1250 Mcg = 77167 Iu)] 1,250 mcg PO CHAVEZ DULoxetine HCL [Cymbalta] 60 mg PO HS Clopidogrel Bisulfate [Plavix] 75 mg PO DAILY Amiodarone [Cordarone] 200 mg PO DAILY Rivaroxaban [Xarelto] 15 mg PO DAILY Docusate [Colace] 100 mg PO BID PRN #30 cap PRN Reason: Constipation Folic Acid 1 mg PO DAILY #30 tab Acetaminophen Tab [Tylenol] 650 mg PO Q6H 3 Days #16 tab Discontinued Gabapentin [Neurontin] 200 mg PO TID #60 cap Carvedilol [Coreg] 12.5 mg PO BID-W/MEALS oxyCODONE-APAP 10-325MG [Percocet 10-325 mg] 1 tab PO QID Discharge Medication List Baclofen 10 mg PO HS 04/13/15 [History] Topiramate [Topamax] 200 mg PO DAILY 03/28/17 [History] lamoTRIgine [LaMICtal] 200 mg PO DAILY 03/28/17 [History] Amiodarone [Cordarone] 200 mg PO DAILY 03/22/21 [History] Clopidogrel Bisulfate [Plavix] 75 mg PO DAILY 03/22/21 [History] DULoxetine HCL [Cymbalta] 60 mg PO HS 03/22/21 [History] Ergocalciferol [Vitamin D2 (1250 Mcg = 21809 Iu)] 1,250 mcg PO CHAVEZ 03/22/21 [History] Pantoprazole Sodium [Protonix] 40 mg PO DAILY@0600 03/22/21 [History] Rivaroxaban [Xarelto] 15 mg PO DAILY 03/22/21 [History] Acetaminophen Tab [Tylenol] 650 mg PO Q6H 3 Days #16 tab 03/26/21 [Rx] Cyanocobalamin [Vitamin B-12] 1,000 mcg PO DAILY #30 tablet 03/26/21 [Rx] Docusate [Colace] 100 mg PO BID PRN #30 cap 03/26/21 [Rx] Folic Acid 1 mg PO DAILY #30 tab 03/26/21 [Rx] HYDROcodone/APAP 5-325MG [[place] 5-325] 1 each PO Q8HR PRN #6 tab 04/08/21 [Rx] amLODIPine [Norvasc] 5 mg PO DAILY tab 04/08/21 [Rx] carvediloL [Coreg*] 25 mg PO BID-W/MEALS tab 04/08/21 [Rx] hydrALAZINE HCL [Apresoline] 50 mg PO BID tab 04/08/21 [Rx] Follow up Appointment(s)/Referral(s): Drew Neff DO [Primary Care Provider] - 1-2 days Patient Instructions/Handouts: Acute Kidney Injury (DC), Altered Mental Status (ED) Plan of Treatment: follow up at pain clinic April 19 at 8:[address] Garcias, PATIENT TO FOLLOW INSTRUCTIONS REGARDING HOLDING OF XARELTO 48 HOURS PRIOR AND PLAVIX 5 DAYS PRIOR TO ACTUAL PROCEEDURE
[2021-04-08] MEDS ORDERED: CEFEPIME 2 GM in SODIUM CHLORIDE 0.9% 100 ML IVPB SCH (14:00)
--- NOTE | 2021-04-08 14:18 | PN ---
PROGRESS NOTE DATE OF SERVICE: 04/08/2021 REASON FOR FOLLOWUP: Pseudomonas and Escherichia coli urinary tract infection. INTERVAL HISTORY: The patient is afebrile. The patient is feeling better, breathing comfortably. No chest pain, shortness of breath or cough. No abdominal pain or diarrhea. PHYSICAL EXAMINATION: Her blood pressure is 163/83 with pulse of 68, temperature 97.9. She is 98% on room air. GENERAL DESCRIPTION: General description is an elderly female lying in bed in no distress. RESPIRATORY SYSTEM: Unlabored breathing. Decreased breath sounds at the bases. No wheeze. HEART: S1, S2. Regular rate and rhythm. ABDOMEN: Soft. No tenderness. LABS: No new labs have been obtained today. Culture showing Pseudomonas and E coli. DIAGNOSTIC IMPRESSION AND PLAN: Patient with low-grade fever and weakness, possible component of a symptomatic urinary tract infection. UA did show Pseudomonas and E coli. Unfortunately we cannot use oral Cipro, as the patient is on amiodarone. She will get a midline and a course of IV cefepime at the shelter. Continue supportive care. MMODL / IJN: [id number] /
[2021-04-08] MEDS: HYDROcodone/APAP 5-325MG 1 EACH TAB PO PRN (14:27)
[2021-04-08 15:38] VITALS: BP 160/79; PULSE 58; RESP 16; TEMP 99.1
--- NOTE | 2021-04-08 15:42 | CDI ---
Documentation Clarification Form Date: 04/08/2021 03:13:00 PM From: Aisha Coffey CCS, CCDS Admit Date: 04/02/2021 04:33:00 PM Patient Name: Katarzyna Ramos Visit Number: [id number] Discharge Date: ATTENTION: The Clinical Documentation Specialists (CDI) and [facility] Coding Staff appreciate your assistance in clarifying documentation. Please respond to the clarification below the line at the bottom and electronically sign. The CDI & [facility] Coding staff will review the response and follow-up if needed. Please note: Queries are made part of the Legal Health Record. If you have any questions, please contact the author of this message via ITS. Dr. Ortiz Sheet: CHF and Heart Failure is documented beginning in the 04/03 History & Physical without further specificity. Chronic Kidney Disease is documented in the 04/07 Cardiology Consult History of Present Illness and in subsequent Progress Note without further specificity. The patient also has a documented history of Hypertension. Cardiology was consulted for Ventricular Tachycardia and Nephrology was not consulted. Additional clarification is requested regarding the patient's Hypertension, Heart Failure and CKD. History/Risk Factors per the 04/03 H/P: Atrial Fibrillation (Paroxysmal per Cardiology), Pacemaker, Hypertension, DJD, Breast Cancer status post Radiation and Bilateral Mastectomy, Born with one kidney, Narcolepsy, Sleep Apnea & Fibromyalgia, Bipolar. Non smoker. Clinical Indicators: Presented to the ED on 04/02 with confusion and altered mental status per family. Recently discharged after treatment for a UTI. Dehydrated from poor oral intake, in ALEM. No edema or swelling noted. 04/02 VS: T 97.6, P 77, R 16 - 20, BP 126/64 - 168/90; PO 90 3Lnc. BMI: 46.3. 04/02 LAB: WBC 3.0, RBC 5.81, Hgb 17.9, Hct 58.1, Pl Ct 84, Lymph 0.3; CO2 20, BUN 47, Cr 3.02, Mag 2.4, AST 77, ALT 50, Alk Phos 196 04/02 BUN 47, Creatinine 3.02, GFR: 15 04/03 GFR: 31. 9/5: 41. 9/7: 55.5. 04/07: 61 Historical GFR 04/06/2017: 38 & 46. 04/07 ECHO: Morbid Obesity, Moderate LVH, Left ventricular systolic function mildly impaired w/EF 45-50%, Mild AR, MR, TR, Trace/mild pulmonic regurgitation. 04/02 CXR: Cardiomegaly, Aortic aneurysm, correlate for possible pulmonary artery hypertension. Home Meds: Lamictal, Topamax, Xarelto, Plavix, Cordarone, Apresoline, Coreg, Norvasc, [place] Treatment 04/02: IV Narcan, IV Calcium Gluconate 100 mls/hr x1, IV fl 999 mls/hr q1H, IV Zofran, IV fl rate 50 mls/hr q20H, Can you please clarify the following: [ ] Hypertensive Heart and Chronic Kidney Disease with Heart Failure, please specify Acuity & Type of CHF & CKD [ ] Acute Systolic CHF [ ] Chronic Systolic CHF [ ] Acute on Chronic Systolic CHF [ ] Chronic Kidney Disease, please specify Stage of CKD: [ ] CKD Stage 2 (GFR 60-89) [ ] CKD Stage 3 (GFR 30-59) [ ] CKD Stage 3a (GFR 45-59) [ ] CKD Stage 3b (GFR 30-44) [ ] CKD Stage 4 (GFR 15-29) [ ] Hypertensive Heart and Chronic Kidney Disease without Heart Failure, please specify Acuity & Type of CKD [ ] CKD Stage 2 (GFR 60-89) [ ] CKD Stage 3 (GFR 30-59) [ ] CKD Stage 3a (GFR 45-59) [ ] CKD Stage 3b (GFR 30-44) [ ] CKD Stage 4 (GFR 15-29) [ ] Heart Failure Ruled out [ ] Chronic Kidney Disease ruled out [ ] Other, please specify [ ] Unable to determine (Template Last Revised: September 2020) alem resolved , no chf MTDD
[2021-04-08] MEDS ORDERED: carvediloL 12.5 MG TAB PO SCH (17:30)
== END 2021-04-08 17:21 | DRG 682 ==
LOC: EC 13:37 → 5NMEDONC 16:33
PROVIDERS: ADMIT Internal Medicine; ATTEND Internal Medicine
PROC: 3E0F7SF Introduction of Other Gas into Respiratory Tract, Via Natural or Artificial Opening (ICD-10-PCS; 2021-04-02)
PROC: 05HB33Z Insertion of Infusion Device into Right Basilic Vein, Percutaneous Approach (ICD-10-PCS; principal; 2021-04-08 08:25)
DX: N17.0 Acute kidney failure with tubular necrosis (principal); G92 Toxic encephalopathy; B17.9 Acute viral hepatitis, unspecified; I13.0 Hypertensive heart and chronic kidney disease with heart failure and stage 1 through stage 4 chronic kidney disease, or unspecified chronic kidney disease; I47.2 Ventricular tachycardia; N39.0 Urinary tract infection, site not specified; Z68.42 Body mass index [BMI] 45.0-49.9, adult; Q60.0 Renal agenesis, unilateral; Q25.1 Coarctation of aorta; B96.20 Unspecified Escherichia coli [E. coli] as the cause of diseases classified elsewhere; Z20.822 Contact with and (suspected) exposure to COVID-19; D69.6 Thrombocytopenia, unspecified; D72.819 Decreased white blood cell count, unspecified; D75.1 Secondary polycythemia; E66.01 Morbid (severe) obesity due to excess calories; E53.8 Deficiency of other specified B group vitamins; E78.5 Hyperlipidemia, unspecified; E83.51 Hypocalcemia; E86.0 Dehydration; G47.30 Sleep apnea, unspecified; I25.10 Atherosclerotic heart disease of native coronary artery without angina pectoris; I25.5 Ischemic cardiomyopathy; I48.0 Paroxysmal atrial fibrillation; N18.9 Chronic kidney disease, unspecified; I50.9 Heart failure, unspecified; M16.11 Unilateral primary osteoarthritis, right hip; M79.7 Fibromyalgia; F31.9 Bipolar disorder, unspecified; F12.10 Cannabis abuse, uncomplicated; I27.20 Pulmonary hypertension, unspecified; T50.905A Adverse effect of unspecified drugs, medicaments and biological substances, initial encounter; R25.1 Tremor, unspecified; I08.8 Other rheumatic multiple valve diseases; G47.419 Narcolepsy without cataplexy; B96.5 Pseudomonas (aeruginosa) (mallei) (pseudomallei) as the cause of diseases classified elsewhere; R31.9 Hematuria, unspecified; K59.00 Constipation, unspecified; M54.5 Low back pain; X58.XXXA Exposure to other specified factors, initial encounter; R26.89 Other abnormalities of gait and mobility; Z95.0 Presence of cardiac pacemaker; Z95.5 Presence of coronary angioplasty implant and graft; Z98.51 Tubal ligation status; Z90.710 Acquired absence of both cervix and uterus; Z79.899 Other long term (current) drug therapy; Z88.1 Allergy status to other antibiotic agents; Z85.3 Personal history of malignant neoplasm of breast; Z79.02 Long term (current) use of antithrombotics/antiplatelets; Z79.01 Long term (current) use of anticoagulants; Z92.3 Personal history of irradiation; Z87.898 Personal history of other specified conditions; Z88.8 Allergy status to other drugs, medicaments and biological substances; Z88.0 Allergy status to penicillin; Z90.49 Acquired absence of other specified parts of digestive tract; Z90.13 Acquired absence of bilateral breasts and nipples
CPT/HCPCS: 36410; 36415; 70450; 71045; 71046; 72125; 76937; 80048; 80053; 80076; 80306; 81001; 82140; 82330; 83605; 83735; 83880; 84145; 84443; 84484; 85025; 85610; 85730; 86140; 87040; 87077; 87086; 87186; 87635; 93005; 93306; 94760

== ENCOUNTER 2021-04-27 09:26 | Day surgery (SDC) | payer MEDICARE, OTHER ==
[2021-04-27 09:56] VITALS: TEMP 97.1
[2021-04-27] MEDS ORDERED: LACTATED RINGERS 1,000 ML IV ONE (09:57)
[2021-04-27] MEDS ORDERED: methylPREDNISolone ACETATE 40 MG/ML 1 ML VIAL ONE (09:59)
[2021-04-27] MEDS ORDERED: ROPIVACAINE 5MG/ML 20ML VIAL ONE (09:59)
[2021-04-27] MEDS ORDERED: MIDAZOLAM 2 MG/2 ML VIAL ONE (09:59)
[2021-04-27] MEDS ORDERED: fentaNYL (PF) 50 MCG/ML 2 ML AMP ONE (09:59)
[2021-04-27] MEDS ORDERED: LACTATED RINGERS 1,000 ML IV SCH (10:15)
--- NOTE | 2021-04-27 10:18 | P.PCN ---
Date of Procedure: 04/27/21 Procedure(s) Performed: Description of Procedure: PREOPERATIVE DIAGNOSIS:1- Right hip osteoarthritis. 2-right hip arthralgia POSTOPERATIVE DIAGNOSIS: same as pre op diagnosis . PROCEDURES: right intra-articular hip injection with fluoroscopy (fluoroscopy images available in the radiology Department ) ANESTHESIA:;moderate sedation with versed 2 mg ,and fentanyl 50 mcg EBL: Minimal PROCEDURE INDICATION: The patient with Right hip pain secondary to osteoarthritis who has been unresponsive to conservative therapy. No use of blood thinners. PROCEDURE DESCRIPTION / TECHNIQUE: The patient was seen and identified in the preoperative area. Risks, benefits, complications, and alternatives were discussed with the patient (including but not limited to incomplete pain relief, bleeding, infection, nerve damage, and allergies to medications), the patient agreed to proceed with the procedure and signed the consent after all questions were answered. Patient was taken to the OR and time out was completed to verify proper patient, position, laterality of pain, and allergies. Pt was placed in the Supine position. IV was started. Vital signs remained stable throughout the procedure. . The right Hip and the Groin area was prepped and draped in the usual sterile fashion. Vital signs were closely monitored during the procedure. Conscious sedation was used during the procedure to decrease patients anxiety. Using AP fluoroscopy, the femoral neck was identified, marked, and localized with Ropivacaine 0.5 % . Subsequently, a 22 gauge 5-inch spinal needle was advanced guided by fluoroscopy to the 10 o'clock position on the femoral neck until the needle was felt entering the hip capsule. ( Isoview injected because patient had ALLERGY to dye),. After negative aspiration for CSF or heme and in the absence of paresthesias, the full 6 ml ml of the block solution containing Depo-Medrol 40 mg and 5 mL of preservative-free 0.5% Ropivacaine was injected. At the end of the procedure, the skin was cleansed and bandages were applied. COMPLICATIONS: No acute complications. DISPOSITION / PLANS: The patient was placed in a supine position and transferred to the recovery area in a stable condition for observation and was discharged from the recovery room after meeting discharge criteria. Home discharge instructions given to the patient by the staff..
[2021-04-27 10:20] VITALS: RESP 16
--- NOTE | 2021-04-27 10:29 | FL ---
Fluoroscopy HISTORY: Pain 2 seconds fluoroscopy time supplied to the referring clinician. 1 intraoperative C-arm images docume nt the procedure. See dictated report from anesthesia.
[2021-04-27 10:32] VITALS: BP 119/72; PULSE 67
[2021-04-27] MEDS ORDERED: IV FLUID CONTINUATION 1,000 ML IV ONE (10:35)
== END 2021-04-27 10:47 | disposition home or self-care (01) ==
LOC: ORPAIN 09:26
PROVIDERS: ATTEND Specialist
DX: M16.11 Unilateral primary osteoarthritis, right hip (principal); Z88.8 Allergy status to other drugs, medicaments and biological substances; Z91.048 Other nonmedicinal substance allergy status; Z79.01 Long term (current) use of anticoagulants; Z79.02 Long term (current) use of antithrombotics/antiplatelets; Z79.82 Long term (current) use of aspirin
CPT/HCPCS: 20610; J2250; J1030; J3010; J2795; 99152

== ENCOUNTER → 2021-05-19 | Outpatient (CLI) | payer MEDICARE, OTHER ==
[2021-05-19 10:32] VITALS: BP 144/90; PULSE 83; RESP 16; TEMP 98.1
--- NOTE | 2021-05-19 12:36 | P.PN ---
Subjective Progress Note Date: 05/19/21 This is Follow-up visits for this 75 years old female with a chronic history of severe low back pain and right hip pain, she is Diagnosed with osteoarthritis of the right hip, recently we have done right side hip injection intra-articular, she reported that she had no benefit from and she continued to have severe low back pain and severe right hip pain which is increased with any activity interference with the quality of life patient not able to ambulate secondary to intensity of the pain, she feels weakness in the lower extremity Objective - Vital Signs Vital signs: Vital Signs Temp 98.1 F 05/19/21 10:25 Pulse 83 05/19/21 10:25 Resp 16 05/19/21 10:25 BP 144/90 05/19/21 10:25 Pulse Ox Intake & Output 05/18/21 05/19/21 05/19/21 18:59 06:59 18:59 Weight 104.326 kg - Exam Physical Examinations : -Constitutiona : Cooperative , not in acute distress . -HEENT : nech : supple , no Lymphadenopathy , normal thyroid size . : eyes : no ptosis , no icterus, no photophobia . - neurologic : Cranial nerve II to XII intact , no focal neurological deffecit . -psychatric : alert , oriented X 3 , appropriate affect , intact judgment and insight . -Lymphatic : no Lymphadenopathy . - musculoskeltal : Lumber spinne Sever tenderness over the Sacroiliac joint on the Right. [place] test= positive right.. Seated flexion test= positive right . Distraction test= positive right Sacroiliac compression test= positive right Severe tenderness over the right trochanteric bursa. Assessment and Plan Plan: Assessment and plan=1-osteoarthritis of the right hip. 2-right sacroiliitis. 3-right trochanteric bursitis. She had no benefit from right hip joint intra- articular injection, patient could benefit from right side sacroiliac joint steroid injections under fluoroscopy guidance and at the same time we can do a right-sided trochanteric bursa steroid injection under fluoroscopy guidance, a shunt currently using Plavix and Xarelto, and it will be okay to proceed with the procedure without holding these medications Time with Patient: Less than 30
== END ==
LOC: PNWHC3 09:57
PROVIDERS: ATTEND Specialist
DX: M16.11 Unilateral primary osteoarthritis, right hip (principal); M46.1 Sacroiliitis, not elsewhere classified; M70.61 Trochanteric bursitis, right hip; Z88.0 Allergy status to penicillin; Z91.041 Radiographic dye allergy status; Z88.5 Allergy status to narcotic agent; Z88.6 Allergy status to analgesic agent; Z88.1 Allergy status to other antibiotic agents
CPT/HCPCS: 99211

== ENCOUNTER 2021-07-06 06:22 | Day surgery (SDC) | payer MEDICARE, OTHER ==
[2021-07-05 12:19] VITALS: BMI 40.9
[~2021-07-06 06:22] MED LIST changes: -ALPRAZolam 0.25 MG TAB PO PRN; +LACTATED RINGERS 1,000 ML IV SCH; -SODIUM CHLORIDE 0.9% 1,000 ML in EMPTY BAG 1 BAG IV ONE
[2021-07-06 06:44] VITALS: TEMP 98.1
[2021-07-06] MEDS ORDERED: LIDOCAINE 1% (10MG/ML) FOR IV START INTRADERMA ONE (06:46)
[2021-07-06] MEDS ORDERED: .fentaNYL (PF) 50 MCG/ML 2 ML AMP ONE (06:55)
[2021-07-06] MEDS ORDERED: methylPREDNISolone ACETATE 40 MG/ML 1 ML VIAL ONE (06:55)
[2021-07-06] MEDS ORDERED: MIDAZOLAM 2 MG/2 ML VIAL ONE (06:55)
[2021-07-06] MEDS ORDERED: ROPIVACAINE 5MG/ML 20ML VIAL ONE (06:55)
--- NOTE | 2021-07-06 07:19 | P.PCN ---
Date of Procedure: 07/06/21 Procedure(s) Performed: Procedure=1- Right sacroiliac joints steroid injection under fluoroscopy guidance (fluoroscopy image stored on file in the radiology Department ). 2-right trochanteric bursa steroid injection under fluoroscopy guidance Preoperative diagnosis= 1-Right sacroiliitis 2-right trochanteric bursitis. 3-right hip arthralgia Postoperative diagnosis=Same as preop Diagnosis . Complication = none Condition= stable Anesthesia= moderate sedation with intravenous Versed 2 mg , and fentanyl 50 micrograms . Indication for the procedure= patient complaining of low back pain , examination was positive for severe tenderness over the right sacroiliac joints , and over the right trochanteric bursa and patient diagnosed with sacroiliitis, for this reason she was good candidate for sacroiliac joint steroid injection, right trochanteric bursa steroid injection Description of the procedure= procedure risk and benefits discussed with the patient, including but not limited, risk of infection and bleeding, and ALLERGIC reaction to the medication and not complete pain relief and patient agreed with the preceding patient taken to the operating room, placed in prone position or standard monitors applied to the patient then after induction of anesthesia back prepped with chlorhexidine 3 times , Then under strict sterile technique, first I did the right sacroiliac joint the which was identified under fluoroscopy guidance been local infiltration of the skin and subcu interstitial with lidocaine 1% then 22-gauge 5 inches long [place]ke Needle advanced slowly under fluoroscopy and placed in the right sacroiliac joint needle placement confirmed with AP and oblique and lateral view and after appropriate needle placement confirmed and after negative aspiration, or heme , then Ropivacaine 0.5% 4 mL, and 30 mg of Depo-Medrol mixed together and injected in the right sacroiliac joint after negative aspiration patient tolerated the procedure well without any complication. Then the right trochanteric bursa steroid injection done under strict sterile technique local infiltration of the skin and subcu interstitial at the location of the right trochanteric bursa then a 22-gauge 5 inches long Quincke Needle advanced slowly under fluoroscopy time placed in the trochanteric bursa area, needle placement confirmed with AP and oblique and lateral view then after appropriate needle placement confirmed and after negative aspiration 0.5% Ropivacaine 4 mL and 30 mg of Depo-Medrol injected in the left sacroiliac joint after negative aspiration patient tolerated the procedure well that any complications and she will follow up in clinic 3 weeks
[2021-07-06] MEDS ORDERED: IV FLUID CONTINUATION 1,000 ML IV ONE (07:21)
[2021-07-06 07:24] VITALS: PULSE 60; RESP 16
[2021-07-06 07:37] VITALS: BP 159/82
--- NOTE | 2021-07-06 09:42 | FL ---
EXAMINATION TYPE: FL guided pain mgmt statistic DATE OF EXAM: 07/06/2021 HISTORY: Fluoroscopy time 12 seconds of fluoroscopy provided. IMPRESSION: 1. Fluoroscopy time.
== END 2021-07-06 07:57 | disposition home or self-care (01) ==
LOC: ORPAIN 06:22
PROVIDERS: ATTEND Specialist
DX: M46.1 Sacroiliitis, not elsewhere classified (principal); M70.61 Trochanteric bursitis, right hip; M25.551 Pain in right hip
CPT/HCPCS: 20610; J2250; J1030; J3010; J2795; G0260; 20553; 27096; 99152

== ENCOUNTER → 2021-07-13 | Outpatient (CLI) | payer MEDICARE, OTHER ==
--- NOTE | 2021-07-13 12:38 | CT ---
EXAMINATION TYPE: CT chest wo con DATE OF EXAM: 07/13/2021 COMPARISON: None HISTORY: Left sided chest lump/mass and chest pain. CT DLP: 749 mGycm. Automated Exposure Control for Dose Reduction was Utilized. TECHNIQUE: CT scan of the thorax is performed without IV contrast. FINDINGS: LUNGS: The lungs are grossly clear, there is no concerning parenchymal mass or nodule identified. T here is no pleural effusion or pneumothorax seen. The tracheobronchial tree is patent. Subsegmental changes involving the lungs most typical of atelectasis. Pleural-based thickening is seen. No consoli dative pneumonia. Correlate for mild emphysematous changes. 3 mm left lower lobe pulmonary nodule. MEDIASTINUM: Lack of IV contrast is noted to limit evaluation for mediastinal and especially hilar ad enopathy. There are no definitive greater than 1 cm hilar or mediastinal lymph nodes. Heart is enlarg ed and there is coronary calcification. Cardiac device seen with multiple cardiac leads.. OTHER: Atrophic right kidney with nonobstructing punctate left renal calculi. Cortical loss involving the left kidney also noted. Hypertrophic and degenerative changes spine. Mild intrahepatic biliary d uctal dilation. IMPRESSION: 1. Cardiomegaly and coronary artery calcification and cardiac device. 3 mm left lower lobe pulmonary nodules too small to characterize and likely benign. Twelve-month fell CT could be obtained. 2. Mild aneurysmal dilation of descending thoracic aorta measuring 3.7 cm results were discussed. 3. Subsegmental changes along the lungs most typical scar or atelectasis. 4. Chronic medical renal disease. 5. Mild central intrahepatic biliary ductal dilation correlate clinically as
== END | disposition home or self-care (01) ==
LOC: RADCTMAIN 11:24
PROVIDERS: ATTEND Family Medicine
DX: R91.8 Other nonspecific abnormal finding of lung field (principal); I71.2 Thoracic aortic aneurysm, without rupture; I25.10 Atherosclerotic heart disease of native coronary artery without angina pectoris; N18.9 Chronic kidney disease, unspecified
CPT/HCPCS: 71250

== ENCOUNTER → 2021-07-26 | Outpatient (CLI) | payer MEDICARE, OTHER ==
[2021-07-26 15:04] VITALS: BP 184/83; PULSE 60; RESP 18; TEMP 98.5
--- NOTE | 2021-07-26 20:35 | P.PN ---
Subjective Progress Note Date: 07/26/21 This is Follow-up visits for this 75 years old female with a chronic history of severe low back pain and right hip pain, she is Diagnosed with osteoarthritis of the right hip, recently we have done right sacroiliac joint steroid injection and right trochanteric bursa steroid injection, she reported that her pain in the low back area improved significantly currently she is complaining of neck pain and upper back pain and mid back pain, the pain in the cervical area and thoracic area increases with any activity interfere with her quality of life, she denies any motor or sensory deficit she denies any change in the bowel movement or urination she denies any fever or night sweats, Physical Examinations : -Constitutiona : Cooperative , not in acute distress . -HEENT : nech : supple , no Lymphadenopathy , normal thyroid size . : eyes : no ptosis , no icterus, no photophobia . - neurologic : Cranial nerve II to XII intact , no focal neurological deffecit . -psychatric : alert , oriented X 3 , appropriate affect , intact judgment and insight . -Lymphatic : no Lymphadenopathy . - musculoskeltal : Multiple trigger point identified in the left side lower cervical left side upper thoracic area and left-sided midthoracic area and the paraspinal muscles. Assessment and Plan Plan: Assessment and plan= 1-osteoarthritis of the right hip. 2-right sacroiliitis. 3-right trochanteric bursitis. 4-myofascial pain syndrome cervical and thoracic area ( left side ) Low back pain improve 100 % after right-sided sacroiliac joint steroid injection and after a right trochanteric bursa steroid injection Currently patient complaining of severe cervical, and thoracic myofascial pain paraspinal muscles, patient could benefit from trigger point injection, if patient had no benefit from trigger point injection then we need to order computed tomography scan of the thoracic spine to evaluate the etiology - PQRS measures = - Patient's medications are documented in the chart. -Tobacco use is negative and counseling.Given. -Patient's has received pneumococcal vaccine. -Advanced care planning discussed, patient not eligible. -Opiate contract not signed. -Pain positive and follow-up visit/procedure is scheduled. -Patient's blood pressure measured [184/83 ] , and documented in the record ,and patient will follow up with the primary care. -Patient's weight was measured and body mass index [ 39.9 ] above the normal limits and counseling was done. and patient instructed to follow-up with the primary care physician. -Patient was not identified as an unhealthy alcohol user Time with Patient: Less than 30 Objective - Vital Signs Vital signs: Vital Signs Temp 98.5 F 07/26/21 14:40 Pulse 60 07/26/21 14:40 Resp 18 07/26/21 14:40 BP 184/83 07/26/21 14:40 Pulse Ox 97 07/26/21 14:40
== END ==
LOC: PNWHC3 14:06
PROVIDERS: ATTEND Specialist
DX: M16.11 Unilateral primary osteoarthritis, right hip (principal); M46.1 Sacroiliitis, not elsewhere classified; M70.61 Trochanteric bursitis, right hip; M79.18 Myalgia, other site; Z88.8 Allergy status to other drugs, medicaments and biological substances; Z91.041 Radiographic dye allergy status; Z88.0 Allergy status to penicillin; Z88.1 Allergy status to other antibiotic agents; Z88.5 Allergy status to narcotic agent; Z88.6 Allergy status to analgesic agent
CPT/HCPCS: 99211

== ENCOUNTER 2021-08-01 16:34 | Emergency (ER) | payer MEDICARE, OTHER ==
[2021-08-01] MEDS ORDERED: SODIUM CHLORIDE 0.9% 1,000 ML IV ONE (16:57)
--- NOTE | 2021-08-01 16:58 | ED ---
Lower Extremity Injury HPI - General Chief Complaint: Extremity Injury, Lower Stated Complaint: Fall, left knee pain Time Seen by Provider: 08/01/21 16:41 Source: patient, EMS Mode of arrival: EMS - History of Present Illness Initial Comments: Katarzyna is a 75-year-old female who presents to the emergency Department today with multiple complaints. Patient reports that 2 nights ago she slipped out of bed and twisted her left knee she heard a pop and she was concerned she may have broken something. She's had pain with ambulation since that time. Patient also reports that last night she had nausea vomiting and diarrhea. She reports 4 episodes of nonbloody nonbilious vomiting and 2 episodes of nonbloody diarrhea. Patient reports she feels very weak and fatigued. No nausea or vomiting or diarrhea today. Continues to have pain in her left knee. - Related Data Home Medications Medication Instructions Recorded Confirmed Baclofen 10 mg PO HS 04/13/15 08/01/21 Topiramate [Topamax] 200 mg PO DAILY 03/28/17 08/01/21 lamoTRIgine [LaMICtal] 200 mg PO DAILY 03/28/17 08/01/21 Amiodarone [Cordarone] 200 mg PO DAILY 03/22/21 08/01/21 Clopidogrel Bisulfate [Plavix] 75 mg PO DAILY 03/22/21 08/01/21 DULoxetine HCL [Cymbalta] 60 mg PO HS 03/22/21 08/01/21 Ergocalciferol [Vitamin D2 (1250 1,250 mcg PO CHAVEZ 03/22/21 08/01/21 Mcg = 48231 Iu)] Pantoprazole Sodium [Protonix] 40 mg PO DAILY@0600 03/22/21 08/01/21 Rivaroxaban [Xarelto] 15 mg PO DAILY 03/22/21 08/01/21 carvediloL [Coreg*] 12.5 mg PO BID-W/MEALS 07/05/21 08/01/21 oxyCODONE-APAP 10-325MG [Percocet 1 tab PO QID 07/05/21 08/01/21 10-325 mg] Naloxegol Oxalate [Movantik] 12.5 mg PO MOWEFR 08/01/21 08/01/21 Nitroglycerin Sl Tabs [Nitrostat] 0.4 mg SUBLINGUAL Q5M PRN 08/01/21 08/01/21 amLODIPine [Norvasc] 5 mg PO DAILY 08/01/21 08/01/21 Allergies Allergy/AdvReac Type Severity Reaction Status Date / Time alendronate sodium Allergy Anaphylaxis Verified 08/01/21 18:19 [From Fosamax] amitriptyline HCl Allergy Unknown Verified 08/01/21 18:19 [From Elavil] doxepin HCl [From Sinequan] Allergy Unknown Verified 08/01/21 18:19 iodine Allergy Anaphylaxis Verified 08/01/21 18:19 Penicillins Allergy passed out Verified 08/01/21 18:19 simvastatin [From Zocor] Allergy Unknown Verified 08/01/21 18:19 sulindac [From Clinoril] Allergy Unknown Verified 08/01/21 18:19 vancomycin Allergy Anaphylaxis Verified 08/01/21 18:19 codeine AdvReac Abdominal Verified 08/01/21 18:19 Pain gabapentin [From Neurontin] AdvReac Nausea & Verified 08/01/21 18:19 Vomiting ibuprofen [From Motrin] AdvReac Abdominal Verified 08/01/21 18:19 Pain Review of Systems ROS Statement: Those systems with pertinent positive or pertinent negative responses have been documented in the HPI. ROS Other: All systems not noted in ROS Statement are negative. Past Medical History Past Medical History: Atrial Fibrillation, Cancer, Heart Failure, Fibromyalgia, Hypertension, Memory Impairment, Musculoskeletal Disorder, Osteoarthritis (OA), Sleep Apnea/CPAP/BIPAP Additional Past Medical History / Comment(s): Born with only Lt kidney, Fibroids, Breast cancer 1985-radiation txs, Benign Tremors, Psuedo Coarctation of Aorta, Narcolepsy. c/o back and SI joint pain. No cpap. History of Any Multi-Drug Resistant Organisms: None Reported Past Surgical History: Breast Surgery, Cholecystectomy, Heart Catheterization With Stent, Hysterectomy, Pacemaker, Tonsillectomy, Tubal Ligation Additional Past Surgical History / Comment(s): EP Study/Ablation 2006, pacemaker, Laser eye SX. bilateral mastectomy. Pain proc Past Anesthesia/Blood Transfusion Reactions: No Reported Reaction Date of Last Stent Placement:: 2019 Type of Cardiac Device: Permanent Pacemaker Device Placement Date:: 2003 Past Psychological History: Bipolar Smoking Status: Never smoker Past Alcohol Use History: None Reported Past Drug Use History: Marijuana - Past Family History Father Family Medical History: Cancer Additional Family Medical History / Comment(s): BONE CANCER Mother Family Medical History: Cancer Additional Family Medical History / Comment(s): BREAST CANCER W/METS. Daughter(s) Family Medical History: Cancer Brother(s) Family Medical History: Cancer General Exam - General Exam Comments Initial Comments: Physical Exam GENERAL: Patient is well-developed and well-nourished. Patient is nontoxic and well-hydrated and is in no distress. HENT: Normocephalic, Atraumatic. EYES: PERRL, EOMI PULMONARY: Unlabored respirations. CARDIOVASCULAR: RRR Warm and well perfused extremities ABDOMEN: Soft, Non-distended SKIN: No rashes or bruising : Deferred NEUROLOGIC: Alert and oriented Normal speech MUSCULOSKELETAL: No effusion of left knee noted Normal anterior and posterior drawer test No popping or clicking with range of motion PSYCHIATRIC: No SI/HI Course Vital Signs 08/01/21 08/01/21 16:39 21:22 Pulse Rate 60 65 Respiratory 18 15 Rate Blood Pressure 120/59 124/62 O2 Sat by Pulse 99 99 Oximetry Medical Decision Making - Medical Decision Making Patient was seen and evaluated, history is obtained from patient, concern for dehydration Labs were obtained there is mild elevation of the creatinine She received IV fluids, she was negative for COVID-19 X-ray was negative for any acute injuries x-ray results were discussed with the patient and at bedside, continue supportive care were discussed patient was discharged home - Lab Data Result diagrams: 08/01/21 17:22 08/01/21 17:22 Lab Results 08/01/21 08/01/21 08/01/21 Range/Units 17:22 17:22 17:22 WBC 3.2 L (3.8-10.6) k/uL RBC 4.22 (3.80-5.40) m/uL Hgb 12.6 (11.4-16.0) gm/dL Hct 40.1 (34.0-46.0) % MCV 95.1 (80.0-100.0) fL MCH 29.8 (25.0-35.0) pg MCHC 31.3 (31.0-37.0) g/dL RDW 13.8 (11.5-15.5) % Plt Count 150 (150-450) k/uL MPV 7.7 Neutrophils % 76 % Lymphocytes % 11 % Monocytes % 6 % Eosinophils % 5 % Basophils % 0 % Neutrophils # 2.4 (1.3-7.7) k/uL Lymphocytes # 0.3 L (1.0-4.8) k/uL Monocytes # 0.2 (0-1.0) k/uL Eosinophils # 0.2 (0-0.7) k/uL Basophils # 0.0 (0-0.2) k/uL Hypochromasia Moderate Sodium 141 (137-145) mmol/L Potassium 3.6 (3.5-5.1) mmol/L Chloride 110 H (98-107) mmol/L Carbon Dioxide 22 (22-30) mmol/L Anion Gap 9 mmol/L BUN 23 H (7-17) mg/dL Creatinine 1.53 H (0.52-1.04) mg/dL Est GFR (CKD-EPI)AfAm 38 (>60 ml/min/1.73 sqM) Est GFR (CKD-EPI)NonAf 33 (>60 ml/min/1.73 sqM) Glucose 93 (74-99) mg/dL Calcium 8.8 (8.4-10.2) mg/dL Magnesium 2.0 (1.6-2.3) mg/dL Total Bilirubin 0.6 (0.2-1.3) mg/dL AST 30 (14-36) U/L ALT 18 (4-34) U/L Alkaline Phosphatase 100 (38-126) U/L Total Protein 6.5 (6.3-8.2) g/dL Albumin 3.6 (3.5-5.0) g/dL Coronavirus (PCR) Not Detected (Not Detectd) Disposition Clinical Impression: Left knee pain, Nausea vomiting and diarrhea Disposition: HOME SELF-CARE Condition: Stable Additional Instructions: As we discussed your x-ray didn't show any signs of fracture or broken bones, if you have persistent pain follow-up with her primary care to discuss further imaging such as MRI to evaluate for soft tissue injury Is patient prescribed a controlled substance at d/c from ED?: No Referrals: Drew Neff DO [Primary Care Provider] - 1-2 days
--- NOTE | 2021-08-01 17:34 | XR ---
EXAMINATION TYPE: XR knee complete LT DATE OF EXAM: 08/01/2021 COMPARISON: NONE HISTORY: Knee pain TECHNIQUE: 3 views FINDINGS: I see no fracture nor dislocation. There is calcification of the menisci. There is no sign of joint effusion. IMPRESSION: Chondrocalcinosis consistent with pseudogout. No fracture seen. No significant joint spac e narrowing.
[2021-08-01 17:41] LABS: Basophils % (A) 0 %; Eosinophils # (A) 0.2 k/uL (0-0.7); Eosinophils % (A) 5 %; HCT 40.1 % (34.0-46.0); HGB 12.6 gm/dL (11.4-16.0); Hypochromasia Moderate; Lymphocytes # (A) 0.3 k/uL (1.0-4.8); Lymphocytes % (A) 11 %; MCH 29.8 pg (25.0-35.0); MCHC 31.3 g/dL (31.0-37.0); MCV 95.1 fL (80.0-100.0); Mean Platelet Volume 7.7; Monocytes # (A) 0.2 k/uL (0-1.0); Monocytes % (A) 6 %; Neutrophils # (A) 2.4 k/uL (1.3-7.7); Neutrophils % (A) 76 %; Platelet Count 150 k/uL (150-450); RBC 4.22 m/uL (3.80-5.40); RDW 13.8 % (11.5-15.5); WBC 3.2 k/uL (3.8-10.6)
[2021-08-01 17:57] LABS: Albumin 3.6 g/dL (3.5-5.0); Calcium 8.8 mg/dL (8.4-10.2); Potassium 3.6 mmol/L (3.5-5.1); Total Bilirubin 0.6 mg/dL (0.2-1.3); Total Protein 6.5 g/dL (6.3-8.2)
[2021-08-01 21:24] VITALS: BP 124/62; PULSE 65; RESP 15
== END 2021-08-01 21:22 | disposition home or self-care (01) ==
LOC: EC 16:34
DX: M25.562 Pain in left knee (principal); R11.2 Nausea with vomiting, unspecified; R19.7 Diarrhea, unspecified; I11.0 Hypertensive heart disease with heart failure; I50.9 Heart failure, unspecified; I48.91 Unspecified atrial fibrillation; M19.90 Unspecified osteoarthritis, unspecified site; F31.9 Bipolar disorder, unspecified; F12.90 Cannabis use, unspecified, uncomplicated; Z20.822 Contact with and (suspected) exposure to COVID-19; Z79.02 Long term (current) use of antithrombotics/antiplatelets; Z88.0 Allergy status to penicillin; Z88.1 Allergy status to other antibiotic agents; Z88.5 Allergy status to narcotic agent; Z88.6 Allergy status to analgesic agent; Z85.3 Personal history of malignant neoplasm of breast; Z90.49 Acquired absence of other specified parts of digestive tract; Z90.710 Acquired absence of both cervix and uterus; Z95.0 Presence of cardiac pacemaker; Z98.51 Tubal ligation status
CPT/HCPCS: 36415; 80053; 83735; 85025; 87635; 96360; 96361; 99284

== ENCOUNTER → 2021-08-10 | Outpatient (CLI) | payer MEDICARE, OTHER ==
[2021-08-10 15:38] LABS: HCT 38.1 % (34.0-46.0); HGB 11.5 gm/dL (11.4-16.0); Hypochromasia Marked; MCH 29.2 pg (25.0-35.0); MCHC 30.1 g/dL (31.0-37.0); MCV 96.9 fL (80.0-100.0); Mean Platelet Volume 8.1; Platelet Count 173 k/uL (150-450); RBC 3.93 m/uL (3.80-5.40); RDW 14.4 % (11.5-15.5); WBC 3.2 k/uL (3.8-10.6)
[2021-08-10 15:43] LABS: Potassium 4.4 mmol/L (3.5-5.1)
== END | disposition home or self-care (01) ==
LOC: LABPAT 14:02
PROVIDERS: ATTEND Internal Medicine Clinical Cardiac Electrophysiology
DX: Z20.822 Contact with and (suspected) exposure to COVID-19 (principal); Z01.812 Encounter for preprocedural laboratory examination; I42.9 Cardiomyopathy, unspecified
CPT/HCPCS: 80051; 82565; 84520; 85027; 36415; U0003; C9803

== ENCOUNTER 2021-08-12 09:50 | Day surgery (SDC) | payer MEDICARE, OTHER ==
[2021-08-06 09:28] VITALS: BMI 40.2
[~2021-08-12 09:50] MED LIST changes: +CLINDAMYCIN 600 MG in SODIUM CHLORIDE 0.9% 250 ML IRRIGATION PRN; +CLINDAMYCIN 900 MG in DEXTROSE 5% IN WATER 50 ML IVPB PRN; +LIDOCAINE 1% (10MG/ML) FOR IV START INTRADERMA PRN; +SODIUM CHLORIDE 0.9% 1,000 ML IV SCH
[2021-08-12 10:30] VITALS: TEMP 97.9
[2021-08-12] MEDS ORDERED: fentaNYL (PF) 50 MCG/ML 2 ML AMP ONE (11:20)
[2021-08-12] MEDS ORDERED: MIDAZOLAM 2 MG/2 ML VIAL ONE (11:20)
[2021-08-12] MEDS ORDERED: LIDOCAINE 1% INJ 10MG/ML (20 ML MDV) ONE ×2 (11:47)
[2021-08-12] MEDS ORDERED: LIDOCAINE 1% INJ 10MG/ML (20 ML MDV) SQ ONE (12:06)
[2021-08-12] MEDS ORDERED: ACETAMINOPHEN TAB 325 MG TAB PO PRN (12:50)
--- NOTE | 2021-08-12 12:54 | P.PCN ---
Preoperative Diagnosis: Cinefluoroscopy of the leads Patient's pacemaker and chronic leads underwent cinefluoroscopy These are fine-line [employer] leads No fractures or breaks noted Screw-in atrial lead implanted in the right atrial appendage RV lead seems to be screw-in in the RV septum Plan Proceed with dual-chamber pacemaker generator change
[2021-08-12] MEDS ORDERED: ACETAMINOPHEN IV (For NPO) 1,000 MG in EMPTY BAG 1 BAG IVPB STA (13:11)
[2021-08-12 13:35] VITALS: PULSE 60; RESP 16
--- NOTE | 2021-08-12 13:49 | PCN ---
PROCEDURE NOTE Katarzyna Ramos is a 75-year-old female who had a dual-chamber pacemaker implanted many years back. Device is at [facility]. She was brought in for device generator change. Patient was brought to the EP lab in a fasting state. Written informed consent was obtained prior to the procedure. The left shoulder area was prepped and draped as per protocol. IV antibiotics were administered. Local anesthesia was administered. A 4 cm incision was made parallel to the deltopectoral groove, about 1.5 cm medial to it. Then it was carried down to the level of the pectoralis muscle. The generator was explanted and the new generator was implanted. The leads were interrogated. The wound was closed in 3 layers and dressed per protocol. The old generator implanted was a [employer]rua 60, serial #[id number], product number [id number]. The new generator implanted was a [employer] model number W1DR01, serial number [id number]. This was an Swetha XT DR MRI. The right atrial lead was a [employer] lead, model #4472, serial #[id number]. P-waves 1.5 mV. Pacing impedance 266 ohms, pacing threshold 1 V at 0.4 millisecond. The chronic RV lead was a Guidant model #4473, serial #[id number]. R-waves chronically low at 2 mV, pacing impedance 304 ohms and pacing threshold 1 V at 0.4 millisecond. The patient tolerated the procedure well without any acute complications. PLAN: IV antibiotics. MMODL / IJN: [id number] /
[2021-08-12 15:32] VITALS: BP 143/65
[2021-08-12 15:59] LABS: LDL Cholesterol,Calculated 120.1 mg/dL (0.0-131.0)
[2021-08-12] MEDS ORDERED: CLINDAMYCIN 900 MG in DEXTROSE 5% IN WATER 50 ML IVPB SCH ×2 (16:00)
[2021-08-12] MEDS ORDERED: VALSARTAN 160 MG TAB PO STA (17:25)
== END 2021-08-12 17:00 | disposition home or self-care (01) ==
LOC: CATHEP 09:50
PROVIDERS: ATTEND Internal Medicine Clinical Cardiac Electrophysiology
DX: I25.5 Ischemic cardiomyopathy (principal); I25.10 Atherosclerotic heart disease of native coronary artery without angina pectoris; I12.9 Hypertensive chronic kidney disease with stage 1 through stage 4 chronic kidney disease, or unspecified chronic kidney disease; N18.9 Chronic kidney disease, unspecified; E11.22 Type 2 diabetes mellitus with diabetic chronic kidney disease; Z95.5 Presence of coronary angioplasty implant and graft; I47.2 Ventricular tachycardia; G47.33 Obstructive sleep apnea (adult) (pediatric); I10 Essential (primary) hypertension; E78.5 Hyperlipidemia, unspecified; I48.0 Paroxysmal atrial fibrillation; Z82.49 Family history of ischemic heart disease and other diseases of the circulatory system; Z79.82 Long term (current) use of aspirin; Z79.899 Other long term (current) drug therapy; Z79.01 Long term (current) use of anticoagulants; Z79.02 Long term (current) use of antithrombotics/antiplatelets; Z88.1 Allergy status to other antibiotic agents; Z88.0 Allergy status to penicillin
CPT/HCPCS: 33228; 80061; 83036; C1785; J2250; J2001; J3010; J0131

== ENCOUNTER 2021-09-07 08:07 | Day surgery (SDC) | payer MEDICARE, OTHER ==
[2021-09-03 14:34] VITALS: BMI 40.9
[~2021-09-07 08:07] MED LIST changes: -CLINDAMYCIN 600 MG in SODIUM CHLORIDE 0.9% 250 ML IRRIGATION PRN; -CLINDAMYCIN 900 MG in DEXTROSE 5% IN WATER 50 ML IVPB PRN; -LIDOCAINE 1% (10MG/ML) FOR IV START INTRADERMA PRN; -SODIUM CHLORIDE 0.9% 1,000 ML IV SCH
[2021-09-07 08:36] VITALS: RESP 16; TEMP 98.8
[2021-09-07] MEDS ORDERED: methylPREDNISolone ACETATE 40 MG/ML 1 ML VIAL ONE (08:49)
[2021-09-07] MEDS ORDERED: ROPIVACAINE 5MG/ML 20ML VIAL ONE (08:49)
[2021-09-07] MEDS ORDERED: MIDAZOLAM 2 MG/2 ML VIAL ONE (08:49)
[2021-09-07] MEDS ORDERED: fentaNYL (PF) 50 MCG/ML 2 ML AMP ONE (08:49)
--- NOTE | 2021-09-07 09:06 | P.PCN ---
Date of Procedure: 09/07/21 Procedure(s) Performed: PROCEDURE 1. Trigger point injections Left cervical paraspinal muscles. and Left upper Thoracic paraspinal muscles.( total of 4 trigger points Left cervical, and 3 trigger points Left Thoracic area ) PREOPERATIVE DIAGNOSIS: 1-myofascial pain syndrom cervical area and Thoracic area . 2-cervical and thoracic spondylosis POST op DIAGNOSIS: : 1-myofascial pain syndrome and cervical and thoracic area. 2-cervical and thoracic spondylosis ANESTHESIA: Local anesthesia with lidocaine 1 % , and moderate sedation, with Versed 1 mg and Fentanyl 50 mcg. EBL 0 PROCEDURE INDICATION: The patient with neck pain and radiculitis unresponsive to conservative treatment consents for procedure. PROCEDURE DESCRIPTION / TECHNIQUE: The patient was seen and identified in the preoperative area. Risks, benefits, complications, including but not limited to infections ,bleeding , allergic reactions to the medications ,and not complete pain releife, and alternatives were discussed with the patient, the patient agreed to proceed with the procedure and signed the consent. sedations was used to degrees the patient's and anxiety, Patient taken to the procedure room sitting position ,left cervical area and thoracic area prepped with chlorhexidine 3 done under sterile technique, using 25-gauge needle, 14 mL of ropivacaine 0.5% mixed with 40 mg of Depo-Medrol, 2 mL injected at each trigger point after negative aspiration, and there was no paresthesia during the injection, total of 4 trigger point injected on the left side cervical paraspinal muscles and 3 trigger point injected on the Left side Thoracic paraspinal muscle, patient tolerated the procedure well without any complications
[2021-09-07] MEDS ORDERED: IV FLUID CONTINUATION 1,000 ML IV ONE (09:15)
[2021-09-07 09:28] VITALS: BP 106/64; PULSE 97
== END 2021-09-07 09:55 | disposition home or self-care (01) ==
LOC: ORPAIN 08:07
PROVIDERS: ATTEND Specialist
DX: M79.18 Myalgia, other site (principal); M47.24 Other spondylosis with radiculopathy, thoracic region; Z79.02 Long term (current) use of antithrombotics/antiplatelets
CPT/HCPCS: 20553; J2250; J1030; J3010; J2795

== ENCOUNTER → 2021-09-30 | Outpatient (CLI) | payer MEDICARE, OTHER ==
--- NOTE | 2021-09-30 10:57 | P.PN ---
Subjective Progress Note Date: 09/30/21 Principal diagnosis: A 75 yr old female with at side with a history of severe and chronic low back pain secondary to lumbar degenerative disc diseases and lumbar spondylosis with facet arthropathy presents today for evaluation for TPI of the left lower cervical and upper thoracic paraspinal muscles. Patient states she expresses 95% pain relief with injection of 7 areas of the paraspinal muscles. Pain is currently in the left posterior hip, 7 out of 10 in intensity, constant, burning, sharp in the lower aspect of her lumbar spine left of midline. Pain is provoked by walking for 5 minutes or standing for 10 minutes, as is the case when she is cooking. Patient relies on her as a caregiver as well. Pain is alleviated with medications, topicals, injections, ice, heat, physical therapy in 2019 which made her pain worse, use of a wheelchair for ambulation, massage therapy last in 2019, repositioning and rest. Interventional pain procedures completed include right SI joint injection, left cervical and thoracic TPIs Patient is currently on oxycodone Patient denies any side effects of the medication(s), denies excessive drowsiness or sleepiness, denies suicidal ideation and reports that the current pain medication is helping to control the pain and improve activities of daily living. Patient denies any motor or sensory deficits. Patient denies any fever or night sweats, denies any change in the bowel movements or urination. Physical Examination: -Constitutional: Cooperative. Not in acute distress . -HEENT: Neck is supple. No lymphadenopathy. No thyromegaly. Normal thyroid size. Eyes: No ptosis , no icterus, no photophobia. ENT: No auditory deficits. Normal oropharynx. No Thrush. - Respiratory: Chest clear to auscultations bilaterally. No wheezing. No rhonchi. - Cardiovascular: Regular rate and rhythm. S1 / S2 , no S3 , no S4. - Gastrointestinal: Abdomen soft no tenderness. Bowel sounds positive in all four quadrants. No organomegaly. - Genitourinary: Deferred. - Neurologic: Cranial nerve II to XII intact. No focal neurological deficits. - Psychatric: Alert & oriented x 3. Matching mood & appropriate affect. Judgment and insight intact. - Lymphatic: No Lymphadenopathy. - Musculoskeletal: Cervical spine: Muscle bulk/ tone/ strength in the bilateral upper extremities normal. Facet loading test cervical area positive. Lumbar spine: Motor bulk/ tone/ strength lower extremities , thigh and legs : 5/5 Deep tendon reflexes : Normal Knee Jerk. Normal Ankle Jerk . Vertebral body tenderness to palpation over Lumbar Facet Loading Test positive Straight Leg Raise: positive at 30 degrees right side/ left side Gaenslen's Test positive Sacral spine : Severe tenderness over the Sacroiliac joint: right side / left side Range of motion: Flexion of the lumbar spine <60 degrees Range of motion: Extension of the lumbar spine <20 degrees Gaenslen's Test positive on left Deanna test: positive right side / left side Assessment and plan: Chronic low back pain secondary to lumbar degenerative disc disease , lumbar spondylosis with facet arthropathy without myelopathy Recommendation of L SI joint injection 1. May need additional injections for optimal pain relief. Risks, benefits of procedure discussed and patient verbalized understanding. Denies medical history of diabetes mellitus. Admits to Xarelto and Plavix use. All patient questions answered MAPS reviewed and it was appropriate. I have spent 31 minutes on patient care today. Dr Ngo was available by phone for the evaluation of this patient. The time was used to review the medical records including relevant urine studies and Prescription history (MAPs), review of the available imaging, evaluation and examination of the patient, coordination of care with the medical staff and if applicable referring physicians, as well as creation of the medical record PQRS Measure Charge Sheet PQRS Narrative: Smoking Status Never smoker Hx Alcohol Use (MH) No Home Medications: Ambulatory Orders Baclofen 10 mg PO HS 04/13/15 Topiramate [Topamax] 200 mg PO DAILY 03/28/17 lamoTRIgine [LaMICtal] 200 mg PO DAILY 03/28/17 Amiodarone [Cordarone] 200 mg PO DAILY 03/22/21 Clopidogrel Bisulfate [Plavix] 75 mg PO DAILY 03/22/21 DULoxetine HCL [Cymbalta] 60 mg PO HS 03/22/21 Ergocalciferol [Vitamin D2 (1250 Mcg = 47700 Iu)] 1,250 mcg PO CHAVEZ 03/22/21 Pantoprazole Sodium [Protonix] 40 mg PO DAILY@0600 03/22/21 Rivaroxaban [Xarelto] 15 mg PO DAILY 03/22/21 carvediloL [Coreg*] 12.5 mg PO BID-W/MEALS 07/05/21 oxyCODONE-APAP 10-325MG [Percocet 10-325 mg] 1 tab PO QID 07/05/21 Naloxegol Oxalate [Movantik] 12.5 mg PO MOWEFR 08/01/21 Nitroglycerin Sl Tabs [Nitrostat] 0.4 mg SUBLINGUAL Q5M PRN 08/01/21 amLODIPine [Norvasc] 5 mg PO DAILY 08/01/21
[2021-09-30 12:58] VITALS: BP 136/84; PULSE 60; RESP 18; TEMP 98
== END ==
LOC: PNWHC3 10:16
PROVIDERS: ATTEND Physician Assistant Medical
DX: G89.29 Other chronic pain (principal); M51.36 Other intervertebral disc degeneration, lumbar region; M47.816 Spondylosis without myelopathy or radiculopathy, lumbar region; Z79.01 Long term (current) use of anticoagulants; Z88.8 Allergy status to other drugs, medicaments and biological substances; Z91.040 Latex allergy status; Z88.0 Allergy status to penicillin; Z88.1 Allergy status to other antibiotic agents; Z88.6 Allergy status to analgesic agent; Z88.5 Allergy status to narcotic agent
CPT/HCPCS: 99211

== ENCOUNTER → 2021-11-18 | Day surgery (SDC) | payer MEDICARE, OTHER ==
[2021-11-17 11:29] VITALS: BMI 40.2
[~2021-11-18] MED LIST changes: +IV FLUID CONTINUATION 1,000 ML IV ONE; +LIDOCAINE 1% (10MG/ML) FOR IV START INTRADERMA PRN; +MIDAZOLAM 2 MG/2 ML VIAL ONE; +ROPIVACAINE 5MG/ML 20ML VIAL ONE; +fentaNYL (PF) 50 MCG/ML 2 ML AMP ONE; +methylPREDNISolone ACETATE 40 MG/ML 1 ML VIAL ONE
[2021-11-18 07:37] VITALS: TEMP 96.7
--- NOTE | 2021-11-18 08:04 | P.PCN ---
Date of Procedure: 11/18/21 Procedure(s) Performed: Procedure= Left sacroiliac joints steroid injection under fluoroscopy guidance (fluoroscopy image stored on file in the radiology Department ) Preoperative diagnosis= 1-sacroiliitis 2-lumbar degenerative disc disease 3- lumbar facet arthropathy Postoperative diagnosis=Same as preop Diagnosis . Complication = none Condition= stable Anesthesia= moderate sedation with intravenous Versed 1 mg , and fentanyl 100 micrograms . Indication for the procedure= patient complaining of low back pain , examination was positive for severe tenderness over the sacroiliac joints bilaterally and patient diagnosed with sacroiliitis, for this reason he/ she was good candidate for sacroiliac joint steroid injection. Description of the procedure= procedure risk and benefits discussed with the patient, including but not limited, risk of infection and bleeding, and ALLERGIC reaction to the medication and not complete pain relief and patient agreed with the preceding patient taken to the operating room, placed in prone position or standard monitors applied to the patient then after induction of anesthesia ,back prepped with chlorhexidine 3 times ,Then the left sacroiliac joint steroid injection done under strict sterile technique local infiltration of the skin and subcu interstitial at the location of the left sacroiliac joint then a 22-gauge Quincke Needle advanced slowly under fluoroscopy time placed in the left sacroiliac joint, needle placement confirmed with AP and oblique and lateral view then after appropriate needle placement confirmed and after negative aspiration 0.5% Ropivacaine 4 mL and 40 mg of Depo-Medrol injected in the left sacroiliac joint after negative aspiration patient tolerated the procedure well that any complications and she will follow up in clinic 3 weeks
[2021-11-18 08:17] VITALS: RESP 16
[2021-11-18 08:46] VITALS: BP 125/78; PULSE 62
--- NOTE | 2021-11-18 09:47 | FL ---
EXAMINATION TYPE: FL guided pain mgmt statistic DATE OF EXAM: 11/18/2021 HISTORY: Fluoroscopy time 3 seconds of fluoroscopy provided. IMPRESSION: 1. Fluoroscopy time.
== END ==
LOC: ORPAIN 07:15
PROVIDERS: ATTEND Specialist
DX: M46.1 Sacroiliitis, not elsewhere classified (principal); M51.36 Other intervertebral disc degeneration, lumbar region; M47.816 Spondylosis without myelopathy or radiculopathy, lumbar region
CPT/HCPCS: J2250; J1030; J3010; J2795; G0260; 27096; 99152

== ENCOUNTER → 2022-03-10 | Outpatient (CLI) | payer MEDICARE, OTHER ==
--- NOTE | 2022-03-10 10:02 | US ---
EXAMINATION TYPE: US liver DATE OF EXAM: 03/10/2022 COMPARISON: CT 03/24/2021 CLINICAL HISTORY: 76-year-old female R170 UNSPECIFIED JAUNDICE. Elevated bilirubin, history of cholec ystectomy TECHNIQUE: Multiple sonographic images of the right upper quadrant are obtained. FINDINGS: EXAM MEASUREMENTS: Liver Length: 14.0 cm CBD: 1.2 cm Right Kidney: not seen Pancreas: obscured by overlying midline bowel gas Liver: course echotexture. Limited intercostal views. Gallbladder: surgically absent Evidence for sonographic Mccracken's sign: no CBD: dilated Right Kidney: not visualized IMPRESSION: 1. Limited intercostal views of the liver. There is coarsened echotexture that could reflect nonspeci fic hepatocellular disease. 2. The bile duct is dilated up to 1.2 cm. This may reflect patient's age and postcholecystectomy stat us. The duct appears to have measured 1.6 cm superiorly and 1.2 cm inferiorly on the 03/24/2021 CT.
== END | disposition home or self-care (01) ==
LOC: RADUSWWP 07:20
PROVIDERS: ATTEND Family Medicine
DX: R17 Unspecified jaundice (principal); Z90.49 Acquired absence of other specified parts of digestive tract
CPT/HCPCS: 76705

== ENCOUNTER → 2022-04-08 | Outpatient (CLI) | payer MEDICARE, OTHER ==
--- NOTE | 2022-04-08 14:35 | CT ---
EXAMINATION TYPE: CT brain wo con DATE OF EXAM: 04/08/2022 COMPARISON: None HISTORY: Cerebrovascular disease CT DLP: [address] of the brain was performed. The ventricles, basal cisterns and sulci overlying the cerebral convexities demonstrate mild enlargem ent. There is no evidence for intracranial hemorrhage or sulcal effacement. There is decreased attenuation about the periventricular white matter and deep white matter of both c erebral hemispheres, compatible with chronic small vessel ischemia. Differential diagnosis does inclu de demyelination. No mass effects are seen.No midline shift. Osseous calvarium is intact. If symptoms persist consider MRI. IMPRESSION: 1. Age related atrophic and chronic small vessel ischemic change without acute intracranial process s een at this time.
== END | disposition home or self-care (01) ==
LOC: RADCTMAIN 13:58
PROVIDERS: ATTEND Psychiatry & Neurology Neurology
DX: I67.82 Cerebral ischemia (principal); G31.9 Degenerative disease of nervous system, unspecified
CPT/HCPCS: 70450

== ENCOUNTER → 2022-05-02 | Outpatient (CLI) | payer MEDICARE, OTHER ==
[2022-05-02 10:43] VITALS: BP 122/74; PULSE 60; RESP 18; TEMP 97.7
--- NOTE | 2022-05-02 15:41 | P.PAINPG ---
Objective - Vital Signs Vital signs: Vital Signs Temp 97.7 F 05/02/22 10:33 Pulse 60 05/02/22 10:33 Resp 18 05/02/22 10:33 BP 122/74 05/02/22 10:33 Pulse Ox 96 05/02/22 10:33 FiO2 Intake & Output 05/01/22 05/02/22 05/02/22 18:59 06:59 18:59 Weight 92.533 kg PQRS Measure Charge Sheet Mode of Arrival: Ambulatory, Wheelchair, Cane Comment: A 76 yr old female w at side with a history of severe and chronic low back pain secondary to lumbar degenerative disc diseases and lumbar spondylosis with facet arthropathy without myelopathy presents today for evaluation s/p L SI injection. Pt states she experienced 90% pain relief x 4 mo s/p procedure. Pain level is currently at 8/10 in intensity, constant, localized in the lower lumbar spine "like a band," sore & sharp in character without radiation of pian. Pain is provoked by standing/ bending/ lifting. Pain is alleviated with meds (Oxycodone from Dr Ramirez), lidoderm patches, injections in the past, heat, sitting reclined, repositioning and rest. Interventional pain procedures completed include BL SI injections, Lumbar TPIs. Patient is currently on Oxycodone from Dr Ramirez Patient denies any side effects of the medication(s), denies excessive drowsiness or sleepiness, denies suicidal ideation and reports that the current pain medication is helping to control the pain and improve activities of daily living. Patient denies any motor or sensory deficits. Patient denies any fever or night sweats, denies any change in the bowel movements or urination. Physical Examination: -Constitutional: Cooperative. Not in acute distress . - Neurologic: Cranial nerve II to XII intact. No focal neurological deficits. - Psychatric: Alert & oriented x 3. Matching mood & appropriate affect. Judgment and insight intact. - Musculoskeletal: Cervical spine: Muscle bulk/ tone/ strength in the bilateral upper extremities normal Vertebral body tenderness to palpation over Spurling test positive Distraction test positive Facet loading test positive Thoracic spine Muscle bulk / tone/ strength in the bilateral paraspinal muscles normal Vertebral body tender to palpation over Facet loading test positive Lumbar spine: Motor bulk/ tone/ strength lower extremities , thigh and legs : 5/5 Deep tendon reflexes : Normal Knee Jerk. Normal Ankle Jerk . Vertebral body tenderness to palpation over L5 Lumbar Facet Loading Test positive Straight Leg Raise: positive at 30 degrees right side/ left side Gaenslen's Test positive Sacral spine : Severe tenderness over the Sacroiliac joint: right side / left side Range of motion: Flexion of the lumbar spine <60 degrees Range of motion: Extension of the lumbar spine <20 degrees Gaenslen's Test positive Gus's Test positive Deanna test: positive right side / left side Thigh Thrust Test Sacral Thrust Test Assessment and plan: Chronic low back pain secondary to lumbar degenerative disc disease , lumbar spondylosis with facet arthropathy without myelopathy Recommendation of THERESA L5-S1 #1. May need a series, up to 3 within a 6 mo period, for optimal pain relief. Risks, benefits of procedure discussed and pt verbalized understanding. Admits to anticoagulant use or medical history of diabetes. Protocol for discontinuation/ continuation of meds amos procedure discussed. All patient questions answered I have spent less than 30 minutes on patient care today. Dr Ngo was available by phone for the evaluation of this patient. The time was used to review the medical records including relevant urine studies and Prescription history (MAPs), review of the available imaging, evaluation and examination of the patient, coordination of care with the medical staff and if applicable referring physicians, as well as creation of the medical record - Pain Location Bilateral Lower Back Non-Pharmacological Interventions: Heat Pharmacological Interventions: Scheduled Medication PQRS Narrative: Smoking Status Never smoker Blood Pressure 122/74 Pain Intensity [Bilateral 8 Lower Back] Scale Used Numeric (1 - 10) Hx Alcohol Use (MH) No Home Medications: Ambulatory Orders Baclofen 10 mg PO HS 04/13/15 Topiramate [Topamax] 200 mg PO DAILY 03/28/17 lamoTRIgine [LaMICtal] 200 mg PO DAILY 03/28/17 Amiodarone [Cordarone] 200 mg PO DAILY 03/22/21 Clopidogrel Bisulfate [Plavix] 75 mg PO DAILY 03/22/21 DULoxetine HCL [Cymbalta] 60 mg PO HS 03/22/21 Ergocalciferol [Vitamin D2 (1250 Mcg = 22013 Iu)] 1,250 mcg PO CHAVEZ 03/22/21 Pantoprazole Sodium [Protonix] 40 mg PO DAILY@0600 03/22/21 Rivaroxaban [Xarelto] 15 mg PO DAILY 03/22/21 carvediloL [Coreg*] 12.5 mg PO BID-W/MEALS 07/05/21 oxyCODONE-APAP 10-325MG [Percocet 10-325 mg] 1 tab PO QID 07/05/21 Naloxegol Oxalate [Movantik] 12.5 mg PO MOWEFR 08/01/21 Nitroglycerin Sl Tabs [Nitrostat] 0.4 mg SUBLINGUAL Q5M PRN 08/01/21 amLODIPine [Norvasc] 5 mg PO DAILY 08/01/21 Controlled Substance Measures - Controlled Substance Measures Is patient prescribed a controlled substance at discharge?: No
== END | disposition home or self-care (01) ==
LOC: PNWHC3 10:16
PROVIDERS: ATTEND Specialist
DX: M51.36 Other intervertebral disc degeneration, lumbar region (principal); M47.896 Other spondylosis, lumbar region; M46.96 Unspecified inflammatory spondylopathy, lumbar region
CPT/HCPCS: 99211

== ENCOUNTER 2022-05-24 19:21 | Emergency (ER) | payer MEDICARE, OTHER ==
[2022-05-24] MEDS ORDERED: SODIUM CHLORIDE 0.9% 1,000 ML IV STA (21:58)
[2022-05-24 22:47] LABS: Anisocytosis Slight; HCT 39.1 % (34.0-46.0); HGB 12.5 gm/dL (11.4-16.0); Hypochromasia Moderate; MCH 30.1 pg (25.0-35.0); MCHC 31.9 g/dL (31.0-37.0); MCV 94.5 fL (80.0-100.0); Mean Platelet Volume 7.5; RBC 4.13 m/uL (3.80-5.40); WBC 2.3 k/uL (3.8-10.6)
[2022-05-24 23:02] LABS: INR 1.1 (<1.2); Partial Thromboplastin Time 33.1 sec (22.0-30.0)
[2022-05-24 23:16] LABS: Albumin 3.6 g/dL (3.5-5.0); Basophils # (M) 0.02 k/uL (0-0.2); Calcium 8.9 mg/dL (8.4-10.2); Eosinophils # (M) 0.07 k/uL (0-0.7); Lymphocytes # (M) 1.17 k/uL (1.0-4.8); Magnesium 2.3 mg/dL (1.6-2.3); Monocytes # (M) 0.16 k/uL (0-1.0); Neutrophils # (M) 0.87 k/uL (1.3-7.7); Neutrophils % (M) 38 %; Nucleated Red Blood Cells 0 /100 WBC (0-0); Potassium 4.5 mmol/L (3.5-5.1); Total Bilirubin 0.2 mg/dL (0.2-1.3); Total Cells Counted 100; Total Protein 6.3 g/dL (6.3-8.2)
[2022-05-24 23:16] LABS: Appearance,Urine Clear (Clear); Bilirubin,Urine Negative (Negative); Blood,Urine Large (Negative); Color,Urine Yellow; Glucose,Urine (UA) Negative (Negative); Hyaline Casts,Urine 1 /lpf (0-2); Ketones,Urine Negative (Negative); Leukocyte Esterase,Urine Negative (Negative); Mucus,Urine Rare /hpf; Nitrite,Urine Negative (Negative); Protein,Urine Negative (Negative); RBC,Urine <1 /hpf (0-5); Specific Gravity,Urine 1.015 (1.001-1.035); Squamous Epithelial Cell,Urine <1 /hpf (0-4); Urobilinogen,Urine <2.0 mg/dL (<2.0); WBC,Urine 1 /hpf (0-5)
--- NOTE | 2022-05-25 00:39 | CT ---
EXAMINATION TYPE: CT abdomen pelvis wo con DATE OF EXAM: 05/24/2022 COMPARISON: 03/24/2021 HISTORY: rectal bleeding CT DLP: 6416 mGycm Automated exposure control for dose reduction was used. Images obtained from the diaphragm for the pelvis with no contrast. The lung bases show mild scarring and subsegmental atelectasis. Heart is slightly enlarged. No pericardial effusion. No pleural effusi on. Abdominal aorta is atheromatous. Liver spleen pancreas appear intact. The bowel are nondilated. There is no adrenal mass. Right kidney is very small. Left kidney shows some compensatory hypertrophy . There is no hydronephrosis. There are small calcifications in the hypoplastic or atrophic right kid mirta. No renal mass. There are a few tiny calculi in the left kidney up to 1 to 2 mm. No retroperitone al adenopathy. The ureters are not dilated. Bladder distends smoothly. No inguinal hernia but no free fluid in the pelvis There are multiple sigmoid diverticula. No diverticulitis. The lumbar vertebrae have normal alignment . Posterior elements are intact. No compression fracture. The bony pelvis is intact. The hip joints a re intact. There is some narrowing of the hip joint spaces. Sacroiliac joints are intact. There is no mesenteric edema. No ascites or free air. No sign of a bowel obstruction. Appendix not se en. No sign of thickened appendix. There is small 4 x 2 cm fat containing ventral hernia. This is above the umbilicus. There is also a 1 cm fat-containing umbilical hernia. IMPRESSION: There is sigmoid diverticulosis without diverticulitis. No acute abnormality in the abdomen pelvis. A therosclerotic vascular disease. No adverse change compared to old exam.
--- NOTE | 2022-05-25 01:29 | ED ---
General Adult HPI - General Chief complaint: Vaginal Bleeding Stated complaint: Covid +,blood in urine Time Seen by Provider: 05/24/22 21:38 Source: patient Mode of arrival: ambulatory Limitations: no limitations - History of Present Illness Initial comments: Patient is a 76-year-old female presenting with chief complaint of rectal bleeding. Patient states that last night while using she noticed blood in the toilet, she was unsure of this site from which it was coming. Patient states that throughout today she continued to see blood in the toilet. She eventually able to conclude that it is likely rectal bleeding. She denies any abdominal pain, fever, chills, dysuria, chest pain, difficulty breathing, palpitations, numbness, tingling, weakness. - Related Data Home Medications Medication Instructions Recorded Confirmed Baclofen 10 mg PO HS 04/13/15 11/18/21 Topiramate [Topamax] 200 mg PO DAILY 03/28/17 11/18/21 lamoTRIgine [LaMICtal] 200 mg PO DAILY 03/28/17 11/18/21 Amiodarone [Cordarone] 200 mg PO DAILY 03/22/21 11/18/21 Clopidogrel Bisulfate [Plavix] 75 mg PO DAILY 03/22/21 11/18/21 DULoxetine HCL [Cymbalta] 60 mg PO HS 03/22/21 11/18/21 Ergocalciferol [Vitamin D2 (1250 1,250 mcg PO CHAVEZ 03/22/21 11/18/21 Mcg = 31364 Iu)] Pantoprazole Sodium [Protonix] 40 mg PO DAILY@0600 03/22/21 11/18/21 Rivaroxaban [Xarelto] 15 mg PO DAILY 03/22/21 11/18/21 carvediloL [Coreg*] 12.5 mg PO BID-W/MEALS 07/05/21 11/18/21 oxyCODONE-APAP 10-325MG [Percocet 1 tab PO QID 07/05/21 11/18/21 10-325 mg] Naloxegol Oxalate [Movantik] 12.5 mg PO MOWEFR 08/01/21 11/18/21 Nitroglycerin Sl Tabs [Nitrostat] 0.4 mg SUBLINGUAL Q5M PRN 08/01/21 11/18/21 amLODIPine [Norvasc] 5 mg PO DAILY 08/01/21 11/18/21 Allergies Allergy/AdvReac Type Severity Reaction Status Date / Time alendronate sodium Allergy Anaphylaxis Verified 05/24/22 20:37 [From Fosamax] amitriptyline HCl Allergy Unknown Verified 05/24/22 20:37 [From Elavil] doxepin HCl [From Sinequan] Allergy Unknown Verified 05/24/22 20:37 iodine Allergy Anaphylaxis Verified 05/24/22 20:37 Penicillins Allergy passed out Verified 05/24/22 20:37 simvastatin [From Zocor] Allergy Unknown Verified 05/24/22 20:37 sulindac [From Clinoril] Allergy Unknown Verified 05/24/22 20:37 vancomycin Allergy Anaphylaxis Verified 05/24/22 20:37 codeine AdvReac Abdominal Verified 05/24/22 20:37 Pain gabapentin [From Neurontin] AdvReac Nausea & Verified 05/24/22 20:37 Vomiting ibuprofen [From Motrin] AdvReac Abdominal Verified 05/24/22 20:37 Pain Review of Systems ROS Statement: Those systems with pertinent positive or pertinent negative responses have been documented in the HPI. ROS Other: All systems not noted in ROS Statement are negative. Past Medical History Past Medical History: Atrial Fibrillation, Cancer, Heart Failure, Fibromyalgia, Hypertension, Memory Impairment, Musculoskeletal Disorder, Osteoarthritis (OA), Sleep Apnea/CPAP/BIPAP Additional Past Medical History / Comment(s): Born with only Lt kidney, Fibroids, Breast cancer 1985-radiation txs, Benign Tremors, Psuedo Coarctation of Aorta, Narcolepsy. c/o back and SI joint pain. No cpap. History of Any Multi-Drug Resistant Organisms: None Reported Past Surgical History: Breast Surgery, Cholecystectomy, Heart Catheterization With Stent, Hysterectomy, Pacemaker, Tonsillectomy, Tubal Ligation Additional Past Surgical History / Comment(s): EP Study/Ablation 2006, pacema ker, Laser eye SX. bilateral mastectomy. Pain proc Past Anesthesia/Blood Transfusion Reactions: No Reported Reaction Date of Last Stent Placement:: 2019 Type of Cardiac Device: Permanent Pacemaker Device Placement Date:: 2003 Past Psychological History: Bipolar Smoking Status: Never smoker Past Alcohol Use History: None Reported Past Drug Use History: None Reported - Past Family History Father Family Medical History: Cancer Additional Family Medical History / Comment(s): BONE CANCER Mother Family Medical History: Cancer Additional Family Medical History / Comment(s): BREAST CANCER W/METS. Daughter(s) Family Medical History: Cancer Brother(s) Family Medical History: Cancer General Exam Limitations: no limitations General appearance: alert, in no apparent distress Head exam: Present: atraumatic, normocephalic, normal inspection Eye exam: Present: normal appearance, PERRL, EOMI. Absent: scleral icterus, conjunctival injection, periorbital swelling Neck exam: Present: normal inspection Respiratory exam: Present: normal lung sounds bilaterally. Absent: respiratory distress, wheezes, rales, rhonchi, stridor Cardiovascular Exam: Present: regular rate, normal rhythm, normal heart sounds. Absent: systolic murmur, diastolic murmur, rubs, gallop, clicks GI/Abdominal exam: Present: soft. Absent: distended, tenderness, guarding, rebound, rigid Rectal exam: Present: normal inspection, normal rectal tone, heme (+) stool (small remnants of blood, no obvious bleeding at present) Neurological exam: Present: alert, oriented X3, CN II-XII intact Psychiatric exam: Present: normal affect, normal mood Skin exam: Present: warm, dry, intact, normal color. Absent: rash Course Vital Signs 05/24/22 05/24/22 05/24/22 20:34 21:51 22:16 Temperature 98.5 F 98.6 F 98.8 F Pulse Rate 62 63 68 Respiratory 20 18 16 Rate Blood Pressure 124/67 164/91 145/77 O2 Sat by Pulse 99 97 99 Oximetry 05/24/22 05/25/22 23:03 01:32 Temperature 98.2 F Pulse Rate 76 81 Respiratory 18 16 Rate Blood Pressure 147/82 131/82 O2 Sat by Pulse 96 99 Oximetry Medical Decision Making - Medical Decision Making Patient is a 76-year-old female presenting with chief complaint of rectal bleeding. Bleeding began yesterday, patient only notices it when using the bathroom, she does not notice copious bleeding or bleeding seen on her undergarments. No abdominal pain, fever, chills, chest pain, difficulty breathing. Physical examination is unremarkable, there is small remanence of blood seen on rectal exam, no obvious bleeding seen. Stool occult blood is p ositive. Hemoglobin is 12.5. Urine shows less than 1 RBC. BUN and creatinine are consistent with baseline. CT shows diverticulosis without diverticulitis. Bleeding is likely a result of diverticulosis. Patient appears stable for discharge with outpatient follow-up at this time. Follow-up with PCP. Report back to ER with any new or worsening symptoms. Discussed return parameters and answered all questions. Patient conveyed verbal understanding and agreed to the plan. I discussed this case in detail with my attending Dr. Quinn. - Lab Data Result diagrams: 05/24/22 22:27 05/24/22 22: Lab Results 05/24/22 05/24/22 05/24/22 Range/Units 22:03 22:03 22:27 WBC 2.3 L (3.8-10.6) k/uL RBC 4.13 (3.80-5.40) m/uL Hgb 12.5 (11.4-16.0) gm/dL Hct 39.1 (34.0-46.0) % MCV 94.5 (80.0-100.0) fL MCH 30.1 (25.0-35.0) pg MCHC 31.9 (31.0-37.0) g/dL RDW 17.0 H (11.5-15.5) % Plt Count (150-450) k/uL MPV 7.5 Neutrophils % (Manual) 38 % Lymphocytes % (Manual) 51 % Monocytes % (Manual) 7 % Eosinophils % (Manual) 3 % Basophils % (Manual) 1 % Neutrophils # (Manual) 0.87 L (1.3-7.7) k/uL Lymphocytes # (Manual) 1.17 (1.0-4.8) k/uL Monocytes # (Manual) 0.16 (0-1.0) k/uL Eosinophils # (Manual) 0.07 (0-0.7) k/uL Basophils # (Manual) 0.02 (0-0.2) k/uL Nucleated RBCs 0 (0-0) /100 WBC Manual Slide Review Performed Hypochromasia Moderate Anisocytosis Slight PT (9.0-12.0) sec INR (<1.2) APTT (22.0-30.0) sec Sodium (137-145) mmol/L Potassium (3.5-5.1) mmol/L Chloride (98-107) mmol/L Carbon Dioxide (22-30) mmol/L Anion Gap mmol/L BUN (7-17) mg/dL Creatinine (0.52-1.04) mg/dL Est GFR (CKD-EPI)AfAm (>60 ml/min/1.73 sqM) Est GFR (CKD-EPI)NonAf (>60 ml/min/1.73 sqM) Glucose (74-99) mg/dL Plasma Lactic Acid Tylor (0.7-2.0) mmol/L Calcium (8.4-10.2) mg/dL Magnesium (1.6-2.3) mg/dL Total Bilirubin (0.2-1.3) mg/dL AST (14-36) U/L ALT (4-34) U/L Alkaline Phosphatase (38-126) U/L Total Protein (6.3-8.2) g/dL Albumin (3.5-5.0) g/dL Lipase (23-300) U/L Urine Color Yellow Urine Appearance Clear (Clear) Urine pH 7.0 (5.0-8.0) Ur Specific [place] 1.015 (1.001-1.035) Urine Protein Negative (Negative) Urine Glucose (UA) Negative (Negative) Urine Ketones Negative (Negative) Urine Blood Large H (Negative) Urine Nitrite Negative (Negative) Urine Bilirubin Negative (Negative) Urine Urobilinogen <2.0 (<2.0) mg/dL Ur Leukocyte Esterase Negative (Negative) Urine RBC <1 (0-5) /hpf Urine WBC 1 (0-5) /hpf Ur Squamous Epith Cells <1 (0-4) /hpf Hyaline Casts 1 (0-2) /lpf Urine Mucus Rare H (None) /hpf Stool Occult Blood Positive H (Negative) 05/24/22 05/24/22 05/24/22 Range/Units 22:27 22:27 22:27 WBC (3.8-10.6) k/uL RBC (3.80-5.40) m/uL Hgb (11.4-16.0) gm/dL Hct (34.0-46.0) % MCV (80.0-100.0) fL MCH (25.0-35.0) pg MCHC (31.0-37.0) g/dL RDW (11.5-15.5) % Plt Count (150-450) k/uL MPV Neutrophils % (Manual) % Lymphocytes % (Manual) % Monocytes % (Manual) % Eosinophils % (Manual) % Basophils % (Manual) % Neutrophils # (Manual) (1.3-7.7) k/uL Lymphocytes # (Manual) (1.0-4.8) k/uL Monocytes # (Manual) (0-1.0) k/uL Eosinophils # (Manual) (0-0.7) k/uL Basophils # (Manual) (0-0.2) k/uL Nucleated RBCs (0-0) /100 WBC Manual Slide Review Hypochromasia Anisocytosis PT 12.0 (9.0-12.0) sec INR 1.1 (<1.2) APTT 33.1 H (22.0-30.0) sec Sodium 141 (137-145) mmol/L Potassium 4.5 (3.5-5.1) mmol/L Chloride 107 (98-107) mmol/L Carbon Dioxide 23 (22-30) mmol/L Anion Gap 11 mmol/L BUN 26 H (7-17) mg/dL Creatinine 1.40 H (0.52-1.04) mg/dL Est GFR (CKD-EPI)AfAm 42 (>60 ml/min/1.73 sqM) Est GFR (CKD-EPI)NonAf 37 (>60 ml/min/1.73 sqM) Glucose 91 (74-99) mg/dL Plasma Lactic Acid Tylor 0.6 L (0.7-2.0) mmol/L Calcium 8.9 (8.4-10.2) mg/dL Magnesium 2.3 (1.6-2.3) mg/dL Total Bilirubin 0.2 (0.2-1.3) mg/dL AST 27 (14-36) U/L ALT 23 (4-34) U/L Alkaline Phosphatase 106 (38-126) U/L Total Protein 6.3 (6.3-8.2) g/dL Albumin 3.6 (3.5-5.0) g/dL Lipase 58 (23-300) U/L Urine Color Urine Appearance (Clear) Urine pH (5.0-8.0) Ur Specific [place] (1.001-1.035) Urine Protein (Negative) Urine Glucose (UA) (Negative) Urine Ketones (Negative) Urine Blood (Negative) Urine Nitrite (Negative) Urine Bilirubin (Negative) Urine Urobilinogen (<2.0) mg/dL Ur Leukocyte Esterase (Negative) Urine RBC (0-5) /hpf Urine WBC (0-5) /hpf Ur Squamous Epith Cells (0-4) /hpf Hyaline Casts (0-2) /lpf Urine Mucus (None) /hpf Stool Occult Blood (Negative) Disposition Clinical Impression: Diverticulosis Disposition: HOME SELF-CARE Condition: Good Instructions (If sedation given, give patient instructions): Rectal Bleeding (ED), Diverticulosis (ED) Additional Instructions: Follow-up with PCP. Report back to ER with any new or worsening symptoms. Is patient prescribed a controlled substance at d/c from ED?: No Referrals: Drew Neff DO [Primary Care Provider] - 1-2 days Time of Disposition: 01:29
[2022-05-25 01:35] VITALS: BP 131/82; PULSE 81; RESP 16; TEMP 98.2
== END 2022-05-25 01:37 | disposition home or self-care (01) ==
LOC: EC 19:21
DX: K57.90 Diverticulosis of intestine, part unspecified, without perforation or abscess without bleeding (principal); I48.91 Unspecified atrial fibrillation; I10 Essential (primary) hypertension; M19.90 Unspecified osteoarthritis, unspecified site; G47.30 Sleep apnea, unspecified; Z88.9 Allergy status to unspecified drugs, medicaments and biological substances; Z88.8 Allergy status to other drugs, medicaments and biological substances; Z88.0 Allergy status to penicillin; Z88.1 Allergy status to other antibiotic agents; Z88.6 Allergy status to analgesic agent; Z88.5 Allergy status to narcotic agent
CPT/HCPCS: 36415; 74176; 80053; 81001; 82272; 83605; 83690; 83735; 85025; 85610; 85730; 96360; 99284

== ENCOUNTER 2022-06-14 11:09 | Day surgery (SDC) | payer MEDICARE, OTHER ==
[2022-06-13 10:42] VITALS: BMI 39.6
[~2022-06-14 11:09] MED LIST changes: -IV FLUID CONTINUATION 1,000 ML IV ONE; -LIDOCAINE 1% (10MG/ML) FOR IV START INTRADERMA PRN; -MIDAZOLAM 2 MG/2 ML VIAL ONE; -ROPIVACAINE 5MG/ML 20ML VIAL ONE; -fentaNYL (PF) 50 MCG/ML 2 ML AMP ONE; -methylPREDNISolone ACETATE 40 MG/ML 1 ML VIAL ONE
[2022-06-14 12:10] VITALS: RESP 16; TEMP 98
[2022-06-14] MEDS ORDERED: fentaNYL (PF) 50 MCG/ML 2 ML AMP ONE (12:15)
[2022-06-14] MEDS ORDERED: methylPREDNISolone ACETATE 40 MG/ML 1 ML VIAL ONE (12:15)
[2022-06-14] MEDS ORDERED: MIDAZOLAM 2 MG/2 ML VIAL ONE (12:15)
--- NOTE | 2022-06-14 12:24 | P.PCN ---
Date of Procedure: 06/14/22 Description of Procedure: PREOPERATIVE DIAGNOSIS: lumbar radiculopathy POSTOPERATIVE DIAGNOSIS: Lumbar radiculopathy PROCEDURE 1. Lumbar epidural steroid injection under fluoroscopic guidance at the L5-S1 level. Imaging: Fluoroscopy was used, images where saved to the medical record ANESTHESIA: Medication Administered by: Nurse Sedation Type: Moderate sedation per patient request Sedation Supervision start time: 1217 Sedation Supervision end time: 1224 EBL: Minimal PROCEDURE INDICATION: The patient with low back pain and radiculitis symptoms unresponsive to conservative treatment. Fluoroscopy was used to optimize visualization of the needle placement and to maximize safety. PROCEDURE DESCRIPTION / TECHNIQUE: The patient was seen and identified in the preoperative area. Risks, benefits, complications including but not limited to infections ,bleeding ,allergic reaction to the medications, nerve damage and incomplete pain relief , as well as alternatives to the procedure were discussed with the patient. The patient agreed to proceed with the procedure and signed the consent. IV was started, and vital signs were stable. Patient was taken to the OR and time out was completed. The patient was placed in the prone position on procedure table and a pillow was placed under the abdomen to reduce lumbar lordosis. The lumbosacral area was prepped and draped in the usual sterile fashion. Vitals were closely monitored during the procedure. Using anterior-posterior fluoroscopy, the L5-S1 interlaminar space was identified and the skin over this site was marked and then infiltrated with 1% lidocaine subcutaneously. Subsequently, a 20-gauge Tuohy epidural needle was inserted and advanced toward the epidural space using the Loss of resistance technique and guided by AP and lateral fluoroscopy. The correct needle position in the epidural space was verified by x-ray AP, contralateral, and lateral & after negative aspiration for blood and CSF and in the absence of paresthesias. Again after negative aspiration, a 3 ml mixture containing 40mg of depomedrol and 2 ml of preservative free Normal Saline was injected. Needle was withdrawn intact, skin was cleansed, and bandages were applied. COMPLICATIONS: None DISPOSITION / PLANS: The patient was placed in a supine position and transferred to the recovery area in a stable condition for observation. There was no evidence of lower extremity motor or sensory deficit after the procedure. Patient was discharged from the recovery room after meeting discharge criteria. Home discharge instructions were given to the patient by the staff. The patient was reexamined prior to discharge. The patient will follow up as directed.
[2022-06-14] MEDS ORDERED: IV FLUID CONTINUATION 1,000 ML IV ONE (12:29)
--- NOTE | 2022-06-14 12:42 | FL ---
EXAMINATION TYPE: FL guided pain mgmt statistic DATE OF EXAM: 06/14/2022 HISTORY: Fluoroscopy time 4 seconds of fluoroscopy provided. IMPRESSION: 1. Fluoroscopy time.
[2022-06-14 12:50] VITALS: PULSE 60
[2022-06-14 13:04] VITALS: BP 135/84
== END 2022-06-14 13:26 | disposition home or self-care (01) ==
LOC: ORPAIN 11:09
PROVIDERS: ATTEND Hospitalist
DX: M54.16 Radiculopathy, lumbar region (principal); Z91.041 Radiographic dye allergy status
CPT/HCPCS: 62323; J2250; J1030; J3010

== ENCOUNTER → 2023-02-09 | Outpatient (CLI) | payer MEDICARE, OTHER ==
--- NOTE | 2023-02-10 08:37 | NM ---
EXAMINATION TYPE: NM DatScan Brain SPECT DATE OF EXAM: 02/09/2023 COMPARISON: NONE HISTORY: Tremor TECHNIQUE: 10 drops of Lugol's solution was administered 1 hour prior to injection as a thyroid bloc reed agent. After the administration of 4.5 mCi I-123 Ioflupane DaTscan. Images obtained [address] injection. SPECT images of the brain were acquired with axial and coronal reconstructions. FINDINGS: The axial SPECT images demonstrate increased background activity and symmetric activity wit hin the bilateral striata. Z scores are concordant with the above static image analysis. IMPRESSION: No diagnostic evidence of idiopathic Parkinson's disease or Parkinsonian syndrome.
== END | disposition home or self-care (01) ==
LOC: RADNMMAIN 11:10
PROVIDERS: ATTEND Psychiatry & Neurology Neurology
DX: G25.0 Essential tremor (principal)
CPT/HCPCS: 78803; A9584

== ENCOUNTER → 2023-06-05 | Outpatient (CLI) | payer MEDICARE, OTHER ==
--- NOTE | 2023-06-06 09:00 | XR ---
EXAMINATION TYPE: XR chest special 3 views DATE OF EXAM: 06/05/2023 COMPARISON: 12/16/2021 TECHNIQUE: PA and lateral and oblique views submitted. HISTORY: Possible mass FINDINGS: The lungs are clear and there is no pneumothorax, pleural effusion, or focal pneumonia. Heart size normal and no overt failure. Osseous structures demonstrate hypertrophic and degenerative changes of the spine. There is ectasia of the aorta with cardiac device. In the left suprahilar region there is a abnormal area of soft tissue. Underlying COPD suspected. Arthropathy of the shoulders. Diffuse oste openia. IMPRESSION: Left paratracheal abnormal soft tissue appearance could be related to aneurysm or mass. Recommend CT of the chest. A Yellow level critical message alert has been initiated for Drew Neff DO via the [facility] Critical Results System on 06/06/2023 8:57 AM. This message alert has been sent to Drew josé DO via the preferences provided by the clinician for the receipt of Radiology Critical Findings. Message ID [id number].
== END | disposition home or self-care (01) ==
LOC: RADXRMAIN 15:42
PROVIDERS: ATTEND Family Medicine
DX: R22.2 Localized swelling, mass and lump, trunk (principal)
CPT/HCPCS: 71047

== ENCOUNTER → 2023-06-13 | Outpatient (CLI) | payer MEDICARE, OTHER ==
[2023-06-13 18:43] LABS: African American GFR (CKD) 46 (>60 ml/min/1.73 sqM); Blood Urea Nitrogen 25 mg/dL (7-17); Non-African American GFR(CKD) 40 (>60 ml/min/1.73 sqM)
--- NOTE | 2023-06-14 08:45 | CT ---
EXAMINATION TYPE: CT chest w con DATE OF EXAM: 06/13/2023 COMPARISON: 07/13/2021 HISTORY: abnormal xray at PCP. R/O cancer and aneurysm. CT DLP: 365.4 mGycm Automated exposure control for dose reduction was used. TECHNIQUE: CT scan of the chest is performed with IV Contrast, patient injected with 80 cc mL of Isovue 300. MA P Images are created on CT scanner and reviewed. 3D reconstructed images are created on an [email or web address] workstation and reviewed. FINDINGS: LUNGS: The lungs are grossly clear, there is no concerning consolidative pneumonia identified. Ther e is no pleural effusion or pneumothorax seen. The tracheobronchial tree is patent. There are multip le subpleural micronodules having benign. Left apical pleural thickening or scarring. Linear subsegme ntal areas of scarring or atelectasis bilaterally. MEDIASTINUM: There are no greater than 1 cm hilar or mediastinal lymph nodes. Heart is enlarged. No pericardial effusion is seen. Dense coronary artery calcification/coronary stent. There is prominen ce of the main pulmonary trunk measuring 3.9 cm correlate for pulmonary arterial hypertension. There is ectasia of the thoracic aorta with atherosclerotic changes. Aneurysmal dilation of the proximal de scending thoracic aorta with a maximal dimension 3.8 cm. Cardiac leads noted. OTHER: Intrahepatic biliary ductal dilation noted. Splenic granuloma. Atrophic right kidney punctate calcification. Small hiatal hernia. Hypertrophic and degenerative changes of the spine. There is chr onic appearing deformity of the sternum. Splenic cyst noted. IMPRESSION: 1. Ectasia of the thoracic aorta with mild aneurysmal dilation of the descending thoracic aorta measu ring 3.8 cm in maximal dimension. A bilateral subpleural pulmonary micronodules have a benign appearance. The BE followed with a 12 mon follow-up CT is
== END | disposition home or self-care (01) ==
LOC: RADCTMAIN 17:41
PROVIDERS: ATTEND Family Medicine
DX: I71.23 Aneurysm of the descending thoracic aorta, without rupture (principal); R91.8 Other nonspecific abnormal finding of lung field; R93.89 Abnormal findings on diagnostic imaging of other specified body structures
CPT/HCPCS: 82565; 84520; 71260; 36415; Q9967

== ENCOUNTER → 2023-06-28 | Outpatient (CLI) | payer MEDICARE, OTHER ==
--- NOTE | 2023-06-28 14:21 | US ---
EXAMINATION TYPE: US chest DATE OF EXAM: 06/28/2023 COMPARISON: CT 06/13/23 CLINICAL INDICATION: Female, 77 years old with history of R22.2 LOCALIZED SWELLING, MASS AND LUMP, TR UNK; lump at xiphoid process TECHNIQUE: Targeted ultrasound of the anterior midline lower chest EXAM MEASUREMENTS: Area of concern corresponds to a 3.5x5.9x2.6cm complex area inferior and slightly left to the xiphoid process, may represent arthritic changes to the xiphoid process . Area can be visualized on CT 06/13 IMPRESSIONS: Area of concern near the xiphoid process is favored to correlate with CT and represents a protuberant xiphoid process slightly asymmetric to the left.
== END | disposition home or self-care (01) ==
LOC: RADUSWWP 13:25
PROVIDERS: ATTEND Family Medicine
DX: R22.2 Localized swelling, mass and lump, trunk (principal)
CPT/HCPCS: 76604

== ENCOUNTER 2023-08-13 01:49 | Inpatient (IN) | payer MEDICARE, OTHER ==
[2023-08-13] MEDS ORDERED: SODIUM CHLORIDE 0.9% 1,000 ML IV STA (02:48)
--- NOTE | 2023-08-13 02:53 | ED ---
General Adult HPI - General Chief complaint: Overdose Stated complaint: OVERDOSE Time Seen by Provider: 08/13/23 01:58 Source: family, EMS Mode of arrival: EMS Limitations: no limitations - History of Present Illness Initial comments: 77-year-old female presenting to the ED with a chief complaint of accidental overdose. Patient states that she was having extreme difficulty trying to sleep tonight therefore took "a whole lot "of her Ativan 1 mg. This was prescribed on 08/03/23 for a quantity of 60 1 mg pills. Patient reports that she finished the rest of the bottle and is unsure of how many she took. Denies suicidal ideation. Reports that she did not take any other medications at this time. History limited secondary to patient's mental status. - Related Data Home Medications Medication Instructions Recorded Confirmed Baclofen 10 mg PO HS 04/13/15 08/13/23 Topiramate [Topamax] 200 mg PO DAILY 03/28/17 08/13/23 lamoTRIgine [LaMICtal] 200 mg PO DAILY 03/28/17 08/13/23 Amiodarone [Cordarone] 200 mg PO DAILY 03/22/21 08/13/23 Clopidogrel Bisulfate [Plavix] 75 mg PO DAILY 03/22/21 08/13/23 DULoxetine HCL [Cymbalta] 60 mg PO HS 03/22/21 08/13/23 Rivaroxaban [Xarelto] 15 mg PO HS 03/22/21 08/13/23 carvediloL [Coreg*] 12.5 mg PO BID-W/MEALS 07/05/21 08/13/23 Nitroglycerin Sl Tabs [Nitrostat] 0.4 mg SUBLINGUAL Q5M PRN 08/01/21 08/13/23 amLODIPine [Norvasc] 5 mg PO DAILY 08/01/21 08/13/23 Docusate [Colace] 100 mg PO DAILY 08/13/23 08/13/23 Docusate [Colace] 100 mg PO DAILY 08/13/23 08/13/23 Donepezil [Aricept] 5 mg PO HS 08/13/23 08/13/23 Ezetimibe [Zetia] 10 mg PO DAILY 08/13/23 08/13/23 Aleshaacidoph,Priom, B.lactis 1 cap PO HS 08/13/23 08/13/23 [Probiotic] LORazepam [Ativan] 1 mg PO BID PRN 08/13/23 08/13/23 Memantine [Namenda] 5 mg PO BID 08/13/23 08/13/23 Primidone [Mysoline] 50 mg PO DAILY 08/13/23 08/13/23 calcitrioL [Calcitriol] 0.25 mcg PO SUWE 08/13/23 08/13/23 Allergies Allergy/AdvReac Type Severity Reaction Status Date / Time alendronate sodium Allergy Anaphylaxis Verified 08/13/23 15:22 [From Fosamax] amitriptyline HCl Allergy Unknown Verified 08/13/23 15:22 [From Elavil] doxepin HCl [From Sinequan] Allergy Unknown Verified 08/13/23 15:22 iodine Allergy Anaphylaxis Verified 08/13/23 15:22 Penicillins Allergy passed out Verified 08/13/23 15:22 simvastatin [From Zocor] Allergy Unknown Verified 08/13/23 15:22 sulindac [From Clinoril] Allergy Unknown Verified 08/13/23 15:22 vancomycin Allergy Anaphylaxis Verified 08/13/23 15:22 codeine AdvReac Abdominal Verified 08/13/23 15:22 Pain gabapentin [From Neurontin] AdvReac Nausea & Verified 08/13/23 15:22 Vomiting ibuprofen [From Motrin] AdvReac Abdominal Verified 08/13/23 15:22 Pain Review of Systems ROS Statement: Those systems with pertinent positive or pertinent negative responses have been documented in the HPI. ROS Other: All systems not noted in ROS Statement are negative. Past Medical History Past Medical History: Atrial Fibrillation, Cancer, Heart Failure, Fibromyalgia, Hypertension, Memory Impairment, Musculoskeletal Disorder, Osteoarthritis (OA), Sleep Apnea/CPAP/BIPAP Additional Past Medical History / Comment(s): Born with only Lt kidney, Fibroids, Breast cancer 1985-radiation txs, Benign Tremors, Psuedo Coarctation of Aorta, Narcolepsy. c/o back and SI joint pain. No cpap. RECENTLY SEEN IN ER FOR RECTAL BLEEDING R/T DIVERTICULOSIS History of Any Multi-Drug Resistant Organisms: None Reported Past Surgical History: Breast Surgery, Cholecystectomy, Heart Catheterization With Stent, Hysterectomy, Pacemaker, Tonsillectomy, Tubal Ligation Additional Past Surgical History / Comment(s): EP Study/Ablation 2007, pacemaker, Laser eye SX. bilateral mastectomy. Pain proc Past Anesthesia/Blood Transfusion Reactions: No Reported Reaction Date of Last Stent Placement:: 2019 Type of Cardiac Device: Permanent Pacemaker Device Placement Date:: 2003 Past Psychological History: Anxiety, Bipolar Smoking Status: Never smoker - Past Family History Father Family Medical History: Cancer Additional Family Medical History / Comment(s): BONE CANCER Mother Family Medical History: Cancer Additional Family Medical History / Comment(s): BREAST CANCER W/METS. Daughter(s) Family Medical History: Cancer Brother(s) Family Medical History: Cancer General Exam Limitations: no limitations General appearance: appears intoxicated Eye exam: Present: normal appearance ENT exam: Present: other (Airway patent) Neck exam: Present: normal inspection Respiratory exam: Present: normal lung sounds bilaterally Cardiovascular Exam: Present: regular rate, normal rhythm GI/Abdominal exam: Present: soft (No tenderness to palpation. No rebound guarding or rigidity.) Neurological exam: Present: alert, oriented X3 (Is a somnolent however is easily arousable. Answers questions somewhat appropriately.) Skin exam: Present: warm, dry Course Vital Signs 08/13/23 08/13/23 08/13/23 01:53 02:05 03:00 Temperature 97.7 F Pulse Rate 70 65 60 Respiratory 16 16 36 H Rate Blood Pressure 130/73 108/44 120/61 O2 Sat by Pulse 97 100 95 Oximetry 08/13/23 08/13/23 08/13/23 04:00 05:00 06:00 Temperature Pulse Rate 60 60 60 Respiratory 20 20 20 Rate Blood Pressure 121/60 131/87 135/67 O2 Sat by Pulse 98 100 98 Oximetry 08/13/23 08/13/23 08/13/23 07:00 08:00 09:00 Temperature Pulse Rate 60 60 60 Respiratory 16 17 17 Rate Blood Pressure 164/84 161/79 141/75 O2 Sat by Pulse 98 98 96 Oximetry Medical Decision Making - Medical Decision Making Was pt. sent in by a medical professional or institution (, PA, FOOD STYLIST, urgent care, hospital, or half-way...) When possible be specific @ -No Did you speak to anyone other than the patient for history (EMS, parent, family, police, friend...)? What history was obtained from this source @ -No Did you review nursing and triage notes (agree or disagree)? Why? @ -I reviewed and agree with nursing and triage notes Were old charts reviewed (outside hosp., previous admission, EMS record, old EKG, old radiological studies, urgent care reports/EKG's, half-way records)? Report findings @ -No old charts were reviewed Differential Diagnosis (chest pain, altered mental status, abdominal pain women, abdominal pain men, vaginal bleeding, weakness, fever, dyspnea, syncope, headache, dizziness, GI bleed, back pain, seizure, CVA, palpatations, mental health, musculoskeletal)? @ -Differential Altered Mental Status: Hypoglycemia, DKA, hypercapnia, ETOH, overdose, CO poisoning, trauma, myxedema coma, HTN encephalopathy, infection, encephalitis, psychosis, intercranial hemorrhage, hepatic encephalopathy, meningitis, CVA, this is not meant to be an all-inclusive list EKG interpreted by me (3pts min.). @ -EKG shows a chill paced rhythm at [address] or T-wave changes. MO 195, QRS 113, QT/QTc 440/447. X-rays interpreted by me (1pt min.). @ -None done CT interpreted by me (1pt min.). @ -None done U/S interpreted by me (1pt. min.). @ -None done What testing was considered but not performed or refused? (CT, X-rays, U/S, labs)? Why? @ -None What meds were considered but not given or refused? Why? @ -None Did you discuss the management of the patient with other professionals (professionals i.e. , PA, FOOD STYLIST, lab, RT, psych nurse, social work lecturer, crop and soil technician, teacher, correctional officer lieutenant, case sealer)? Give summary @ -Spoke to poison control. Reccomends laboratory studies including chemistry panel, drug screen, acetaminophen, and salicylates. Advises maintain airway. Advising holding flumazenil and observation until patient back to baseline. Was smoking cessation discussed for >3mins.? @ -No Was critical care preformed (if so, how long)? @ -No Were there social determinants of health that impacted care today? How? (Homelessness, low income, unemployed, alcoholism, drug addiction, transp ortation, low edu. Level, literacy, decrease access to med. care, group home, rehab)? @ -No Was there de-escalation of care discussed even if they declined (Discuss DNR or withdrawal of care, Hospice)? DNR status @ -No What co-morbidities impacted this encounter? (DM, HTN, Smoking, COPD, CAD, Cancer, CVA, ARF, Chemo, Hep., AIDS, mental health diagnosis, sleep apnea, morbid obesity)? @ -None Was patient admitted / discharged? Hospital course, mention meds given and route, prescriptions, significant lab abnormalities, going to OR and other pertinent info. @ -Admission 77-year-old female presenting secondary to accidental overdose in which patient is fully overdosed on Ativan to help her sleep. Discussed with poison control who recommends laboratory studies as above and admission of patient until patient is back to baseline. This time, her vital signs and EKG appears stable. See at this time largely unremarkable. Initial she panel shows a potassium of 6.2 however this was hemolyzed. Will be redrawn. Undiagnosed new problem with uncertain prognosis? @ -No Drug Therapy requiring intensive monitoring for toxicity (Heparin, Nitro, Insulin, Cardizem)? @ -No Were any procedures done? @ -No Diagnosis/symptom? @ -Overdose, Ativan Acute, or Chronic, or Acute on Chronic? @ -Acute Uncomplicated (without systemic symptoms) or Complicated (systemic symptoms)? @ -Complicated Side effects of treatment? @ -No Exacerbation, Progression, or Severe Exacerbation? @ -No Poses a threat to life or bodily function? How? (Chest pain, USA, DC, pneumonia, PE, COPD, DKA, ARF, appy, cholecystitis, CVA, Diverticulitis, Homicidal, Suicidal, threat to staff... and all critical care pts) @ -No - Lab Data Result diagrams: 08/13/23 02:53 08/13/23 04:34 Lab Results 08/13/23 08/13/23 08/13/23 Range/Units 02:53 02:53 03:31 WBC 3.0 L (3.8-10.6) k/uL RBC 3.96 (3.80-5.40) m/uL Hgb 11.7 (11.4-16.0) gm/dL Hct 36.4 (34.0-46.0) % MCV 92.0 (80.0-100.0) fL MCH 29.6 (25.0-35.0) pg MCHC 32.2 (31.0-37.0) g/dL RDW 14.1 (11.5-15.5) % Plt Count 146 L (150-450) k/uL MPV 10.7 Neutrophils % 54 % Lymphocytes % 27 % Monocytes % 8 % Eosinophils % 7 % Basophils % 1 % Neutrophils # 1.6 (1.3-7.7) k/uL Lymphocytes # 0.8 L (1.0-4.8) k/uL Monocytes # 0.2 (0-1.0) k/uL Eosinophils # 0.2 (0-0.7) k/uL Basophils # 0.0 (0-0.2) k/uL Hypochromasia Slight Sodium 138 (137-145) mmol/L Potassium 6.3 H* (3.5-5.1) mmol/L Chloride 112 H (98-107) mmol/L Carbon Dioxide 20 L (22-30) mmol/L Anion Gap 6 mmol/L BUN 25 H (7-17) mg/dL Creatinine 1.52 H (0.52-1.04) mg/dL Est GFR (CKD-EPI)AfAm 38 (>60 ml/min/1.73 sqM) Est GFR (CKD-EPI)NonAf 33 (>60 ml/min/1.73 sqM) Glucose 96 (74-99) mg/dL Calcium 8.6 (8.4-10.2) mg/dL Total Bilirubin 0.9 (0.2-1.3) mg/dL AST 34 (14-36) U/L ALT 11 (4-34) U/L Alkaline Phosphatase 73 (38-126) U/L Total Protein 6.2 L (6.3-8.2) g/dL Albumin 3.4 L (3.5-5.0) g/dL Urine Color Colorless Urine Appearance Clear (Clear) Urine pH 7.0 (5.0-8.0) Ur Specific [place] 1.010 (1.001-1.035) Urine Protein Negative (Negative) Urine Glucose (UA) Negative (Negative) Urine Ketones Negative (Negative) Urine Blood Large H (Negative) Urine Nitrite Negative (Negative) Urine Bilirubin Negative (Negative) Urine Urobilinogen <2.0 (<2.0) mg/dL Ur Leukocyte Esterase Large H (Negative) Urine RBC 15 H (0-5) /hpf Urine WBC 20 H (0-5) /hpf Ur Squamous Epith Cells 8 H (0-4) /hpf Urine Bacteria Occasional H (None) /hpf Salicylates <1.0 mg/dL Urine Opiates Screen Not Detected (NotDetected) Ur Oxycodone Screen Not Detected (NotDetected) Urine Methadone Screen Not Detected (NotDetected) Acetaminophen <10.0 ug/mL Ur Barbiturates Screen Not Detected (NotDetected) U Tricyclic Antidepress Not Detected (NotDetected) Ur Phencyclidine Scrn Not Detected (NotDetected) Ur Amphetamines Screen Not Detected (NotDetected) U Methamphetamines Scrn Not Detected (NotDetected) U Benzodiazepines Scrn Detected H (NotDetected) Urine Cocaine Screen Not Detected (NotDetected) U Marijuana (THC) Screen Not Detected (NotDetected) Serum Alcohol <10 mg/dL 08/13/23 Range/Units 04:34 WBC (3.8-10.6) k/uL RBC (3.80-5.40) m/uL Hgb (11.4-16.0) gm/dL Hct (34.0-46.0) % MCV (80.0-100.0) fL MCH (25.0-35.0) pg MCHC (31.0-37.0) g/dL RDW (11.5-15.5) % Plt Count (150-450) k/uL MPV Neutrophils % % Lymphocytes % % Monocytes % % Eosinophils % % Basophils % % Neutrophils # (1.3-7.7) k/uL Lymphocytes # (1.0-4.8) k/uL Monocytes # (0-1.0) k/uL Eosinophils # (0-0.7) k/uL Basophils # (0-0.2) k/uL Hypochromasia Sodium 140 (137-145) mmol/L Potassium 4.2 (3.5-5.1) mmol/L Chloride 113 H (98-107) mmol/L Carbon Dioxide 21 L (22-30) mmol/L Anion Gap 6 mmol/L BUN 22 H (7-17) mg/dL Creatinine 1.61 H (0.52-1.04) mg/dL Est GFR (CKD-EPI)AfAm 36 (>60 ml/min/1.73 sqM) Est GFR (CKD-EPI)NonAf 31 (>60 ml/min/1.73 sqM) Glucose 94 (74-99) mg/dL Calcium 8.8 (8.4-10.2) mg/dL Total Bilirubin 0.3 (0.2-1.3) mg/dL AST 17 (14-36) U/L ALT 9 (4-34) U/L Alkaline Phosphatase 93 (38-126) U/L Total Protein 5.7 L (6.3-8.2) g/dL Albumin 3.1 L (3.5-5.0) g/dL Urine Color Urine Appearance (Clear) Urine pH (5.0-8.0) Ur Specific [place] (1.001-1.035) Urine Protein (Negative) Urine Glucose (UA) (Negative) Urine Ketones (Negative) Urine Blood (Negative) Urine Nitrite (Negative) Urine Bilirubin (Negative) Urine Urobilinogen (<2.0) mg/dL Ur Leukocyte Esterase (Negative) Urine RBC (0-5) /hpf Urine WBC (0-5) /hpf Ur Squamous Epith Cells (0-4) /hpf Urine Bacteria (None) /hpf Salicylates mg/dL Urine Opiates Screen (NotDetected) Ur Oxycodone Screen (NotDetected) Urine Methadone Screen (NotDetected) Acetaminophen ug/mL Ur Barbiturates Screen (NotDetected) U Tricyclic Antidepress (NotDetected) Ur Phencyclidine Scrn (NotDetected) Ur Amphetamines Screen (NotDetected) U Methamphetamines Scrn (NotDetected) U Benzodiazepines Scrn (NotDetected) Urine Cocaine Screen (NotDetected) U Marijuana (THC) Screen (NotDetected) Serum Alcohol mg/dL Disposition Clinical Impression: Benzodiazepine overdose of undetermined intent Disposition: ADMITTED IP TO THIS HOSP
[2023-08-13 03:46] LABS: ALT 11 U/L (4-34); Acetaminophen <10.0 ug/mL; African American GFR (CKD) 38 (>60 ml/min/1.73 sqM); Alcohol <10 mg/dL; Anion Gap 6 mmol/L; Blood Urea Nitrogen 25 mg/dL (7-17); Calcium 8.6 mg/dL (8.4-10.2); Carbon Dioxide 20 mmol/L (22-30); Chloride 112 mmol/L (98-107); Glucose 96 mg/dL (74-99); Non-African American GFR(CKD) 33 (>60 ml/min/1.73 sqM); Salicylate <1.0 mg/dL; Sodium 138 mmol/L (137-145); Total Bilirubin 0.9 mg/dL (0.2-1.3)
[2023-08-13 03:47] LABS: Basophils % (A) 1 %; Eosinophils # (A) 0.2 k/uL (0-0.7); Eosinophils % (A) 7 %; HCT 36.4 % (34.0-46.0); HGB 11.7 gm/dL (11.4-16.0); Hypochromasia Slight; Lymphocytes # (A) 0.8 k/uL (1.0-4.8); Lymphocytes % (A) 27 %; MCH 29.6 pg (25.0-35.0); MCHC 32.2 g/dL (31.0-37.0); Mean Platelet Volume 10.7; Monocytes # (A) 0.2 k/uL (0-1.0); Monocytes % (A) 8 %; Neutrophils # (A) 1.6 k/uL (1.3-7.7); Neutrophils % (A) 54 %; Platelet Count 146 k/uL (150-450); RBC 3.96 m/uL (3.80-5.40); RDW 14.1 % (11.5-15.5)
[2023-08-13 03:47] LABS: AST 34 U/L (14-36); Albumin 3.4 g/dL (3.5-5.0); Alkaline Phosphatase 73 U/L (38-126); Potassium 6.3 mmol/L (3.5-5.1); Total Protein 6.2 g/dL (6.3-8.2)
[2023-08-13 04:56] LABS: ALT 9 U/L (4-34); AST 17 U/L (14-36); African American GFR (CKD) 36 (>60 ml/min/1.73 sqM); Albumin 3.1 g/dL (3.5-5.0); Alkaline Phosphatase 93 U/L (38-126); Anion Gap 6 mmol/L; Blood Urea Nitrogen 22 mg/dL (7-17); Calcium 8.8 mg/dL (8.4-10.2); Carbon Dioxide 21 mmol/L (22-30); Chloride 113 mmol/L (98-107); Glucose 94 mg/dL (74-99); Non-African American GFR(CKD) 31 (>60 ml/min/1.73 sqM); Potassium 4.2 mmol/L (3.5-5.1); Sodium 140 mmol/L (137-145); Total Bilirubin 0.3 mg/dL (0.2-1.3); Total Protein 5.7 g/dL (6.3-8.2)
[2023-08-13] MEDS ORDERED: NALOXONE 0.4 MG/ML 1 ML VIAL IV PRN (06:24)
[2023-08-13] MEDS: SODIUM CHLORIDE 0.9% 1,000 ML IV SCH ×2 (07:00→21:10)
[2023-08-13 10:58] LABS: Appearance,Urine Clear (Clear); Bacteria,Urine Occasional /hpf; Bilirubin,Urine Negative (Negative); Blood,Urine Large (Negative); Color,Urine Colorless; Glucose,Urine (UA) Negative (Negative); Ketones,Urine Negative (Negative); Leukocyte Esterase,Urine Large (Negative); Nitrite,Urine Negative (Negative); Protein,Urine Negative (Negative); RBC,Urine 15 /hpf (0-5); Squamous Epithelial Cell,Urine 8 /hpf (0-4); Urobilinogen,Urine <2.0 mg/dL (<2.0); WBC,Urine 20 /hpf (0-5)
[2023-08-13 11:17] LABS: Amphetamine Screen,Urine Not Detected (NotDetected); Barbiturate Screen,Urine Not Detected (NotDetected); Benzodiazepines Screen,Urine Detected (NotDetected); Cocaine Screen,Urine Not Detected (NotDetected); Methadone Screen, Urine Not Detected (NotDetected); Opiate Screen,Urine Not Detected (NotDetected); Oxycodone Screen, Urine Not Detected (NotDetected); Phencyclidine Screen,Urine Not Detected (NotDetected); Tricyclic Antidepressant,Urine Not Detected (NotDetected); Urn Cannabinoid Scrn Not Detected (NotDetected)
[2023-08-13] MEDS ORDERED: MELATONIN 3 MG TABLET PO PRN (20:45)
[2023-08-13] MEDS ORDERED: ACETAMINOPHEN TAB 325 MG TAB PO PRN (20:45)
[2023-08-13] MEDS: RIVAROXABAN 15 MG TAB PO SCH (21:09)
[2023-08-13] MEDS: MEMANTINE 5 MG TAB PO SCH (21:09)
[2023-08-13] MEDS: DONEPEZIL 5 MG TAB PO SCH (21:09)
[2023-08-14] MEDS: EZETIMIBE 10 MG TAB PO SCH (09:06)
[2023-08-14] MEDS: lamoTRIgine 100 MG TAB PO SCH (09:06)
[2023-08-14] MEDS: AMIODARONE 200 MG TAB PO SCH (09:06)
[2023-08-14] MEDS: CLOPIDOGREL 75 MG TAB PO SCH (09:06)
[2023-08-14] MEDS: MEMANTINE 5 MG TAB PO SCH ×2 (09:06→21:06)
[2023-08-14] MEDS: carvediloL 12.5 MG TAB PO SCH ×2 (09:07→17:44)
[2023-08-14] MEDS: SODIUM CHLORIDE 0.9% 1,000 ML IV SCH (09:16)
--- NOTE | 2023-08-14 10:04 | XR ---
EXAMINATION TYPE: XR chest 1V portable DATE OF EXAM: 08/14/2023 COMPARISON: 12/16/2021 HISTORY: Weakness TECHNIQUE: Single frontal view of the chest is obtained. FINDINGS: There is no focal air space opacity, pleural effusion, or pneumothorax seen. The cardiac silhouette size is within normal limits. The osseous structures are intact. Limited inspiration wit h ectasia of the aorta. Cardiac device stable. Underlying COPD. Biapical pleural thickening. Diffuse osteopenia with arthropathy of the shoulders. Coronary artery stenting suggested. IMPRESSION: 1. COPD with no definite acute process. 2. Ectasia of the thoracic aorta.
[2023-08-14 10:30] LABS: Basophils % (A) 1 %; Eosinophils # (A) 0.4 k/uL (0-0.7); Eosinophils % (A) 9 %; HCT 41.8 % (34.0-46.0); Hypochromasia Marked; Lymphocytes # (A) 0.9 k/uL (1.0-4.8); Lymphocytes % (A) 20 %; MCH 29.6 pg (25.0-35.0); MCHC 31.1 g/dL (31.0-37.0); MCV 95.2 fL (80.0-100.0); Mean Platelet Volume 7.7; Monocytes # (A) 0.2 k/uL (0-1.0); Monocytes % (A) 5 %; Neutrophils # (A) 2.8 k/uL (1.3-7.7); Neutrophils % (A) 64 %; Platelet Count 157 k/uL (150-450); RDW 13.8 % (11.5-15.5); WBC 4.4 k/uL (3.8-10.6)
[2023-08-14] MEDS: PRIMIDONE 50 MG TAB PO SCH (11:03)
[2023-08-14] MEDS: amLODIPine 5 MG TAB PO SCH (11:03)
[2023-08-14 11:17] LABS: African American GFR (CKD) 55 (>60 ml/min/1.73 sqM); Anion Gap 8 mmol/L; Blood Urea Nitrogen 16 mg/dL (7-17); Calcium 9.2 mg/dL (8.4-10.2); Carbon Dioxide 18 mmol/L (22-30); Chloride 114 mmol/L (98-107); Glucose 84 mg/dL (74-99); Non-African American GFR(CKD) 48 (>60 ml/min/1.73 sqM); Potassium 4.5 mmol/L (3.5-5.1); Sodium 140 mmol/L (137-145)
--- NOTE | 2023-08-14 12:52 | P.HPIM ---
History of Present Illness H&P Date: 08/14/23 Chief Complaint: Altered mental status accident lowered to * 77-year-old patient with past medical history significant for paroxysmal atrial fibrillation, and examined dementia coronary artery disease with history of PCI to LAD in February 2020, history of chronic kidney disease, hypertension, hyperlipidemia status post pacemaker in place, bicuspid aortic valve, history of ischemic cardiomyopathy presents to the emergency department after patient had accidentally overdose. Patient was having difficulty in sleep and took her a whole lot offered Ativan pills. Patient was given 60 tablets of 1 mg Ativan. On 08/03/2023. Patient has taken several of the medications and had finished rest of the bottle. Patient was unsure how many medication she took at the time of presentation in ER patient was intoxicated, she appeared confused and she was somnolent however easily arousable * Workup initiated in ER included basic metabolic panel which showed potassium of 6.3 which was corrected, serum bicarbonate of 20 and creatinine of 1.5 * An EKG obtained in ER showed sinus rhythmST segment changes * Patient was started on IV fluids with follow-up renal profile ordered with c onsultations psychiatry home medications reviewed and reconciled patient remained ED overnight was seen in ER room 11 REVIEW OF SYSTEMS: Weakness, lethargic, insomnia, generalized tremor CONSTITUTIONAL: No fever, no malaise, no fatigue. HEENT: No recent visual problems or hearing problems. Denied any sore throat. CARDIOVASCULAR: No chest pain, orthopnea, PND, no palpitations, no syncope. PULMONARY: No shortness of breath, no cough, no hemoptysis. GASTROINTESTINAL: No diarrhea, no nausea, no vomiting, no abdominal pain. NEUROLOGICAL: No headaches, no weakness, no numbness. HEMATOLOGICAL: Denies any bleeding or petechiae. GENITOURINARY: Denies any burning micturition, frequency, or urgency. MUSCULOSKELETAL/RHEUMATOLOGICAL: Denies any joint pain, swelling, or any muscle pain. ENDOCRINE: Denies any polyuria or polydipsia. PHYSICAL EXAMINATION: GENERAL: The patient is alert and oriented x 2, lethargic but easily arousable HEENT: Pupils are round and equally reacting to light. EOMI CARDIOVASCULAR: S1 and S2 present. No murmurs, rubs, or gallops. PULMONARY: Chest is clear to auscultation, no wheezing or crackles. ABDOMEN: Soft, nontender, nondistended, normoactive bowel sounds. No palpable organomegaly. MUSCULOSKELETAL: No joint swelling or deformity. EXTREMITIES: No cyanosis, clubbing, or pedal edema. NEUROLOGICAL: Moving both upper and lower extremities, resting tremors noted, generalized weakness no focal deficit Past Medical History Past Medical History: Atrial Fibrillation, Cancer, Heart Failure, Fibromyalgia, Hypertension, Memory Impairment, Musculoskeletal Disorder, Osteoarthritis (OA), Sleep Apnea/CPAP/BIPAP Additional Past Medical History / Comment(s): Born with only Lt kidney, Fibroids, Breast cancer 1985-radiation txs, Benign Tremors, Psuedo Coarctation of Aorta, Narcolepsy. c/o back and SI joint pain. No cpap. RECENTLY SEEN IN ER FOR RECTAL BLEEDING R/T DIVERTICULOSIS History of Any Multi-Drug Resistant Organisms: None Reported Past Surgical History: Breast Surgery, Cholecystectomy, Heart Catheterization With Stent, Hysterectomy, Pacemaker, Tonsillectomy, Tubal Ligation Additional Past Surgical History / Comment(s): EP Study/Ablation 2006, pacemaker, Laser eye SX. bilateral mastectomy. Pain proc Past Anesthesia/Blood Transfusion Reactions: No Reported Reaction Date of Last Stent Placement:: 2019 Type of Cardiac Device: Permanent Pacemaker Device Placement Date:: 2003 Past Psychological History: Anxiety, Bipolar Smoking Status: Never smoker - Past Family History Father Family Medical History: Cancer Additional Family Medical History / Comment(s): BONE CANCER Mother Family Medical History: Cancer Additional Family Medical History / Comment(s): BREAST CANCER W/METS. Daughter(s) Family Medical History: Cancer Brother(s) Family Medical History: Cancer Medications and Allergies Home Medications Medication Instructions Recorded Confirmed Type Baclofen 10 mg PO HS 04/13/15 08/13/23 History Topiramate [Topamax] 200 mg PO DAILY 03/28/17 08/13/23 History lamoTRIgine [LaMICtal] 200 mg PO DAILY 03/28/17 08/13/23 History Amiodarone [Cordarone] 200 mg PO DAILY 03/22/21 08/13/23 History Clopidogrel Bisulfate [Plavix] 75 mg PO DAILY 03/22/21 08/13/23 History DULoxetine HCL [Cymbalta] 60 mg PO HS 03/22/21 08/13/23 History Rivaroxaban [Xarelto] 15 mg PO HS 03/22/21 08/13/23 History carvediloL [Coreg*] 12.5 mg PO BID-W/MEALS 07/05/21 08/13/23 History Nitroglycerin Sl Tabs [Nitrostat] 0.4 mg SUBLINGUAL Q5M PRN 08/01/21 08/13/23 History amLODIPine [Norvasc] 5 mg PO DAILY 08/01/21 08/13/23 History Docusate [Colace] 100 mg PO DAILY 08/13/23 08/13/23 History Docusate [Colace] 100 mg PO DAILY 08/13/23 08/13/23 History Donepezil [Aricept] 5 mg PO HS 08/13/23 08/13/23 History Ezetimibe [Zetia] 10 mg PO DAILY 08/13/23 08/13/23 History L.acidoph,Paracasei, B.lactis 1 cap PO HS 08/13/23 08/13/23 History [Probiotic] LORazepam [Ativan] 1 mg PO BID PRN 08/13/23 08/13/23 History Memantine [Namenda] 5 mg PO BID 08/13/23 08/13/23 History Primidone [Mysoline] 50 mg PO DAILY 08/13/23 08/13/23 History calcitrioL [Calcitriol] 0.25 mcg PO SUWE 08/13/23 08/13/23 History Allergies Allergy/AdvReac Type Severity Reaction Status Date / Time alendronate sodium Allergy Anaphylaxis Verified 08/13/23 15:22 [From Fosamax] amitriptyline HCl Allergy Unknown Verified 08/13/23 15:22 [From Elavil] doxepin HCl [From Sinequan] Allergy Unknown Verified 08/13/23 15:22 iodine Allergy Anaphylaxis Verified 08/13/23 15:22 Penicillins Allergy passed out Verified 08/13/23 15:22 simvastatin [From Zocor] Allergy Unknown Verified 08/13/23 15:22 sulindac [From Clinoril] Allergy Unknown Verified 08/13/23 15:22 vancomycin Allergy Anaphylaxis Verified 08/13/23 15:22 codeine AdvReac Abdominal Verified 08/13/23 15:22 Pain gabapentin [From Neurontin] AdvReac Nausea & Verified 08/13/23 15:22 Vomiting ibuprofen [From Motrin] AdvReac Abdominal Verified 08/13/23 15:22 Pain Physical Exam Vitals: Vital Signs Temp Pulse Resp BP Pulse Ox 08/14/23 09:10 98.8 F 60 16 147/93 96 08/14/23 05:39 98.0 F 60 16 106/88 95 08/14/23 03:30 60 18 150/80 97 08/14/23 02:00 60 15 146/90 95 08/14/23 01:00 60 15 146/78 98 08/14/23 00:00 60 18 159/97 90 L 08/13/23 23:00 60 17 160/78 99 08/13/23 22:45 60 15 163/83 97 08/13/23 21:12 60 18 133/71 96 08/13/23 20:00 60 18 127/70 98 08/13/23 18:00 60 20 163/93 98 08/13/23 17:00 60 23 161/83 98 08/13/23 16:00 60 18 187/89 97 08/13/23 15:00 60 16 169/87 95 08/13/23 14:00 60 19 186/90 98 08/13/23 13:00 60 18 172/90 97 08/13/23 12:00 60 19 152/87 94 L 08/13/23 11:00 60 17 170/90 97 08/13/23 10:00 61 16 117/67 86 L Intake and Output 08/13/23 08/14/23 08/14/23 22:59 06:59 14:59 Output Total 1700 600 Balance -1700 -600 Output: Urine 1700 600 Uretheral (Cannon) 600 Results CBC & Chem 7: 08/14/23 09:57 08/14/23 09:57 Labs: Abnormal Lab Results - Last 24 Hours (Table) 08/13/23 Range/Units 02:53 Urine Blood Large H (Negative) Ur Leukocyte Esterase Large H (Negative) Urine RBC 15 H (0-5) /hpf Urine WBC 20 H (0-5) /hpf Ur Squamous Epith Cells 8 H (0-4) /hpf Urine Bacteria Occasional H (None) /hpf U Benzodiazepines Scrn Detected H (NotDetected) Assessment and Plan Assessment: Assessment and plan * Acute toxic encephalopathy with accidental overdose on Xanax * Acute kidney injury on chronic kidney disease * Urinary tract infection * Examined dementia * Chronic atrial fibrillation * Coronary artery disease * Chronic congestive heart failure systolic dysfunction * History of fibromyalgia * History of solitary kidney * In regards to acute toxic encephalopathy, continue to monitor patient had u nknown quantity of Xanax pills prior to presentation. Continue with IV hydration * In regards to urinary tract infection continue Rocephin follow-up on urine cultures * In regards to chronic atrial fibrillation continue amiodarone, Coreg, Zocor * Regards to coronary artery disease continue Plavix, continue statin * In regards to congestive heart failure most recent echocardiogram greater than a year ago shows ejection fraction 45%. Caution with excessive hydration * In regards to chronic kidney disease, patient is sexually with fluid, follow up on renal function * In regards to history of fibromyalgia home medications reviewed and reconciled * In regards to insomnia psychiatry consulted to evaluate and adjust medications * In regards to examine dementia continue patient on home regimen * CODE STATUS is full code
[2023-08-14] MEDS ORDERED: LORazepam 1 MG TAB PO PRN (14:16)
[2023-08-14] MEDS: DULoxetine HCL 60 MG CAPSULE.DR PO SCH (21:06)
[2023-08-14] MEDS: BACLOFEN 10 MG TAB PO SCH (21:06)
[2023-08-14] MEDS: RIVAROXABAN 15 MG TAB PO SCH (21:07)
[2023-08-14] MEDS: DONEPEZIL 5 MG TAB PO SCH (21:11)
[2023-08-15 09:00] LABS: HCT 40.5 % (37.2-46.3); HGB 12.7 g/dL (12.0-15.0); MCH 28.5 pg (27.0-32.0); MCHC 31.4 g/dL (32.0-37.0); MCV 90.8 FL (80.0-97.0); Mean Platelet Volume 10.2 FL (9.5-12.2); NRBC Per 100 WBC 0 X 10*3/uL (0.00-0.01); Platelet Count 171 X 10*3/uL (140-440); RBC 4.46 X 10*6/uL (4.10-5.20); RDW 14.1 % (11.5-14.5)
[2023-08-15] MEDS: carvediloL 12.5 MG TAB PO SCH ×2 (09:12→16:40)
[2023-08-15] MEDS: AMIODARONE 200 MG TAB PO SCH (09:15)
[2023-08-15] MEDS: amLODIPine 5 MG TAB PO SCH (09:16)
[2023-08-15] MEDS: CLOPIDOGREL 75 MG TAB PO SCH (09:17)
[2023-08-15] MEDS: lamoTRIgine 100 MG TAB PO SCH (09:19)
[2023-08-15] MEDS: EZETIMIBE 10 MG TAB PO SCH (09:19)
[2023-08-15] MEDS: MEMANTINE 5 MG TAB PO SCH ×2 (09:21→20:09)
[2023-08-15] MEDS: PRIMIDONE 50 MG TAB PO SCH (09:23)
[2023-08-15 10:43] LABS: BUN/Creat Ratio 13.54 Ratio (12.00-20.00); Blood Urea Nitrogen 17.6 mg/dL (9.0-27.0); Calcium 9.4 mg/dL (8.7-10.3); Carbon Dioxide 21.4 mmol/L (21.6-31.8); Chloride 109 mmol/L (96-109); Glucose 108 mg/dL (70-110); Potassium 4.5 mmol/L (3.5-5.5); Sodium 141 mmol/L (135-145)
--- NOTE | 2023-08-15 13:17 | P.PN ---
Subjective Progress Note Date: 08/15/23 * 77-year-old patient with past medical history significant for paroxysmal atrial fibrillation, and examined dementia coronary artery disease with history of PCI to LAD in February 2020, history of chronic kidney disease, hypertension, hyperlipidemia status post pacemaker in place, bicuspid aortic valve, history of ischemic cardiomyopathy presents to the emergency department after patient had accidentally overdose. Patient was having difficulty in sleep and took her a whole lot offered Ativan pills. Patient was given 60 tablets of 1 mg Ativan. On 08/03/2023. Patient has taken several of the medications and had finished rest of the bottle. Patient was unsure how many medication she took at the time of presentation in ER patient was intoxicated, she appeared confused and she was somnolent however easily arousable * Workup initiated in ER included basic metabolic panel which showed potassium of 6.3 which was corrected, serum bicarbonate of 20 and creatinine of 1.5 * An EKG obtained in ER showed sinus rhythmST segment changes * Patient was started on IV fluids with follow-up renal profile ordered with consultations psychiatry home medications reviewed and reconciled patient remained ED overnight was seen in ER room 11 * 08/15/2023: Patient seen and evaluated bedside, daughter at bedside as well patient sleeping however easily arousable, care plan discussed with daughter patient does have acute delirium. We'll continue to hydrate, continue with frequent orientation home medications continued as well have consulted psychiatry REVIEW OF SYSTEMS: Weakness, lethargic, insomnia, generalized tremor CONSTITUTIONAL: No fever, no malaise, no fatigue. HEENT: No recent visual problems or hearing problems. Denied any sore throat. CARDIOVASCULAR: No chest pain, orthopnea, PND, no palpitations, no syncope. PULMONARY: No shortness of breath, no cough, no hemoptysis. GASTROINTESTINAL: No diarrhea, no nausea, no vomiting, no abdominal pain. NEUROLOGICAL: No headaches, no weakness, no numbness. HEMATOLOGICAL: Denies any bleeding or petechiae. GENITOURINARY: Denies any burning micturition, frequency, or urgency. MUSCULOSKELETAL/RHEUMATOLOGICAL: Denies any joint pain, swelling, or any muscle pain. ENDOCRINE: Denies any polyuria or polydipsia. PHYSICAL EXAMINATION: GENERAL: The patient is alert and oriented x 2, lethargic but easily arousable HEENT: Pupils are round and equally reacting to light. EOMI CARDIOVASCULAR: S1 and S2 present. No murmurs, rubs, or gallops. PULMONARY: Chest is clear to auscultation, no wheezing or crackles. ABDOMEN: Soft, nontender, nondistended, normoactive bowel sounds. No palpable organomegaly. MUSCULOSKELETAL: No joint swelling or deformity. EXTREMITIES: No cyanosis, clubbing, or pedal edema. NEUROLOGICAL: Moving both upper and lower extremities, resting tremors noted, generalized weakness no focal deficit Objective - Vital Signs Vital signs: Vital Signs Temp 97.6 F 08/15/23 07:56 Pulse 60 08/15/23 07:56 Resp 18 08/15/23 07:56 BP 179/76 08/15/23 07:56 Pulse Ox 97 08/15/23 07:56 FiO2 Intake & Output 08/14/23 08/15/23 08/15/23 18:59 06:59 18:59 Intake Total 100 Output Total 1200 300 500 Balance -1200 -200 -500 Intake: Intake, IV Titration 100 Amount cefTRIAXone 1 gm In 100 Sodium Chloride 0.9% 50 ml @ 100 mls/hr IVPB Q24HR [facility] Rx#:[id number] Output: Urine 1200 300 500 Uretheral (Cannon) 1200 300 - Labs CBC & Chem 7: 08/15/23 05:44 08/15/23 05:44 Labs: Abnormal Lab Results - Last 24 Hours (Table) 08/15/23 08/15/23 Range/Units 05:44 05:44 WBC 4.00 L (4.50-10.00) X 10*3/uL MCHC 31.4 L (32.0-37.0) g/dL Carbon Dioxide 21.4 L (21.6-31.8) mmol/L Est GFR (CKD-EPI) 43 L (>=60) Assessment and Plan Assessment: Assessment and plan * Acute toxic encephalopathy with accidental overdose on Xanax * Acute kidney injury on chronic kidney disease * Urinary tract infection * Examined dementia * Chronic atrial fibrillation * Coronary artery disease * Chronic congestive heart failure systolic dysfunction * History of fibromyalgia * History of solitary kidney * In regards to acute toxic encephalopathy, continue to monitor patient had unknown quantity of Xanax pills prior to presentation. Patient appropriately resuscitated with fluid encourage oral intake * In regards to urinary tract infection continue Rocephin follow-up on urine cultures * In regards to chronic atrial fibrillation continue amiodarone, Coreg, Zocor * Regards to coronary artery disease continue Plavix, continue statin * In regards to congestive heart failure most recent echocardiogram greater than a year ago shows ejection fraction 45%. Caution with excessive hydration * In regards to chronic kidney disease, patient is sexually with fluid, follow up on renal function * In regards to history of fibromyalgia home medications reviewed and reconciled * In regards to insomnia psychiatry consulted to evaluate and adjust medications * In regards to examine dementia continue patient on home regimen * CODE STATUS is full code
--- NOTE | 2023-08-15 16:10 | P.CN ---
Psychiatric Consult - . Consult date: 08/15/23 Consult:: 08/15/23 16:03 Patient Name: Katarzyna Ramos Date of : 1945 Patient Status: Inpatient Attending Provider: Max Anderson Date: 08/15/23 Initialization Date: 08/15/23 13:15 Psychiatric evaluation: This is a psychiatric evaluation on this 77-year-old female who was hospitalized after an accidental overdose of lorazepam 1 mg tablets of unknown quantity patient was recently given 60 tablets on 2023 and the patient had taken several of the medications and had finished the rest of the bottle the patient had direct access to her medications with her history of dementia the family reports that the patient has been quite independent that in the last two years has started to show signs of confusion and getting lost in familiar places etc. and I stop driving also she otherwise is the quite independent she does not have any issues with her ADLs and manages her house all activities including cocaine cleaning etc. the patient however does tend to get somewhat forgetful and is dependent on the family for beyond her ADLs following is an excerpt from the assessment done in the hospital since admission: * 77-year-old patient with past medical history significant for paroxysmal atrial fibrillation, * and * dementia coronary artery disease with history of PCI to LAD in February 2020, * history of chronic kidney disease, * hypertension, hyperlipidemia * status post pacemaker in place, * bicuspid aortic valve, * history of ischemic cardiomyopathy * presents to the emergency department after patient had accidentally overdose. * Patient was having difficulty in sleep and took her a whole lot offered Ativan pills. * Patient was given 60 tablets of 1 mg Ativan. On 08/03/2023. * Patient has taken several of the medications and had finished rest of the bottle. * Patient was unsure how many medication she took at the time of presentation in ER patient was intoxicated, * she appeared confused and she was somnolent however easily arousable * Workup initiated in ER included basic metabolic panel * which showed potassium of 6.3 which was corrected, * serum bicarbonate of 20 and creatinine of 1.5 * An EKG obtained in ER showed sinus rhythmST segment changes * Patient was started on IV fluids with follow-up renal profile * ordered with consultations psychiatry home medications reviewed and reconciled patient remained ED overnight was seen in ER room 11 * * * Mental status examination: an attempt was made to see the patient through the telemedicine the patient however seem to be drowsy with slurred speech and forgetfulness she also seem to be falling asleep in the midsentence at this time does not appear to be appropriate for a psychiatric assessment for the information was obtained from patients was also present in the room was able to give the able information Further psychiatric assessment was abandoned at this time due to patient being too sedated for this interview and will be resumed in the next few days and patient is more awake Plan: will reevaluate the patient in the next few days once the patient clears the above benzos from her system the family otherwise was still advised to avoid benzodiazepines especially in view of her already being diagnosed with dementia which can accentuate or accelerate the process I discussed with the regarding using nonbenzodiazepine sleep aids like trazodone or doxepin and will have further discussion at the next visit will follow this patient along with you thank you very much for your kind referral and please feel free to contact me if you have any further questions Frederick Beal MD 08/15/2023
[2023-08-15] MEDS: DONEPEZIL 5 MG TAB PO SCH (20:09)
[2023-08-15] MEDS: DULoxetine HCL 60 MG CAPSULE.DR PO SCH (20:09)
[2023-08-15] MEDS: RIVAROXABAN 15 MG TAB PO SCH (20:09)
[2023-08-15] MEDS: BACLOFEN 10 MG TAB PO SCH (20:09)
[2023-08-16] MEDS: lamoTRIgine 100 MG TAB PO SCH (07:53)
[2023-08-16] MEDS: MEMANTINE 5 MG TAB PO SCH ×2 (07:53→20:29)
[2023-08-16] MEDS: PRIMIDONE 50 MG TAB PO SCH (07:53)
[2023-08-16] MEDS: CLOPIDOGREL 75 MG TAB PO SCH (07:54)
[2023-08-16] MEDS: amLODIPine 5 MG TAB PO SCH (07:54)
[2023-08-16] MEDS: carvediloL 12.5 MG TAB PO SCH ×2 (07:54→17:55)
[2023-08-16] MEDS: AMIODARONE 200 MG TAB PO SCH (07:54)
[2023-08-16] MEDS: EZETIMIBE 10 MG TAB PO SCH (07:54)
[2023-08-16 11:04] LABS: HGB 11.7 g/dL (12.0-15.0); MCH 28.1 pg (27.0-32.0); MCHC 30.8 g/dL (32.0-37.0); MCV 91.3 FL (80.0-97.0); Mean Platelet Volume 10.7 FL (9.5-12.2); NRBC Per 100 WBC 0 X 10*3/uL (0.00-0.01); Platelet Count 178 X 10*3/uL (140-440); RBC 4.16 X 10*6/uL (4.10-5.20); RDW 14.1 % (11.5-14.5); WBC 3.66 X 10*3/uL (4.50-10.00)
[2023-08-16 11:21] LABS: BUN/Creat Ratio 14.23 Ratio (12.00-20.00); Blood Urea Nitrogen 18.5 mg/dL (9.0-27.0); Calcium 9.4 mg/dL (8.7-10.3); Carbon Dioxide 22.1 mmol/L (21.6-31.8); Chloride 107 mmol/L (96-109); Glucose 104 mg/dL (70-110); Potassium 4.4 mmol/L (3.5-5.5); Sodium 139 mmol/L (135-145)
--- NOTE | 2023-08-16 12:41 | P.PN ---
Subjective Progress Note Date: 08/16/23 * 77-year-old patient with past medical history significant for paroxysmal atrial fibrillation, and examined dementia coronary artery disease with history of PCI to LAD in February 2020, history of chronic kidney disease, hypertension, hyperlipidemia status post pacemaker in place, bicuspid aortic valve, history of ischemic cardiomyopathy presents to the emergency department after patient had accidentally overdose. Patient was having difficulty in sleep and took her a whole lot offered Ativan pills. Patient was given 60 tablets of 1 mg Ativan. On 08/03/2023. Patient has taken several of the medications and had finished rest of the bottle. Patient was unsure how many medication she took at the time of presentation in ER patient was intoxicated, she appeared confused and she was somnolent however easily arousable * Workup initiated in ER included basic metabolic panel which showed potassium of 6.3 which was corrected, serum bicarbonate of 20 and creatinine of 1.5 * An EKG obtained in ER showed sinus rhythmST segment changes * Patient was started on IV fluids with follow-up renal profile ordered with consultations psychiatry home medications reviewed and reconciled patient remained ED overnight was seen in ER room 11 * 08/15/2023: Patient seen and evaluated bedside, daughter at bedside as well patient sleeping however easily arousable, care plan discussed with daughter patient does have acute delirium. We'll continue to hydrate, continue with frequent orientation home medications continued as well have consulted psychiatry * 08/16/2023: Patient seen and evaluated bedside blood work reviewed renal function improved hemoglobin and WBC are reviewed. Continue patient on IV antibiotic, urine culture showed no growth REVIEW OF SYSTEMS: Weakness, lethargic, insomnia, generalized tremor CONSTITUTIONAL: No fever, no malaise, no fatigue. HEENT: No recent visual problems or hearing problems. Denied any sore throat. CARDIOVASCULAR: No chest pain, orthopnea, PND, no palpitations, no syncope. PULMONARY: No shortness of breath, no cough, no hemoptysis. GASTROINTESTINAL: No diarrhea, no nausea, no vomiting, no abdominal pain. NEUROLOGICAL: No headaches, no weakness, no numbness. HEMATOLOGICAL: Denies any bleeding or petechiae. GENITOURINARY: Denies any burning micturition, frequency, or urgency. MUSCULOSKELETAL/RHEUMATOLOGICAL: Denies any joint pain, swelling, or any muscle pain. ENDOCRINE: Denies any polyuria or polydipsia. PHYSICAL EXAMINATION: GENERAL: The patient is alert and oriented x 2, lethargic but easily arousable, mentation improved HEENT: Pupils are round and equally reacting to light. EOMI CARDIOVASCULAR: S1 and S2 present. No murmurs, rubs, or gallops. PULMONARY: Chest is clear to auscultation, no wheezing or crackles. ABDOMEN: Soft, nontender, nondistended, normoactive bowel sounds. No palpable organomegaly. MUSCULOSKELETAL: No joint swelling or deformity. EXTREMITIES: No cyanosis, clubbing, or pedal edema. NEUROLOGICAL: Moving both upper and lower extremities, resting tremors noted, generalized weakness no focal deficit Objective - Vital Signs Vital signs: Vital Signs Temp 98.6 F 08/16/23 11:55 Pulse 60 08/16/23 11:55 Resp 16 08/16/23 11:55 BP 129/69 08/16/23 11:55 Pulse Ox 93 L 08/16/23 11:55 FiO2 Intake & Output 08/15/23 08/16/23 08/16/23 18:59 06:59 18:59 Intake Total 240 Output Total 1000 1000 500 Balance -1000 -760 -500 Weight 81.647 kg Intake: Oral 240 Output: Urine 1000 1000 500 Other: Voiding Method Indwelling Catheter Indwelling Catheter Indwelling Catheter - Labs CBC & Chem 7: 08/16/23 05:51 08/16/23 05:51 Labs: Abnormal Lab Results - Last 24 Hours (Table) 08/16/23 08/16/23 Range/Units 05:51 05:51 WBC 3.66 L (4.50-10.00) X 10*3/uL Hgb 11.7 L (12.0-15.0) g/dL MCHC 30.8 L (32.0-37.0) g/dL Est GFR (CKD-EPI) 43 L (>=60) Microbiology - Last 24 Hours (Table) 08/14/23 17:48 Urine Culture - Final Urine,Catheterized Assessment and Plan Assessment: Assessment and plan * Acute toxic encephalopathy with accidental overdose on Xanax * Acute kidney injury on chronic kidney disease * Urinary tract infection * Examined dementia * Chronic atrial fibrillation * Coronary artery disease * Chronic congestive heart failure systolic dysfunction * History of fibromyalgia * History of solitary kidney * In regards to acute toxic encephalopathy, continue to monitor patient had unknown quantity of Xanax pills prior to presentation. Patient appropriately resuscitated with fluid encourage oral intake, mentation improving * In regards to urinary tract infection continue Rocephin day 3 >> follow-up on urine cultures no growth * In regards to chronic atrial fibrillation continue amiodarone, Coreg, Zocor * Regards to coronary artery disease continue Plavix, continue statin * In regards to congestive heart failure most recent echocardiogram greater than a year ago shows ejection fraction 45%. Caution with excessive hydration * In regards to chronic kidney disease, patient is sexually with fluid, follow up on renal function * In regards to history of fibromyalgia home medications reviewed and reconciled * In regards to insomnia psychiatry consulted to evaluate and adjust medications * In regards to examine dementia continue patient on home regimen * CODE STATUS is full code
[2023-08-16] MEDS: DULoxetine HCL 60 MG CAPSULE.DR PO SCH (20:29)
[2023-08-16] MEDS: DONEPEZIL 5 MG TAB PO SCH (20:29)
[2023-08-16] MEDS: BACLOFEN 10 MG TAB PO SCH (20:29)
[2023-08-16] MEDS: RIVAROXABAN 15 MG TAB PO SCH (20:29)
[2023-08-17 07:41] VITALS: PULSE 60
[2023-08-17] MEDS: AMIODARONE 200 MG TAB PO SCH (08:32)
[2023-08-17] MEDS: amLODIPine 5 MG TAB PO SCH (08:32)
[2023-08-17] MEDS: EZETIMIBE 10 MG TAB PO SCH (08:32)
[2023-08-17] MEDS: MEMANTINE 5 MG TAB PO SCH ×2 (08:32→20:07)
[2023-08-17] MEDS: carvediloL 12.5 MG TAB PO SCH ×2 (08:32→16:33)
[2023-08-17] MEDS: lamoTRIgine 100 MG TAB PO SCH (08:32)
[2023-08-17] MEDS: CLOPIDOGREL 75 MG TAB PO SCH (08:32)
[2023-08-17] MEDS: PRIMIDONE 50 MG TAB PO SCH (08:32)
[2023-08-17 08:55] LABS: HCT 36.7 % (37.2-46.3); HGB 11.3 g/dL (12.0-15.0); MCHC 30.8 g/dL (32.0-37.0); MCV 90.8 FL (80.0-97.0); Mean Platelet Volume 10.4 FL (9.5-12.2); NRBC Per 100 WBC 0 X 10*3/uL (0.00-0.01); Platelet Count 170 X 10*3/uL (140-440); RBC 4.04 X 10*6/uL (4.10-5.20); RDW 14.1 % (11.5-14.5); WBC 3.45 X 10*3/uL (4.50-10.00)
[2023-08-17 09:39] LABS: BUN/Creat Ratio 19.07 Ratio (12.00-20.00); Blood Urea Nitrogen 26.7 mg/dL (9.0-27.0); Chloride 106 mmol/L (96-109); Glucose 103 mg/dL (70-110); Potassium 5.2 mmol/L (3.5-5.5); Sodium 139 mmol/L (135-145)
[2023-08-17 09:40] LABS: Calcium 9.6 mg/dL (8.7-10.3); Carbon Dioxide 24.7 mmol/L (21.6-31.8)
--- NOTE | 2023-08-17 13:03 | P.PN ---
Subjective Progress Note Date: 08/17/23 * 77-year-old patient with past medical history significant for paroxysmal atrial fibrillation, and examined dementia coronary artery disease with history of PCI to LAD in February 2020, history of chronic kidney disease, hypertension, hyperlipidemia status post pacemaker in place, bicuspid aortic valve, history of ischemic cardiomyopathy presents to the emergency department after patient had accidentally overdose. Patient was having difficulty in sleep and took her a whole lot offered Ativan pills. Patient was given 60 tablets of 1 mg Ativan. On 08/03/2023. Patient has taken several of the medications and had finished rest of the bottle. Patient was unsure how many medication she took at the time of presentation in ER patient was intoxicated, she appeared confused and she was somnolent however easily arousable * Workup initiated in ER included basic metabolic panel which showed potassium of 6.3 which was corrected, serum bicarbonate of 20 and creatinine of 1.5 * An EKG obtained in ER showed sinus rhythmST segment changes * Patient was started on IV fluids with follow-up renal profile ordered with consultations psychiatry home medications reviewed and reconciled patient remained ED overnight was seen in ER room 11 * 08/15/2023: Patient seen and evaluated bedside, daughter at bedside as well patient sleeping however easily arousable, care plan discussed with daughter patient does have acute delirium. We'll continue to hydrate, continue with frequent orientation home medications continued as well have consulted psychiatry * 08/16/2023: Patient seen and evaluated bedside blood work reviewed renal function improved hemoglobin and WBC are reviewed. Continue patient on IV antibiotic, urine culture showed no growth * : Patient seen and evaluated bedside, blood work reviewed potassium 5.2 creatinine 1.4, continue with IV hydration with discharge in the next 24 hours hemoglobin 11.3 WBC 3.4 continue IV Rocephin patient work with physical therapy REVIEW OF SYSTEMS: Weakness, lethargic, insomnia, generalized tremor improved CONSTITUTIONAL: No fever, no malaise, no fatigue. HEENT: No recent visual problems or hearing problems. Denied any sore throat. CARDIOVASCULAR: No chest pain, orthopnea, PND, no palpitations, no syncope. PULMONARY: No shortness of breath, no cough, no hemoptysis. GASTROINTESTINAL: No diarrhea, no nausea, no vomiting, no abdominal pain. NEUROLOGICAL: No headaches, no weakness, no numbness. HEMATOLOGICAL: Denies any bleeding or petechiae. GENITOURINARY: Denies any burning micturition, frequency, or urgency. MUSCULOSKELETAL/RHEUMATOLOGICAL: Denies any joint pain, swelling, or any muscle pain. ENDOCRINE: Denies any polyuria or polydipsia. PHYSICAL EXAMINATION: GENERAL: The patient is alert and oriented x 3 , mentation improved HEENT: Pupils are round and equally reacting to light. EOMI CARDIOVASCULAR: S1 and S2 present. No murmurs, rubs, or gallops. PULMONARY: Chest is clear to auscultation, no wheezing or crackles. ABDOMEN: Soft, nontender, nondistended, normoactive bowel sounds. No palpable organomegaly. MUSCULOSKELETAL: No joint swelling or deformity. EXTREMITIES: No cyanosis, clubbing, or pedal edema. NEUROLOGICAL: Moving both upper and lower extremities, resting tremors noted, generalized weakness no focal deficit Objective - Vital Signs Vital signs: Vital Signs Temp 98.3 F 08/17/23 07:40 Pulse 60 08/17/23 07:40 Resp 16 08/17/23 07:40 BP 127/74 08/17/23 07:40 Pulse Ox 97 08/17/23 08:00 FiO2 Intake & Output 08/16/23 08/17/23 08/17/23 18:59 06:59 18:59 Intake Total 290 1070 240 Output Total 800 800 Balance -510 270 240 Intake: Intake, IV Titration 50 Amount cefTRIAXone 1 gm In 50 Sodium Chloride 0.9% 50 ml @ 100 mls/hr IVPB Q24HR [facility] Rx#:[id number] Oral 240 1070 240 Output: Urine 800 800 Other: Voiding Method Indwelling Catheter Indwelling Catheter Indwelling Catheter - Labs CBC & Chem 7: 08/17/23 05:45 08/17/23 05:45 Labs: Abnormal Lab Results - Last 24 Hours (Table) 08/17/23 08/17/23 Range/Units 05:45 05:45 WBC 3.45 L (4.50-10.00) X 10*3/uL RBC 4.04 L (4.10-5.20) X 10*6/uL Hgb 11.3 L (12.0-15.0) g/dL Hct 36.7 L (37.2-46.3) % MCHC 30.8 L (32.0-37.0) g/dL Est GFR (CKD-EPI) 39 L (>=60) Microbiology - Last 24 Hours (Table) 08/14/23 17:48 Urine Culture - Final Urine,Catheterized Assessment and Plan Assessment: Assessment and plan * Acute toxic encephalopathy with accidental overdose on Xanax RESOLVED * Acute kidney injury on chronic kidney disease * Urinary tract infection * Examined dementia * Chronic atrial fibrillation * Coronary artery disease * Chronic congestive heart failure systolic dysfunction * History of fibromyalgia * History of solitary kidney * In regards to acute toxic encephalopathy, continue to monitor patient had unknown quantity of Xanax pills prior to presentation. Patient appropriately resuscitated with fluid encourage oral intake, mentation improving * In regards to urinary tract infection continue Rocephin day 4 >> follow-up on urine cultures no growth * In regards to chronic atrial fibrillation continue amiodarone, Coreg, Zocor , xarelto * Regards to coronary artery disease continue Plavix, continue statin * In regards to congestive heart failure most recent echocardiogram greater than a year ago shows ejection fraction 45%. Caution with excessive hydration * In regards to chronic kidney disease, patient is sexually with fluid, follow up on renal function * In regards to history of fibromyalgia home medications reviewed and reconciled * In regards to insomnia psychiatry consulted to evaluate and adjust medications * In regards to examine dementia continue patient on home regimen * CODE STATUS is full code
[2023-08-17] MEDS: SODIUM CHLORIDE 0.9% 1,000 ML IV SCH (13:26)
[2023-08-17] MEDS: DULoxetine HCL 60 MG CAPSULE.DR PO SCH (20:07)
[2023-08-17] MEDS: RIVAROXABAN 15 MG TAB PO SCH (20:07)
[2023-08-17] MEDS: DONEPEZIL 5 MG TAB PO SCH (20:07)
[2023-08-17] MEDS: BACLOFEN 10 MG TAB PO SCH (20:07)
[2023-08-17 20:53] VITALS: RESP 16
[2023-08-18] MEDS: SODIUM CHLORIDE 0.9% 1,000 ML IV SCH (00:18)
[2023-08-18] MEDS: amLODIPine 5 MG TAB PO SCH (07:55)
[2023-08-18] MEDS: CLOPIDOGREL 75 MG TAB PO SCH (07:55)
[2023-08-18] MEDS: MEMANTINE 5 MG TAB PO SCH (07:55)
[2023-08-18] MEDS: PRIMIDONE 50 MG TAB PO SCH (07:55)
[2023-08-18] MEDS: carvediloL 12.5 MG TAB PO SCH (07:55)
[2023-08-18] MEDS: lamoTRIgine 100 MG TAB PO SCH (07:55)
[2023-08-18] MEDS: EZETIMIBE 10 MG TAB PO SCH (07:56)
[2023-08-18] MEDS: AMIODARONE 200 MG TAB PO SCH (07:56)
[2023-08-18 08:01] VITALS: BP 143/65; TEMP 98
[2023-08-18 09:58] LABS: HCT 35.8 % (34.0-46.0); HGB 11.3 gm/dL (11.4-16.0); Hypochromasia Moderate; MCH 29.7 pg (25.0-35.0); MCHC 31.7 g/dL (31.0-37.0); MCV 93.8 fL (80.0-100.0); Mean Platelet Volume 8.6; Platelet Count 166 k/uL (150-450); RBC 3.81 m/uL (3.80-5.40); RDW 13.9 % (11.5-15.5); WBC 3.5 k/uL (3.8-10.6)
[2023-08-18 10:23] LABS: African American GFR (CKD) 41 (>60 ml/min/1.73 sqM); Anion Gap 5 mmol/L; Blood Urea Nitrogen 29 mg/dL (7-17); Calcium 9.1 mg/dL (8.4-10.2); Carbon Dioxide 24 mmol/L (22-30); Chloride 110 mmol/L (98-107); Glucose 97 mg/dL (74-99); Non-African American GFR(CKD) 36 (>60 ml/min/1.73 sqM); Potassium 4.7 mmol/L (3.5-5.1); Sodium 139 mmol/L (137-145)
--- NOTE | 2023-08-18 10:41 | P.DS ---
Providers Date of admission: 08/13/23 06:24 Expected date of discharge: 08/18/23 Attending physician: Max Anderson Consults: 08/14/23 09:42 Consult Physician Routine Consulting Provider: Emiliano Bryson Consult Reason/Comments: Anxiety, insomnia overdose of Xanax Do you want consulting provider notified?: Yes Primary care physician: [facility] Hospital Course: * 77-year-old patient with past medical history significant for paroxysmal atrial fibrillation, and examined dementia coronary artery disease with history of PCI to LAD in February 2020, history of chronic kidney disease, hypertension, hyperlipidemia status post pacemaker in place, bicuspid aortic valve, history of ischemic cardiomyopathy presents to the emergency department after patient had accidentally overdose. Patient was having difficulty in sleep and took her a whole lot offered Ativan pills. Patient was given 60 tablets of 1 mg Ativan. On 08/03/2023. Patient has taken several of the medications and had finished rest of the bottle. Patient was unsure how many medication she took at the time of presentation in ER patient was intoxicated, she appeared confused and she was somnolent however easily arousable * Workup initiated in ER included basic metabolic panel which showed potassium of 6.3 which was corrected, serum bicarbonate of 20 and creatinine of 1.5 * An EKG obtained in ER showed sinus rhythmST segment changes * Patient was started on IV fluids with follow-up renal profile ordered with consultations psychiatry home medications reviewed and reconciled patient remained ED overnight was seen in ER room 11 * 08/15/2023: Patient seen and evaluated bedside, daughter at bedside as well patient sleeping however easily arousable, care plan discussed with daughter patient does have acute delirium. We'll continue to hydrate, continue with frequent orientation home medications continued as well have consulted psychiatry * 08/16/2023: Patient seen and evaluated bedside blood work reviewed renal function improved hemoglobin and WBC are reviewed. Continue patient on IV antibiotic, urine culture showed no growth * : Patient seen and evaluated bedside, blood work reviewed potassium 5.2 creatinine 1.4, continue with IV hydration with discharge in the next 24 hours hemoglobin 11.3 WBC 3.4 continue IV Rocephin patient work with physical therapy * 08/18/2023: Patient seen and evaluated bedside, on my evaluation patient is alert and oriented 4, daughter at bedside, creatinine reviewed encourage oral intake upon home patient discharged home on oral Ceftin. Rocephin given in patient. Patient had ran out of Ativan and prescription voided for few days. Will need to follow-up with the original provider REVIEW OF SYSTEMS: Weakness, lethargic, insomnia, generalized tremor RESOLVED CONSTITUTIONAL: No fever, no malaise, no fatigue. HEENT: No recent visual problems or hearing problems. Denied any sore throat. CARDIOVASCULAR: No chest pain, orthopnea, PND, no palpitations, no syncope. PULMONARY: No shortness of breath, no cough, no hemoptysis. GASTROINTESTINAL: No diarrhea, no nausea, no vomiting, no abdominal pain. NEUROLOGICAL: No headaches, no weakness, no numbness. HEMATOLOGICAL: Denies any bleeding or petechiae. GENITOURINARY: Denies any burning micturition, frequency, or urgency. MUSCULOSKELETAL/RHEUMATOLOGICAL: Denies any joint pain, swelling, or any muscle pain. ENDOCRINE: Denies any polyuria or polydipsia. PHYSICAL EXAMINATION: GENERAL: The patient is alert and oriented x 3 , mentation improved HEENT: Pupils are round and equally reacting to light. EOMI CARDIOVASCULAR: S1 and S2 present. No murmurs, rubs, or gallops. PULMONARY: Chest is clear to auscultation, no wheezing or crackles. ABDOMEN: Soft, nontender, nondistended, normoactive bowel sounds. No palpable organomegaly. MUSCULOSKELETAL: No joint swelling or deformity. EXTREMITIES: No cyanosis, clubbing, or pedal edema. NEUROLOGICAL: Moving both upper and lower extremities, resting tremors noted, generalized weakness no focal deficit Assessment: Assessment and plan * Acute toxic encephalopathy with accidental overdose on benzo RESOLVED * Acute kidney injury on chronic kidney disease * Urinary tract infection * dementia * Chronic atrial fibrillation * Coronary artery disease * Chronic congestive heart failure systolic dysfunction * History of fibromyalgia * History of solitary kidney * In regards to acute toxic encephalopathy resolved, continue to monitor patient had unknown quantity of Xanax pills prior to presentation. Patient appropriately resuscitated with fluid encourage oral intake, mentation improving * In regards to urinary tract infection continue Rocephin day 5 , transition to oral Ceftin>> follow-up on urine cultures no growth * In regards to chronic atrial fibrillation continue amiodarone, Coreg, Zocor , xarelto * Regards to coronary artery disease continue Plavix, continue statin * In regards to congestive heart failure most recent echocardiogram greater than a year ago shows ejection fraction 45%. Caution with excessive hydration * In regards to chronic kidney disease, patient is sexually with fluid, follow up on renal function * In regards to history of fibromyalgia home medications reviewed and reconciled * In regards to insomnia psychiatry consulted to evaluate and adjust medications, patient had ran out of for Ativan hence given prescription for few days still seen by regional provider * In regards to dementia continue patient on home regimen * Discharged home with home care Patient Condition at Discharge: Fair Plan - Discharge Summary Discharge Rx Participant: No New Discharge Prescriptions: New cefUROXime axetiL [Ceftin] 500 mg PO BID 2 Days #4 tab Continue Baclofen 10 mg PO HS Topiramate [Topamax] 200 mg PO DAILY lamoTRIgine [LaMICtal] 200 mg PO DAILY carvediloL [Coreg*] 12.5 mg PO BID-W/MEALS amLODIPine [Norvasc] 5 mg PO DAILY Nitroglycerin Sl Tabs [Nitrostat] 0.4 mg SUBLINGUAL Q5M PRN PRN Reason: Chest Pain calcitrioL [Calcitriol] 0.25 mcg PO SUWE Docusate [Colace] 100 mg PO DAILY L.acidoph,Paracasei, B.lactis [Probiotic] 1 cap PO HS Memantine [Namenda] 5 mg PO BID DULoxetine HCL [Cymbalta] 60 mg PO HS Clopidogrel Bisulfate [Plavix] 75 mg PO DAILY Amiodarone [Cordarone] 200 mg PO DAILY Rivaroxaban [Xarelto] 15 mg PO HS Docusate [Colace] 100 mg PO DAILY Donepezil [Aricept] 5 mg PO HS Ezetimibe [Zetia] 10 mg PO DAILY Primidone [Mysoline] 50 mg PO DAILY LORazepam [Ativan] 1 mg PO BID PRN 3 Days #6 tab PRN Reason: Anxiety Discharge Medication List Baclofen 10 mg PO HS 04/13/15 [History] Topiramate [Topamax] 200 mg PO DAILY 03/28/17 [History] lamoTRIgine [LaMICtal] 200 mg PO DAILY 03/28/17 [History] Amiodarone [Cordarone] 200 mg PO DAILY 03/22/21 [History] Clopidogrel Bisulfate [Plavix] 75 mg PO DAILY 03/22/21 [History] DULoxetine HCL [Cymbalta] 60 mg PO HS 03/22/21 [History] Rivaroxaban [Xarelto] 15 mg PO HS 03/22/21 [History] carvediloL [Coreg*] 12.5 mg PO BID-W/MEALS 07/05/21 [History] Nitroglycerin Sl Tabs [Nitrostat] 0.4 mg SUBLINGUAL Q5M PRN 08/01/21 [History] amLODIPine [Norvasc] 5 mg PO DAILY 08/01/21 [History] Docusate [Colace] 100 mg PO DAILY 08/13/23 [History] Docusate [Colace] 100 mg PO DAILY 08/13/23 [History] Donepezil [Aricept] 5 mg PO HS 08/13/23 [History] Ezetimibe [Zetia] 10 mg PO DAILY 08/13/23 [History] L.acidoph,Paracasei, B.lactis [Probiotic] 1 cap PO HS 08/13/23 [History] Memantine [Namenda] 5 mg PO BID 08/13/23 [History] Primidone [Mysoline] 50 mg PO DAILY 08/13/23 [History] calcitrioL [Calcitriol] 0.25 mcg PO SUWE 08/13/23 [History] LORazepam [Ativan] 1 mg PO BID PRN 3 Days #6 tab 08/18/23 [Rx] cefUROXime axetiL [Ceftin] 500 mg PO BID 2 Days #4 tab 08/18/23 [Rx] Follow up Appointment(s)/Referral(s): Drew Neff DO [Primary Care Provider] - 1-2 days [facility] Visiting Nurse, [NON-STAFF] - 1 Week Discharge Disposition: HOME WITH HOME HEALTH SERVICES
== END 2023-08-18 11:44 | disposition home health service (06) | DRG 917 ==
LOC: EC 01:49 → 5NMEDONC 06:24 → 6NMEDSUR 08-14 23:46 → 5NMEDONC 08-15 02:21 → 6NMEDSUR 08-15 02:37 → 5NMEDONC 08-15 02:37
PROVIDERS: ADMIT Hospitalist; ATTEND Hospitalist
DX: T42.4X1A Poisoning by benzodiazepines, accidental (unintentional), initial encounter (principal); G92.8 Other toxic encephalopathy; N17.9 Acute kidney failure, unspecified; F05 Delirium due to known physiological condition; I13.0 Hypertensive heart and chronic kidney disease with heart failure and stage 1 through stage 4 chronic kidney disease, or unspecified chronic kidney disease; F03.918 Unspecified dementia, unspecified severity, with other behavioral disturbance; I50.22 Chronic systolic (congestive) heart failure; I48.20 Chronic atrial fibrillation, unspecified; Q23.1 Congenital insufficiency of aortic valve; Q25.1 Coarctation of aorta; F03.93 Unspecified dementia, unspecified severity, with mood disturbance; F03.94 Unspecified dementia, unspecified severity, with anxiety; N39.0 Urinary tract infection, site not specified; F31.9 Bipolar disorder, unspecified; N18.9 Chronic kidney disease, unspecified; I25.5 Ischemic cardiomyopathy; I25.10 Atherosclerotic heart disease of native coronary artery without angina pectoris; E78.5 Hyperlipidemia, unspecified; G47.00 Insomnia, unspecified; M79.7 Fibromyalgia; G47.419 Narcolepsy without cataplexy; G47.30 Sleep apnea, unspecified; K57.90 Diverticulosis of intestine, part unspecified, without perforation or abscess without bleeding; M19.90 Unspecified osteoarthritis, unspecified site; R25.1 Tremor, unspecified; M53.3 Sacrococcygeal disorders, not elsewhere classified; Z79.01 Long term (current) use of anticoagulants; Z79.02 Long term (current) use of antithrombotics/antiplatelets; Z79.899 Other long term (current) drug therapy; Z85.3 Personal history of malignant neoplasm of breast; Z95.0 Presence of cardiac pacemaker; Z95.5 Presence of coronary angioplasty implant and graft; Z88.6 Allergy status to analgesic agent; Z88.1 Allergy status to other antibiotic agents; Z88.5 Allergy status to narcotic agent; Z88.0 Allergy status to penicillin; Z88.8 Allergy status to other drugs, medicaments and biological substances
CPT/HCPCS: 36415; 71045; 80048; 80053; 80143; 80179; 80306; 80320; 81001; 84145; 85025; 85027; 87086; 93005; 94760; 96361; 96365; 96366; 99285

== ENCOUNTER → 2023-09-12 | Outpatient (CLI) | payer MEDICARE, OTHER ==
--- NOTE | 2023-09-12 11:37 | CT ---
EXAMINATION TYPE: CT brain wo con DATE OF EXAM: 09/12/2023 COMPARISON: 04/08/2002 INDICATION: headache post head injury 3 weeks ago DLP: 1072.30 mGycm, Automated exposure control for dose reduction was used. CONTRAST: None CT of the brain is performed utilizing 3 mm thick sections through the posterior fossa and 3 mm thick sections through the remaining calvarium. Study is performed within 24 hours of arrival to the hosp ital. No abnormal hyperdensity is present to suggest an acute intracranial hemorrhage. No mass lesion is evident. No acute infarcts are evident. Mild periventricular white matter hypodensity is present, likely on th e basis of chronic white matter ischemic changes. Ventricles and sulci are appropriate for the patient age. There is a 1.5 x 1.0 cm rounded density in the subcutaneous tissue right parietal-occipital vertex. A cute injury with hematoma or underlying sebaceous cyst could be considered. Paranasal sinuses and mastoid air cells within the [id number] are clear. IMPRESSION: 1. No acute intracranial process. Follow-up MRI can be performed as clinically indicated. 2. Mild chronic appearing periventricular white matter ischemic-type changes. 3. Subcutaneous rounded density right parietal occipital vertex
== END | disposition home or self-care (01) ==
LOC: RADCTMAIN 10:58
PROVIDERS: ATTEND Family Medicine
DX: R51.9 Headache, unspecified (principal); I67.82 Cerebral ischemia; G93.89 Other specified disorders of brain
CPT/HCPCS: 70450

== ENCOUNTER → 2024-04-15 | Outpatient (CLI) | payer MEDICARE, OTHER ==
[2024-04-15 15:20] LABS: African American GFR (CKD) 43 (>60 ml/min/1.73 sqM); Blood Urea Nitrogen 23 mg/dL (7-17); Non-African American GFR(CKD) 37 (>60 ml/min/1.73 sqM)
--- NOTE | 2024-04-15 19:45 | CT ---
EXAMINATION TYPE: CT brain wo con CT DLP: 1075.4 mGycm, Automated exposure control for dose reduction was used. DATE OF EXAM: 04/15/2024 4:01 PM COMPARISON: None. CLINICAL INDICATION: Female, 78 years old with history of F03.918 UNSP DEMENTIA, UNSP SEVERITY, WITH OTHER B, Dementia 5+ years. Priors in PACS TECHNIQUE: Brain: Axial CT images of the brain were obtained with coronal and sagittal reformats created and rev iewed. Contrast used: None. Oral contrast used: None. FINDINGS: Brain: Extra-axial spaces: No abnormal extra-axial fluid collections. Ventricular system: Dilatation in proportion to cerebral atrophy. Cerebral parenchyma: Cerebral atrophy. No acute intraparenchymal hemorrhage or mass effect. The patel -white junction is well differentiated. Scattered hypoattenuating areas are seen within the white mat ter. Cerebellum: Unremarkable. Mass effect: No evidence of midline shift. Intracranial vasculature: Atherosclerotic calcifications of the intracranial vessels. Soft tissues: Normal. Calvarium/osseous structures: No depressed skull fracture. Congenital nonfusion of the posterior arch of C1. Paranasal sinuses and mastoid air cells: Mild scattered paranasal sinus disease. Visualized orbits: Bilateral aphakia IMPRESSION: 1. No acute intracranial process. 2. Nonspecific white matter changes, likely secondary to chronic small vessel ischemic disease. [facility], , 04/15/2024 7:43 PM
== END | disposition home or self-care (01) ==
LOC: RADCTMAIN 14:23
PROVIDERS: ATTEND Psychiatry & Neurology Neurology
DX: F03.918 Unspecified dementia, unspecified severity, with other behavioral disturbance
CPT/HCPCS: 70450; 82565; 84520

== ENCOUNTER 2024-06-27 05:35 | Emergency (ER) | payer MEDICARE, OTHER ==
--- NOTE | 2024-06-27 06:25 | CT ---
EXAM: CT Head Without Intravenous Contrast CLINICAL HISTORY: Reason: fall on thinners TECHNIQUE: Axial computed tomography images of the head/brain without intravenous contrast. CTDI is 45.2 mGy and DLP is 1072 mGy-cm. This CT exam was performed using one or more of the following dose reduction techniques: automated exposure control, adjustment of the mA and/or kV according to patient size, and/or use of iterative reconstruction technique. COMPARISON: 04/15/24. FINDINGS: Brain: There is trace acute subdural hemorrhage tracking within the posterior interhemispheric fissure and along the right tentorium (best visualized on axial images 42 through 50 of series 2032). No mass effect or midline shift. Ventricles: Normal ventricular volumes, unchanged. Bones/joints: Unremarkable. No acute fracture. Soft tissues: Unremarkable. Sinuses: Unremarkable as visualized. No acute sinusitis. Mastoid air cells: Unremarkable as visualized. No mastoid effusion. IMPRESSION: Trace acute subdural hemorrhage seen tracking within the posterior interhemispheric fissure and along the right tentorium. Recommend short- term follow-up CT head within 8-12 hours for reevaluation. No mass effect or midline shift. Normal ventricular volumes. EXAM: CT Cervical Spine Without Intravenous Contrast CLINICAL HISTORY: Reason: fall on thinners TECHNIQUE: Axial computed tomography images of the cervical spine without intravenous contrast. CTDI is 14.7 mGy and DLP is 407.6 mGy-cm. This CT exam was performed using one or more of the following dose reduction techniques: automated exposure control, adjustment of the mA and/or kV according to patient size, and/or use of iterative reconstruction technique. COMPARISON: No relevant prior studies available. FINDINGS: Vertebrae: No evidence of acute fracture. No subluxation. Incomplete ossification of the posterior arch of C1, a normal variant. Discs/spinal canal/neural foramina: No acute findings. No spinal canal stenosis. Mild multilevel degenerative changes. Soft tissues: Unremarkable. IMPRESSION: There is no evidence of acute fracture or malalignment of the cervical spine. <MYCVCSECTION> Communications: 06/27/24 06:26 Call Doctor Regarding Intracranial Hemorrhage, called Dr. Myles on 06/27 06:26 (-05:00)
--- NOTE | 2024-06-27 07:45 | ED ---
Fall HPI - General Chief Complaint: Fall Stated Complaint: Fall Time Seen by Provider: 06/27/24 05:46 Source: EMS Mode of arrival: EMS - History of Present Illness Initial Comments: This patient is a 78-year-old woman brought by ambulance to have evaluation for having a fall. The patient does take Xarelto for atrial fibrillation. It was reported that the patient had been in the bathroom and family heard a noise. They went to find patient on the floor. EMS was called and the patient became very angry and did not want to go to the hospital. EMS did give some Versed on the scene to calm the patient before transport. On arrival, the patient is conversant and moving extremities, speech is somewhat slurred. She is requesting water. Patient otherwise denies complaints. 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: no Place Fall Occurred: home Loss of Consciousness: unsure Prolonged Down Time?: no Symptoms Prior to Fall: none - Related Data Home Medications Medication Instructions Recorded Confirmed Baclofen 10 mg PO HS 04/13/15 08/13/23 Topiramate [Topamax] 200 mg PO DAILY 03/28/17 08/13/23 lamoTRIgine [LaMICtal] 200 mg PO DAILY 03/28/17 08/13/23 Amiodarone [Cordarone] 200 mg PO DAILY 03/22/21 08/13/23 Clopidogrel Bisulfate [Plavix] 75 mg PO DAILY 03/22/21 08/13/23 DULoxetine HCL [Cymbalta] 60 mg PO HS 03/22/21 08/13/23 Rivaroxaban [Xarelto] 15 mg PO HS 03/22/21 08/13/23 carvediloL [Coreg*] 12.5 mg PO BID-W/MEALS 07/05/21 08/13/23 Nitroglycerin Sl Tabs [Nitrostat] 0.4 mg SUBLINGUAL Q5M PRN 08/01/21 08/13/23 amLODIPine [Norvasc] 5 mg PO DAILY 08/01/21 08/13/23 Docusate [Colace] 100 mg PO DAILY 08/13/23 08/13/23 Docusate [Colace] 100 mg PO DAILY 08/13/23 08/13/23 Donepezil [Aricept] 5 mg PO HS 08/13/23 08/13/23 Ezetimibe [Zetia] 10 mg PO DAILY 08/13/23 08/13/23 L.acidoph,Paracasei, B.lactis 1 cap PO HS 08/13/23 08/13/23 [Probiotic] Memantine [Namenda] 5 mg PO BID 08/13/23 08/13/23 Primidone [Mysoline] 50 mg PO DAILY 08/13/23 08/13/23 calcitrioL 0.25 mcg PO SUWE 08/13/23 08/13/23 Previous Rx's Medication Instructions Recorded LORazepam [Ativan] 1 mg PO BID PRN 3 Days #6 tab 08/18/23 cefuroxime axetiL [Ceftin] 500 mg PO BID 2 Days #4 tab 08/18/23 Allergies Allergy/AdvReac Type Severity Reaction Status Date / Time alendronate sodium Allergy Anaphylaxis Verified 06/27/24 05:44 [From Fosamax] amitriptyline HCl Allergy Unknown Verified 06/27/24 05:44 [From Elavil] doxepin HCl [From Sinequan] Allergy Unknown Verified 06/27/24 05:44 iodine Allergy Anaphylaxis Verified 06/27/24 05:44 Penicillins Allergy passed out Verified 06/27/24 05:44 simvastatin [From Zocor] Allergy Unknown Verified 06/27/24 05:44 sulindac [From Clinoril] Allergy Unknown Verified 06/27/24 05:44 vancomycin Allergy Anaphylaxis Verified 06/27/24 05:44 codeine AdvReac Abdominal Verified 06/27/24 05:44 Pain gabapentin [From Neurontin] AdvReac Nausea & Verified 06/27/24 05:44 Vomiting ibuprofen [From Motrin] AdvReac Abdominal Verified 06/27/24 05:44 Pain Review of Systems ROS Statement: Those systems with pertinent positive or pertinent negative responses have been documented in the HPI. ROS Other: All systems not noted in ROS Statement are negative. Limitations: ROS unobtainable due to patients medical condition Respiratory: Denies: dyspnea Cardiovascular: Denies: chest pain Gastrointestinal: Denies: abdominal pain Neurological: Denies: headache Past Medical History Past Medical History: Atrial Fibrillation, Cancer, Heart Failure, Dementia, Fibromyalgia, Hypertension, Memory Impairment, Musculoskeletal Disorder, Osteoarthritis (OA), Sleep Apnea/CPAP/BIPAP Additional Past Medical History / Comment(s): Born with only Lt kidney, Fibroids, Breast cancer 1985-radiation txs, Benign Tremors, Psuedo Coarctation of Aorta, Narcolepsy, No cpap, dementia, diverticulitis History of Any Multi-Drug Resistant Organisms: None Reported Past Surgical History: Breast Surgery, Cholecystectomy, Heart Catheterization With Stent, Hysterectomy, Pacemaker, Tonsillectomy, Tubal Ligation Additional Past Surgical History / Comment(s): EP Study/Ablation 2006, pacemaker, Laser eye SX. bilateral mastectomy,Pain proc Past Anesthesia/Blood Transfusion Reactions: No Reported Reaction Date of Last Stent Placement:: 2019 Type of Cardiac Device: Permanent Pacemaker Device Placement Date:: 2003 Past Psychological History: Anxiety, Bipolar Smoking Status: Never smoker Past Alcohol Use History: Unable to Obtain Past Drug Use History: Unable to Obtain - Past Family History Father Family Medical History: Cancer Additional Family Medical History / Comment(s): BONE CANCER Mother Family Medical History: Cancer Additional Family Medical History / Comment(s): BREAST CANCER W/METS. Daughter(s) Family Medical History: Cancer Brother(s) Family Medical History: Cancer General Exam General appearance: alert, in no apparent distress Head exam: Present: atraumatic, normocephalic Eye exam: Present: normal appearance, PERRL, EOMI. Absent: scleral icterus, conjunctival injection, nystagmus Neck exam: Present: normal inspection, full ROM. Absent: tenderness Respiratory exam: Present: normal lung sounds bilaterally. Absent: respiratory distress, wheezes, rales, rhonchi, stridor, accessory muscle use Cardiovascular Exam: Present: regular rate, normal rhythm, normal heart sounds. Absent: systolic murmur, diastolic murmur, rubs, gallop GI/Abdominal exam: Present: soft. Absent: distended, tenderness, guarding, rebound, rigid, mass Neurological exam: Present: alert, CN II-XII intact, other (Patient is not able to cooperate with a neurologic exam however moving all 4 extremities and no evident sensory deficit). Absent: oriented X3 (Patient is oriented to person), motor sensory deficit Skin exam: Present: warm, dry, intact, normal color. Absent: rash Course Vital Signs 06/27/24 06/27/24 06/27/24 05:35 05:44 08:06 Temperature 97.5 F L 97.5 F L Pulse Rate 72 60 Respiratory 16 18 Rate Blood Pressure 122/62 145/72 O2 Sat by Pulse 88 L 96 98 Oximetry 06/27/24 08:45 Temperature 98.0 F Pulse Rate 61 Respiratory 18 Rate Blood Pressure 106/48 O2 Sat by Pulse 97 Oximetry Medical Decision Making - Medical Decision Making Patient is 78-year-old woman here to have evaluation after falling in the bathroom. The patient not able to comply with neurologic exam and uncertain whether this is due to baseline dementia, the Versed administered on scene, or possible head injury. Patient is sent for CT scan interpreted by radiologist as showing evidence of subdural hemorrhage along the right side of the tentorium. I discussed the finding with the patient's daughter who is now at the bedside and discussed recommendation for transfer to facility with neurosurgery. The patient agreeable to this point go to [facility] as closest facility. Case discussed with the transfer team there. They did contact the trauma surgeon Dr. Benites who accepted transfer. Was pt. sent in by a medical professional or institution (, PA, SAFETY CLOTHING AND EQUIPMENT DEVELOPER, urgent care, hospital, or correction...) When possible be specific @ -[No] Did you speak to anyone other than the patient for history (EMS, parent, family, police, friend...)? What history was obtained from this source @ -[No] Did you review nursing and triage notes (agree or disagree)? Why? @ -[I reviewed and agree with nursing and triage notes] Were old charts reviewed (outside hosp., previous admission, EMS record, old EKG, old radiological studies, urgent care reports/EKG's, correction records)? Report findings @ -[No old charts were reviewed] Differential Diagnosis (chest pain, altered mental status, abdominal pain women, abdominal pain men, vaginal bleeding, weakness, fever, dyspnea, syncope, headache, dizziness, GI bleed, back pain, seizure, CVA, palpatations, mental health, musculoskeletal)? @ -[Differential Altered Mental Status: Hypoglycemia, DKA, hypercapnia, ETOH, overdose, CO poisoning, trauma, myxedema coma, HTN encephalopathy, infection, encephalitis, psychosis, intercranial hemorrhage, hepatic encephalopathy, meningitis, CVA, this is not meant to be an all-inclusive list EKG interpreted by me (3pts min.). @ -[I interpreted as above] X-rays interpreted by me (1pt min.). @ -[None done] CT interpreted by me (1pt min.). @ -[None done] U/S interpreted by me (1pt. min.). @ -[None done] What testing was considered but not performed or refused? (CT, X-rays, U/S, labs)? Why? @ -[None] What meds were considered but not given or refused? Why? @ -[None] Did you discuss the management of the patient with other professionals (professionals i.e. , PA, SAFETY CLOTHING AND EQUIPMENT DEVELOPER, lab, RT, psych nurse, social service coordinator, sports lawyer, teacher, executive vice president and chief operating officer, manager of case)? Give summary @ -[As above Was smoking cessation discussed for >3mins.? @ -[No] Was critical care preformed (if so, how long)? @ -[Yes, 30 minutes Were there social determinants of health that impacted care today? How? (Homelessness, low income, unemployed, alcoholism, drug addiction, transportation, low edu. Level, literacy, decrease access to med. care, fdc, rehab)? @ -[No] Was there de-escalation of care discussed even if they declined (Discuss DNR or withdrawal of care, Hospice)? DNR status @ -[No] What co-morbidities impacted this encounter? (DM, HTN, Smoking, COPD, CAD, Cancer, CVA, ARF, Chemo, Hep., AIDS, mental health diagnosis, sleep apnea, morbid obesity)? @ -[None] Was patient admitted / discharged? Hospital course, mention meds given and route, prescriptions, significant lab abnormalities, going to OR and other pertinent info. @ -[As above Undiagnosed new problem with uncertain prognosis? @ -[No] Drug Therapy requiring intensive monitoring for toxicity (Heparin, Nitro, Insulin, Cardizem)? @ -[No] Were any procedures done? @ -[No] Diagnosis/symptom? @ -[Acute fall injury Acute subdural hematoma Acute, or Chronic, or Acute on Chronic? @ -[Acute Uncomplicated (without systemic symptoms) or Complicated (systemic symptoms)? @ -Complicated by altered mental status Side effects of treatment? @ -[No] Exacerbation, Progression, or Severe Exacerbation? @ -[No] Poses a threat to life or bodily function? How? (Chest pain, USA, IA, pneumonia, PE, COPD, DKA, ARF, appy, cholecystitis, CVA, Diverticulitis, Homicidal, Suicidal, threat to staff... and all critical care pts) @ -[Yes there is threat to life requires neurosurgical evaluation and transfer for that purpose - EKG Data -: EKG Interpreted by Me EKG shows normal: axis (Left axis deviation), intervals (Interventricular conduction delay.) Rate: normal (Rate 69 bpm) Interpretation: other (EKG shows atrial paced rhythm rate 69 bpm) Disposition Clinical Impression: Fall, Subdural hemorrhage Disposition: OTHER INSTITUTION NOT DEFINED Condition: Serious Is patient prescribed a controlled substance at d/c from ED?: No Referrals: Drew Neff DO [Primary Care Provider] - 1-2 days - Out of Hospital Transfer - Req. Specs Out of Hospital Transfer - Requested Specifics: Other Emergency Center
[2024-06-27 08:08] VITALS: RESP 18
[2024-06-27 08:48] VITALS: BP 106/48; PULSE 61; TEMP 98
== END 2024-06-27 08:51 | disposition other institution (70) ==
LOC: EC 05:35
DX: S06.5XAA Traumatic subdural hemorrhage with loss of consciousness status unknown, initial encounter (principal); Z88.0 Allergy status to penicillin; Z88.6 Allergy status to analgesic agent; Z88.5 Allergy status to narcotic agent; Z88.8 Allergy status to other drugs, medicaments and biological substances; Z88.1 Allergy status to other antibiotic agents; Z88.2 Allergy status to sulfonamides; W19.XXXA Unspecified fall, initial encounter
CPT/HCPCS: 70450; 72125; 93005; 99285

== ENCOUNTER 2024-07-13 11:33 | Emergency (ER) | payer MEDICARE, OTHER ==
[2024-07-13 11:49] VITALS: TEMP 98.3
--- NOTE | 2024-07-13 12:02 | ED ---
Fall HPI - General Chief Complaint: Fall Stated Complaint: Fall Time Seen by Provider: 07/13/24 11:41 Source: family, EMS, RN notes reviewed Mode of arrival: EMS Limitations: altered mental status, physical limitation - History of Present Illness Initial Comments: This is a 78-year-old female who presents to the emergency department for a fall. Patient currently lives at [facility] and had been trying to get up on her own. She ended up falling from a standing position and hitting her head. Not taking any blood thinners. There was no loss of consciousness. She denies any complaints at this time. She is a rather poor historian, which family at bedside states is her baseline. She was transferred to [facility] at the end of last month for a subdural hematoma from a fall. She was taken off of all of her blood thinners at that time. No surgical intervention was required, family states that they just monitored her. MD Complaint: fall - Related Data Home Medications Medication Instructions Recorded Confirmed Baclofen 10 mg PO HS 04/13/15 08/13/23 Topiramate [Topamax] 200 mg PO DAILY 03/28/17 08/13/23 lamoTRIgine [LaMICtal] 200 mg PO DAILY 03/28/17 08/13/23 Amiodarone [Cordarone] 200 mg PO DAILY 03/22/21 08/13/23 Clopidogrel Bisulfate [Plavix] 75 mg PO DAILY 03/22/21 08/13/23 DULoxetine HCL [Cymbalta] 60 mg PO HS 03/22/21 08/13/23 Rivaroxaban [Xarelto] 15 mg PO HS 03/22/21 08/13/23 carvediloL [Coreg*] 12.5 mg PO BID-W/MEALS 07/05/21 08/13/23 Nitroglycerin Sl Tabs [Nitrostat] 0.4 mg SUBLINGUAL Q5M PRN 08/01/21 08/13/23 amLODIPine [Norvasc] 5 mg PO DAILY 08/01/21 08/13/23 Docusate [Colace] 100 mg PO DAILY 08/13/23 08/13/23 Docusate [Colace] 100 mg PO DAILY 08/13/23 08/13/23 Donepezil [Aricept] 5 mg PO HS 08/13/23 08/13/23 Ezetimibe [Zetia] 10 mg PO DAILY 08/13/23 08/13/23 L.acidoph,Paracasei, B.lactis 1 cap PO HS 08/13/23 08/13/23 [Probiotic] Memantine [Namenda] 5 mg PO BID 08/13/23 08/13/23 Primidone [Mysoline] 50 mg PO DAILY 08/13/23 08/13/23 calcitrioL 0.25 mcg PO SUWE 08/13/23 08/13/23 Previous Rx's Medication Instructions Recorded LORazepam [Ativan] 1 mg PO BID PRN 3 Days #6 tab 08/18/23 cefuroxime axetiL [Ceftin] 500 mg PO BID 2 Days #4 tab 08/18/23 Allergies Allergy/AdvReac Type Severity Reaction Status Date / Time alendronate sodium Allergy Anaphylaxis Verified 06/27/24 05:44 [From Fosamax] amitriptyline HCl Allergy Unknown Verified 06/27/24 05:44 [From Elavil] doxepin HCl [From Sinequan] Allergy Unknown Verified 06/27/24 05:44 iodine Allergy Anaphylaxis Verified 06/27/24 05:44 Penicillins Allergy passed out Verified 06/27/24 05:44 simvastatin [From Zocor] Allergy Unknown Verified 06/27/24 05:44 sulindac [From Clinoril] Allergy Unknown Verified 06/27/24 05:44 vancomycin Allergy Anaphylaxis Verified 06/27/24 05:44 codeine AdvReac Abdominal Verified 06/27/24 05:44 Pain gabapentin [From Neurontin] AdvReac Nausea & Verified 06/27/24 05:44 Vomiting ibuprofen [From Motrin] AdvReac Abdominal Verified 06/27/24 05:44 Pain Review of Systems ROS Statement: Those systems with pertinent positive or pertinent negative responses have been documented in the HPI. ROS Other: All systems not noted in ROS Statement are negative. Past Medical History Past Medical History: Atrial Fibrillation, Cancer, Heart Failure, Dementia, Fibromyalgia, Hypertension, Memory Impairment, Musculoskeletal Disorder, Osteoarthritis (OA), Sleep Apnea/CPAP/BIPAP Additional Past Medical History / Comment(s): Born with only Lt kidney, Fibroids, Breast cancer 1985-radiation txs, Benign Tremors, Psuedo Coarctation of Aorta, Narcolepsy, No cpap, dementia, diverticulitis History of Any Multi-Drug Resistant Organisms: None Reported Past Surgical History: Breast Surgery, Cholecystectomy, Heart Catheterization With Stent, Hysterectomy, Pacemaker, Tonsillectomy, Tubal Ligation Additional Past Surgical History / Comment(s): EP Study/Ablation 2006, pacemaker, Laser eye SX. bilateral mastectomy,Pain proc Past Anesthesia/Blood Transfusion Reactions: No Reported Reaction Date of Last Stent Placement:: 2019 Type of Cardiac Device: Permanent Pacemaker Device Placement Date:: 2003 Past Psychological History: Anxiety, Bipolar Smoking Status: Never smoker Past Alcohol Use History: Unable to Obtain Past Drug Use History: Unable to Obtain - Past Family History Father Family Medical History: Cancer Additional Family Medical History / Comment(s): BONE CANCER Mother Family Medical History: Cancer Additional Family Medical History / Comment(s): BREAST CANCER W/METS. Daughter(s) Family Medical History: Cancer Brother(s) Family Medical History: Cancer General Exam Limitations: altered mental status, physical limitation General appearance: alert, in no apparent distress Head exam: Present: atraumatic, normocephalic, normal inspection Respiratory exam: Present: normal lung sounds bilaterally. Absent: respiratory distress, wheezes, rales, rhonchi, stridor Cardiovascular Exam: Present: regular rate, normal rhythm, normal heart sounds. Absent: systolic murmur, diastolic murmur, rubs, gallop, clicks Neurological exam: Present: alert Skin exam: Present: warm, dry, intact, normal color. Absent: rash Course Vital Signs 07/13/24 11:36 Temperature 98.3 F Pulse Rate 68 Respiratory 16 Rate Blood Pressure 136/70 O2 Sat by Pulse 95 Oximetry Medical Decision Making - Medical Decision Making This is a 78 year old female who presents to the emergency department for a fall. Was pt. sent in by a medical professional or institution? @ -No Did you speak to anyone other than the patient for history? @ -Family provided the majority of the history. Did you review nursing and triage notes? @ -Yes, and I agree, it is accurate with regards to the patient's symptoms. Were old charts reviewed? @ -No Differential Diagnosis? @ -Differential Diagnosis Head Injury: Contusion, hematoma, intracranial hemorrhage, skull fracture, whiplash, concussion, this is not meant to be an all-inclusive list. EKG interpreted by me (3pts min.)? @ -Not obtained X-rays interpreted by me (1pt min.)? @ -Chest x-ray obtained, my interpretation identifies no localized consolidations or infiltrates. X-ray of the pelvis obtained. My interpretation identifies no acute fractures. CT interpreted by me (1pt min.)? @ -Computed tomography scan of the brain and c-spine obtained. My interpretation identifies no evidence of an acute intracranial hemorrhage, skull fracture, or cervical spine fracture. U/S interpreted by me (1pt. min.)? @ -Not obtained What testing was considered but not performed? (CT, X-rays, U/S, labs)? Why? @ -None What meds were considered but not given? Why? @ -None Did you discuss the management of the patient with other professionals? @ -No Did you reconcile home meds? @ -No Was smoking cessation discussed for >3mins.? @ -No Was critical care preformed (if so, how long)? @ -No Were there social determinants of health that impacted care today? How? (Homelessness, low income, unemployed, alcoholism, drug addiction, transportation, low edu. Level, literacy, decrease access to med. care, care home, rehab)? @ -No Was there de-escalation of care discussed even if they declined? (Discuss DNR or withdrawal of care, Hospice)? @ -No What co-morbidities impacted this encounter? (DM, HTN, Smoking, COPD, CAD, Cancer, CVA, Hep., AIDS, mental health diagnosis, sleep apnea, morbid obesity)? @ -Dementia Was patient admitted / discharged? @ -Discharged. CT scan of the brain and C-spine obtained revealing no acute process. X-ray of the chest and pelvis obtained as well, also revealing no acute findings. Patient did not have any visible injuries and did not have any complaints. Per family she was at her baseline. She was discharged back to [facility] via EMS in stable condition. Case discussed with ED attending Dr. Desouza. Return precautions reviewed in depth, the patient is instructed to return to the emergency department with any new, worsening, or concerning symptoms. Patient and her family verbalized understanding. Undiagnosed new problem with uncertain prognosis? @ -None Drug Therapy requiring intensive monitoring for toxicity (Heparin, Nitro, Insulin, Cardizem)? @ -None Were any procedures done? @ -None Diagnosis/symptom? @ -Fall, head injury Acute, or Chronic, or Acute on Chronic? @ -Acute Uncomplicated (without systemic symptoms) or Complicated (systemic symptoms)? @ -Uncomplicated Side effects of treatment? @ -None Exacerbation, Progression, or Severe Exacerbation] @ -Not applicable Poses a threat to life or bodily function? @ -No - Radiology Data Radiology results: report reviewed, image reviewed Disposition Clinical Impression: Fall, Head injury Disposition: HOME SELF-CARE Instructions (If sedation given, give patient instructions): Fall Prevention for Older Adults (ED) Additional Instructions: Return to the emergency department with any new, worsening, or concerning symptoms. Take Tylenol as needed for pain relief. Follow up with your primary care provider in 1-2 days. Is patient prescribed a controlled substance at d/c from ED?: No Referrals: Drew Neff DO [Primary Care Provider] - 1-2 days Time of Disposition: 12:57
--- NOTE | 2024-07-13 12:30 | XR ---
EXAMINATION TYPE: XR pelvis AP view DATE OF EXAM: 07/13/2024 12:21 PM COMPARISON: None CLINICAL INDICATION: Female, 78 years old with history of Fall; [facility] TECHNIQUE: XR pelvis AP view, examined in a single projection. FINDINGS: There is no evidence of fracture or dislocation. There is no soft tissue abnormality. No a bnormal calcifications are present. The spine appears intact. The hips appear intact. Osteophyte form ation of the superior acetabulum bilaterally with mild joint space narrowing. Surgical clips project over the pelvis. IMPRESSION: No acute osseous pathology. Moderate degeneration changes of the hip. [facility], , 07/13/2024 12:28 PM
--- NOTE | 2024-07-13 12:31 | XR ---
EXAMINATION TYPE: XR chest 2V DATE OF EXAM: 07/13/2024 12:20 PM COMPARISON: Chest radiographs from CLINICAL INDICATION: Female, 78 years old with history of Fall; [facility] TECHNIQUE: XR chest 2V Frontal and lateral views of the chest. FINDINGS: Lungs/Pleura: There is no evidence of pleural effusion, focal consolidation, or pneumothorax. Pulmonary vascularity: Unremarkable. Heart/mediastinum: Cardiomediastinal silhouette is unremarkable. Musculoskeletal: No acute osseous pathology. IMPRESSION: No acute cardiopulmonary disease/process. [facility], , 07/13/2024 12:29 PM
--- NOTE | 2024-07-13 12:35 | CT ---
EXAMINATION TYPE: CT brain cspine wo con DATE OF EXAM: 07/13/2024 12:14 PM COMPARISON: None. CLINICAL INDICATION: Female, 78 years old with history of Fall; FALL pain TECHNIQUE: Brain: Multiple axial CT images of the brain were obtained without IV contrast. Cspine: Axial CT images from the skull base to the inferior aspect of T2 we obtained without intraven ous contrast. Coronal and sagittal reformatted images were also reviewed. . CT DLP: 1405.5 mGycm, Automated exposure control for dose reduction was used. FINDINGS: Brain: Extra-axial spaces: No abnormal extra-axial fluid collections. Ventricular system: Dilatation in proportion to cerebral atrophy. Cerebral parenchyma: No acute intraparenchymal hemorrhage or mass effect. The patel-white junction is well differentiated. Scattered hypoattenuating areas are seen within the white matter. Cerebellum: Unremarkable. Mass effect: No evidence of midline shift. Intracranial vasculature: Atherosclerotic calcifications of the intracranial vessels. Soft tissues: Normal. Calvarium/osseous structures: No depressed skull fracture. Paranasal sinuses and mastoid air cells: Clear. Visualized orbits: Bilateral aphakia Cervical spine: Fracture: None. Osseous structures: Multilevel degenerative disc disease changes with endplate spurring and disc oste ophyte complex's scattered Schmorl's nodes are present.. Vertebral alignment: Within normal limits. Spinal canal/Neural Foramina: Disc osteophyte complexes at C5-C6 C6-C7 and C7-T1. With at least mild spinal canal stenosis. No evidence for significant neural foraminal stenosis. Neck soft tissues: Prevertebral soft tissues are within normal limits. Other: The airway is patent. The lung apices are clear. IMPRESSION: 1. No acute intracranial process. 2. Nonspecific white matter changes, likely secondary to chronic small vessel ischemic disease. 3. No evidence of cervical spine fracture. 4. Mild multilevel degenerative disc disease. [facility], , 07/13/2024 12:32 PM
[2024-07-13 13:31] VITALS: BP 156/72; PULSE 60; RESP 18
== END 2024-07-13 13:36 | disposition home or self-care (01) ==
LOC: EC 11:33
DX: S09.90XA Unspecified injury of head, initial encounter (principal); F03.90 Unspecified dementia, unspecified severity, without behavioral disturbance, psychotic disturbance, mood disturbance, and anxiety; Z88.0 Allergy status to penicillin; Z88.5 Allergy status to narcotic agent; Z88.6 Allergy status to analgesic agent; Z88.8 Allergy status to other drugs, medicaments and biological substances; Z91.041 Radiographic dye allergy status; Z95.0 Presence of cardiac pacemaker; Z79.899 Other long term (current) drug therapy; W01.0XXA Fall on same level from slipping, tripping and stumbling without subsequent striking against object, initial encounter
CPT/HCPCS: 70450; 71046; 72125; 72170; 99284